=== PATIENT | male | born 1980 | race Caucasian/White ===

== ENCOUNTER 2016-06-09 10:39 | Emergency (ER) | payer SELFPAY ==
[~2016-06-09] VITALS: Ht 182.9 cm; Wt 90.0 kg
[~2016-06-09 10:39] MED LIST: CIPR500T4 PO; OXYC-360 PO; PROM25SU8 PO; Z.0.NO CURRENT MEDS
[2016-06-09 10:41] VITALS: BP 121/77; PULSE 117; RESP 17; TEMP 97.6; O2SAT 98
--- NOTE | 2016-06-10 22:19 | EKG ---
Date Performed: 06/09/2016 Time Performed: 10:49:18 PTAGE: 36 years EKG: SINUS TACHYCARDIA POSSIBLE ANTERIOR MYOCARDIAL INFARCTION INFERIOR MYOCARDIAL INFARCTION Si nce previous tracing, no significant change noted ABNORMAL ECG PREVIOUS TRACING : 04/05/2010 22.33 DOCTOR: Leslie Tillman Interpretating Date/Time 06/10/2016 22:17:08
[2016-06-12] MEDS ORDERED: ALLO100T PO (10:49)
[2016-06-26] MEDS ORDERED: HYDR50CA PO (09:33)
[2016-06-26] MEDS ORDERED: METR500T10 PO (09:33)
== END 2016-06-09 11:21 | disposition left against medical advice (07) ==
LOC: NETRI 10:39
DX: R94.31 Abnormal electrocardiogram [ECG] [EKG] (principal)
CPT/HCPCS: 93005; 99281

== ENCOUNTER 2016-06-12 10:09 | Inpatient (IN) | payer SELFPAY ==
[2016-06-12] VITALS (8 sets, daily range): BP systolic 103–136; BP diastolic 66–82; PULSE 92–126; RESP 18–20; TEMP 99.2–101.5; O2SAT 94–96
[~2016-06-12] VITALS: Ht 172.7 cm; Wt 91.1 kg
[2016-06-12] MEDS ORDERED: ALLO100T PO ×2 (10:49)
[2016-06-12] MEDS ORDERED: OXYC-395 PO (10:49)
[2016-06-12] MEDS ORDERED: LIDOCAINE 1%/EPINEPHrine 1:100,000 SOLN 20 ML VIAL INFIL ONE (11:00)
[2016-06-12] MEDS ORDERED: SODIUM CHLOR 0.9% 1000 ML INJ 700 ML IV ONE (11:39)
[2016-06-12] MEDS ORDERED: SODIUM CHLOR 0.9% 1000 ML INJ 1,000 ML IV ONE ×2 (11:39)
[2016-06-12] MEDS ORDERED: ONDANSETRON HCL 4 MG/2 ML VIAL IV ONE (11:45)
[2016-06-12 11:50] LABS: AUTOMATED NEUTROPHIL # 24.1 TH/MM3 (1.8-7.7); BASOPHIL % 0.1 % (0.0-2.0); EOSINOPHIL # 0.1 TH/MM3 (0-0.4); EOSINOPHIL % 0.2 % (0.0-4.0); HEMATOCRIT 35.3 % (39.0-51.0); LYMPH % 5.5 % (9.0-44.0); LYMPHOCYTE # 1.6 TH/MM3 (1.0-4.8); MEAN CELL VOLUME 82.1 FL (80.0-100.0); MEAN CORPUSCULAR HEMOGLOBIN 28.8 PG (27.0-34.0); MEAN CORPUSCULAR HGB CONC 35.1 % (32.0-36.0); MONO % 9.3 % (0.0-8.0); NEUT % 84.9 % (16.0-70.0); PLATELET COUNT 208 TH/MM3 (150-450); RED CELL DISTRIBUTION WIDTH 12.4 % (11.6-17.2); WHITE BLOOD COUNT 28.5 TH/MM3 (4.0-11.0)
[2016-06-12 11:57] LABS: CHLORIDE 97 MEQ/L (98-107); POTASSIUM 3.5 MEQ/L (3.5-5.1); SODIUM (NA) 134 MEQ/L (136-145)
[2016-06-12 12:00] LABS: ANION GAP 11 MEQ/L (5-15); BICARBONATE 26.3 MEQ/L (21.0-32.0); BLOOD UREA NITROGEN 16 MG/DL (7-18)
--- NOTE | 2016-06-12 12:01 | PD ---
HPI . Dizziness Chief Complaint: Dizziness Time Seen by Provider: 10:54 Travel History International Travel<30 days: No Contact w/Intl Traveler<30days: No Traveled to known affect area: No History of Present Illness HPI Patient presents complaining with dizziness, sweatiness, somnolence him a thirst , nausea, fever and blood in his urine. This is been ongoing for a couple days. It has been getting progressively worse. Pertinent history is that he has a ureteral stent in the left ureter and a Van catheter also in the left ureter. He states that this was placed in 2007 because of stones. Patient states that he is currently seeing a urologist. PFSH Past Medical History Arthritis: No Asthma: No Autoimmune Disease: No Blood Disorders: No Anxiety: Yes Depression: Yes Heart Rhythm Problems: No Cancer: No Cardiovascular Problems: No High Cholesterol: No Chest Pain: No Congestive Heart Failure: No COPD: No Cerebrovascular Accident: No Diabetes: No Diminished Hearing: No Endocrine: No GERD: No Glaucoma: No Gout: Yes Genitourinary: Yes Headaches: No Hepatitis: No Hiatal Hernia: No Hypertension: No Immune Disorder: No Kidney Stones: Yes Musculoskeletal: No Neurologic: No Psychiatric: No Reproductive: No Respiratory: No Immunizations Current: No Myocardial Infarction: No Renal Failure: No Seizures: No Sleep Apnea: No Thyroid Disease: No Ulcer: No Past Surgical History Abdominal Surgery: No AICD: No Arteriovenous Shunt: No Cardiac Surgery: No Ear Surgery: No Endocrine Surgery: No Eye Surgery: No Genitourinary Surgery: Yes (STENT FOR KIDNEY STONES) Gynecologic Surgery: No Insulin Pump: No Joint Replacement: No Oral Surgery: No Pacemaker: No Thoracic Surgery: No Tonsillectomy: Yes (AND ADENOIDECTOMY) Other Surgery: Yes Social History Alcohol Use: Yes (TWICE WEEKLY, 1-2 BEERS) Tobacco Use: Yes (ORAL TOBACCO, 2 CANS PER WEEK) Substance Use: No Allergies-Medications (Allergen,Severity, Reaction): Coded Allergies: Toradol (Verified Allergy, Severe, SWELLING OF THROAT, 06/12/16) Reported Meds & Prescriptions Reported Meds & Active Scripts Active Reported Oxycodone (Oxycodone HCl) 10 Mg Tab 10 Mg PO Q6H PRN Allopurinol 100 Mg Tab 100 Mg PO DAILY Review of Systems Except as stated in HPI: all other systems reviewed are Neg General / Constitutional: Positive: Fever, Chills HENT: No: Sore Throat, Rhinorrhea, Congestion Cardiovascular: No: Chest Pain or Discomfort Respiratory: No: Cough, Shortness of Breath Gastrointestinal: Positive: Nausea, No: Vomiting, Diarrhea Genitourinary: Positive: Hematuria Musculoskeletal: Positive: Weakness Neurologic: Positive: Weakness, Dizziness, No: Syncope, Focal Abnormalities Physical Exam Narrative GENERAL: Patient is diaphoretic. SKIN: He is pale. HEAD: Atraumatic. Normocephalic. EYES: Pupils equal and round. Extraocular movements are intact. ENT: No nasal bleeding or discharge. Mucous membranes pink and moist. NECK: Trachea midline. Neck is supple. CARDIOVASCULAR: Regular rate and rhythm. Heart sounds are normal. RESPIRATORY: No accessory muscle use. Lungs are clear with full air movement throughout. GASTROINTESTINAL: Abdomen soft, non-tender, nondistended. He does have left CVA tenderness. He has a Van catheter in from the left flank. The urine is clear. MUSCULOSKELETAL: No obvious deformities. No edema. NEUROLOGICAL: Awake and alert. No obvious cranial nerve deficits. Motor grossly within normal limits. Normal speech. PSYCHIATRIC: Appropriate mood and affect; insight and judgment normal. Data Data Last Documented VS Vital Signs Date Time Temp Pulse Resp B/P Pulse Ox O2 Delivery O2 Flow Rate FiO2 06/12/16 13:57 102 20 103/66 94 06/12/16 12:52 99.2 Orders Complete Blood Count With Diff (06/12/16 11:39) Comprehensive Metabolic Panel (06/12/16 11:39) Lactic Acid Sepsis Protocol (06/12/16 11:39) Urinalysis - C+S If Indicated (06/12/16 11:39) Blood Culture (06/12/16 11:39) Iv Access Insert/Monitor (06/12/16 11:39) Ondansetron Inj (Zofran Inj) (06/12/16 11:45) Sodium Chlor 0.9% 1000 Ml Inj (Ns 1000 M (06/12/16 11:39) Sodium Chlor 0.9% 1000 Ml Inj (Ns 1000 M (06/12/16 11:39) Sodium Chlor 0.9% 1000 Ml Inj (Ns 1000 M (06/12/16 11:39) Ct Abd/Pel W Iv Contrast(Rout) (06/12/16 12:01) Iohexol 350 Inj (Omnipaque 350 Inj) (06/12/16 12:20) Urine Culture (06/12/16 11:45) Ceftriaxone Inj (Rocephin Inj) (06/12/16 12:45) Labs Laboratory Tests Test 06/12/16 06/12/16 11:35 11:45 White Blood Count 28.5 TH/MM3 Red Blood Count 4.30 MIL/MM3 Hemoglobin 12.4 GM/DL Hematocrit 35.3 % Mean Corpuscular Volume 82.1 FL Mean Corpuscular Hemoglobin 28.8 PG Mean Corpuscular Hemoglobin 35.1 % Concent Red Cell Distribution Width 12.4 % Platelet Count 208 TH/MM3 Mean Platelet Volume 7.8 FL Neutrophils (%) (Auto) 84.9 % Lymphocytes (%) (Auto) 5.5 % Monocytes (%) (Auto) 9.3 % Eosinophils (%) (Auto) 0.2 % Basophils (%) (Auto) 0.1 % Neutrophils # (Auto) 24.1 TH/MM3 Lymphocytes # (Auto) 1.6 TH/MM3 Monocytes # (Auto) 2.7 TH/MM3 Eosinophils # (Auto) 0.1 TH/MM3 Basophils # (Auto) 0.0 TH/MM3 CBC Comment DIFF FINAL Differential Comment Sodium Level 134 MEQ/L Potassium Level 3.5 MEQ/L Chloride Level 97 MEQ/L Carbon Dioxide Level 26.3 MEQ/L Anion Gap 11 MEQ/L Blood Urea Nitrogen 16 MG/DL Creatinine 1.40 MG/DL Estimat Glomerular Filtration 57 ML/MIN Rate Random Glucose 177 MG/DL Calcium Level 9.2 MG/DL Total Bilirubin 0.9 MG/DL Aspartate Amino Transf 12 U/L (AST/SGOT) Alanine Aminotransferase 24 U/L (ALT/SGPT) Alkaline Phosphatase 83 U/L Total Protein 8.2 GM/DL Albumin 3.7 GM/DL Urine Collection Type CATH Urine Color YELLOW Urine Turbidity SLIGHTY CLOUDY Urine pH 6.0 Urine Specific [place] 1.014 Urine Protein 100 mg/dL Urine Glucose (UA) NEG mg/dL Urine Ketones NEG mg/dL Urine Occult Blood LARGE Urine Nitrite NEG Urine Bilirubin NEG Urine Leukocyte Esterase MOD Urine RBC 10-14 /hpf Urine WBC 20-24 /hpf Urine WBC Clumps FEW Urine Squamous Epithelial 0-5 /hpf Cells Urine Amorphous Sediment SMALL Urine Bacteria MOD /hpf Microscopic Urinalysis Comment CULTURE INDICATED Lactic Acid Level 0.9 mmol/L [facility] Medical Decision Making Medical Screen Exam Complete: Yes Emergency Medical Condition: Yes Differential Diagnosis Differential diagnosis of fever includes but is not limited to viral illness, strep throat, otitis media, pneumonia, sepsis, UTI Narrative Course Patient presents with multiple complaints. He has been febrile with diaphoresis , dizziness, somnolence, increased thirst and nausea. He has a stent in the left ureter along with a Van catheter in the left ureter. He has left CVA tenderness on exam. He will be evaluated for possible sepsis, specifically urosepsis. CBC & BMP Diagram 06/12/16 11:35 Lactic acid is 0.9. UA shows large blood, moderate leukocyte esterase, 10-14 RBCs, 20-24 WBCs, WBC clumps and moderate bacteria Sepsis Criteria SIRS Criteria (2 or more): Temp > 100.9 or < 96.8, Heart rate over 90, WBC > 65528, < 4000 or > 10% bands Sepsis Criteria (SIRS+source): Infect source susp/known Physician Communication Physician Communication Case discussed with Dr. Del Rio who recommends outpatient oral antibiotics and close urological follow-up Diagnosis Primary Impression: UTI (urinary tract infection) Qualified Code: N10 - Acute pyelonephritis Additional Impressions: Leukocytosis Qualified Code: D72.829 - Leukocytosis, unspecified type Renal calculi Referrals: Cristian Del Rio MD Patient Instructions: General Instructions, Kidney Stones (DC), Urinary Tract Infection in Men (DC) Additional Instructions: Drink lots of fluids. Ibuprofen as needed for fever. Cipro for infection. Follow-up with either Dr. Del Rio or with your urologist in 1 week or less. Med/Other Pt SpecificInfo: Prescription(s) given Scripts Ibuprofen 800 Mg Peh763 Mg PO Q8H PRN (FEVER) #30 TAB Ref 0 Prov:Marium Alvarado MD 06/12/16 Ciprofloxacin (Cipro)500 Mg Thl696 Mg PO BID #20 TAB Ref 0 Prov:Marium Alvarado MD 06/12/16 Disposition: 01 DISCHARGE HOME Condition: Stable Marium Alvarado MD Jun 12, 2016 12:01
[2016-06-12 12:02] LABS: HEMO FLAGS DIFF FINAL
[2016-06-12 12:03] LABS: ALT (GPT) 24 U/L (12-78)
[2016-06-12 12:04] LABS: AST (GOT) 12 U/L (15-37); GLOMERULAR FILTRATION RATE 57 ML/MIN (>89)
[2016-06-12 12:05] LABS: TOTAL BILIRUBIN ADULT 0.9 MG/DL (0.2-1.0)
[2016-06-12 12:06] LABS: ALKALINE PHOSPHATASE 83 U/L (45-117)
[2016-06-12 12:14] LABS: BLOOD, URINE LARGE (NEG); GLUCOSE,URINE NEG (NEG); KETONE, URINE NEG (NEG); NITRITE,URINE NEG (NEG)
[2016-06-12] MEDS ORDERED: IOHEXOL 350 MG/ML 10 ML VIAL (for RAD DIAG) IV ONE (12:20)
[2016-06-12 12:27] LABS: METHOD OF COLLECTION CATH; URINE COLOR YELLOW (YELLW/STRAW)
[2016-06-12 12:31] LABS: BACTERIA, URINE MOD /hpf; COMMENT (UR) CULTURE INDICATED; CULTURE IF INDICATED CULTURE INDICATED; SQUAMOUS EPITHELIAL CELL URINE 0-5 /hpf (0-5)
[2016-06-12] MEDS ORDERED: cefTRIAXone INJ 1,000 MG in SODIUM CHLORIDE 0.9% INJ 100 ML IV ONE (12:45)
--- NOTE | 2016-06-12 13:46 | RADHPO ---
EXAM DATE/TIME: 06/12/2016 12:09 [place] COMPARISON: CT ABDOMEN & PELVIS W/O CONTRAST, September 27, 2011, 23:48. INDICATIONS : Fever. Nausea. Blood in urine x 2 days. Left lower quadrant pain. IV CONTRAST: 85 cc Omnipaque 350 (iohexol) IV ORAL CONTRAST: No oral contrast ingested. RADIATION DOSE: 14.67 CTDIvol (mGy) MEDICAL HISTORY : Renal calculi. SURGICAL HISTORY : Van catheter. Ureteral stent. ENCOUNTER: Initial ACUITY: 2 days PAIN SCALE: 2/10 LOCATION: Left lower quadrant TECHNIQUE: Volumetric scanning of the abdomen and pelvis was performed. Using automated exposure control and ad justment of the mA and/or kV according to patient size, radiation dose was kept as low as reasonably achievable to obtain optimal diagnostic quality images. FINDINGS: LOWER LUNGS: Mild atelectasis at the left lung base. LIVER: Mild intrahepatic biliary ductal prominence diffusely. Mildly diffusely nodular contour of the liver capsule. No focal masses identified. SPLEEN: Enlarged measuring 14 cm in craniocaudal dimension. No focal masses. PANCREAS: Within normal limits. KIDNEYS: Large bilateral renal calculi again seen with staghorn calculus in the upper left kidney. Double-J ur eteral stent in place on the left. Track of left-sided percutaneous nephrostomy tube is seen on the l eft posteriorly. 1.2 cm calculus is seen posteriorly in the paranephric fat adjacent to the nephrosto my tube tract. No evidence of hydronephrosis or hydroureter. Several cysts are seen bilaterally. Mult iple calculi are seen within the left ureter including 1 cm calculus proximally and multiple subcenti meter calculi distally. ADRENAL GLANDS: Within normal limits. VASCULAR: There is no aortic aneurysm. BOWEL/MESENTERY: The stomach, small bowel, and colon demonstrate no acute abnormality. There is no free intraperitone al air or fluid. ABDOMINAL WALL: Within normal limits. RETROPERITONEUM: There is no lymphadenopathy. BLADDER: No wall thickening or mass. REPRODUCTIVE: Within normal limits. INGUINAL: There is no lymphadenopathy or hernia. MUSCULOSKELETAL: Within normal limits for patient age. CONCLUSION: 1. Large bilateral renal calculi again seen. Staghorn calculus again seen in the upper pole on the le ft. 2. Left-sided double-J ureteral stent in place. Multiple left sided ureteral calculi. No evidence of hydronephrosis. 3. Track from prior left-sided nephrostomy tube with calculus seen posterior to left kidney in the pa ranephric fat adjacent to the track. 4. Diffusely mildly nodular liver capsule contour suggesting possible cirrhosis. 5. Mild splenomegaly. Reji Lyman MD on June 12, 2016 at 13:36 Board Certified Radiologist. This report was verified electronically.
[2016-06-12] MEDS ORDERED: CIPR-9 PO (14:14)
[2016-06-12] MEDS ORDERED: IBUP800T23 PO (14:14)
[2016-06-12] MEDS ORDERED: ACETAMINOPHEN 325 MG TAB PO ONE (15:45)
[2016-06-12] MEDS: SODIUM CHLOR 0.9% 1000 ML INJ 1,000 ML IV SCH (15:53)
[2016-06-12] MEDS: PIPERACIL-TAZO 3.375 GM PREMIX 50 ML IV SCH ×2 (15:54→21:38)
[2016-06-12] MEDS: ONDANSETRON HCL 4 MG/2 ML VIAL IVP PRN ×2 (15:59→20:43)
[2016-06-12] MEDS ORDERED: SODIUM CHLORIDE 0.9% FLUSH 10 ML FLUSH IV FLUSH PRN (16:00)
[2016-06-12] MEDS ORDERED: NALOXONE HCL 0.4 MG/ML AMP IV PRN (16:00)
[2016-06-12] MEDS ORDERED: TEMAZEPAM 15 MG CAP PO PRN (16:00)
[2016-06-12] MEDS: SODIUM CHLORIDE 0.9% FLUSH 10 ML FLUSH IV FLUSH SCH (20:42)
[2016-06-12] MEDS: ACETAMINOPHEN/HYDROcodone 325 MG/5 MG TAB PO PRN (20:43)
[2016-06-13] MEDS: SODIUM CHLOR 0.9% 1000 ML INJ 1,000 ML IV SCH ×2 (01:12→11:47)
[2016-06-13] MEDS: ONDANSETRON HCL 4 MG/2 ML VIAL IVP PRN (03:31)
[2016-06-13] MEDS: PIPERACIL-TAZO 3.375 GM PREMIX 50 ML IV SCH ×4 (03:31→16:52)
[2016-06-13] MEDS: ACETAMINOPHEN/HYDROcodone 325 MG/5 MG TAB PO PRN ×4 (03:31→19:25)
[2016-06-13 04:00] VITALS: BP 110/62; PULSE 122; RESP 18; TEMP 98.9; O2SAT 93
[2016-06-13 05:56] LABS: BASOPHIL % 0.2 % (0.0-2.0); EOSINOPHIL # 0.4 TH/MM3 (0-0.4); EOSINOPHIL % 2.2 % (0.0-4.0); HEMATOCRIT 28.6 % (39.0-51.0); LYMPH % 7.5 % (9.0-44.0); LYMPHOCYTE # 1.4 TH/MM3 (1.0-4.8); MEAN CELL VOLUME 82.9 FL (80.0-100.0); MEAN CORPUSCULAR HEMOGLOBIN 27.7 PG (27.0-34.0); MEAN CORPUSCULAR HGB CONC 33.4 % (32.0-36.0); NEUT % 81.1 % (16.0-70.0); PLATELET COUNT 166 TH/MM3 (150-450); RED BLOOD COUNT 3.45 MIL/MM3 (4.50-5.90); RED CELL DISTRIBUTION WIDTH 12.6 % (11.6-17.2); WHITE BLOOD COUNT 18.5 TH/MM3 (4.0-11.0)
[2016-06-13 06:00] LABS: HEMO FLAGS AUTO DIFF
[2016-06-13 06:02] LABS: POTASSIUM 3.5 MEQ/L (3.5-5.1)
[2016-06-13 06:08] LABS: BICARBONATE 25.6 MEQ/L (21.0-32.0)
[2016-06-13 06:13] LABS: BANDS 7 % (0-6); EOSINOPHILS 2 % (0-4); PLATELET ESTIMATE SMEAR NORMAL (NORMAL); PLATELET MORPHOLOGY NORMAL (NORMAL); POLYS (SEG NEUTROPHILS) 74 % (16-70); WBC DIFF SAMPLE 100
[2016-06-13 06:14] LABS: SCAN/DIFF FINAL DIFF MANUAL
[2016-06-13 08:00] VITALS: BP 146/94; PULSE 59; RESP 16; TEMP 98; O2SAT 98
[2016-06-13] MEDS: SODIUM CHLORIDE 0.9% FLUSH 10 ML FLUSH IV FLUSH SCH ×2 (09:00→21:00)
[2016-06-13 12:00] VITALS: BP 134/76; PULSE 80; RESP 18; TEMP 98.3; O2SAT 97
[2016-06-13 16:00] VITALS: BP 147/94; PULSE 73; RESP 16; TEMP 97.8; O2SAT 96
--- NOTE | 2016-06-13 17:19 | HHI.HP ---
HPI Service [facility] Hospitalists Primary Care Physician No Primary Care Physician Admission Diagnosis Sepsis due to UTI Complicated UTI Diagnoses: Travel History International Travel<30 Days: No Contact w/Intl Traveler <30 Da: No Traveled to Known Affected Are: No History of Present Illness This is a very pleasant 36 year-old male with past medical history of kidney stones, recovering alcoholic who presents to the ER yesterday complaining of a 2 to three-day history of hot and cold sweats, and jitteriness/ anxiety, dizziness and feeling very weak. The patient has a history of left ureteral stent placed in 2007 at [place], for which he never followed up. He had been being treated in outpatient alcohol addiction program "sober house" [facility] recently. While there apparently he had a near syncopal event and was admitted to [facility] in [place] and hospitalized for about 16 days. At that time it was discovered that he had a large calculus which was apparently obstructive despite the ureteral stent, he underwent left nephrostomy tube and several lithotripsies. He was told that the stent was too calcified to come out during the hospitalization. His hospital course was complicated by UTI infection as well as C. difficile. He also had resection of the right elbow tophi. The patient states that he was discharged from the hospital about a month ago and has a follow-up appointment with the urologist who treated him there Dr. Jerry Easton. In our emergency department last night the patient was found to be febrile, tachycardic, with leukocytosis of 28,000 with left shift, initial lactic acid was 0.9, he was normotensive. The patient was treated with IV fluids and Zosyn. Abdominal CT scan revealed large bilateral renal calculi with a staghorn calculus in the left upper pole, a left-sided ureteral double-J stent with multiple left-sided ureteral calculi and no evidence of hydronephrosis. Left-sided nephrostomy tube was also present with a calculus being seen in the perinephric fat posterior to the left kidney. Incidental finding of cirrhosis which the patient was unaware of, mild splenomegaly. Today the patient is still complaining of dizziness all this is improved. He continues to have hot and cold flashes although it is subsiding. Blood pressure has been stable and pulse has come down with no further fevers today. The patient also complains of some left lower quadrant abdominal pain which is chronic from the stent. No nausea or vomiting. Stools have been formed without diarrhea. The patient states he has not had any alcohol since February 2016. He denies any dysuria or urgency. The ED physician did speak with the urologist on-call who recommended the patient needed to have outpatient urology follow-up. Review of Systems Except as stated in HPI: all other systems reviewed are Neg Past Family Social History Past Medical History History of alcoholism in remission since February 2016 Past Surgical History GENERAL: Well-nourished, well-developed very pleasant male patient in no apparent distress. SKIN: Warm and dry. Face is somewhat flushed. HEAD: Normocephalic. EYES: No scleral icterus. No injection or drainage. NECK: Supple, trachea midline. No JVD or lymphadenopathy. CARDIOVASCULAR: Regular rate and rhythm without murmurs, gallops, or rubs. RESPIRATORY: Breath sounds equal bilaterally. No accessory muscle use. GASTROINTESTINAL: Bowel sounds present. Abdomen soft, non-tender, nondistended. Left nephrostomy tube noted. EXTREMITIES: No cyanosis, or edema. Has a healing incision/scar right elbow. NEUROLOGICAL: Awake, alert, and oriented x 3. Non-focal. Reported Medications Allergies Coded Allergies Type Severity Reaction Last Updated Verified Toradol Allergy Severe SWELLING OF THROAT 06/12/16 Yes Active Scripts Medications Dose Route/Sig Days Date Category Ibuprofen 800 Mg Tab 800 Mg PO Q8H PRN 06/12/16 Rx Cipro (Ciprofloxacin HCl) 500 Mg Tab 500 Mg PO BID 06/12/16 Rx Oxycodone (Oxycodone HCl) 10 Mg Tab 10 Mg PO Q6H PRN 06/12/16 Reported Allopurinol 100 Mg Tab 100 Mg PO DAILY 06/12/16 Reported Allergies: Coded Allergies: Toradol (Verified Allergy, Severe, SWELLING OF THROAT, 06/12/16) Family History Father does have kidney stones. Social History He has 2 children under age 6. No history of recreational drug use or IV drug use. Quit drinking in February 2016. He currently is living with his father in the [facility]. Physical Exam Vital Signs Vital Signs Date Time Temp Pulse Resp B/P Pulse Ox O2 Delivery O2 Flow Rate FiO2 06/13/16 16:48 18 06/13/16 13:03 Room Air 06/13/16 12:00 98.3 80 18 134/76 97 06/13/16 08:00 98.0 59 16 146/94 98 06/13/16 04:00 98.9 122 18 110/62 93 06/13/16 04:00 Room Air 06/13/16 00:00 Room Air 06/12/16 23:48 99.3 92 18 106/67 95 06/12/16 20:00 100.2 105 18 119/74 94 06/12/16 20:00 Room Air 06/12/16 17:40 18 Physical Exam GENERAL: This is a well-nourished, well-developed patient, in no apparent distress. SKIN: No rashes, ecchymoses or lesions. Cool and dry. HEAD: Atraumatic. Normocephalic. No temporal or scalp tenderness. EYES: Pupils equal round and reactive. Extraocular motions intact. No scleral icterus. No injection or drainage. ENT: Nose without bleeding, purulent drainage or septal hematoma. Throat without erythema, tonsillar hypertrophy or exudate. Uvula midline. Airway patent. NECK: Trachea midline. No JVD or lymphadenopathy. Supple, nontender, no meningeal signs. CARDIOVASCULAR: Regular rate and rhythm without murmurs, gallops, or rubs. RESPIRATORY: Clear to auscultation. Breath sounds equal bilaterally. No wheezes , rales, or rhonchi. GASTROINTESTINAL: Abdomen soft, non-tender, nondistended. No hepato-splenomegaly , or palpable masses. No guarding. MUSCULOSKELETAL: Extremities without clubbing, cyanosis, or edema. No joint tenderness, effusion, or edema noted. No calf tenderness. Negative Homans sign bilaterally. NEUROLOGICAL: Awake and alert. Cranial nerves II through XII intact. Motor and sensory grossly within normal limits. Five out of 5 muscle strength in all muscle groups. Normal speech. Laboratory Laboratory Tests Test 06/13/16 04:50 White Blood Count 18.5 Red Blood Count 3.45 Hemoglobin 9.6 Hematocrit 28.6 Mean Corpuscular Volume 82.9 Mean Corpuscular Hemoglobin 27.7 Mean Corpuscular Hemoglobin 33.4 Concent Red Cell Distribution Width 12.6 Platelet Count 166 Mean Platelet Volume 7.9 Neutrophils (%) (Auto) 81.1 Lymphocytes (%) (Auto) 7.5 Monocytes (%) (Auto) 9.0 Eosinophils (%) (Auto) 2.2 Basophils (%) (Auto) 0.2 Neutrophils # (Auto) 15.0 Lymphocytes # (Auto) 1.4 Monocytes # (Auto) 1.7 Eosinophils # (Auto) 0.4 Basophils # (Auto) 0.0 CBC Comment AUTO DIFF Differential Total Cells 100 Counted Neutrophils % (Manual) 74 Band Neutrophils % 7 Lymphocytes % 9 Monocytes % 8 Eosinophils % 2 Neutrophils # (Manual) 15.0 Differential Comment FINAL DIFF MANUAL Platelet Estimate NORMAL Platelet Morphology Comment NORMAL Red Cell Morphology Comment NORMAL Sodium Level 139 Potassium Level 3.5 Chloride Level 103 Carbon Dioxide Level 25.6 Anion Gap 10 Blood Urea Nitrogen 14 Creatinine 1.30 Estimat Glomerular Filtration 62 Rate Random Glucose 107 Calcium Level 8.1 Date/Time Procedure Status Source Growth 06/12/16 11:45 Urine Culture - Preliminary Resulted Urine Catheterized Urine Gram Negative Ced 06/12/16 11:45 Aerobic Blood Culture - Preliminary Resulted Blood Peripheral NO GROWTH IN 1 DAY 06/12/16 11:45 Anaerobic Blood Culture - Preliminary Resulted Blood Peripheral NO GROWTH IN 1 DAY Result Diagram: 06/13/16 0450 06/13/16 0450 Imaging Last Impressions Abdomen/Pelvis CT 06/12/16 1201 Signed Impressions: Service Date/Time: May 12:09 - CONCLUSION: 1. Large bilateral renal calculi again seen. Staghorn calculus again seen in the upper pole on the left. 2. Left-sided double-J ureteral stent in place. Multiple left sided ureteral calculi. No evidence of hydronephrosis. 3. Track from prior left-sided nephrostomy tube with calculus seen posterior to left kidney in the paranephric fat adjacent to the track. 4. Diffusely mildly nodular liver capsule contour suggesting possible cirrhosis. 5. Mild splenomegaly. Reji Lyman MD Septic Shock Reassessment Heart: Regular rate and rhythm Lungs: Clear Peripheral Pulses: Bounding Right Radial Bounding Left Radial Bounding Right Popliteal Bounding Left Popliteal Bounding Right Dorsalis Pedis Bounding Left Dorsalis Pedis Bounding Right Posterior Tibial Bounding Left Posterior Tibial Capillary Refill: Brisk Assessment and Plan Problem List: (1) Renal calculi ICD Code: N20.0 Status: Acute (2) Leukocytosis ICD Code: D72.829 Status: Acute (3) Generalized anxiety disorder ICD Code: F41.1 Status: Chronic (4) Gout ICD Code: M10.9 Status: Chronic (5) Anemia ICD Code: D64.9 Status: Acute (6) Cirrhosis of liver ICD Code: K74.60 Status: Acute (7) Complicated UTI (urinary tract infection) ICD Code: N39.0 Status: Acute (8) Recovering alcoholic in remission ICD Code: F10.21 Status: Acute (9) Sepsis due to urinary tract infection ICD Code: A41.9 Status: Acute (10) Staghorn calculus ICD Code: N20.0 Status: Acute Assessment and Plan -Severe Sepsis due to UTI. Clinically improving. Continue Zosyn IV. Blood cultures negative at 24 hours, urine culture preliminary with gram-negative ced. Renal function good. Blood pressure stable. -Complicated UTI with left nephrostomy tube and left ureteral stent - as above. Continue Zosyn IV. -Acute kidney injury due to sepsis, resolved. Follow BMP and urine output. -Staghorn calculus, multiple left ureteral stones with left double-J stent indwelling since 2007, left nephrostomy tube placed approximately 6 weeks ago at outside hospital as well as multiple lithotripsies -he was told that the stent placed in 2007 was too calcified. Patient has follow-up appointment with a urologist Dr. Easton in [place], [place] on July 03. A urologist quality control systems manager did speak with the ER physician and recommended the patient follow-up with urology as outpatient. Patient is planning on keeping this appointment. I will request the hospital records from [place]. We'll continue Percocet as needed for the stent pain. -Anemia, probably dilutional. Will check iron profile. Repeat CBC in the morning. -Possible cirrhosis with nodular liver capsule seen on abdominal CT scan. Compensated. Likely due to history of alcoholism. Patient was previously unaware. Will need GI follow-up outpatient. 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 Liver enzymes support this. Monitor for any withdrawals. -Anxiety disorder. Continue Zoloft and Vistaril. He is followed at [facility]. -Currently without insurance. We'll try to get him set up with patient assistance so that he can be seen in the community clinic at [place]. -Mild hyponatremia. Resolved with IV fluids. -Gout, status post right elbow resection of tophi about 6 weeks ago. Continue allopurinol. -Status post treatment for C. difficile at outside hospital 6 weeks ago and has had formed stool since. Monitor for any diarrhea. -DVT prophylaxis with SCDs. Problem Qualifiers (1) Leukocytosis: Qualified Code: D72.829 - Leukocytosis, unspecified type (2) Gout: Flor Eldridge MD Jun 13, 2016 17:19
[2016-06-13] MEDS: ACETAMINOPHEN 325 MG TAB PO PRN (19:52)
[2016-06-13 20:45] VITALS: BP 118/81; PULSE 105; RESP 18; TEMP 100.9; O2SAT 100
[2016-06-14] VITALS: BP 130/87; PULSE 102; RESP 18; TEMP 100.2; O2SAT 100
[2016-06-14] MEDS: ACETAMINOPHEN 325 MG TAB PO PRN ×2 (00:11→03:56)
[2016-06-14] MEDS: SODIUM CHLOR 0.9% 1000 ML INJ 1,000 ML IV SCH ×3 (00:13→17:26)
[2016-06-14 04:00] VITALS: BP 138/89; PULSE 108; RESP 20; TEMP 98.7; O2SAT 100
[2016-06-14] MEDS: PIPERACIL-TAZO 3.375 GM PREMIX 50 ML IV SCH ×4 (04:35→21:50)
[2016-06-14 06:56] LABS: AUTOMATED NEUTROPHIL # 8.8 TH/MM3 (1.8-7.7); BASOPHIL % 0.3 % (0.0-2.0); EOSINOPHIL # 0.7 TH/MM3 (0-0.4); EOSINOPHIL % 5.5 % (0.0-4.0); HEMATOCRIT 27.6 % (39.0-51.0); HEMO FLAGS DIFF FINAL; LYMPH % 10.9 % (9.0-44.0); LYMPHOCYTE # 1.3 TH/MM3 (1.0-4.8); MEAN CELL VOLUME 83.2 FL (80.0-100.0); MEAN CORPUSCULAR HEMOGLOBIN 27.5 PG (27.0-34.0); MONO % 8.9 % (0.0-8.0); NEUT % 74.4 % (16.0-70.0); PLATELET COUNT 162 TH/MM3 (150-450); RED BLOOD COUNT 3.31 MIL/MM3 (4.50-5.90); RED CELL DISTRIBUTION WIDTH 12.3 % (11.6-17.2); WHITE BLOOD COUNT 11.9 TH/MM3 (4.0-11.0)
[2016-06-14 07:00] LABS: POTASSIUM 3.1 MEQ/L (3.5-5.1)
[2016-06-14 08:00] VITALS: BP 119/73; PULSE 89; RESP 17; TEMP 97.6; O2SAT 99
[2016-06-14] MEDS: SODIUM CHLORIDE 0.9% FLUSH 10 ML FLUSH IV FLUSH SCH ×2 (09:00→21:00)
[2016-06-14 12:00] VITALS: BP 121/80; PULSE 88; RESP 18; TEMP 97.7; O2SAT 97
[2016-06-14] MEDS: DOCUSATE SODIUM 100 MG CAP PO SCH ×2 (13:59→17:21)
[2016-06-14] MEDS ORDERED: predniSONE 20 MG TAB PO ONE (15:00)
[2016-06-14] MEDS ORDERED: COLCHICINE 0.6 MG TAB PO ONE (15:00)
--- NOTE | 2016-06-14 15:17 | HHI.PR ---
Subjective Remarks Patient seen and examined today with Dr. Eldridge. Patient states that is doing well until last night when he started noticing his gout acting up. He was out walking and had sudden onset of bilateral knee pain he is having significant amount of pain with ambulation. Is unable to ambulate at this time due to the pain. He states he also having left hand fourth digit swelling and pain where he can't bend it. The patient states that he typically gets flareups in his knees and fourth digit and occasionally in his feet. He states usually this responds very well to steroids. He is not sure if he's ever taking colchicine. Objective Vitals Vital Signs Date Time Temp Pulse Resp B/P Pulse Ox O2 Delivery O2 Flow Rate FiO2 06/14/16 12:00 97.7 88 18 121/80 97 06/14/16 08:00 97.6 89 17 119/73 99 06/14/16 04:00 98.7 108 20 138/89 100 06/14/16 00:00 100.2 102 18 130/87 100 06/13/16 20:45 100.9 105 18 118/81 100 06/13/16 20:00 Room Air 06/13/16 16:48 18 06/13/16 16:00 97.8 73 16 147/94 96 I/O 06/13/16 06/13/16 06/13/16 06/14/16 06/14/16 06/14/16 07:00 15:00 23:00 07:00 15:00 23:00 Intake Total 750 ml Output Total 1389 ml 200 ml Balance -1389 ml 750 ml -200 ml Intake Oral 650 ml IV Total 100 ml Output Urine Total 1389 ml 200 ml # Voids 2 Result Diagram: 06/14/16 0615 06/14/16 0615 Objective Remarks GENERAL: Well-developed, well-nourished, in no acute distress. alert and orientated HEENT: Head is normocephalic without any lesions or masses noted. Facial features are symmetric. Eyes: Extraocular muscles are intact. Conjunctivae were clear. NECK: Supple without any masses. Trachea midline no deviation. No JVD, CARDIAC: Regular rhythm, regular rate. S1/S2 are heard. No murmurs gallops or rubs. LUNGS: Clear to auscultation bilaterally. No wheeze, rhonchi or rales. No use of accessory muscles on inspiration or expiration. ABDOMEN: Soft, nontender. Nondistended. Bowel sounds heard in all 4 quadrants. No organomegaly or masses. Negative rebound, negative guarding EXTREMITIES: No edema, pulses are equal bilaterally. No cyanosis or clubbing. Bilateral knees appear to have some mild swelling, no erythema. Pain on range of motion NEUROLOGY: Mood and affect appear appropriate. Cranial nerves II through XII grossly intact. Moving all extremities, speech is clear Urinary Catheter: No Vascular Central Line Catheter: No A/P Assessment and Plan -Severe Sepsis due to UTI. Clinically improving, defervescing with downtrending white blood cell count Continue Zosyn IV. Blood cultures negative at 24 hours, urine culture preliminary with gram-negative jacky and group D enterococcus.. Renal function good. Blood pressure stable. -Complicated UTI with left nephrostomy tube and left ureteral stent - as above. Continue Zosyn IV. -Acute kidney injury due to sepsis, resolved. Follow BMP and urine output. -Staghorn calculus, multiple left ureteral stones with left double-J stent indwelling since 2007, left nephrostomy tube placed approximately 6 weeks ago at outside hospital as well as multiple lithotripsies -he was told that the stent placed in 2007 was too calcified. Patient has follow-up appointment with a urologist Dr. Easton in [place], [place] on July 03. A urologist diamond die polisher did speak with the ER physician and recommended the patient follow-up with urology as outpatient. Patient is planning on keeping this appointment. Requested the hospital records from [place]. We'll continue Percocet as needed for the stent pain. -Anemia, probably dilutional. Awaiting iron profile. Repeat CBC in the morning. -Possible cirrhosis with nodular liver capsule seen on abdominal CT scan. Compensated. Likely due to history of alcoholism. Patient was previously unaware. Will need GI follow-up outpatient. 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 Liver enzymes support this. Monitor for any withdrawals. -Anxiety disorder. Continue Zoloft and Vistaril. He is followed at [facility]. -Currently without insurance. Case management consulted to get him set up with patient assistance so that he can be seen in the community clinic at [place]. -Mild hyponatremia. Resolved with IV fluids. -Gout, status post right elbow resection of tophi about 6 weeks ago. Now with acute flareup in the knees. Continue allopurinol. Given dose of prednisone and Colchicine. -Status post treatment for C. difficile at outside hospital 6 weeks ago and has had formed stool since. Monitor for any diarrhea. -DVT prophylaxis with SCDs. Written by Tawanda Roque PA-C, acting as scribe for Dr. Eldridge on 06/14/16 at 1530. The documentation accurately reflects the work and decisions performed face-to- face by Dr. Eldridge on 06/14/16 at 1530. All or portions of this note were transcribed by scribe Tawanda Roque. I, Dr. Flor Eldridge personally performed the history, physical exam, and medical decision making; and confirmed the accuracy of the information in the transcribed note. Authenticated by Dr. Flor Eldridge on 06/14/16 at 18:19. Tawanda Roque Jun 14, 2016 15:17 Flor Eldridge MD Jun 14, 2016 18:19
[2016-06-14 16:00] VITALS: BP 127/77; PULSE 110; RESP 17; TEMP 101.3; O2SAT 98
[2016-06-14 16:32] LABS: FERRITIN 549 NG/ML (26-388); TRANSFERRIN IRON PROFILE 121 MG/DL (200-360); URIC ACID 3.5 MG/DL (2.6-7.2)
[2016-06-14] MEDS: MAGNESIUM HYDROXIDE SUSP 30 ML CUP PO PRN ×2 (17:54→17:59)
[2016-06-14 20:00] VITALS: BP 120/80; PULSE 101; RESP 20; TEMP 97.8; O2SAT 96
[2016-06-15] VITALS: BP 121/87; PULSE 76; RESP 18; TEMP 96.4; O2SAT 99
[2016-06-15 04:00] VITALS: BP 121/87; PULSE 76; RESP 18; TEMP 96.4; O2SAT 99
[2016-06-15] MEDS: SODIUM CHLOR 0.9% 1000 ML INJ 1,000 ML IV SCH ×2 (04:42→13:47)
[2016-06-15] MEDS: PIPERACIL-TAZO 3.375 GM PREMIX 50 ML IV SCH ×4 (04:42→22:31)
[2016-06-15 07:39] LABS: AUTOMATED NEUTROPHIL # 6.5 TH/MM3 (1.8-7.7); BASOPHIL % 0.1 % (0.0-2.0); EOSINOPHIL # 0.1 TH/MM3 (0-0.4); EOSINOPHIL % 0.8 % (0.0-4.0); HEMATOCRIT 28.5 % (39.0-51.0); HEMO FLAGS DIFF FINAL; LYMPH % 8.9 % (9.0-44.0); LYMPHOCYTE # 0.7 TH/MM3 (1.0-4.8); MEAN CELL VOLUME 83.3 FL (80.0-100.0); MEAN CORPUSCULAR HEMOGLOBIN 27.4 PG (27.0-34.0); MEAN CORPUSCULAR HGB CONC 32.8 % (32.0-36.0); MONO % 7.9 % (0.0-8.0); NEUT % 82.3 % (16.0-70.0); PLATELET COUNT 224 TH/MM3 (150-450); POTASSIUM 3.6 MEQ/L (3.5-5.1); RED BLOOD COUNT 3.42 MIL/MM3 (4.50-5.90); RED CELL DISTRIBUTION WIDTH 12.1 % (11.6-17.2); WHITE BLOOD COUNT 7.9 TH/MM3 (4.0-11.0)
[2016-06-15 07:44] LABS: BICARBONATE 26.8 MEQ/L (21.0-32.0); MAGNESIUM 1.6 MG/DL (1.5-2.5)
[2016-06-15 08:00] VITALS: BP 111/79; PULSE 69; RESP 19; TEMP 97.6; O2SAT 100
[2016-06-15] MEDS: SODIUM CHLORIDE 0.9% FLUSH 10 ML FLUSH IV FLUSH SCH ×2 (09:00→22:32)
[2016-06-15] MEDS: DOCUSATE SODIUM 100 MG CAP PO SCH ×3 (09:46→17:45)
[2016-06-15 12:00] VITALS: BP 117/83; PULSE 99; RESP 18; TEMP 97.7; O2SAT 98
--- NOTE | 2016-06-15 12:44 | HHI.PR ---
Subjective Remarks Patient states knee pain is much improved as well as swelling has diminished. Knees are still sore. He is still having hot and cold spells but no documented fever. Objective Vitals Vital Signs Date Time Temp Pulse Resp B/P Pulse Ox O2 Delivery O2 Flow Rate FiO2 06/15/16 12:00 97.7 99 18 117/83 98 06/15/16 12:00 97.7 99 18 117/83 98 06/15/16 08:00 97.6 69 19 111/79 100 06/15/16 04:00 96.4 76 18 121/87 99 06/15/16 00:00 96.4 76 18 121/87 99 06/15/16 00:00 96.4 76 18 121/87 99 06/14/16 20:00 97.8 101 20 120/80 96 06/14/16 19:00 96 Room Air 06/14/16 16:00 101.3 110 17 127/77 98 I/O 06/14/16 06/14/16 06/14/16 06/15/16 06/15/16 06/15/16 07:00 15:00 23:00 07:00 15:00 23:00 Intake Total 1983 ml Output Total 200 ml Balance -200 ml 1983 ml Intake Oral 620 ml IV Total 1363 ml Output Urine Total 200 ml # Voids 2 # Bowel Movements 0 Result Diagram: 06/15/16 0615 06/15/16 0615 Objective Remarks GENERAL: Well-nourished, well-developed very pleasant male patient in no apparent distress. SKIN: Warm and dry. He is somewhat pale. Face is somewhat flushed. HEAD: Normocephalic. EYES: No scleral icterus. No injection or drainage. NECK: Supple, trachea midline. No JVD or lymphadenopathy. CARDIOVASCULAR: Regular rate and rhythm without murmurs, gallops, or rubs. RESPIRATORY: Breath sounds equal bilaterally. No accessory muscle use. GASTROINTESTINAL: Bowel sounds present. Abdomen soft, non-tender, nondistended. Left nephrostomy tube noted. EXTREMITIES: Swelling of bilateral knees, improved. No erythema. Has a healing incision/scar right elbow. Left third digit is swollen. NEUROLOGICAL: Awake, alert, and oriented x 3. Non-focal. A/P Problem List: (1) Renal calculi ICD Code: N20.0 Status: Acute (2) Leukocytosis ICD Code: D72.829 Status: Acute (3) Generalized anxiety disorder ICD Code: F41.1 Status: Chronic (4) Gout ICD Code: M10.9 Status: Acute (5) Anemia ICD Code: D64.9 Status: Chronic (6) Cirrhosis of liver ICD Code: K74.60 Status: Chronic (7) Complicated UTI (urinary tract infection) ICD Code: N39.0 Status: Acute (8) Recovering alcoholic in remission ICD Code: F10.21 Status: Chronic (9) Sepsis due to urinary tract infection ICD Code: A41.9 Status: Acute (10) Staghorn calculus ICD Code: N20.0 Status: Chronic Assessment and Plan -Severe Sepsis due to UTI. Clinically improving, defervescing with resolved leukocytosis. Continue Zosyn IV. Blood cultures negative at 72 hours hours, urine culture preliminary with gram-negative jacky and group D enterococcus; final identification pending.. Renal function good. Blood pressure stable. -Complicated UTI with left nephrostomy tube and left ureteral stent - as above. Continue Zosyn IV. -Acute kidney injury due to sepsis, resolved. Follow BMP and urine output. -Staghorn calculus, multiple left ureteral stones with left double-J stent indwelling since 2007, left nephrostomy tube placed approximately 6 weeks ago at outside hospital as well as multiple lithotripsies -he was told that the stent placed in 2007 was too calcified. Patient has follow-up appointment with a urologist Dr. Easton in [place], [place] on July 03. A urologist talent solutions manager did speak with the ER physician and recommended the patient follow-up with urology as outpatient. Patient is planning on keeping this appointment. Requested the hospital records from [place], pending. We'll continue Percocet as needed for the stent pain. -Anemia, the drop in hemoglobin was probably dilutional. Iron is low and ferritin is elevated indicative of iron deficiency possibly chronic disease. We 'll start iron supplementation. Hemoccult was negative. Repeat CBC in the morning. -Possible cirrhosis with nodular liver capsule seen on abdominal CT scan. Compensated. Likely due to history of alcoholism. Patient was previously unaware. Will need GI follow-up outpatient. 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 Liver enzymes support this. Monitor for any withdrawals. -Anxiety disorder. Continue Zoloft and Vistaril. He is followed at [facility]. -Currently without insurance. Case management consulted to get him set up with patient assistance so that he can be seen in the community clinic at [place]. -Mild hyponatremia. Resolved with IV fluids. -Gout, status post right elbow resection of tophi about 6 weeks ago. Now with acute flareup in the knees. Improved status post prednisone 20 mg by mouth 1 yesterday. Continue colchicine. Continue allopurinol. -Status post treatment for C. difficile at outside hospital 6 weeks ago and has had formed stool since. Monitor for any diarrhea. -DVT prophylaxis with SCDs. Problem Qualifiers (1) Leukocytosis: Qualified Code: D72.829 - Leukocytosis, unspecified type (2) Gout: (3) Anemia: (4) Cirrhosis of liver: Qualified Code: K70.30 - Alcoholic cirrhosis of liver without ascites Flor Eldridge MD Jun 15, 2016 12:43
[2016-06-15] MEDS: COLCHICINE 0.6 MG TAB PO SCH ×2 (15:12→22:31)
[2016-06-15 20:00] VITALS: BP 131/83; PULSE 79; RESP 20; TEMP 97.8; O2SAT 100
[2016-06-16] VITALS: BP 131/89; PULSE 94; RESP 20; TEMP 97.8; O2SAT 99
[2016-06-16] MEDS: SODIUM CHLOR 0.9% 1000 ML INJ 1,000 ML IV SCH ×2 (00:38→08:59)
[2016-06-16] MEDS: PIPERACIL-TAZO 3.375 GM PREMIX 50 ML IV SCH ×2 (05:41→09:36)
[2016-06-16 07:18] LABS: AUTOMATED NEUTROPHIL # 5.8 TH/MM3 (1.8-7.7); BASOPHIL % 0.3 % (0.0-2.0); EOSINOPHIL # 0.5 TH/MM3 (0-0.4); EOSINOPHIL % 5.7 % (0.0-4.0); HEMATOCRIT 28.2 % (39.0-51.0); HEMO FLAGS DIFF FINAL; LYMPH % 21.7 % (9.0-44.0); LYMPHOCYTE # 1.9 TH/MM3 (1.0-4.8); MEAN CELL VOLUME 84.9 FL (80.0-100.0); MEAN CORPUSCULAR HEMOGLOBIN 28.5 PG (27.0-34.0); MEAN CORPUSCULAR HGB CONC 33.6 % (32.0-36.0); MONO % 7.3 % (0.0-8.0); PLATELET COUNT 232 TH/MM3 (150-450); RED BLOOD COUNT 3.32 MIL/MM3 (4.50-5.90); RED CELL DISTRIBUTION WIDTH 12.7 % (11.6-17.2); WHITE BLOOD COUNT 8.9 TH/MM3 (4.0-11.0)
[2016-06-16 07:27] LABS: POTASSIUM 3.6 MEQ/L (3.5-5.1)
[2016-06-16 07:34] LABS: BICARBONATE 28.6 MEQ/L (21.0-32.0)
[2016-06-16 08:00] VITALS: BP 124/84; PULSE 81; RESP 18; TEMP 96.3; O2SAT 100
[2016-06-16] MEDS: SODIUM CHLORIDE 0.9% FLUSH 10 ML FLUSH IV FLUSH SCH ×2 (08:59→21:11)
[2016-06-16] MEDS: DOCUSATE SODIUM 100 MG CAP PO SCH ×3 (08:59→18:53)
[2016-06-16] MEDS: COLCHICINE 0.6 MG TAB PO SCH ×2 (11:15→21:09)
[2016-06-16 12:00] VITALS: BP 137/93; PULSE 97; RESP 20; TEMP 97.6; O2SAT 96
--- NOTE | 2016-06-16 12:10 | HHI.PR ---
Subjective Remarks Knee pain has worsened today after improvement yesterday. No fevers. Patient takes Zoloft 100 mg daily and Vistaril as needed for anxiety. Objective Vitals Vital Signs Date Time Temp Pulse Resp B/P Pulse Ox O2 Delivery O2 Flow Rate FiO2 06/16/16 08:00 96.3 81 18 124/84 100 06/16/16 00:00 97.8 94 20 131/89 99 06/15/16 20:00 97.8 79 20 131/83 100 I/O 06/15/16 06/15/16 06/15/16 06/16/16 06/16/16 06/16/16 07:00 15:00 23:00 07:00 15:00 23:00 Intake Total 600 ml 1210 ml Output Total 600 ml 525 ml 200 ml Balance -600 ml 75 ml 1010 ml Intake Oral 600 ml 110 ml IV Total 1100 ml Output Urine Total 600 ml 525 ml Drainage Total 200 ml # Voids 1 1 # Bowel Movements 1 0 0 Result Diagram: 06/16/16 0518 06/16/16 0518 Objective Remarks GENERAL: Well-nourished, well-developed very pleasant male patient in no apparent distress. SKIN: Warm and dry. He is somewhat pale. HEAD: Normocephalic. EYES: No scleral icterus. No injection or drainage. NECK: Supple, trachea midline. No JVD or lymphadenopathy. CARDIOVASCULAR: Regular rate and rhythm without murmurs, gallops, or rubs. RESPIRATORY: Breath sounds equal bilaterally. No accessory muscle use. GASTROINTESTINAL: Bowel sounds present. Abdomen soft, non-tender, nondistended. Left nephrostomy tube noted. EXTREMITIES: Swelling of bilateral knees, right more than left, no warmth or erythema. Has a healing incision/scar right elbow. Left third digit is swollen. NEUROLOGICAL: Awake, alert, and oriented x 3. Non-focal. A/P Problem List: (1) Renal calculi ICD Code: N20.0 Status: Acute (2) Leukocytosis ICD Code: D72.829 Status: Acute (3) Generalized anxiety disorder ICD Code: F41.1 Status: Chronic (4) Gout ICD Code: M10.9 Status: Acute (5) Anemia ICD Code: D64.9 Status: Chronic (6) Cirrhosis of liver ICD Code: K74.60 Status: Chronic (7) Complicated UTI (urinary tract infection) ICD Code: N39.0 Status: Acute (8) Recovering alcoholic in remission ICD Code: F10.21 Status: Chronic (9) Sepsis due to urinary tract infection ICD Code: A41.9 Status: Acute (10) Staghorn calculus ICD Code: N20.0 Status: Chronic Assessment and Plan -Severe Sepsis due to UTI. clinically resolved, defervesced with resolved leukocytosis. On Zosyn IV day 5. Blood cultures negative at 72 hours hours, urine culture with acinetobacter lofli and group D enterococcus, both sensitive to cipro, will change to cipro PO. total 14 days therapy. -Complicated UTI with left nephrostomy tube and left ureteral stent - as above. -Acute kidney injury due to sepsis, resolved. -Staghorn calculus, multiple left ureteral stones with left double-J stent indwelling since 2007, left nephrostomy tube placed approximately 6 weeks ago at outside hospital as well as multiple lithotripsies -he was told that the stent placed in 2007 was too calcified. Patient has follow-up appointment with a urologist Dr. Easton in [place], [place] on July 03. A urologist convertible power shovel operator did speak with the ER physician and recommended the patient follow-up with urology as outpatient. Patient is planning on keeping this appointment. Requested the hospital records from [facility], however they have not arrived. We'll continue Percocet as needed for the stent pain. -Anemia, the drop in hemoglobin was probably dilutional. Iron is low and ferritin is elevated indicative of iron deficiency possibly chronic disease. We 'll start iron supplementation. Hemoccult was negative. Hb has been stable around 9. -Possible cirrhosis with nodular liver capsule seen on abdominal CT scan. Compensated. Likely due to history of alcoholism. Patient was previously unaware. Will need GI follow-up outpatient. 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 Liver enzymes support this. no evidence of withdrawals. -Anxiety disorder. Continue Zoloft and Vistaril. He is followed at [facility]. -Currently without insurance. Case management consulted to get him set up with patient assistance so that he can be seen in the community clinic at [place]. -Mild hyponatremia. Resolved with IV fluids. -Gout, status post right elbow resection of tophi about 6 weeks ago. Now with acute flareup in the knees. Improved status post prednisone 20 mg by mouth on , however now worsened today, will start prednisone 20 mg PO BID. Continue colchicine. Continue allopurinol. -Status post treatment for C. difficile at outside hospital 6 weeks ago and has had formed stool since. Monitor for any diarrhea. -DVT prophylaxis with SCDs. Discharge Planning Discharge home tomorrow if gout attack improved. Problem Qualifiers (1) Leukocytosis: Qualified Code: D72.829 - Leukocytosis, unspecified type (2) Gout: (3) Anemia: (4) Cirrhosis of liver: Qualified Code: K70.30 - Alcoholic cirrhosis of liver without ascites Flor Eldridge MD Jun 16, 2016 12:10
[2016-06-16] MEDS ORDERED: hydrOXYzine PAMOATE 25 MG CAP PO PRN (13:45)
[2016-06-16] MEDS: predniSONE 20 MG TAB PO SCH ×2 (14:45→21:09)
[2016-06-16] MEDS: SERTRALINE HCL 100 MG TAB PO SCH (14:48)
[2016-06-16 16:00] VITALS: BP 140/89; PULSE 94; RESP 19; TEMP 97.9; O2SAT 97
[2016-06-16 20:00] VITALS: BP 121/90; PULSE 82; RESP 18; TEMP 97.4; O2SAT 98
[2016-06-16] MEDS: CIPROFLOXACIN 500 MG TAB PO SCH (21:09)
[2016-06-16 23:00] VITALS: BP 138/92; PULSE 79; RESP 16; TEMP 98.2; O2SAT 91
[2016-06-17 05:29] VITALS: BP 116/81; PULSE 76; RESP 14; TEMP 96; O2SAT 97
[2016-06-17 08:00] VITALS: BP 115/77; PULSE 72; RESP 19; TEMP 98.2; O2SAT 96
[2016-06-17] MEDS: DOCUSATE SODIUM 100 MG CAP PO SCH ×2 (09:00→11:56)
[2016-06-17] MEDS: SODIUM CHLORIDE 0.9% FLUSH 10 ML FLUSH IV FLUSH SCH (09:00)
[2016-06-17] MEDS: COLCHICINE 0.6 MG TAB PO SCH (09:37)
[2016-06-17] MEDS: predniSONE 20 MG TAB PO SCH (09:38)
[2016-06-17] MEDS: CIPROFLOXACIN 500 MG TAB PO SCH (09:38)
[2016-06-17] MEDS: SERTRALINE HCL 100 MG TAB PO SCH (09:38)
[2016-06-17 10:43] VITALS: RESP 18
[2016-06-17] MEDS ORDERED: OXYC-395 PO (11:58)
[2016-06-17] MEDS ORDERED: IBUP800T23 PO (11:58)
[2016-06-17] MEDS ORDERED: CIPR-9 PO (11:58)
--- NOTE | 2016-06-17 11:59 | HHI.DS ---
Discharge Summary Admission Date Jun 14, 2016 at 10:21 Discharge Date: Jun 17, 2016 Admitting Diagnosis Sepsis due to UTI Complicated UTI (1) Renal calculi ICD Code: N20.0 (2) Leukocytosis ICD Code: D72.829 (3) Generalized anxiety disorder ICD Code: F41.1 (4) Gout ICD Code: M10.9 (5) Anemia ICD Code: D64.9 (6) Cirrhosis of liver ICD Code: K74.60 (7) Complicated UTI (urinary tract infection) ICD Code: N39.0 (8) Recovering alcoholic in remission ICD Code: F10.21 (9) Sepsis due to urinary tract infection ICD Code: A41.9 (10) Staghorn calculus ICD Code: N20.0 Procedures None Brief History - From Admission This is a very pleasant 36 year-old male with past medical history of kidney stones, recovering alcoholic who presents to the ER yesterday complaining of a 2 to three-day history of hot and cold sweats, and jitteriness/ anxiety, dizziness and feeling very weak. The patient has a history of left ureteral stent placed in 2007 at [place], for which he never followed up. He had been being treated in outpatient alcohol addiction program "sober house" in [facility] recently. While there apparently he had a near syncopal event and was admitted to [facility] in [place] and hospitalized for about 16 days. At that time it was discovered that he had a large calculus which was apparently obstructive despite the ureteral stent, he underwent left nephrostomy tube and several lithotripsies. He was told that the stent was too calcified to come out during the hospitalization. His hospital course was complicated by UTI infection as well as C. difficile. He also had resection of the right elbow tophi. The patient states that he was discharged from the hospital about a month ago and has a follow-up appointment with the urologist who treated him there Dr. Jerry Easton. In our emergency department last night the patient was found to be febrile, tachycardic, with leukocytosis of 28,000 with left shift, initial lactic acid was 0.9, he was normotensive. The patient was treated with IV fluids and Zosyn. Abdominal CT scan revealed large bilateral renal calculi with a staghorn calculus in the left upper pole, a left-sided ureteral double-J stent with multiple left-sided ureteral calculi and no evidence of hydronephrosis. Left-sided nephrostomy tube was also present with a calculus being seen in the perinephric fat posterior to the left kidney. Incidental finding of possible cirrhosis which the patient was unaware of, mild splenomegaly. The patient also complained of some left lower quadrant abdominal pain which is chronic from the stent. No nausea or vomiting. Stools have been formed without diarrhea. The patient states he has not had any alcohol since February 2016. He denies any dysuria or urgency. The ED physician did speak with the urologist on-call who recommended the patient needed to have outpatient urology follow-up. CBC/BMP: 06/16/16 0518 06/16/16 0518 Significant Findings Laboratory Tests Test 06/15/16 06/16/16 06:15 05:18 Red Blood Count 3.42 MIL/MM3 3.32 MIL/MM3 (4.50-5.90) (4.50-5.90) Hemoglobin 9.4 GM/DL 9.5 GM/DL (13.0-17.0) (13.0-17.0) Hematocrit 28.5 % 28.2 % (39.0-51.0) (39.0-51.0) Neutrophils (%) (Auto) 82.3 % (16.0-70.0) Lymphocytes (%) (Auto) 8.9 % (9.0-44.0) Lymphocytes # (Auto) 0.7 TH/MM3 (1.0-4.8) Random Glucose 166 MG/DL (74-106) Calcium Level 8.4 MG/DL (8.5-10.1) Eosinophils (%) (Auto) 5.7 % (0.0-4.0) Eosinophils # (Auto) 0.5 TH/MM3 (0-0.4) Imaging Last Impressions Abdomen/Pelvis CT 06/12/16 1201 Signed Impressions: Service Date/Time: May 12:09 - CONCLUSION: 1. Large bilateral renal calculi again seen. Staghorn calculus again seen in the upper pole on the left. 2. Left-sided double-J ureteral stent in place. Multiple left sided ureteral calculi. No evidence of hydronephrosis. 3. Track from prior left-sided nephrostomy tube with calculus seen posterior to left kidney in the paranephric fat adjacent to the track. 4. Diffusely mildly nodular liver capsule contour suggesting possible cirrhosis. 5. Mild splenomegaly. Reji Lyman MD PE at Discharge GENERAL: Well-nourished, well-developed very pleasant male patient in no apparent distress. SKIN: Warm and dry. He is somewhat pale. HEAD: Normocephalic. EYES: No scleral icterus. No injection or drainage. NECK: Supple, trachea midline. No JVD or lymphadenopathy. CARDIOVASCULAR: Regular rate and rhythm without murmurs, gallops, or rubs. RESPIRATORY: Breath sounds equal bilaterally. No accessory muscle use. GASTROINTESTINAL: Bowel sounds present. Abdomen soft, non-tender, nondistended. Left nephrostomy tube noted. EXTREMITIES: Swelling of bilateral knees, right more than left, no warmth or erythema. Has a healing incision/scar right elbow. Left third digit is swollen. NEUROLOGICAL: Awake, alert, and oriented x 3. Non-focal. Hospital Course The patient was admitted to the hospital and treated with Zosyn IV. Blood cultures remain negative. Urine cultures grew Enterobacter faecalis and Acinetobacter lwoffi group both sensitive to Cipro. While hospitalized the patient was noted to have anemia which appeared to be chronic. Hemoccult was negative. Iron profile was consistent of anemia of chronic disease. The patient also developed an acute gout attack of his knees and was treated with colchicine and prednisone. He has improved. The patient has a follow-up appointment with his urologist in [place] Dr. Easton on July 03. He will be discharged home today to complete total 14 days therapy for the complicated UTI. He is to return to the ER for any recurrent fevers or chills. Pt Condition on Discharge: Stable Discharge Disposition: Discharge Home Discharge Time: > 30 minutes Discharge Instructions DIET: Follow Instructions for: As Tolerated, No Restrictions Activities you can perform: Regular-No Restrictions Follow up Referrals: Urology - 2 Weeks New Medications: Prednisone (Prednisone) 20 Mg Tab 20 MG PO BID gout #10 TAB Continued Medications: Allopurinol (Allopurinol) 100 Mg Tab 100 MG PO DAILY Gout #30 Ref 0 TAB Ciprofloxacin (Cipro) 500 Mg Tab 500 MG PO BID Infection #20 Ref 0 TAB (This prescription has been renewed) Ibuprofen (Ibuprofen) 800 Mg Tab 800 MG PO Q8H PRN FEVER #30 Ref 0 TAB (This prescription has been renewed) Oxycodone (Oxycodone) 10 Mg Tab 10 MG PO Q6H PRN PAIN #20 Ref 0 TAB (This prescription has been renewed) Flor Eldridge MD Jun 17, 2016 11:59
[2016-06-17] MEDS ORDERED: PRED20 PO (12:37)
[2016-06-18] MEDS ORDERED: ZOLO100T PO (01:56)
[2016-06-26] MEDS ORDERED: METR500T10 PO (09:33)
[2016-06-26] MEDS ORDERED: HYDR50CA PO (09:33)
== END 2016-06-17 12:41 | disposition home or self-care (01) | DRG 872 ==
LOC: PHED 10:09 → PHEDA 15:51 → PH3A 17:39 → PHICU 18:48 → PH3A 06-13 08:35 → OBSVTOIN 06-14 10:21
PROVIDERS: ADMIT Family Medicine; ATTEND Family Medicine
DX: A41.9 Sepsis, unspecified organism (principal); N17.9 Acute kidney failure, unspecified; K74.60 Unspecified cirrhosis of liver; E87.1 Hypo-osmolality and hyponatremia; N39.0 Urinary tract infection, site not specified; B95.2 Enterococcus as the cause of diseases classified elsewhere; B96.89 Other specified bacterial agents as the cause of diseases classified elsewhere; Z93.6 Other artificial openings of urinary tract status; N20.0 Calculus of kidney; F10.21 Alcohol dependence, in remission; M10.9 Gout, unspecified; F41.1 Generalized anxiety disorder; D63.8 Anemia in other chronic diseases classified elsewhere; F17.220 Nicotine dependence, chewing tobacco, uncomplicated
CPT/HCPCS: 74177; 80048; 80053; 81001; 82272; 82607; 82728; 82746; 83540; 83550; 83605; 83735; 84550; 85007; 85025; 85027; 87040; 87077; 87086; 87186; 96361; 96365; 96375; G0378; J0696; J2405; J2543; J7030; J7512; Q9967

== ENCOUNTER 2016-06-18 01:13 | Emergency (ER) | payer SELFPAY ==
[~2016-06-18] VITALS: Ht 182.9 cm; Wt 90.1 kg
[~2016-06-18 01:13] MED LIST changes: +ALLO100T PO; +CIPR-9 PO; +IBUP800T23 PO; +OXYC-395 PO; +PRED20 PO
[2016-06-18 01:20] VITALS: BP 140/93; PULSE 93; RESP 16; TEMP 97.7; O2SAT 98
[2016-06-18] MEDS ORDERED: ZOLO100T PO (01:56)
[2016-06-18] MEDS ORDERED: SODIUM CHLORIDE 0.9% FLUSH 10 ML FLUSH IV FLUSH PRN (02:00)
[2016-06-18 02:09] LABS: AUTOMATED NEUTROPHIL # 9.8 TH/MM3 (1.8-7.7); BASOPHIL % 0.3 % (0.0-2.0); EOSINOPHIL # 0.2 TH/MM3 (0-0.4); EOSINOPHIL % 1.4 % (0.0-4.0); HEMATOCRIT 32.9 % (39.0-51.0); LYMPH % 15.4 % (9.0-44.0); LYMPHOCYTE # 1.9 TH/MM3 (1.0-4.8); MEAN CELL VOLUME 83.3 FL (80.0-100.0); MEAN CORPUSCULAR HEMOGLOBIN 28.1 PG (27.0-34.0); MEAN CORPUSCULAR HGB CONC 33.7 % (32.0-36.0); MONO % 4.4 % (0.0-8.0); NEUT % 78.5 % (16.0-70.0); PLATELET COUNT 418 TH/MM3 (150-450); RED BLOOD COUNT 3.95 MIL/MM3 (4.50-5.90); RED CELL DISTRIBUTION WIDTH 12.4 % (11.6-17.2); WHITE BLOOD COUNT 12.4 TH/MM3 (4.0-11.0)
[2016-06-18 02:14] VITALS: O2SAT 100
[2016-06-18 02:14] LABS: HEMO FLAGS DIFF FINAL
[2016-06-18 02:16] LABS: POTASSIUM 3.2 MEQ/L (3.5-5.1)
[2016-06-18 02:19] LABS: BICARBONATE 26.5 MEQ/L (21.0-32.0)
--- NOTE | 2016-06-18 02:52 | RADHPO ---
EXAM DATE/TIME: 06/18/2016 02:22 [facility] COMPARISON: CT ABDOMEN & PELVIS W/O CONTRAST, September 27, 2011, 23:48. INDICATIONS : Renal obstruction. Van accidentally came out. ORAL CONTRAST: No oral contrast ingested. RADIATION DOSE: 16.68 CTDIvol (mGy) MEDICAL HISTORY : Renal calculi. SURGICAL HISTORY : Renal stent. ENCOUNTER: Initial ACUITY: 1 day PAIN SCALE: 4/10 LOCATION: Left Back. TECHNIQUE: Volumetric scanning of the abdomen and pelvis was performed. Using automated exposure control and ad justment of the mA and/or kV according to patient size, radiation dose was kept as low as reasonably achievable to obtain optimal diagnostic quality images. FINDINGS: LOWER LUNGS: The visualized lower lungs are clear. LIVER: Homogeneous density without lesion. A nodular contour. There is no dilation of the biliary tree. No calcified gallstones. SPLEEN: Normal size without lesion. PANCREAS: Within normal limits. KIDNEYS: Normal in size and shape. Multiple large bilateral renal calculi. A cyst staghorn in nature on the le ft. There is a nephroureteral catheter on the left. An 8 mm stone fragment is seen adjacent to the ur eteral component within the midsection of the ureter. Within the distal section of ureter multiple sm all stone fragments are seen adjacent to the catheter. There is no mass or hydronephrosis. ADRENAL GLANDS: Within normal limits. VASCULAR: There is no aortic aneurysm. BOWEL/MESENTERY: The stomach, small bowel, and colon demonstrate no acute abnormality. There is no free intraperitone al air. A trace amount of free fluid in the pelvis. ABDOMINAL WALL: Within normal limits. RETROPERITONEUM: There is no lymphadenopathy. BLADDER: No wall thickening or mass. REPRODUCTIVE: Within normal limits. INGUINAL: There is no lymphadenopathy or hernia. MUSCULOSKELETAL: Within normal limits for patient age. CONCLUSION: 1. Nephroureteral catheter on the left. Multiple stones are seen along the course of the left ureter. 2. Multiple large bilateral renal calculi. No appreciable hydronephrosis. 3. Trace amount of free fluid within the pelvis. 4. Nodular contour to the liver suggesting underlying cirrhosis. Irving Mahmood Jr., MD on June 18, 2016 at 2:46 Board Certified Radiologist. This report was verified electronically.
[2016-06-18 03:06] VITALS: BP 132/84; PULSE 73; O2SAT 99
--- NOTE | 2016-06-18 03:18 | PD ---
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 Patient apparently has had kidney stones in the past and has had a ureteral stent placed in 2007 which is been in place ever since. Patient approximate 30 days ago also had a nephrostomy tube placed as a Van catheter. His urologist is [facility] and he does have an appointment on July 03. Patient has another significant history of released from the hospital yesterday after being in the hospital for 4-5 days for complicated urinary tract infection and sepsis. He was discharged on Cipro and he states she's been taking this. Denies any abdominal pain fever or dysuria. Patient is just concerned because he is leaking urine from the site. PFSH Past Medical History Arthritis: Yes Asthma: No Autoimmune Disease: No Blood Disorders: No Anxiety: Yes Depression: Yes Heart Rhythm Problems: No Cancer: No Cardiovascular Problems: No High Cholesterol: No Chest Pain: No Congestive Heart Failure: No COPD: No Cerebrovascular Accident: No Diabetes: No Diminished Hearing: No Endocrine: No GERD: No Glaucoma: No Gout: Yes Genitourinary: Yes Headaches: No Hepatitis: No Hiatal Hernia: No Hypertension: No Immune Disorder: No Implanted Vascular Access Dvce: Yes Kidney Stones: Yes Musculoskeletal: Yes Neurologic: Yes Psychiatric: Yes Reproductive: No Respiratory: No Immunizations Current: No Myocardial Infarction: No Renal Failure: No Seizures: No Sleep Apnea: No Thyroid Disease: No Ulcer: No Tetanus Vaccination: < 5 Years Past Surgical History Abdominal Surgery: No AICD: No Arteriovenous Shunt: No Body Medical Devices: NEPHROSTOMY LEFT Cardiac Surgery: No Ear Surgery: Yes Endocrine Surgery: No Eye Surgery: No Genitourinary Surgery: Yes (STENT FOR KIDNEY STONES; NEPHROSTOMY 04/2016) Gynecologic Surgery: No Insulin Pump: No Joint Replacement: No Oral Surgery: Yes (TONSILLECTOMY) Pacemaker: No Thoracic Surgery: No Tonsillectomy: Yes (AND ADENOIDECTOMY) Other Surgery: Yes Social History Alcohol Use: Yes (TWICE WEEKLY, 1-2 BEERS) Tobacco Use: Yes (ORAL TOBACCO, 2 CANS PER WEEK) Substance Use: No Allergies-Medications (Allergen,Severity, Reaction): Coded Allergies: Toradol (Verified Allergy, Severe, SWELLING OF THROAT, 06/12/16) Reported Meds & Prescriptions Reported Meds & Active Scripts Active Prednisone 20 Mg Tab 20 Mg PO BID Ibuprofen 800 Mg Tab 800 Mg PO Q8H PRN Cipro (Ciprofloxacin HCl) 500 Mg Tab 500 Mg PO BID Oxycodone (Oxycodone HCl) 10 Mg Tab 10 Mg PO Q6H PRN Reported Zoloft (Sertraline HCl) 100 Mg Tab 100 Mg PO DAILY Allopurinol 100 Mg Tab 100 Mg PO DAILY Review of Systems Except as stated in HPI: all other systems reviewed are Neg Physical Exam Narrative GENERAL: Well-developed well-nourished no apparent distress. SKIN: Focused skin assessment warm/dry. HEAD: Atraumatic. Normocephalic. EYES: Pupils equal and round. No scleral icterus. No injection or drainage. ENT: No nasal bleeding or discharge. Mucous membranes pink and moist. NECK: Trachea midline. No JVD. CARDIOVASCULAR: Regular rate and rhythm. No murmur appreciated. RESPIRATORY: No accessory muscle use. Clear to auscultation. Breath sounds equal bilaterally. GASTROINTESTINAL: Abdomen soft, non-tender, nondistended. Hepatic and splenic margins not palpable. There is a tract in the left flank which nurse's covered with a Tegaderm which apparently is a site of the previous Van catheter. The Van catheter was inspected and appears to have been completely removed from the tract. No surrounding cellulitis. There is clear urine emanating from this surgical wound. MUSCULOSKELETAL: No obvious deformities. No clubbing. No cyanosis. No edema. NEUROLOGICAL: Awake and alert. No obvious cranial nerve deficits. Motor grossly within normal limits. Normal speech. PSYCHIATRIC: Appropriate mood and affect; insight and judgment normal. Data Data Last Documented VS Vital Signs Date Time Temp Pulse Resp B/P Pulse Ox O2 Delivery O2 Flow Rate FiO2 06/18/16 03:06 73 132/84 99 Room Air 06/18/16 01:20 97.7 16 Orders Basic Metabolic Panel (Bmp) (06/18/16 01:53) Complete Blood Count With Diff (06/18/16 01:53) Ct Abd/Pel W/O Iv Contrast (06/18/16 01:53) Iv Access Insert/Monitor (06/18/16 01:53) Ecg Monitoring (06/18/16 01:53) Oximetry (06/18/16 01:53) Sodium Chloride 0.9% Flush (Ns Flush) (06/18/16 02:00) Labs Laboratory Tests Test 06/18/16 02:02 White Blood Count 12.4 TH/MM3 Red Blood Count 3.95 MIL/MM3 Hemoglobin 11.1 GM/DL Hematocrit 32.9 % Mean Corpuscular Volume 83.3 FL Mean Corpuscular Hemoglobin 28.1 PG Mean Corpuscular Hemoglobin 33.7 % Concent Red Cell Distribution Width 12.4 % Platelet Count 418 TH/MM3 Mean Platelet Volume 6.8 FL Neutrophils (%) (Auto) 78.5 % Lymphocytes (%) (Auto) 15.4 % Monocytes (%) (Auto) 4.4 % Eosinophils (%) (Auto) 1.4 % Basophils (%) (Auto) 0.3 % Neutrophils # (Auto) 9.8 TH/MM3 Lymphocytes # (Auto) 1.9 TH/MM3 Monocytes # (Auto) 0.5 TH/MM3 Eosinophils # (Auto) 0.2 TH/MM3 Basophils # (Auto) 0.0 TH/MM3 CBC Comment DIFF FINAL Differential Comment Sodium Level 140 MEQ/L Potassium Level 3.2 MEQ/L Chloride Level 104 MEQ/L Carbon Dioxide Level 26.5 MEQ/L Anion Gap 10 MEQ/L Blood Urea Nitrogen 15 MG/DL Creatinine 0.98 MG/DL Estimat Glomerular Filtration 86 ML/MIN Rate Random Glucose 134 MG/DL Calcium Level 8.9 MG/DL MDM Medical Decision Making Medical Screen Exam Complete: Yes Emergency Medical Condition: Yes Differential Diagnosis Nephrostomy tube dislodging, hydronephrosis, pyelonephritis, Narrative Course Patient was roomed in the emergency department, he appears well and in absolutely no distress. He is nontoxic appearing. Basic labs as well as CAT scan are ordered to determine if this is leading to significant obstruction Last 24 hours Impressions Abdomen/Pelvis CT 06/18/16 0153 Signed Impressions: Service Date/Time: Saturday, June 18, 2016 02:22 - CONCLUSION: 1. Nephroureteral catheter on the left. Multiple stones are seen along the course of the left ureter. 2. Multiple large bilateral renal calculi. No appreciable hydronephrosis. 3. Trace amount of free fluid within the pelvis. 4. Nodular contour to the liver suggesting underlying cirrhosis. Irving Mahmood Jr., MD Patient does have an elevated white blood cell count 212. Initial heart rate was 93 on the waiting room but after the patient was roomed and his heart rate is in the 70s. He therefore has no Sirs criteria. Patient was discussed with Dr. Del Rio who is familiar with the patient. He states that as long as the site is draining and there is no evidence for hydronephrosis patient is stable for discharge and recommend continue his antibiotics. He recommends that the patient call his urologist to follow up as soon as possible. I think the patient is stable from an infectious standpoint I do not feel qualified to reinsert a nephrostomy tube and Dr. Del Rio is reassured this does not need to be done at this time. He is therefore stable for discharge and I have instructed and follow-up with his urologist by phone in the morning for earlier appointment and he is agreeable. An adhesive ostomy collecting bag was placed over the surgical wound and discussed symptomatically management with the patient. Diagnosis Primary Impression: Nephrostomy tube displaced Additional Instructions: Take antibiotics until gone, if you have fevers or not feeling well return to the emergency department. Recommend following up with your urologist by phone as soon as possible recommend early tomorrow morning. Disposition: 01 DISCHARGE HOME Condition: Stable Eugene Currie MD Jun 18, 2016 03:18
[2016-06-26] MEDS ORDERED: HYDR50CA PO (09:33)
[2016-06-26] MEDS ORDERED: METR500T10 PO (09:33)
== END 2016-06-18 03:54 | disposition home or self-care (01) ==
LOC: PHED 01:13
DX: T83.022A Displacement of nephrostomy catheter, initial encounter (principal); N20.0 Calculus of kidney; Z72.0 Tobacco use; X58.XXXA Exposure to other specified factors, initial encounter
CPT/HCPCS: 74176; 80048; 85025

== ENCOUNTER 2016-07-04 14:44 | Inpatient (IN) | payer SELFPAY ==
[2016-07-04] VITALS (8 sets, daily range): BP systolic 134–156; BP diastolic 74–111; PULSE 84–109; RESP 16–20; TEMP 97.7–98.3; O2SAT 96–99
[~2016-07-04] VITALS: Ht 182.9 cm; Wt 87.3 kg
[~2016-07-04 14:44] MED LIST changes: -CIPR500T4 PO; +HYDR50CA PO; +METR500T10 PO; -OXYC-360 PO; -PROM25SU8 PO; -Z.0.NO CURRENT MEDS; +ZOLO100T PO
[2016-07-04] MEDS ORDERED: ZOLO50TA PO (15:20)
[2016-07-04] MEDS ORDERED: VIST50CA PO (15:21)
[2016-07-04] MEDS ORDERED: SODIUM CHLOR 0.9% 1000 ML INJ 1,000 ML IV SCH ×2 (15:24→17:48)
[2016-07-04] MEDS ORDERED: ONDANSETRON HCL 4 MG/2 ML VIAL IVP ONE (15:30)
[2016-07-04] MEDS ORDERED: HYDROmorphone HCL PF 1 MG/ML VIAL IVS ONE (15:30)
--- NOTE | 2016-07-04 15:34 | PD ---
HPI Chief Complaint: Abdominal Pain Time Seen by Provider: 15:14 Travel History International Travel<30 days: No Contact w/Intl Traveler<30days: No Traveled to known affect area: No History of Present Illness HPI So 36 year-old man who presents to the emergency department complaining of left side pain. Patient is a history of prior alcoholism, and kidney stones. He had a left ureteral stent placed in [place] in 2007, but was lost to follow-up. He was seen at a hospital in [facility] where he had an obstructive ureteral calculi despite ureteral stranding had a nephrostomy tube placed. He also had several lithotripsies. He was admitted for urosepsis on June 14. His nephrostomy tube became dislodged and he was seen in the emergency department on June 18. He was leaking urine from the site at that point. This is healed up. He was doing well since then until last night when he began to develop left side pain. He states he is dizzy, pulse pain when he stands nearly passing out, and lightheaded. He's had nausea. He had night sweats throughout the night last night. His urine was darker this morning. He otherwise had been feeling generally well. No other complaints. History Past Medical History Narrative Medical History of alcoholism, in recovery Kidney stones Anxiety Gout Cirrhosis Tetanus Vaccination: < 5 Years Influenza Vaccination: Yes Social History Alcohol Use: Yes (denies at present) Tobacco Use: Yes (ORAL TOBACCO, 2 CANS PER WEEK) Allergies-Medications (Allergen,Severity, Reaction): Coded Allergies: Toradol (Verified Allergy, Severe, SWELLING OF THROAT, 07/04/16) Reported Meds & Prescriptions Reported Meds & Active Scripts Active Reported Vistaril (Hydroxyzine Pamoate) 50 Mg Cap 50 Mg PO TID PRN Zoloft (Sertraline HCl) 50 Mg Tab 50 Mg PO DAILY Allopurinol 100 Mg Tab 100 Mg PO DAILY Review of Systems Except as stated in HPI: all other systems reviewed are Neg Physical Exam Narrative GENERAL: 36 year-old man, appears a little bit unwell but nontoxic. He saw diaphoretic at times. SKIN: Skin feels hot and flushed, sweaty. HEAD: Atraumatic. Normocephalic. EYES: Pupils equal and round. No scleral icterus. No injection or drainage. ENT: No nasal bleeding or discharge. Mucous membranes pink and moist. NECK: Trachea midline. No JVD. CARDIOVASCULAR: Regular rate and rhythm. No murmur appreciated. RESPIRATORY: No accessory muscle use. Clear to auscultation. Breath sounds equal bilaterally. GASTROINTESTINAL: Abdomen soft, non-tender, nondistended. Hepatic and splenic margins not palpable. MUSCULOSKELETAL: No obvious deformities. No edema. NEUROLOGICAL: Awake and alert. No obvious cranial nerve deficits. Motor grossly within normal limits. Normal speech. PSYCHIATRIC: Appropriate mood and affect; insight and judgment normal. Data Data Last Documented VS Vital Signs Date Time Temp Pulse Resp B/P Pulse Ox O2 Delivery O2 Flow Rate FiO2 07/04/16 15:11 16 07/04/16 14:49 98.3 109 156/111 99 Orders Complete Blood Count With Diff (07/04/16 15:24) Comprehensive Metabolic Panel (07/04/16 15:24) Lipase (07/04/16 15:24) Lactic Acid (07/04/16 15:24) Ct Abd/Pel W/O Iv Contrast (07/04/16 15:24) Iv Access Insert/Monitor (07/04/16 15:24) Ecg Monitoring (07/04/16 15:24) Oximetry (07/04/16 15:24) Ondansetron Inj (Zofran Inj) (07/04/16 15:30) Sodium Chlor 0.9% 1000 Ml Inj (Ns 1000 M (07/04/16 15:24) Sodium Chloride 0.9% Flush (Ns Flush) (07/04/16 15:30) Hydromorphone Pf Inj (Dilaudid Pf Inj) (07/04/16 15:30) Blood Culture (07/04/16 15:24) MDM Medical Decision Making Medical Screen Exam Complete: Yes Emergency Medical Condition: Yes Differential Diagnosis Ureteral obstruction, urosepsis, UTI, renal failure, other Narrative Course Medical decision making INITIAL: 36-year-old male presents emergency department with left flank pain chills fever or sweats suggestive of ureteral obstruction or pyelonephritis. He 's had recent admissions for urosepsis. His ureteral stent does not appear to work appropriately as he had a nephrostomy tube placed and [facility] when this happened previously. Suspect ureteral obstruction and possible sepsis. We 'll check labs, CT, fluids, meds, reassess. Will likely need admission. Julio Beatty MD Jul 04, 2016 15:34
[2016-07-04 15:46] LABS: BASOPHIL # 0.1 TH/MM3 (0-0.2); BASOPHIL % 0.6 % (0.0-2.0); EOSINOPHIL # 0.8 TH/MM3 (0-0.4); EOSINOPHIL % 6.3 % (0.0-4.0); HEMATOCRIT 34.5 % (39.0-51.0); HEMO FLAGS DIFF FINAL; LYMPH % 19.4 % (9.0-44.0); LYMPHOCYTE # 2.4 TH/MM3 (1.0-4.8); MEAN CORPUSCULAR HEMOGLOBIN 27.7 PG (27.0-34.0); MEAN CORPUSCULAR HGB CONC 34.2 % (32.0-36.0); MONO % 7.3 % (0.0-8.0); NEUT % 66.4 % (16.0-70.0); PLATELET COUNT 322 TH/MM3 (150-450); RED BLOOD COUNT 4.26 MIL/MM3 (4.50-5.90); RED CELL DISTRIBUTION WIDTH 13.1 % (11.6-17.2); WHITE BLOOD COUNT 12.2 TH/MM3 (4.0-11.0)
[2016-07-04 16:01] LABS: CHLORIDE 107 MEQ/L (98-107); POTASSIUM 3.2 MEQ/L (3.5-5.1); SODIUM (NA) 144 MEQ/L (136-145)
[2016-07-04 16:05] LABS: ANION GAP 10 MEQ/L (5-15); BICARBONATE 26.6 MEQ/L (21.0-32.0); BLOOD UREA NITROGEN 15 MG/DL (7-18)
[2016-07-04] MEDS: SODIUM CHLORIDE 0.9% FLUSH 10 ML FLUSH IV FLUSH PRN ×2 (16:06→17:21)
[2016-07-04 16:08] LABS: ALT (GPT) 33 U/L (12-78); AST (GOT) 22 U/L (15-37); GLOMERULAR FILTRATION RATE 84 ML/MIN (>89)
[2016-07-04 16:09] LABS: TOTAL BILIRUBIN ADULT 0.2 MG/DL (0.2-1.0)
[2016-07-04 16:11] LABS: ALKALINE PHOSPHATASE 88 U/L (45-117)
--- NOTE | 2016-07-04 16:29 | RADHPO ---
EXAM DATE/TIME: 07/04/2016 16:05 [facility] COMPARISON: CT ABDOMEN & PELVIS W/O CONTRAST, November 07, 2010, 12:17. CT ABDOMEN & PELVIS W/O CONTRAST, June, 2:22. INDICATIONS : Left flank pain. ORAL CONTRAST: No oral contrast ingested. RADIATION DOSE: 18.96 CTDIvol (mGy) MEDICAL HISTORY : Renal calculi. SURGICAL HISTORY : Left renal stent. ENCOUNTER: Initial ACUITY: 1 day PAIN SCALE: 8/10 LOCATION: Left flank TECHNIQUE: Volumetric scanning of the abdomen and pelvis was performed. Using automated exposure control and ad justment of the mA and/or kV according to patient size, radiation dose was kept as low as reasonably achievable to obtain optimal diagnostic quality images. FINDINGS: CT Abdomen: Multiple stones are again present in both kidneys the largest one on the right is in the right renal pelvis measures 2 cm in size and the largest one on the left is staghorn calculus which m easures 2.7 cm in size. The double-J stent is present on the left side there is an approximate 9 mm s tone adjacent to the proximal stent in the renal pelvis with a smaller stone adjacent to it. Separate from this there is a separate stone in the left proximal ureter adjacent to the stent and there are multiple stones distally surrounding the stent in the distal ureter. There is moderate hydronephrosis in the left kidney and to a slight degree on the right. The liver, spleen, pancreas, adrenals are un remarkable. There is no evidence for any appreciable pathological adenopathy, free fluid, or bowel ob struction. CT pelvis: There is no evidence for mass, abscess formation, or any significant adenopathy within the pelvis. 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 CONCLUSION: Multiple stones are present in the left ureter adjacent to the stent in addition to m ultiple stones in both kidneys bilaterally. Santhosh Penn MD on July 04, 2016 at 16:19 Board Certified Radiologist. This report was verified electronically.
--- NOTE | 2016-07-04 16:43 | PD ---
Physical Exam Date Seen by Provider: Jul 04, 2016 Time Seen by Provider: 16:41 Narrative This 36-year-old male presents with complaint of left lower quadrant pain. He has had a indwelling ureteral stents 2007. He has had frequent stones since then. He says he was admitted to [facility] and a half ago he had lithotripsy and a nephrostomy tube put in. The nephrostomy tube fell out. He was admitted here June 14 with urosepsis. Urine culture at that time grew Acinetobacter and enterococcus At that time he had some urine draining from the nephrostomy site but that drainage has stopped. He says his pain started last night. He was seen initially by . he'll a CT scan has been obtained which shows multiple stones in the left ureter adjacent to the stent in addition to multiple stones in both kidneys bilaterally. His white count is elevated at 12,000. His lactate is 2.2 Data Data Last Documented VS Vital Signs Date Time Temp Pulse Resp B/P Pulse Ox O2 Delivery O2 Flow Rate FiO2 07/04/16 16:30 16 07/04/16 15:20 99 Room Air 07/04/16 15:00 98.3 91 134/92 Orders Complete Blood Count With Diff (07/04/16 15:24) Comprehensive Metabolic Panel (07/04/16 15:24) Lipase (07/04/16 15:24) Lactic Acid (07/04/16 15:24) Ct Abd/Pel W/O Iv Contrast (07/04/16 15:24) Iv Access Insert/Monitor (07/04/16 15:24) Ecg Monitoring (07/04/16 15:24) Oximetry (07/04/16 15:24) Ondansetron Inj (Zofran Inj) (07/04/16 15:30) Sodium Chlor 0.9% 1000 Ml Inj (Ns 1000 M (07/04/16 15:24) Sodium Chloride 0.9% Flush (Ns Flush) (07/04/16 15:30) Hydromorphone Pf Inj (Dilaudid Pf Inj) (07/04/16 15:30) Blood Culture (07/04/16 15:24) Urinalysis - C+S If Indicated (07/04/16 16:21) Ns + Kcl 40 Meq Inj (Ns + Kcl 40 Meq Inj (07/04/16 16:45) Urine Culture (07/04/16 16:35) Labs Laboratory Tests Test 07/04/16 07/04/16 15:38 16:35 White Blood Count 12.2 TH/MM3 Red Blood Count 4.26 MIL/MM3 Hemoglobin 11.8 GM/DL Hematocrit 34.5 % Mean Corpuscular Volume 81.0 FL Mean Corpuscular Hemoglobin 27.7 PG Mean Corpuscular Hemoglobin 34.2 % Concent Red Cell Distribution Width 13.1 % Platelet Count 322 TH/MM3 Mean Platelet Volume 6.9 FL Neutrophils (%) (Auto) 66.4 % Lymphocytes (%) (Auto) 19.4 % Monocytes (%) (Auto) 7.3 % Eosinophils (%) (Auto) 6.3 % Basophils (%) (Auto) 0.6 % Neutrophils # (Auto) 8.0 TH/MM3 Lymphocytes # (Auto) 2.4 TH/MM3 Monocytes # (Auto) 0.9 TH/MM3 Eosinophils # (Auto) 0.8 TH/MM3 Basophils # (Auto) 0.1 TH/MM3 CBC Comment DIFF FINAL Differential Comment Sodium Level 144 MEQ/L Potassium Level 3.2 MEQ/L Chloride Level 107 MEQ/L Carbon Dioxide Level 26.6 MEQ/L Anion Gap 10 MEQ/L Blood Urea Nitrogen 15 MG/DL Creatinine 1.00 MG/DL Estimat Glomerular Filtration 84 ML/MIN Rate Random Glucose 108 MG/DL Lactic Acid Level 2.2 mmol/L Calcium Level 8.9 MG/DL Total Bilirubin 0.2 MG/DL Aspartate Amino Transf 22 U/L (AST/SGOT) Alanine Aminotransferase 33 U/L (ALT/SGPT) Alkaline Phosphatase 88 U/L Total Protein 7.4 GM/DL Albumin 3.4 GM/DL Lipase 218 U/L Urine Collection Type CLEAN CATCH Urine Color YELLOW Urine Turbidity MOD Urine pH 6.0 Urine Specific Vance 1.015 Urine Protein 30 mg/dL Urine Glucose (UA) NEG mg/dL Urine Ketones NEG mg/dL Urine Occult Blood LARGE Urine Nitrite NEG Urine Bilirubin NEG Urine Leukocyte Esterase LARGE Urine RBC 20-24 /hpf Urine WBC INNUM /hpf Urine WBC Clumps MOD Urine Squamous Epithelial 6-8 /hpf Cells Urine Bacteria FEW /hpf Microscopic Urinalysis Comment CULTURE INDICATED Urine Collection Time 16:35 MDM Medical Record Reviewed: Yes Supervised Visit with FERNY: Yes Differential Diagnosis Differential includes hydronephrosis, UTI, pyelonephritis Narrative Course White count is elevated at 12,000. Urine shows innumerable white cells. CT scan shows bilateral renal stones or stones adjacent to the chest and some the left ureter. There is hydronephrosis of the left kidney. His lactate is 2.2. Case discussed with Dr. Villatoro who recommends admission to the main hospital Sepsis Criteria SIRS Criteria (2 or more): Heart rate over 90, WBC > 03391, < 4000 or > 10% bands Sepsis Criteria (SIRS+source): Infect source susp/known Severe Sepsis (+one): Lactate >2 Criteria Outcome: Meets severe sepsis criteria Diagnosis Primary Impression: Sepsis due to urinary tract infection Additional Impression: Hydronephrosis of left kidney Louis Figueroa MD Jul 04, 2016 16:43
[2016-07-04 16:45] LABS: BLOOD, URINE LARGE (NEG); GLUCOSE,URINE NEG (NEG); KETONE, URINE NEG (NEG); NITRITE,URINE NEG (NEG)
[2016-07-04 16:58] LABS: METHOD OF COLLECTION CLEAN CATCH; URINE COLOR YELLOW (YELLW/STRAW); WBC, URINE INNUM /hpf (0-5)
[2016-07-04 16:59] LABS: BACTERIA, URINE FEW /hpf; COMMENT (UR) CULTURE INDICATED; CULTURE IF INDICATED CULTURE INDICATED
[2016-07-04] MEDS: NS + KCL 40 MEQ INJ 1,000 ML IV SCH (17:20)
[2016-07-04] MEDS ORDERED: SODIUM CHLORIDE 0.9% FLUSH 10 ML FLUSH IV FLUSH PRN (18:00)
[2016-07-04] MEDS ORDERED: ONDANSETRON HCL 4 MG/2 ML VIAL IVP PRN (18:00)
[2016-07-04] MEDS ORDERED: NALOXONE HCL 0.4 MG/ML AMP IV PRN (18:00)
[2016-07-04] MEDS ORDERED: MAGNESIUM HYDROXIDE SUSP 30 ML CUP PO PRN (18:00)
[2016-07-04] MEDS ORDERED: ACETAMINOPHEN 325 MG TAB PO PRN (18:00)
[2016-07-04] MEDS: HYDROmorphone HCL PF 1 MG/ML VIAL IV PUSH PRN (19:22)
[2016-07-04] MEDS: SODIUM CHLORIDE 0.9% FLUSH 10 ML FLUSH IV FLUSH SCH (21:00)
[2016-07-04] MEDS: oxyCODONE/ACETAMINOPHEN 5 MG/325 MG TAB PO PRN (22:18)
--- NOTE | 2016-07-04 23:35 | HHI.HP ---
[facility] Service [facility] Primary Care Physician No Primary Care Physician Admission Diagnosis UTI, HYDRONEPHROSIS Diagnoses: (1) UTI (urinary tract infection) (2) Hydronephrosis of left kidney Chief Complaint: Left flank pain Travel History International Travel<30 Days: No Contact w/Intl Traveler <30 Da: No Traveled to Known Affected Are: No History of Present Illness Mr. Paez is a 36 year-old male with a lengthy history of nephrolithiasis requiring ureteral stents and nephrostomy tubes as well as lithotripsy who presented to the emergency room on 07/04/2016 complaining of severe left flank pain. Abdomen/pelvis CT in the ER showed multiple stones present in the left ureter adjacent to the stent in addition to multiple stones in both kidneys bilaterally; moderate hydronephrosis in the left kidney and to a slight degree on the right. The patient is seen in his hospital room. He states that his pain began at night and was severe, sharp and achy. Nothing seemed to make it worse - it was constant. He attempted to take ibuprofen with no relief. He became concerned because overnight he was diaphoretic while sleeping and then during the day was dizzy, lightheaded, and felt imbalance like he might fall down. He states this is how he felt at the beginning of June when he was hospitalized for sepsis. His concern given the similarity of his current symptoms to his symptoms when he had sepsis brought him to the hospital. He noted some dark urine the morning of 07/04/2016 but states this can happen intermittently to him. He also reports chronic hematuria. The patient denies fever or chills, vertigo, syncope or near syncope, cough or shortness of breath, dysuria, diarrhea, nausea or vomiting, or paresthesias. He reports being in relatively good health other than what is stated above - he is a recovering alcoholic. He denies diabetes mellitus, hypertension, cardiac disorders, cardiac arrhythmias, respiratory problems such as erythema or asthma , gastrointestinal problems, thyroid dysfunction, cancer, seizures, problems with blood clots such as DVT, PE, or CVA. . Review of Systems Except as stated in HPI: all other systems reviewed are Neg Past Family Social History Past Medical History Recovering alcoholic Nephrolithiasis Anxiety Gout Cirrhosis UTI with Acinetobacter and enterococcus 06/12/2016 Sepsis 06/12/2016 . Past Surgical History Tonsillectomy and adenoidectomy age 4 or 5 Ureteral stents 2008 Nephrostomy 04/2016 Left ureteral stent 04/2016 Right elbow drained 04/2016 . Reported Medications Reported Meds & Active Scripts Active Reported Vistaril (Hydroxyzine Pamoate) 50 Mg Cap 50 Mg PO TID PRN Zoloft (Sertraline HCl) 50 Mg Tab 50 Mg PO DAILY Allopurinol 100 Mg Tab 100 Mg PO DAILY . Allergies: Coded Allergies: Toradol (Verified Allergy, Severe, SWELLING OF THROAT, 07/04/16) Active Ordered Medications Current Medications Ondansetron HCl 4 mg 4 mg ONCE ONCE IVP Last administered on 07/04/16 16:05; Start 07/04/16 at 15:30; Stop 07/04/16 at 15:31; Status DC Sodium Chloride (NS 1000 ml Inj) 1,000 ml @ 1,000 mls/hr Q1H IV Last administered on 07/04/16 16:06; Start 07/04/16 at 15:24; Stop 07/04/16 at 16:23 ; Status DC Sodium Chloride (NS Flush) 2 ml UNSCH PRN IV FLUSH FLUSH AFTER USING IV ACCESS Last administered on 07/04/16 17:21; Start 07/04/16 at 15:30; Stop 07/04/16 at 23:17; Status DC Hydromorphone HCl 1 mg 1 mg ONCE ONCE IVS Last administered on 07/04/16 16:06 ; Start 07/04/16 at 15:30; Stop 07/04/16 at 15:31; Status DC Potassium Chloride/Sodium Chloride 1,000 ml @ 125 mls/hr Q8H IV Last administered on 07/04/16 17:20; Start 07/04/16 at 16:45 Sodium Chloride (NS 1000 ml Inj) 1,000 ml @ 100 mls/hr Q10H IV ; Start at 17:48; Stop 07/04/16 at 18:25; Status DC Sodium Chloride (NS Flush) 2 ml UNSCH PRN IV FLUSH FLUSH AFTER USING IV ACCESS ; Start 07/04/16 at 18:00 Sodium Chloride (NS Flush) 2 ml BID IV FLUSH ; Start 07/04/16 at 21:00 Acetaminophen (Tylenol) 650 mg Q4H PRN PO Fever, headache, Pain 1-4; Start at 18:00 Ondansetron HCl (Zofran Inj) 4 mg Q6H PRN IVP NAUSEA OR VOMITING; Start at 18:00 Magnesium Hydroxide (Milk Of Magncatina Liq) 30 ml Q12H PRN PO CONSTIPATION; Start 07/04/16 at 18:00 Naloxone HCl (Narcan Inj) 0.4 mg UNSCH PRN IV SEE LABEL COMMENTS; Start at 18:00 Oxycodone/ Acetaminophen (Percocet 5-325 Mg) 1 tab Q6H PRN PO PAIN SCALE 5 TO 10 Last administered on 07/04/16 22:18; Start 07/04/16 at 18:00 Hydromorphone HCl (Dilaudid Pf Inj) 0.5 mg Q4H PRN IV PUSH BREAKTHROUGH PAIN Last administered on 07/04/16 19:22; Start 07/04/16 at 18:00 Allopurinol (Zyloprim) 100 mg DAILY PO ; Start 07/05/16 at 09:00 Hydroxyzine Pamoate (Vistaril) 50 mg TID PRN PO ANXIETY Last administered on 23:46; Start 07/04/16 at 23:15 Sertraline HCl (Zoloft) 50 mg DAILY PO ; Start 07/05/16 at 09:00 Diphenhydramine HCl 50 mg 50 mg ONCE ONCE PO ; Start 07/04/16 at 23:45; Stop at 23:46; Status DC Ciprofloxacin/ Dextrose (Cipro 400 Mg Premix) 200 ml @ 200 mls/hr Q12H IV ; Start 07/05/16 at 01:00 . Family History Father had a kidney stone one time . Social History Tobacco: chews about 1 can/week Alcohol: recovering alcoholic- denies current alcohol use Illicit Drugs: denies . Physical Exam Vital Signs Vital Signs Date Time Temp Pulse Resp B/P Pulse Ox O2 Delivery O2 Flow Rate FiO2 07/04/16 21:16 97.7 85 20 141/90 97 07/04/16 20:38 86 18 98 4/21/17 20:37 86 18 144/78 98 Room Air 07/04/16 19:24 84 18 140/76 98 Room Air 07/04/16 17:15 16 07/04/16 17:00 86 16 148/79 98 07/04/16 16:30 16 07/04/16 16:00 89 16 142/74 07/04/16 15:20 16 99 Room Air 07/04/16 15:11 16 07/04/16 15:00 98.3 91 16 134/92 99 Room Air 07/04/16 14:49 98.3 109 16 156/111 99 Physical Exam GENERAL: This is a well-nourished, well-developed patient, in no apparent distress. SKIN: No rashes, ecchymoses or lesions. Cool and dry. HEAD: Atraumatic. Normocephalic. EYES: No scleral icterus. No injection or drainage. ENT: Nose without bleeding, purulent drainage. NECK: Trachea midline. No JVD or lymphadenopathy. CARDIOVASCULAR: Regular rate and rhythm without murmurs, gallops, or rubs. RESPIRATORY: Clear to auscultation. Breath sounds equal bilaterally. No wheezes , rales, or rhonchi. GASTROINTESTINAL: Abdomen soft, tender along the left flank, nondistended. No guarding. MUSCULOSKELETAL: Extremities without clubbing, cyanosis, or edema. No calf tenderness. NEUROLOGICAL: Awake and alert. Motor and sensory grossly within normal limits. Normal speech. . Laboratory Laboratory Tests Test 07/04/16 07/04/16 07/04/16 15:38 16:35 22:45 White Blood Count 12.2 Red Blood Count 4.26 Hemoglobin 11.8 Hematocrit 34.5 Mean Corpuscular Volume 81.0 Mean Corpuscular Hemoglobin 27.7 Mean Corpuscular Hemoglobin 34.2 Concent Red Cell Distribution Width 13.1 Platelet Count 322 Mean Platelet Volume 6.9 Neutrophils (%) (Auto) 66.4 Lymphocytes (%) (Auto) 19.4 Monocytes (%) (Auto) 7.3 Eosinophils (%) (Auto) 6.3 Basophils (%) (Auto) 0.6 Neutrophils # (Auto) 8.0 Lymphocytes # (Auto) 2.4 Monocytes # (Auto) 0.9 Eosinophils # (Auto) 0.8 Basophils # (Auto) 0.1 CBC Comment DIFF FINAL Differential Comment Sodium Level 144 Potassium Level 3.2 Chloride Level 107 Carbon Dioxide Level 26.6 Anion Gap 10 Blood Urea Nitrogen 15 Creatinine 1.00 Estimat Glomerular Filtration 84 Rate Random Glucose 108 Lactic Acid Level 2.2 1.1 Calcium Level 8.9 Total Bilirubin 0.2 Aspartate Amino Transf 22 (AST/SGOT) Alanine Aminotransferase 33 (ALT/SGPT) Alkaline Phosphatase 88 Total Protein 7.4 Albumin 3.4 Lipase 218 Urine Collection Type CLEAN CATCH Urine Color YELLOW Urine Turbidity MOD Urine pH 6.[address] 1.015 Urine Protein 30 Urine Glucose (UA) NEG Urine Ketones NEG Urine Occult Blood LARGE Urine Nitrite NEG Urine Bilirubin NEG Urine Leukocyte Esterase LARGE Urine RBC 20-24 Urine WBC INNUM Urine WBC Clumps MOD Urine Squamous Epithelial 6-8 Cells Urine Bacteria FEW Microscopic Urinalysis Comment CULTURE INDICATED Urine Collection Time 16:35 Date/Time Procedure Status Source Growth 07/04/16 16:35 Urine Culture Received Urine Clean Catch Pending 07/04/16 16:08 Aerobic Blood Culture Received Blood Peripheral Pending 07/04/16 16:08 Anaerobic Blood Culture Received Blood Peripheral Pending Result Diagram: 07/04/16 1538 07/04/16 1538 Imaging Last Impressions Abdomen/Pelvis CT 07/04/16 1524 Signed Impressions: Service Date/Time: Monday, July 04, 2016 16:05 - CONCLUSION: Multiple stones are present in the left ureter adjacent to the stent in addition to multiple stones in both kidneys bilaterally. Santhosh Penn MD . Assessment and Plan Problem List: (1) UTI (urinary tract infection) ICD Code: N39.0 Status: Acute (2) Hydronephrosis of left kidney ICD Code: N13.30 Status: Acute Assessment and Plan Mr. Paez is a 36 year-old male with a lengthy history of nephrolithiasis requiring ureteral stents and nephrostomy tubes as well as lithotripsy who presented to the emergency room on 07/04/2016 complaining of severe left flank pain. Abdomen/pelvis CT in the ER showed multiple stones present in the left ureter adjacent to the stent in addition to multiple stones in both kidneys bilaterally; moderate hydronephrosis in the left kidney and to a slight degree on the right. UTI - Ciprofloxacin 400 mg IV every 12 hours - IV fluid hydration with normal saline with 40 mEq of potassium at 125 cc per hour Hydronephrosis of left kidney - Oxycodone 5/325 every 6 hours by mouth as needed for pain 5-10; Dilaudid 0.5 mg IV every 4 hours as needed for breakthrough pain - Consult urology - Dr. Villatoro - appreciate his assistance Lactic acidosis - Resolved with IV fluid hydration - went from 2.2-1.1 DVT prophylaxis - SCDs . Discussed Condition With Patient, RN, and Dr. Rodríguez . Physician Certification 2 Midnight Certification Type: Admission for Inpatient Services Order for Inpatient Services The services are ordered in accordance with Medicare regulations or non- Medicare payer requirements, as applicable. In the case of services not specified as inpatient-only, they are appropriately provided as inpatient services in accordance with the 2-midnight benchmark. Estimated LOS (days): 3 days is the estimated time the patient will need to remain in the hospital, assuming treatment plan goals are met and no additional complications. Post-Hospital Plan: Home Amy Raphael Jul 04, 2016 23:35
[2016-07-04] MEDS ORDERED: diphenhydrAMINE HCL 50 MG CAP PO ONE (23:45)
[2016-07-05] VITALS: BP 138/96; PULSE 69; RESP 20; TEMP 97.7; O2SAT 97
[2016-07-05] MEDS: NS + KCL 40 MEQ INJ 1,000 ML IV SCH ×3 (00:45→16:36)
[2016-07-05] MEDS ORDERED: CIPROFLOXACIN 400 MG PREMIX 200 ML IV SCH (01:00)
[2016-07-05] MEDS: HYDROmorphone HCL PF 1 MG/ML VIAL IV PUSH PRN ×4 (03:53→22:15)
[2016-07-05 04:00] VITALS: PULSE 82; RESP 20; TEMP 97.6; O2SAT 98
[2016-07-05] MEDS: CIPROFLOXACIN 400 MG PREMIX 200 ML IV SCH ×2 (05:00→16:35)
[2016-07-05] MEDS: oxyCODONE/ACETAMINOPHEN 5 MG/325 MG TAB PO PRN ×3 (07:50→21:18)
[2016-07-05] MEDS: SERTRALINE HCL 50 MG TAB PO SCH (07:51)
[2016-07-05] MEDS: ALLOPURINOL 100 MG TAB PO SCH (07:51)
[2016-07-05] MEDS: SODIUM CHLORIDE 0.9% FLUSH 10 ML FLUSH IV FLUSH SCH ×2 (07:52→21:18)
[2016-07-05 08:00] VITALS: BP 139/96; PULSE 77; RESP 16; TEMP 97.9; O2SAT 99
--- NOTE | 2016-07-05 08:52 | HHI.PR ---
Subjective Remarks This is a pleasant 36 y/o Male with Nephrolithiasis, requiring ureteral Stents, and Nephrostomy tubes As well as lithotripsy who presented to the emergency room on 07/04/2016 complaining of severe left flank pain. Abdomen/pelvis CT in the ER showed multiple stones present in the left ureter adjacent to the stent in addition to multiple stones in both kidneys bilaterally; moderate hydronephrosis in the left kidney and to a slight degree on the right. reports Chronic Hematuria, he is a recovering alcoholic, has Anxiety, Gout, Cirrhosis, stable in his bedroom and discussed with nurse no new issues. Objective Vital Signs Date Time Temp Pulse Resp B/P Pulse Ox O2 Delivery O2 Flow Rate FiO2 07/05/16 04:00 97.6 82 20 98 07/05/16 00:00 97.7 69 20 138/96 97 07/04/16 21:16 97.7 85 20 141/90 97 07/04/16 20:38 86 18 98 07/04/16 20:37 86 18 144/78 98 Room Air 07/04/16 19:24 84 18 140/76 98 Room Air 07/04/16 17:15 16 07/04/16 17:00 86 16 148/79 98 07/04/16 16:30 16 07/04/16 16:00 89 16 142/74 07/04/16 15:20 16 99 Room Air 07/04/16 15:11 16 07/04/16 15:00 98.3 91 16 134/92 99 Room Air 07/04/16 14:49 98.3 109 16 156/111 99 I/O 07/04/16 07/04/16 07/04/16 07/05/16 07/05/16 07/05/16 07:00 15:00 23:00 07:00 15:00 23:00 Intake Total 1240 ml 1785 ml Output Total 850 ml Balance 1240 ml 935 ml Intake Oral 240 ml 240 ml IV Total 1000 ml 1545 ml Output Urine Total 850 ml # Voids 1 Result Diagram: 07/04/16 1538 07/04/16 1538 Imaging Last Impressions Abdomen/Pelvis CT 07/04/16 1524 Signed Impressions: Service Date/Time: Monday, July 04, 2016 16:05 - CONCLUSION: Multiple stones are present in the left ureter adjacent to the stent in addition to multiple stones in both kidneys bilaterally. Santhosh Penn MD Procedures No procedures performed. Other Results Laboratory Tests Test 07/04/16 07/04/16 07/04/16 15:38 16:35 22:45 White Blood Count 12.2 TH/MM3 Red Blood Count 4.26 MIL/MM3 Hemoglobin 11.8 GM/DL Hematocrit 34.5 % Mean Corpuscular Volume 81.0 FL Mean Corpuscular Hemoglobin 27.7 PG Mean Corpuscular Hemoglobin 34.2 % Concent Red Cell Distribution Width 13.1 % Platelet Count 322 TH/MM3 Mean Platelet Volume 6.9 FL Neutrophils (%) (Auto) 66.4 % Lymphocytes (%) (Auto) 19.4 % Monocytes (%) (Auto) 7.3 % Eosinophils (%) (Auto) 6.3 % Basophils (%) (Auto) 0.6 % Neutrophils # (Auto) 8.0 TH/MM3 Lymphocytes # (Auto) 2.4 TH/MM3 Monocytes # (Auto) 0.9 TH/MM3 Eosinophils # (Auto) 0.8 TH/MM3 Basophils # (Auto) 0.1 TH/MM3 CBC Comment DIFF FINAL Differential Comment Sodium Level 144 MEQ/L Potassium Level 3.2 MEQ/L Chloride Level 107 MEQ/L Carbon Dioxide Level 26.6 MEQ/L Anion Gap 10 MEQ/L Blood Urea Nitrogen 15 MG/DL Creatinine 1.00 MG/DL Estimat Glomerular Filtration 84 ML/MIN Rate Random Glucose 108 MG/DL Calcium Level 8.9 MG/DL Total Bilirubin 0.2 MG/DL Aspartate Amino Transf 22 U/L (AST/SGOT) Alanine Aminotransferase 33 U/L (ALT/SGPT) Alkaline Phosphatase 88 U/L Total Protein 7.4 GM/DL Albumin 3.4 GM/DL Lipase 218 U/L Urine Collection Type CLEAN CATCH Urine Color YELLOW Urine Turbidity MOD Urine pH 6.0 Urine Specific [place] 1.015 Urine Protein 30 mg/dL Urine Glucose (UA) NEG mg/dL Urine Ketones NEG mg/dL Urine Occult Blood LARGE Urine Nitrite NEG Urine Bilirubin NEG Urine Leukocyte Esterase LARGE Urine RBC 20-24 /hpf Urine WBC INNUM /hpf Urine WBC Clumps MOD Urine Squamous Epithelial 6-8 /hpf Cells Urine Bacteria FEW /hpf Microscopic Urinalysis Comment CULTURE INDICATED Urine Collection Time 16:35 Lactic Acid Level 1.1 mmol/L Objective Remarks GENERAL: This is a well-nourished, well-developed patient, in no apparent distress. SKIN: No rashes, ecchymoses or lesions. Cool and dry. HEAD: Atraumatic. Normocephalic. EYES: No scleral icterus. No injection or drainage. ENT: Nose without bleeding, purulent drainage. NECK: Trachea midline. No JVD or lymphadenopathy. CARDIOVASCULAR: Regular rate and rhythm without murmurs, gallops, or rubs. RESPIRATORY: Clear to auscultation. Breath sounds equal bilaterally. No wheezes , rales, or rhonchi. GASTROINTESTINAL: Abdomen soft, tender along the left flank, nondistended. No guarding. MUSCULOSKELETAL: Extremities without clubbing, cyanosis, or edema. No calf tenderness. NEUROLOGICAL: Awake and alert. Motor and sensory grossly within normal limits. Normal speech. Medications and IVs Current Medications Medications (Trade) Dose Ordered Sig/Cecelia Route Start Time Stop Time Status Last Admin (NS + KCl 40 Meq Inj) 1,000 ml @ 125 mls/hr Q8H IV 07/04/16 16:45 07/05/16 07:52 (NS Flush) 2 ml UNSCH PRN IV FLUSH 07/04/16 18:00 (NS Flush) 2 ml BID IV FLUSH 07/04/16 21:00 (Tylenol) 650 mg Q4H PRN PO 07/04/16 18:00 (Zofran Inj) 4 mg Q6H PRN IVP 07/04/16 18:00 (Milk Of Magnesia Liq) 30 ml Q12H PRN PO 07/04/16 18:00 (Narcan Inj) 0.4 mg UNSCH PRN IV 07/04/16 18:00 (Percocet 5-325 Mg) 1 tab Q6H PRN PO 07/04/16 18:00 07/05/16 07:50 (Dilaudid Pf Inj) 0.5 mg Q4H PRN IV PUSH 07/04/16 18:00 07/05/16 03:53 (Zyloprim) 100 mg DAILY PO 07/05/16 09:00 07/05/16 07:51 (Vistaril) 50 mg TID PRN PO 07/04/16 23:15 07/04/16 23:46 Sertraline HCl 50 mg 50 mg DAILY PO 07/05/16 09:00 07/05/16 07:51 (Cipro 400 Mg Premix) 200 ml @ 200 mls/hr Q12H IV 07/05/16 05:00 A/P Assessment and Plan (1) UTI (urinary tract infection) ICD Code: N39.0 Status: Acute (2) Hydronephrosis of left kidney ICD Code: N13.30 Status: Acute UTI - Ciprofloxacin 400 mg IV every 12 hours - IV fluid hydration with normal saline with 40 mEq of potassium at 125 cc per hour Hydronephrosis of left kidney -Continue Pain management, status post Urology specialist consult awaiting for Cystoscopy and laser lithotripsy early this week. Lactic acidosis - Resolved with IV fluid hydration - went from 2.2-1.1 DVT prophylaxis - SCDs Discharge Planning awaiting final by Urology specialist for discharge Farrukh Jeffers MD Jul 05, 2016 08:52 DVT prophylaxis - SCDs Farrukh Jeffers MD Jul 05, 2016 08:52
[2016-07-05 10:53] LABS: BASOPHIL % 0.3 % (0.0-2.0); EOSINOPHIL # 0.9 TH/MM3 (0-0.4); EOSINOPHIL % 8.1 % (0.0-4.0); HEMATOCRIT 32.1 % (39.0-51.0); HEMO FLAGS DIFF FINAL; LYMPH % 14.9 % (9.0-44.0); LYMPHOCYTE # 1.7 TH/MM3 (1.0-4.8); MEAN CELL VOLUME 80.7 FL (80.0-100.0); MEAN CORPUSCULAR HEMOGLOBIN 27.4 PG (27.0-34.0); MEAN CORPUSCULAR HGB CONC 33.9 % (32.0-36.0); NEUT % 69.7 % (16.0-70.0); PLATELET COUNT 216 TH/MM3 (150-450); RED BLOOD COUNT 3.98 MIL/MM3 (4.50-5.90); RED CELL DISTRIBUTION WIDTH 13.8 % (11.6-17.2); WHITE BLOOD COUNT 11.4 TH/MM3 (4.0-11.0)
[2016-07-05 11:06] LABS: POTASSIUM 4.3 MEQ/L (3.5-5.1)
[2016-07-05 12:00] VITALS: BP 126/78; PULSE 76; RESP 16; TEMP 98.1; O2SAT 98
--- NOTE | 2016-07-05 12:12 | PD.CONS ---
HPI Service Urology Consult Requested By Primary Care Physician No Primary Care Physician Diagnosis: (1) UTI (urinary tract infection) ICD Code: N39.0 (2) Hydronephrosis of left kidney ICD Code: N13.30 History of Present Illness 36-year-old male presents with findings of bilateral nephrolithiasis and retained stent on the left side which has been in since 2007. Patient presented at [facility] back in 2007 and underwent cystoscopy and left double J stent placement by Dr. Roberts. He was lost to follow-up. He was seen down [facility] recently by urologist and had a left nephrostomy tube placed at that time. The tube was then dislodged and fell out. He presented to [facility] at the beginning of this month with her urinary tract infection. He was scheduled to follow up with his urologist in [facility] on the but was unable to make that appointment and instead presented to [facility] yesterday. CT scan findings yesterday demonstrate bilateral staghorn calculi and an encrusted left ureteral stent. Encrustation is noted in the distal ureter. He also has bilateral mild hydronephrosis. His creatinine is within normal limits at present time. Review of Systems Constitutional: DENIES: Diaphoretic episodes Endocrine: DENIES: Heat/cold intolerance Eyes: DENIES: Blurred vision Ears, nose, mouth, throat: DENIES: Tinnitus Respiratory: DENIES: Apneas Cardiovascular: DENIES: Chest pain Gastrointestinal: COMPLAINS OF: Abdominal pain Genitourinary: DENIES: Sexual dysfunction Musculoskeletal: DENIES: Joint pain Integumentary: DENIES: Abnormal pigmentation Hematologic/lymphatic: DENIES: Bruising Immunologic/allergic: DENIES: Eczema Neurologic: DENIES: Abnormal gait Psychiatric: DENIES: Anxiety Past Family Social History Past Medical History Gout Nephrolithiasis Past Surgical History Right elbow surgery for bursitis Cystoscopy left double-J stent insertion Left nephrostomy tube placement Allergies: Coded Allergies: Toradol (Verified Allergy, Severe, SWELLING OF THROAT, 07/04/16) Family History Denies prostate cancer Social History Recovering alcoholic; currently not drinking Denies smoking Physical Exam Vital Signs Date Time Temp Pulse Resp B/P Pulse Ox O2 Delivery O2 Flow Rate FiO2 07/05/16 08:00 97.9 77 16 139/96 99 07/05/16 04:00 97.6 82 20 98 07/05/16 00:00 97.7 69 20 138/96 97 07/04/16 21:16 97.7 85 20 141/90 97 07/04/16 20:38 86 18 98 07/04/16 20:37 86 18 144/78 98 Room Air 07/04/16 19:24 84 18 140/76 98 Room Air 07/04/16 17:15 16 07/04/16 17:00 86 16 148/79 98 07/04/16 16:30 16 07/04/16 16:00 89 16 142/74 07/04/16 15:20 16 99 Room Air 07/04/16 15:11 16 07/04/16 15:00 98.3 91 16 134/92 99 Room Air 07/04/16 14:49 98.3 109 16 156/111 99 Physical Exam GENERAL: This is a well-nourished, well-developed patient, in no apparent distress. SKIN: No rashes, ecchymoses or lesions. Cool and dry. HEAD: Atraumatic. Normocephalic. No temporal or scalp tenderness. EYES: Pupils equal round and reactive. Extraocular motions intact. No scleral icterus. No injection or drainage. ENT: Nose without bleeding, purulent drainage or septal hematoma. Throat without erythema, tonsillar hypertrophy or exudate. Uvula midline. Airway patent. NECK: Trachea midline. No JVD or lymphadenopathy. Supple, nontender, no meningeal signs. CARDIOVASCULAR: Regular rate and rhythm without murmurs, gallops, or rubs. RESPIRATORY: Clear to auscultation. Breath sounds equal bilaterally. No wheezes , rales, or rhonchi. GASTROINTESTINAL: Abdomen soft, some tenderness, nondistended. No hepato- splenomegaly, or palpable masses. No guarding. Left CVA tenderness is noted GENITOURINARY: Normal phallus with testes descended. MUSCULOSKELETAL: Extremities without clubbing, cyanosis, or edema. No joint tenderness, effusion, or edema noted. No calf tenderness. Negative Homans sign bilaterally. NEUROLOGICAL: Awake and alert. Cranial nerves II through XII intact. Motor and sensory grossly within normal limits. Five out of 5 muscle strength in all muscle groups. Normal speech. Laboratory Tests Test 07/04/16 07/04/16 07/04/16 07/05/16 15:38 16:35 22:45 10:06 White Blood Count 12.2 11.4 Red Blood Count 4.26 3.98 Hemoglobin 11.8 10.9 Hematocrit 34.5 32.1 Mean Corpuscular Volume 81.0 80.7 Mean Corpuscular Hemoglobin 27.7 27.4 Mean Corpuscular Hemoglobin 34.2 33.9 Concent Red Cell Distribution Width 13.1 13.8 Platelet Count 322 216 Mean Platelet Volume 6.9 7.3 Neutrophils (%) (Auto) 66.4 69.7 Lymphocytes (%) (Auto) 19.4 14.9 Monocytes (%) (Auto) 7.3 7.0 Eosinophils (%) (Auto) 6.3 8.1 Basophils (%) (Auto) 0.6 0.3 Neutrophils # (Auto) 8.0 8.0 Lymphocytes # (Auto) 2.4 1.7 Monocytes # (Auto) 0.9 0.8 Eosinophils # (Auto) 0.8 0.9 Basophils # (Auto) 0.1 0.0 CBC Comment DIFF FINAL DIFF FINAL Differential Comment Sodium Level 144 142 Potassium Level 3.2 4.3 Chloride Level 107 109 Carbon Dioxide Level 26.6 28.0 Anion Gap 10 5 Blood Urea Nitrogen 15 11 Creatinine 1.00 0.87 Estimat Glomerular Filtration 84 99 Rate Random Glucose 108 115 Lactic Acid Level 2.2 1.1 Calcium Level 8.9 8.4 Total Bilirubin 0.2 Aspartate Amino Transf 22 (AST/SGOT) Alanine Aminotransferase 33 (ALT/SGPT) Alkaline Phosphatase 88 Total Protein 7.4 Albumin 3.4 Lipase 218 Urine Collection Type CLEAN CATCH Urine Color YELLOW Urine Turbidity MOD Urine pH 6.0 Urine Specific [place] 1.015 Urine Protein 30 Urine Glucose (UA) NEG Urine Ketones NEG Urine Occult Blood LARGE Urine Nitrite NEG Urine Bilirubin NEG Urine Leukocyte Esterase LARGE Urine RBC 20-24 Urine WBC INNUM Urine WBC Clumps MOD Urine Squamous Epithelial 6-8 Cells Urine Bacteria FEW Microscopic Urinalysis Comment CULTURE INDICATED Urine Collection Time 16:35 Date/Time Procedure Status Source Growth 07/04/16 16:35 Urine Culture - Preliminary Resulted Urine Clean Catch Group D Enterococcus 07/04/16 16:08 Aerobic Blood Culture - Preliminary Resulted Blood Peripheral NO GROWTH IN 1 DAY 07/04/16 16:08 Anaerobic Blood Culture - Preliminary Resulted Blood Peripheral NO GROWTH IN 1 DAY Result Diagram: 07/05/16 1006 07/05/16 1006 Imaging Last Impressions Abdomen/Pelvis CT 07/04/16 1524 Signed Impressions: Service Date/Time: Monday, July 04, 2016 16:05 - CONCLUSION: Multiple stones are present in the left ureter adjacent to the stent in addition to multiple stones in both kidneys bilaterally. Santhosh Penn MD Assessment and Plan Assessment and Plan 36-year-old male with bilateral staghorn calculus and encrusted left ureteral stent with enterococcus UTI Continue with IV antibiotics for now Patient will need left ureteroscopy with laser lithotripsy after his infection clears. If time permits may proceed with ureteroscopy later in the week, if not this will be done outpatient basis. Patient needs to get patient assistance arranged as he will need multiple surgeries in the future to remove his large stone burden. Damian Villatoro DO Jul 05, 2016 12:12
[2016-07-05 16:00] VITALS: BP 141/81; PULSE 83; RESP 17; TEMP 98.8; O2SAT 97
[2016-07-05] MEDS: SODIUM CHLOR 0.9% 1000 ML INJ 1,000 ML IV SCH (18:16)
[2016-07-06] MEDS: HYDROmorphone HCL PF 1 MG/ML VIAL IV PUSH PRN ×4 (01:34→21:07)
[2016-07-06] MEDS: SODIUM CHLOR 0.9% 1000 ML INJ 1,000 ML IV SCH ×3 (01:38→18:27)
[2016-07-06] MEDS: oxyCODONE/ACETAMINOPHEN 5 MG/325 MG TAB PO PRN ×3 (04:40→18:27)
[2016-07-06] MEDS: CIPROFLOXACIN 400 MG PREMIX 200 ML IV SCH ×2 (04:41→15:42)
[2016-07-06 08:00] VITALS: BP 132/96; PULSE 84; RESP 16; TEMP 98.7; O2SAT 96
[2016-07-06] MEDS: SERTRALINE HCL 50 MG TAB PO SCH (08:47)
[2016-07-06] MEDS: ALLOPURINOL 100 MG TAB PO SCH (08:47)
[2016-07-06] MEDS: SODIUM CHLORIDE 0.9% FLUSH 10 ML FLUSH IV FLUSH SCH ×2 (08:48→21:00)
--- NOTE | 2016-07-06 09:48 | HHI.PR ---
Subjective Patient symptoms today Pt seen and examined. Feels better. Group D enterococcus UTI. Objective Vital Signs Vital Signs Date Time Temp Pulse Resp B/P Pulse Ox O2 Delivery O2 Flow Rate FiO2 07/06/16 08:00 98.7 84 16 132/96 96 07/05/16 16:00 98.8 83 17 141/81 97 07/05/16 12:00 98.1 76 16 126/78 98 Result Diagram: 07/05/16 1006 07/05/16 1006 Objective Remarks Abd:soft,nt,nd Left CVAT tenderness present-mild Medications and IVs Current Medications Medications (Trade) Dose Ordered Sig/Cecelia Route Start Time Stop Time Status Last Admin (NS Flush) 2 ml UNSCH PRN IV FLUSH 07/04/16 18:00 (NS Flush) 2 ml BID IV FLUSH 07/04/16 21:00 07/06/16 08:48 (Tylenol) 650 mg Q4H PRN PO 07/04/16 18:00 (Zofran Inj) 4 mg Q6H PRN IVP 07/04/16 18:00 (Milk Of Magnesia Liq) 30 ml Q12H PRN PO 07/04/16 18:00 (Narcan Inj) 0.4 mg UNSCH PRN IV 07/04/16 18:00 (Percocet 5-325 Mg) 1 tab Q6H PRN PO 07/04/16 18:00 07/06/16 04:40 (Dilaudid Pf Inj) 0.5 mg Q4H PRN IV PUSH 07/04/16 18:00 07/06/16 08:47 (Zyloprim) 100 mg DAILY PO 07/05/16 09:00 07/06/16 08:47 (Vistaril) 50 mg TID PRN PO 07/04/16 23:15 07/05/16 22:12 Sertraline HCl 50 mg 50 mg DAILY PO 07/05/16 09:00 07/06/16 08:47 Ciprofloxacin/ Dextrose 200 ml @ 200 mls/hr Q12H IV 07/05/16 05:00 07/06/16 04:41 (NS 1000 ml Inj) 1,000 ml @ 125 mls/hr Q8H IV 07/05/16 18:15 07/06/16 08:48 Assessment and Plan Assessment and Plan 36-year-old male with bilateral staghorn calculus and encrusted left ureteral stent with enterococcus UTI Continue with IV antibiotics for now Patient will need left ureteroscopy with laser lithotripsy after his infection clears. If time permits may proceed with ureteroscopy later in the week, if not this will be done outpatient basis. Patient needs to get patient assistance arranged as he will need multiple surgeries in the future to remove his large stone burden. 07/06 36-year-old male with bilateral staghorn calculus and encrusted left ureteral stent with enterococcus UTI Continue with IV antibiotics Patient will need left ureteroscopy with laser lithotripsy after his infection clears. Damian Villatoro DO Jul 06, 2016 09:48
[2016-07-06 12:00] VITALS: BP 139/82; PULSE 79; RESP 16; TEMP 98.8; O2SAT 97
--- NOTE | 2016-07-06 14:45 | HHI.PR ---
Subjective Remarks This is a pleasant 36 y/o Male with Nephrolithiasis, requiring ureteral Stents, and Nephrostomy tubes As well as lithotripsy who presented to the emergency room on 07/04/2016 complaining of severe left flank pain. Abdomen/pelvis CT in the ER showed multiple stones present in the left ureter adjacent to the stent in addition to multiple stones in both kidneys bilaterally; moderate hydronephrosis in the left kidney and to a slight degree on the right. reports Chronic Hematuria, he is a recovering alcoholic, has Anxiety, Gout, Cirrhosis, stable in his bedroom and discussed with nurse no new issues. 07/06: Seen in his bedroom, discussed with nurse Miss Kasper, no nausea, vomit or diarrhea, he has history of left ureteral stent with enterococcus UTI on IV antibiotics, following Urine culture and sensitivity, awaiting for the infection to clear to perform Cystoscopy and Laser Lithotripsy. Objective Vital Signs Date Time Temp Pulse Resp B/P Pulse Ox O2 Delivery O2 Flow Rate FiO2 07/06/16 12:00 98.8 79 16 139/82 97 07/06/16 08:00 98.7 84 16 132/96 96 07/05/16 16:00 98.8 83 17 141/81 97 I/O 07/05/16 07/05/16 07/05/16 07/06/16 07/06/16 07/06/16 07:00 15:00 23:00 07:00 15:00 23:00 Intake Total 1785 ml 1628 ml 1000 ml 884 ml Output Total 850 ml 1150 ml 900 ml Balance 935 ml 478 ml 1000 ml -900 ml 884 ml Intake Oral 240 ml 720 ml IV Total 1545 ml 908 ml 1000 ml 884 ml Output Urine Total 850 ml 1150 ml 900 ml # Voids 5 # Bowel Movements 1 Result Diagram: 07/05/16 1006 07/05/16 1006 Imaging Last Impressions Abdomen/Pelvis CT 07/04/16 1524 Signed Impressions: Service Date/Time: Monday, July 04, 2016 16:05 - CONCLUSION: Multiple stones are present in the left ureter adjacent to the stent in addition to multiple stones in both kidneys bilaterally. Santhosh Penn MD Procedures No procedures performed. Other Results Laboratory Tests Test 4/21/17 4/21/17 4/21/17 4/22/17 15:38 16:35 22:45 10:06 Total Bilirubin 0.2 MG/DL Aspartate Amino Transf 22 U/L (AST/SGOT) Alanine Aminotransferase 33 U/L (ALT/SGPT) Alkaline Phosphatase 88 U/L Total Protein 7.4 GM/DL Albumin 3.4 GM/DL Lipase 218 U/L Urine Collection Type CLEAN CATCH Urine Color YELLOW Urine Turbidity MOD Urine pH 6.0 Urine Specific [place]stock 1.015 Urine Protein 30 mg/dL Urine Glucose (UA) NEG mg/dL Urine Ketones NEG mg/dL Urine Occult Blood LARGE Urine Nitrite NEG Urine Bilirubin NEG Urine Leukocyte Esterase LARGE Urine RBC 20-24 /hpf Urine WBC INNUM /hpf Urine WBC Clumps MOD Urine Squamous Epithelial 6-8 /hpf Cells Urine Bacteria FEW /hpf Microscopic Urinalysis Comment CULTURE INDICATED Urine Collection Time 16:35 Lactic Acid Level 1.1 mmol/L White Blood Count 11.4 TH/MM3 Red Blood Count 3.98 MIL/MM3 Hemoglobin 10.9 GM/DL Hematocrit 32.1 % Mean Corpuscular Volume 80.7 FL Mean Corpuscular Hemoglobin 27.4 PG Mean Corpuscular Hemoglobin 33.9 % Concent Red Cell Distribution Width 13.8 % Platelet Count 216 TH/MM3 Mean Platelet Volume 7.3 FL Neutrophils (%) (Auto) 69.7 % Lymphocytes (%) (Auto) 14.9 % Monocytes (%) (Auto) 7.0 % Eosinophils (%) (Auto) 8.1 % Basophils (%) (Auto) 0.3 % Neutrophils # (Auto) 8.0 TH/MM3 Lymphocytes # (Auto) 1.7 TH/MM3 Monocytes # (Auto) 0.8 TH/MM3 Eosinophils # (Auto) 0.9 TH/MM3 Basophils # (Auto) 0.0 TH/MM3 CBC Comment DIFF FINAL Differential Comment Sodium Level 142 MEQ/L Potassium Level 4.3 MEQ/L Chloride Level 109 MEQ/L Carbon Dioxide Level 28.0 MEQ/L Anion Gap 5 MEQ/L Blood Urea Nitrogen 11 MG/DL Creatinine 0.87 MG/DL Estimat Glomerular Filtration 99 ML/MIN Rate Random Glucose 115 MG/DL Calcium Level 8.4 MG/DL Objective Remarks GENERAL: This is a well-nourished, well-developed patient, in no apparent distress. SKIN: No rashes, ecchymoses or lesions. Cool and dry. HEAD: Atraumatic. Normocephalic. EYES: No scleral icterus. No injection or drainage. ENT: Nose without bleeding, purulent drainage. NECK: Trachea midline. No JVD or lymphadenopathy. CARDIOVASCULAR: Regular rate and rhythm without murmurs, gallops, or rubs. RESPIRATORY: Clear to auscultation. Breath sounds equal bilaterally. No wheezes , rales, or rhonchi. GASTROINTESTINAL: Abdomen soft, not tender. MUSCULOSKELETAL: Extremities without clubbing, cyanosis, or edema. No calf tenderness. NEUROLOGICAL: Awake and alert. Motor and sensory grossly within normal limits. Normal speech. Medications and IVs Current Medications Medications (Trade) Dose Ordered Sig/Cecelia Route Start Time Stop Time Status Last Admin (NS Flush) 2 ml UNSCH PRN IV FLUSH 07/04/16 18:00 (NS Flush) 2 ml BID IV FLUSH 07/04/16 21:00 07/06/16 08:48 (Tylenol) 650 mg Q4H PRN PO 07/04/16 18:00 (Zofran Inj) 4 mg Q6H PRN IVP 07/04/16 18:00 (Milk Of Magnesia Liq) 30 ml Q12H PRN PO 07/04/16 18:00 (Narcan Inj) 0.4 mg UNSCH PRN IV 07/04/16 18:00 (Percocet 5-325 Mg) 1 tab Q6H PRN PO 07/04/16 18:00 07/06/16 11:48 (Dilaudid Pf Inj) 0.5 mg Q4H PRN IV PUSH 07/04/16 18:00 07/06/16 08:47 (Zyloprim) 100 mg DAILY PO 07/05/16 09:00 07/06/16 08:47 (Vistaril) 50 mg TID PRN PO 07/04/16 23:15 07/05/16 22:12 Sertraline HCl 50 mg 50 mg DAILY PO 07/05/16 09:00 07/06/16 08:47 Ciprofloxacin/ Dextrose 200 ml @ 200 mls/hr Q12H IV 07/05/16 05:00 07/06/16 04:41 (NS 1000 ml Inj) 1,000 ml @ 125 mls/hr Q8H IV 07/05/16 18:15 07/06/16 08:48 A/P Assessment and Plan (1) UTI (urinary tract infection) ICD Code: N39.0 Status: Acute (2) Hydronephrosis of left kidney ICD Code: N13.30 Status: Acute UTI - Ciprofloxacin 400 mg IV every 12 hours - IV fluid hydration with Normal saline 125 ml per Hour. Hydronephrosis of left kidney -Continue Pain management, status post Urology specialist consult awaiting for Cystoscopy and laser lithotripsy early this week. Lactic acidosis - Resolved with IV fluid hydration - went from 2.2-1.1 DVT prophylaxis - SCDs Discharge Planning awaiting final by Urology specialist for discharge Farrukh Jeffers MD Jul 06, 2016 14:45
[2016-07-06 16:00] VITALS: BP 162/83; PULSE 97; RESP 16; TEMP 98.5; O2SAT 98
[2016-07-06 20:00] VITALS: BP 136/99; PULSE 99; RESP 20; TEMP 99.2; O2SAT 95
[2016-07-07] VITALS (7 sets, daily range): BP systolic 123–164; BP diastolic 78–103; PULSE 88–126; RESP 16–20; TEMP 97.3–99.8; O2SAT 96–98
[2016-07-07] MEDS: oxyCODONE/ACETAMINOPHEN 5 MG/325 MG TAB PO PRN ×3 (00:14→12:37)
[2016-07-07] MEDS: HYDROmorphone HCL PF 1 MG/ML VIAL IV PUSH PRN ×6 (01:12→19:45)
[2016-07-07] MEDS: CIPROFLOXACIN 400 MG PREMIX 200 ML IV SCH ×2 (05:14→17:17)
[2016-07-07] MEDS: SODIUM CHLOR 0.9% 1000 ML INJ 1,000 ML IV SCH ×3 (05:14→18:15)
--- NOTE | 2016-07-07 08:15 | HHI.PR ---
Subjective Patient symptoms today Pt seen and examined. Feels well. UTI noted. Objective Vital Signs Vital Signs Date Time Temp Pulse Resp B/P Pulse Ox O2 Delivery O2 Flow Rate FiO2 07/07/16 04:00 98.1 90 20 135/80 98 07/07/16 00:00 99.8 98 20 143/82 96 07/06/16 20:00 99.2 99 20 136/99 95 07/06/16 16:00 98.5 97 16 162/83 98 07/06/16 12:00 98.8 79 16 139/82 97 Intake & Output 07/07/16 07/07/16 07:00 19:00 Intake Total 2985 ml Output Total 3275 ml Balance -290 ml Intake Oral 860 ml IV Total 2125 ml Output Urine Total 3275 ml Stool Total 0 ml # Bowel Movements 0 Result Diagram: 07/05/16 1006 07/05/16 1006 Objective Remarks Abd:soft,nt,nd Left CVAT tenderness present-mild 07/07 Abd:soft,nt,nd Left CVAT tenderness noted Medications and IVs Current Medications Medications (Trade) Dose Ordered Sig/Cecelia Route Start Time Stop Time Status Last Admin (NS Flush) 2 ml UNSCH PRN IV FLUSH 07/04/16 18:00 (NS Flush) 2 ml BID IV FLUSH 07/04/16 21:00 07/06/16 08:48 (Tylenol) 650 mg Q4H PRN PO 07/04/16 18:00 (Zofran Inj) 4 mg Q6H PRN IVP 07/04/16 18:00 (Milk Of Magnesia Liq) 30 ml Q12H PRN PO 07/04/16 18:00 (Narcan Inj) 0.4 mg UNSCH PRN IV 07/04/16 18:00 (Percocet 5-325 Mg) 1 tab Q6H PRN PO 07/04/16 18:00 07/07/16 06:37 (Dilaudid Pf Inj) 0.5 mg Q4H PRN IV PUSH 07/04/16 18:00 07/07/16 05:14 (Zyloprim) 100 mg DAILY PO 07/05/16 09:00 07/06/16 08:47 (Vistaril) 50 mg TID PRN PO 07/04/16 23:15 07/07/16 00:14 Sertraline HCl 50 mg 50 mg DAILY PO 07/05/16 09:00 07/06/16 08:47 Ciprofloxacin/ Dextrose 200 ml @ 200 mls/hr Q12H IV 07/05/16 05:00 07/07/16 05:14 (NS 1000 ml Inj) 1,000 ml @ 125 mls/hr Q8H IV 07/05/16 18:15 07/07/16 05:14 Assessment and Plan Assessment and Plan 36-year-old male with bilateral staghorn calculus and encrusted left ureteral stent with enterococcus UTI Continue with IV antibiotics for now Patient will need left ureteroscopy with laser lithotripsy after his infection clears. If time permits may proceed with ureteroscopy later in the week, if not this will be done outpatient basis. Patient needs to get patient assistance arranged as he will need multiple surgeries in the future to remove his large stone burden. 07/06 36-year-old male with bilateral staghorn calculus and encrusted left ureteral stent with enterococcus UTI Continue with IV antibiotics Patient will need left ureteroscopy with laser lithotripsy after his infection clears. 07/07 36-year-old male with bilateral staghorn calculus and encrusted left ureteral stent with enterococcus UTI Continue with IV antibiotics Patient will need outpatient left ureteroscopy with laser lithotripsy after his infection clears. Do not want to operate now with UTI present. F/U as outpt for scheduling. Damian Villatoro DO Jul 07, 2016 08:15
[2016-07-07] MEDS: SODIUM CHLORIDE 0.9% FLUSH 10 ML FLUSH IV FLUSH SCH ×2 (09:00→19:46)
[2016-07-07] MEDS: SERTRALINE HCL 50 MG TAB PO SCH (09:23)
[2016-07-07] MEDS: ALLOPURINOL 100 MG TAB PO SCH (09:23)
--- NOTE | 2016-07-07 10:52 | HHI.PR ---
Subjective Remarks f/u for staghorn calculus and UTI patient stated his gout flared up and asking for prednisone. He stated that he cannot move because of this. swelling in left wrist, B/L knees, B/L feet. Otherwise no other complaints. Objective Vitals Vital Signs Date Time Temp Pulse Resp B/P Pulse Ox O2 Delivery O2 Flow Rate FiO2 07/07/16 08:22 98.2 92 17 132/79 96 07/07/16 04:00 98.1 90 20 135/80 98 07/07/16 00:00 99.8 98 20 143/82 96 07/06/16 20:00 99.2 99 20 136/99 95 07/06/16 16:00 98.5 97 16 162/83 98 07/06/16 12:00 98.8 79 16 139/82 97 I/O 07/06/16 07/06/16 07/06/16 07/07/16 07/07/16 07/07/16 07:00 15:00 23:00 07:00 15:00 23:00 Intake Total 3044 ml 1380 ml 1605 ml Output Total 900 ml 1325 ml 1675 ml 1600 ml Balance -900 ml 1719 ml -295 ml 5 ml Intake Oral 2160 ml 380 ml 480 ml IV Total 884 ml 1000 ml 1125 ml Output Urine Total 900 ml 1325 ml 1675 ml 1600 ml Stool Total 0 ml # Voids 5 # Bowel Movements 1 0 Result Diagram: 07/05/16 1006 07/05/16 1006 Objective Remarks GENERAL: in NAD CARDIOVASCULAR: Regular rate and rhythm without murmurs, gallops, or rubs. RESPIRATORY: Breath sounds equal bilaterally. No accessory muscle use. GASTROINTESTINAL: Abdomen soft, non-tender, nondistended. MUSCULOSKELETAL: left wrist, B/L knee, B/L ankles and toes with swelling. no erythema or warmth noted. BACK: Nontender without obvious deformity. No CVA tenderness. Medications and IVs Current Medications Ondansetron HCl 4 mg 4 mg ONCE ONCE IVP Last administered on 07/04/16 16:05; Start 07/04/16 at 15:30; Stop 07/04/16 at 15:31; Status DC Sodium Chloride (NS 1000 ml Inj) 1,000 ml @ 1,000 mls/hr Q1H IV Last administered on 07/04/16 16:06; Start 07/04/16 at 15:24; Stop 07/04/16 at 16:23 ; Status DC Sodium Chloride (NS Flush) 2 ml UNSCH PRN IV FLUSH FLUSH AFTER USING IV ACCESS Last administered on 07/04/16 17:21; Start 07/04/16 at 15:30; Stop 07/04/16 at 23:17; Status DC Hydromorphone HCl 1 mg 1 mg ONCE ONCE IVS Last administered on 07/04/16 16:06 ; Start 07/04/16 at 15:30; Stop 07/04/16 at 15:31; Status DC Potassium Chloride/Sodium Chloride 1,000 ml @ 125 mls/hr Q8H IV Last administered on 07/05/16 16:36; Start 07/04/16 at 16:45; Stop 07/05/16 at 18:09 ; Status DC Sodium Chloride (NS 1000 ml Inj) 1,000 ml @ 100 mls/hr Q10H IV ; Start at 17:48; Stop 07/04/16 at 18:25; Status DC Sodium Chloride (NS Flush) 2 ml UNSCH PRN IV FLUSH FLUSH AFTER USING IV ACCESS ; Start 07/04/16 at 18:00 Sodium Chloride (NS Flush) 2 ml BID IV FLUSH Last administered on 07/06/16 08: 48; Start 07/04/16 at 21:00 Acetaminophen (Tylenol) 650 mg Q4H PRN PO Fever, headache, Pain 1-4; Start at 18:00 Ondansetron HCl (Zofran Inj) 4 mg Q6H PRN IVP NAUSEA OR VOMITING; Start at 18:00 Magnesium Hydroxide (Milk Of Magnesia Liq) 30 ml Q12H PRN PO CONSTIPATION; Start 07/04/16 at 18:00 Naloxone HCl (Narcan Inj) 0.4 mg UNSCH PRN IV SEE LABEL COMMENTS; Start at 18:00 Oxycodone/ Acetaminophen (Percocet 5-325 Mg) 1 tab Q6H PRN PO PAIN SCALE 5 TO 10 Last administered on 07/07/16 06:37; Start 07/04/16 at 18:00 Hydromorphone HCl (Dilaudid Pf Inj) 0.5 mg Q4H PRN IV PUSH BREAKTHROUGH PAIN Last administered on 07/07/16 09:24; Start 07/04/16 at 18:00 Allopurinol (Zyloprim) 100 mg DAILY PO Last administered on 07/07/16 09:23; Start 07/05/16 at 09:00 Hydroxyzine Pamoate (Vistaril) 50 mg TID PRN PO ANXIETY Last administered on 00:14; Start 07/04/16 at 23:15 Sertraline HCl (Zoloft) 50 mg DAILY PO Last administered on 07/07/16 09:23; Start 07/05/16 at 09:00 Diphenhydramine HCl 50 mg 50 mg ONCE ONCE PO ; Start 07/04/16 at 23:45; Stop at 23:46; Status DC Ciprofloxacin/ Dextrose 200 ml @ 200 mls/hr Q12H IV Last administered on 04:56; Start 07/05/16 at 01:00; Stop 07/05/16 at 05:16; Status DC Ciprofloxacin/ Dextrose 200 ml @ 200 mls/hr Q12H IV Last administered on 05:14; Start 07/05/16 at 05:00 Sodium Chloride (NS 1000 ml Inj) 1,000 ml @ 125 mls/hr Q8H IV Last administered on 07/07/16 09:23; Start 07/05/16 at 18:15 A/P Problem List: (1) UTI (urinary tract infection) ICD Code: N39.0 Status: Acute (2) Hydronephrosis of left kidney ICD Code: N13.30 Status: Acute Assessment and Plan Bilateral staghorn calculus and encrusted left ureteral stent with enterococcus UTI -per Urologist continue with IV cipro -continue with IVFs. Hydronephrosis of left kidney - Urology ff and will have Cystoscopy and laser lithotripsy early this week. Gout flare up -start solumedrol. DVT prophylaxis - SCDs Discharge Planning patient continues to require IV antibiotics and now has severe gout flare up where he cannot ambulate. He will continue to require hospitalization. Elena Bergeron MD Jul 07, 2016 10:52
[2016-07-07] MEDS ORDERED: AMOXICILLIN/CLAVULANATE K 875 MG TAB PO SCH (11:00)
[2016-07-07] MEDS: methylPREDNISolone SOD SUCC 40 MG/1 ML VIAL IV PUSH SCH ×2 (12:37→19:45)
[2016-07-07] MEDS ORDERED: oxyCODONE/ACETAMINOPHEN 5 MG/325 MG TAB PO PRN (16:00)
[2016-07-07 16:23] LABS: BICARBONATE 21.9 MEQ/L (21.0-32.0)
[2016-07-07] MEDS: oxyCODONE/ACETAMINOPHEN 10 MG/325 MG TAB PO PRN ×2 (17:30→21:18)
[2016-07-07] MEDS: HYDROmorphone HCL PF 2 MG/ML VIAL IV PUSH PRN (23:18)
[2016-07-08] MEDS: oxyCODONE/ACETAMINOPHEN 10 MG/325 MG TAB PO PRN ×6 (01:28→23:27)
[2016-07-08] MEDS: SODIUM CHLOR 0.9% 1000 ML INJ 1,000 ML IV SCH ×3 (03:23→18:51)
[2016-07-08] MEDS: methylPREDNISolone SOD SUCC 40 MG/1 ML VIAL IV PUSH SCH ×2 (03:23→11:47)
[2016-07-08] MEDS: HYDROmorphone HCL PF 2 MG/ML VIAL IV PUSH PRN ×4 (03:24→20:24)
[2016-07-08 04:38] VITALS: BP 125/84; PULSE 91; RESP 16; TEMP 97.3; O2SAT 95
[2016-07-08] MEDS: CIPROFLOXACIN 400 MG PREMIX 200 ML IV SCH ×2 (05:22→16:07)
[2016-07-08] MEDS: SERTRALINE HCL 50 MG TAB PO SCH (07:28)
[2016-07-08] MEDS: ALLOPURINOL 100 MG TAB PO SCH (07:28)
[2016-07-08 07:50] LABS: BICARBONATE 24.5 MEQ/L (21.0-32.0); POTASSIUM 4.3 MEQ/L (3.5-5.1)
[2016-07-08 08:00] VITALS: BP 126/78; PULSE 80; RESP 16; TEMP 97.4; O2SAT 96
[2016-07-08] MEDS: SODIUM CHLORIDE 0.9% FLUSH 10 ML FLUSH IV FLUSH SCH ×2 (09:00→20:24)
[2016-07-08 12:00] VITALS: BP 137/77; PULSE 98; RESP 16; TEMP 97.4; O2SAT 97
--- NOTE | 2016-07-08 13:01 | HHI.PR ---
Subjective Remarks Follow-up for UTI, gout, kidney stone Patient continues to have pain in regards to his kidney stone. He is on IV Dilaudid and Percocet. Otherwise he stated that his gout pain has resolved. He remains afebrile. Patient's nurse at the bedside. Objective Vitals Vital Signs Date Time Temp Pulse Resp B/P Pulse Ox O2 Delivery O2 Flow Rate FiO2 07/08/16 12:00 97.4 98 16 137/77 97 07/08/16 10:54 18 07/08/16 09:40 20 07/08/16 08:00 97.4 80 16 126/78 96 07/08/16 04:38 97.3 91 16 125/84 95 07/07/16 23:08 97.5 126 16 164/103 98 07/07/16 21:00 98.2 89 16 138/85 96 07/07/16 16:21 20 07/07/16 16:19 97.9 93 18 138/84 97 I/O 07/07/16 07/07/16 07/07/16 07/08/16 07/08/16 07/08/16 07:00 15:00 23:00 07:00 15:00 23:00 Intake Total 1605 ml 720 ml 3681 ml 1650 ml Output Total 1600 ml 1600 ml 1225 ml 700 ml Balance 5 ml -880 ml 2456 ml 950 ml Intake Oral 480 ml 720 ml 960 ml 720 ml IV Total 1125 ml 2721 ml 930 ml Output Urine Total 1600 ml 1600 ml 1225 ml 700 ml Stool Total 0 ml # Bowel Movements 0 1 0 Result Diagram: 07/05/16 1006 07/08/16 0555 Objective Remarks GENERAL: in NAD CARDIOVASCULAR: Regular rate and rhythm without murmurs, gallops, or rubs. RESPIRATORY: Breath sounds equal bilaterally. No accessory muscle use. GASTROINTESTINAL: Abdomen soft, non-tender, nondistended. MUSCULOSKELETAL: No more swelling noted in all joints. BACK: Nontender without obvious deformity. No CVA tenderness. Medications and IVs Current Medications Ondansetron HCl 4 mg 4 mg ONCE ONCE IVP Last administered on 07/04/16t 16:05; Start 07/04/16 at 15:30; Stop 07/04/16 at 15:31; Status DC Sodium Chloride (NS 1000 ml Inj) 1,000 ml @ 1,000 mls/hr Q1H IV Last administered on 07/04/16 16:06; Start 07/04/16 at 15:24; Stop 07/04/16 at 16:23 ; Status DC Sodium Chloride (NS Flush) 2 ml UNSCH PRN IV FLUSH FLUSH AFTER USING IV ACCESS Last administered on 07/04/16 17:21; Start 07/04/16 at 15:30; Stop 07/04/16 at 23:17; Status DC Hydromorphone HCl 1 mg 1 mg ONCE ONCE IVS Last administered on 07/04/16 16:06 ; Start 07/04/16 at 15:30; Stop 07/04/16 at 15:31; Status DC Potassium Chloride/Sodium Chloride 1,000 ml @ 125 mls/hr Q8H IV Last administered on 07/05/16 16:36; Start 07/04/16 at 16:45; Stop 07/05/16 at 18:09 ; Status DC Sodium Chloride (NS 1000 ml Inj) 1,000 ml @ 100 mls/hr Q10H IV ; Start at 17:48; Stop 07/04/16 at 18:25; Status DC Sodium Chloride (NS Flush) 2 ml UNSCH PRN IV FLUSH FLUSH AFTER USING IV ACCESS ; Start 07/04/16 at 18:00 Sodium Chloride (NS Flush) 2 ml BID IV FLUSH Last administered on 07/07/16 19: 46; Start 07/04/16 at 21:00 Acetaminophen (Tylenol) 650 mg Q4H PRN PO Fever, headache; Start 07/04/16 at 18 :00 Ondansetron HCl (Zofran Inj) 4 mg Q6H PRN IVP NAUSEA OR VOMITING; Start at 18:00 Magnesium Hydroxide (Milk Of Magnesia Liq) 30 ml Q12H PRN PO CONSTIPATION; Start 07/04/16 at 18:00 Naloxone HCl (Narcan Inj) 0.4 mg UNSCH PRN IV SEE LABEL COMMENTS; Start at 18:00 Oxycodone/ Acetaminophen (Percocet 5-325 Mg) 1 tab Q6H PRN PO PAIN SCALE 5 TO 10 Last administered on 07/07/16 12:37; Start 07/04/16 at 18:00; Stop 07/07/16 at 15:05; Status DC Hydromorphone HCl (Dilaudid Pf Inj) 0.5 mg Q4H PRN IV PUSH BREAKTHROUGH PAIN Last administered on 07/07/16 19:45; Start 07/04/16 at 18:00; Stop 07/07/16 at 20:49; Status DC Allopurinol (Zyloprim) 100 mg DAILY PO Last administered on 07/08/16 07:28; Start 07/05/16 at 09:00 Hydroxyzine Pamoate (Vistaril) 50 mg TID PRN PO ANXIETY Last administered on 01:28; Start 07/04/16 at 23:15 Sertraline HCl (Zoloft) 50 mg DAILY PO Last administered on 07/08/16 07:28; Start 07/05/16 at 09:00 Diphenhydramine HCl 50 mg 50 mg ONCE ONCE PO ; Start 07/04/16 at 23:45; Stop at 23:46; Status DC Ciprofloxacin/ Dextrose 200 ml @ 200 mls/hr Q12H IV Last administered on 04:56; Start 07/05/16 at 01:00; Stop 07/05/16 at 05:16; Status DC Ciprofloxacin/ Dextrose 200 ml @ 200 mls/hr Q12H IV Last administered on 05:14; Start 07/05/16 at 05:00; Stop 07/07/16 at 10:52; Status DC Sodium Chloride (NS 1000 ml Inj) 1,000 ml @ 125 mls/hr Q8H IV Last administered on 07/08/16 10:54; Start 07/05/16 at 18:15 Methylprednisolone Sodium Succinate (SoluMEDROL INJ) 40 mg Q8H IV PUSH Last administered on 07/08/16 11:47; Start 07/07/16 at 12:00 Amoxicillin/ Clavulanate Potassium 875 mg 875 mg Q12HR PO ; Start 07/07/16 at 11 :00; Stop 07/07/16 at 11:00; Status DC Ciprofloxacin/ Dextrose (Cipro 400 Mg Premix) 200 ml @ 200 mls/hr Q12H IV Last administered on 07/08/16 05:22; Start 07/07/16 at 17:00 Oxycodone/ Acetaminophen (Percocet 5-325 Mg) 1 tab Q4H PRN PO SEE LABEL COMMENTS; Start 07/07/16 at 16:00 Oxycodone/ Acetaminophen (Percocet 10-325 Mg) 1 tab Q4H PRN PO PAIN 6-10 Last administered on 07/08/16 09:42; Start 07/07/16 at 16:00 Hydromorphone HCl (Dilaudid Pf Inj) 0.5 mg Q4H PRN IV PUSH BREAKTHROUGH PAIN Last administered on 07/08/16 11:47; Start 07/07/16 at 21:00 A/P Problem List: (1) UTI (urinary tract infection) ICD Code: N39.0 Status: Acute (2) Hydronephrosis of left kidney ICD Code: N13.30 Status: Acute Assessment and Plan Bilateral staghorn calculus and encrusted left ureteral stent with enterococcus UTI -per Urologist continue with IV cipro -continue with IVFs. -continues to require IV pain medication. on Dilaudid and Percocet scheduled. will prescribed Oramorph to wean off Dilaudid. Hydronephrosis of left kidney - Urology ff stated patient will need outpatient left ureteroscopy with laser lithotripsy after his infection clears. Gout flare up -practically cleared up with solumedrol for 1 days so will switch to prednisone PO. DVT prophylaxis - SCDs Discharge Planning patient continues to require IV antibiotics and still requiring IV pain medication. Once off of IV medication and cleared by urologist patient can be discharged home. Elena Bergeron MD Jul 08, 2016 13:01
[2016-07-08] MEDS: MORPHINE SULFATE 15 MG CONTROLLED RELEASE TAB PO SCH ×2 (14:38→21:57)
[2016-07-08 16:00] VITALS: BP 134/79; PULSE 91; RESP 16; TEMP 97.6; O2SAT 97
[2016-07-08 20:00] VITALS: BP 119/78; PULSE 88; RESP 18; TEMP 98.2; O2SAT 97
[2016-07-09] VITALS: BP 126/78; PULSE 16; RESP 16; TEMP 97.8; O2SAT 97
[2016-07-09] MEDS: SODIUM CHLOR 0.9% 1000 ML INJ 1,000 ML IV SCH ×2 (02:15→08:17)
[2016-07-09] MEDS: HYDROmorphone HCL PF 2 MG/ML VIAL IV PUSH PRN ×3 (02:29→13:34)
[2016-07-09 04:00] VITALS: BP 116/69; PULSE 63; RESP 16; TEMP 97.4; O2SAT 96
[2016-07-09] MEDS: oxyCODONE/ACETAMINOPHEN 10 MG/325 MG TAB PO PRN ×3 (04:58→16:54)
[2016-07-09] MEDS: CIPROFLOXACIN 400 MG PREMIX 200 ML IV SCH (05:02)
[2016-07-09 08:00] VITALS: BP 131/69; PULSE 85; RESP 17; TEMP 97.4; O2SAT 97
[2016-07-09] MEDS: MORPHINE SULFATE 15 MG CONTROLLED RELEASE TAB PO SCH (08:14)
[2016-07-09] MEDS: ALLOPURINOL 100 MG TAB PO SCH (08:14)
[2016-07-09] MEDS: SERTRALINE HCL 50 MG TAB PO SCH (08:14)
[2016-07-09] MEDS: SODIUM CHLORIDE 0.9% FLUSH 10 ML FLUSH IV FLUSH SCH (08:15)
[2016-07-09] MEDS ORDERED: predniSONE 50 MG TAB PO SCH (09:00)
[2016-07-09 12:00] VITALS: BP 130/68; PULSE 84; RESP 16; TEMP 97.6; O2SAT 97
[2016-07-09] MEDS ORDERED: OXYC1TAB63 PO (12:49)
[2016-07-09] MEDS ORDERED: MORP1TAB24 PO (12:49)
[2016-07-09] MEDS ORDERED: CIPR-9 PO (12:49)
--- NOTE | 2016-07-09 13:56 | HHI.PR ---
Subjective Remarks Follow-up for staghorn calculi and UTI Patient stated that pain is better controlled. He stated he last used IV Dilaudid last night. And he has not had any IV pain medication since then. Otherwise he has no other complaints. He stated that he is ambulating. Objective Vitals Vital Signs Date Time Temp Pulse Resp B/P Pulse Ox O2 Delivery O2 Flow Rate FiO2 07/09/16 08:00 97.4 85 17 131/69 97 07/09/16 05:58 16 07/09/16 04:00 97.4 63 16 116/69 96 07/09/16 02:59 18 07/09/16 00:00 97.8 16 16 126/78 97 07/08/16 20:00 98.2 88 18 119/78 97 07/08/16 16:00 97.6 91 16 134/79 97 07/08/16 15:40 18 I/O 07/08/16 07/08/16 07/08/16 07/09/16 07/09/16 07/09/16 07:00 15:00 23:00 07:00 15:00 23:00 Intake Total 1650 ml 1080 ml 720 ml 2032 ml Output Total 700 ml 1000 ml 1900 ml 600 ml Balance 950 ml 80 ml -1180 ml 1432 ml Intake Oral 720 ml 1080 ml 720 ml 480 ml IV Total 930 ml 1552 ml Output Urine Total 700 ml 1000 ml 1900 ml 600 ml # Voids 3 # Bowel Movements 0 2 0 0 Result Diagram: 07/05/16 1006 07/08/16 0555 Objective Remarks GENERAL: in NAD CARDIOVASCULAR: Regular rate and rhythm without murmurs, gallops, or rubs. RESPIRATORY: Breath sounds equal bilaterally. No accessory muscle use. GASTROINTESTINAL: Abdomen soft, non-tender, nondistended. MUSCULOSKELETAL: No more swelling noted in all joints. BACK: Nontender without obvious deformity. No CVA tenderness. Medications and IVs Current Medications Ondansetron HCl 4 mg 4 mg ONCE ONCE IVP Last administered on 07/04/16 16:05; Start 07/04/16 at 15:30; Stop 07/04/16 at 15:31; Status DC Sodium Chloride (NS 1000 ml Inj) 1,000 ml @ 1,000 mls/hr Q1H IV Last administered on 07/04/16 16:06; Start 07/04/16 at 15:24; Stop 07/04/16 at 16:23 ; Status DC Sodium Chloride (NS Flush) 2 ml UNSCH PRN IV FLUSH FLUSH AFTER USING IV ACCESS Last administered on 07/04/16 17:21; Start 07/04/16 at 15:30; Stop 07/04/16 at 23:17; Status DC Hydromorphone HCl 1 mg 1 mg ONCE ONCE IVS Last administered on 07/04/16 16:06 ; Start 07/04/16 at 15:30; Stop 07/04/16 at 15:31; Status DC Potassium Chloride/Sodium Chloride 1,000 ml @ 125 mls/hr Q8H IV Last administered on 07/05/16 16:36; Start 07/04/16 at 16:45; Stop 07/05/16 at 18:09 ; Status DC Sodium Chloride (NS 1000 ml Inj) 1,000 ml @ 100 mls/hr Q10H IV ; Start at 17:48; Stop 07/04/16 at 18:25; Status DC Sodium Chloride (NS Flush) 2 ml UNSCH PRN IV FLUSH FLUSH AFTER USING IV ACCESS ; Start 07/04/16 at 18:00 Sodium Chloride (NS Flush) 2 ml BID IV FLUSH Last administered on 07/09/16 08: 15; Start 07/04/16 at 21:00 Acetaminophen (Tylenol) 650 mg Q4H PRN PO Fever, headache; Start 07/04/16 at 18 :00 Ondansetron HCl (Zofran Inj) 4 mg Q6H PRN IVP NAUSEA OR VOMITING; Start at 18:00 Magnesium Hydroxide (Milk Of Magnesia Liq) 30 ml Q12H PRN PO CONSTIPATION; Start 07/04/16 at 18:00 Naloxone HCl (Narcan Inj) 0.4 mg UNSCH PRN IV SEE LABEL COMMENTS; Start at 18:00 Oxycodone/ Acetaminophen (Percocet 5-325 Mg) 1 tab Q6H PRN PO PAIN SCALE 5 TO 10 Last administered on 07/07/16 12:37; Start 07/04/16 at 18:00; Stop 07/07/16 at 15:05; Status DC Hydromorphone HCl (Dilaudid Pf Inj) 0.5 mg Q4H PRN IV PUSH BREAKTHROUGH PAIN Last administered on 07/07/16 19:45; Start 07/04/16 at 18:00; Stop 07/07/16 at 20:49; Status DC Allopurinol (Zyloprim) 100 mg DAILY PO Last administered on 07/09/16 08:14; Start 07/05/16 at 09:00 Hydroxyzine Pamoate (Vistaril) 50 mg TID PRN PO ANXIETY Last administered on 01:28; Start 07/04/16 at 23:15 Sertraline HCl (Zoloft) 50 mg DAILY PO Last administered on 07/09/16 08:14; Start 07/05/16 at 09:00 Diphenhydramine HCl 50 mg 50 mg ONCE ONCE PO ; Start 07/04/16 at 23:45; Stop at 23:46; Status DC Ciprofloxacin/ Dextrose 200 ml @ 200 mls/hr Q12H IV Last administered on 04:56; Start 07/05/16 at 01:00; Stop 07/05/16 at 05:16; Status DC Ciprofloxacin/ Dextrose 200 ml @ 200 mls/hr Q12H IV Last administered on 05:14; Start 07/05/16 at 05:00; Stop 07/07/16 at 10:52; Status DC Sodium Chloride (NS 1000 ml Inj) 1,000 ml @ 125 mls/hr Q8H IV Last administered on 07/09/16 08:17; Start 07/05/16 at 18:15 Methylprednisolone Sodium Succinate (SoluMEDROL INJ) 40 mg Q8H IV PUSH Last administered on 07/08/16 11:47; Start 07/07/16 at 12:00; Stop 07/08/16 at 12:58 ; Status DC Amoxicillin/ Clavulanate Potassium 875 mg 875 mg Q12HR PO ; Start 07/07/16 at 11 :00; Stop 07/07/16 at 11:00; Status DC Ciprofloxacin/ Dextrose (Cipro 400 Mg Premix) 200 ml @ 200 mls/hr Q12H IV Last administered on 07/09/16 05:02; Start 07/07/16 at 17:00 Oxycodone/ Acetaminophen (Percocet 5-325 Mg) 1 tab Q4H PRN PO SEE LABEL COMMENTS; Start 07/07/16 at 16:00 Oxycodone/ Acetaminophen (Percocet 10-325 Mg) 1 tab Q4H PRN PO PAIN 6-10 Last administered on 07/09/16 11:04; Start 07/07/16 at 16:00 Hydromorphone HCl (Dilaudid Pf Inj) 0.5 mg Q4H PRN IV PUSH BREAKTHROUGH PAIN Last administered on 07/09/16 13:34; Start 07/07/16 at 21:00 Morphine Sulfate (Oramorph Sr) 15 mg Q12HR PO Last administered on 07/09/16 08 :14; Start 07/08/16 at 13:00 Prednisone (Deltasone) 50 mg DAILY PO Last administered on 07/09/16 08:14; Start 07/09/16 at 09:00 A/P Problem List: (1) UTI (urinary tract infection) ICD Code: N39.0 Status: Acute (2) Hydronephrosis of left kidney ICD Code: N13.30 Status: Acute Assessment and Plan Bilateral staghorn calculus and encrusted left ureteral stent with enterococcus UTI -Patient currently on Cipro IV. -Dealt with Dr. Villatoro who stated he can discharge patient home on oral Cipro for 30 days but that patient also needs to have input from patient assistance and a follow-up to schedule surgery. Hydronephrosis of left kidney - Urology ff stated patient will need outpatient left ureteroscopy with laser lithotripsy after his infection clears. Gout flare up -practically cleared up with solumedrol for 1 days so patient was switched to Solu-Medrol. DVT prophylaxis - SCDs Discharge Planning Pain is better controlled on oral medication. Dealt with Dr. Villatoro in progress discharge and he said okay to discharge only if patient has input from patient assistance and follow-up to schedule surgery. [facility] nurse Graham dealt with case management in regards to this and once this is set up patient will be discharge. Elena Bergeron MD Jul 09, 2016 13:55
[2016-07-09 14:00] VITALS: BP 132/68; PULSE 85; RESP 16; TEMP 97.8; O2SAT 97
[2016-07-09 16:00] VITALS: BP 132/68; PULSE 85; RESP 16; TEMP 97.8; O2SAT 97
[2016-07-09] MEDS ORDERED: PRED50 PO (16:01)
--- NOTE | 2016-07-09 16:03 | HHI.DCPOC ---
Discharge Care Plan Diagnosis: (1) Hydronephrosis of left kidney (2) Staghorn calculus (3) Complicated UTI (urinary tract infection) Goals to Promote Your Health * To prevent worsening of your condition and complications * To maintain your health at the optimal level Directions to Meet Your Goals Take your medications as prescribed Follow your dietary instruction Follow activity as directed Keep your appointments as scheduled Take your immunizations and boosters as scheduled If your symptoms worsen call your PCP, if no PCP go to Urgent Care Center or Emergency Room Smoking is Dangerous to Your Health. Avoid second hand smoke Call the 24-hour hour crisis hotline for domestic abuse at Elena Bergeron MD Jul 09, 2016 16:03
--- NOTE | 2016-07-09 16:04 | HHI.DS ---
Discharge Summary Admission Date Jul 04, 2016 at 17:42 Discharge Date: Jul 09, 2016 Admitting Diagnosis UTI, HYDRONEPHROSIS (1) Staghorn calculus ICD Code: N20.0 Diagnosis: Principal (2) Hydronephrosis of left kidney ICD Code: N13.30 Diagnosis: Principal (3) UTI (urinary tract infection) ICD Code: N39.0 Diagnosis: Principal Procedures see hospital course. Brief History - From Admission Mr. Paez is a 36 year-old male with a lengthy history of nephrolithiasis requiring ureteral stents and nephrostomy tubes as well as lithotripsy who presented to the emergency room on 07/04/2016 complaining of severe left flank pain. Abdomen/pelvis CT in the ER showed multiple stones present in the left ureter adjacent to the stent in addition to multiple stones in both kidneys bilaterally; moderate hydronephrosis in the left kidney and to a slight degree on the right. The patient is seen in his hospital room. He states that his pain began at night and was severe, sharp and achy. Nothing seemed to make it worse - it was constant. He attempted to take ibuprofen with no relief. He became concerned because overnight he was diaphoretic while sleeping and then during the day was dizzy, lightheaded, and felt imbalance like he might fall down. He states this is how he felt at the beginning of June when he was hospitalized for sepsis. His concern given the similarity of his current symptoms to his symptoms when he had sepsis brought him to the hospital. He noted some dark urine the morning of 07/04/2016 but states this can happen intermittently to him. He also reports chronic hematuria. The patient denies fever or chills, vertigo, syncope or near syncope, cough or shortness of breath, dysuria, diarrhea, nausea or vomiting, or paresthesias. He reports being in relatively good health other than what is stated above - he is a recovering alcoholic. He denies diabetes mellitus, hypertension, cardiac disorders, cardiac arrhythmias, respiratory problems such as erythema or asthma , gastrointestinal problems, thyroid dysfunction, cancer, seizures, problems with blood clots such as DVT, PE, or CVA. . CBC/BMP: 07/05/16 1006 07/08/16 0555 Significant Findings Laboratory Tests Test 07/07/16 07/08/16 15:00 05:55 Sodium Level 133 MEQ/L 135 MEQ/L (136-145) (136-145) Estimat Glomerular Filtration 79 ML/MIN (>89) Rate Random Glucose 153 MG/DL 199 MG/DL (74-106) (74-106) Imaging Last Impressions Abdomen/Pelvis CT 07/04/16 1524 Signed Impressions: Service Date/Time: Monday, July 04, 2016 16:05 - CONCLUSION: Multiple stones are present in the left ureter adjacent to the stent in addition to multiple stones in both kidneys bilaterally. Santhosh Penn MD PE at Discharge GENERAL: in NAD CARDIOVASCULAR: Regular rate and rhythm without murmurs, gallops, or rubs. RESPIRATORY: Breath sounds equal bilaterally. No accessory muscle use. GASTROINTESTINAL: Abdomen soft, non-tender, nondistended. MUSCULOSKELETAL: No more swelling noted in all joints. BACK: Nontender without obvious deformity. No CVA tenderness. Hospital Course Bilateral staghorn calculus and encrusted left ureteral stent with enterococcus UTI -found on CT scan. -Urologist consulted and stated patient will need outpatient left ureteroscopy with laser lithotripsy after his infection clears. -for pain he was on IV Dilaudid and Percocet. since he was using a lot of IV Dilaudid he was put on Oramorph and did well. Enterococcus UTI -patient put on IV CIPRO which was sensitive to. -per Dr Villatoro on the day of discharge he stated okay with d./c home on 30 days worth of antibiotics. Hydronephrosis of left kidney - Urology ff stated patient will need outpatient left ureteroscopy with laser lithotripsy after his infection clears. Gout flare up -practically cleared up with solumedrol for 1 days so patient was switched to Solu-Medrol. Pt Condition on Discharge: Good Discharge Disposition: Discharge Home Discharge Time: <= 30 minutes Discharge Instructions DIET: Follow Instructions for: As Tolerated, No Restrictions Activities you can perform: Regular-No Restrictions Follow up Referrals: PCP Follow-up - 1 Week Urology - 1 Week with Damian Villatoro DO Someone will call you tomorrow in regards to appointment date and time. If you do not hear from anyone please call us. New Medications: Ciprofloxacin (Cipro) 500 Mg Tab 500 MG PO BID Infection #60 Ref 0 TAB Morphine ER (Morphine ER) 15 Mg Tab 15 MG PO Q12HR acute pain #28 Ref 0 TAB Oxycodone-Acetaminophen (Oxycodone-Acetaminophen) 5-325 mg Tab 1 TAB PO Q4H PRN SEE LABEL COMMENTS #40 Ref 0 TAB Prednisone (Prednisone) 50 Mg Tab 50 MG PO DAILY gout #5 Ref 0 TAB Continued Medications: Allopurinol (Allopurinol) 100 Mg Tab 100 MG PO DAILY Gout #30 Ref 0 TAB Hydroxyzine Pamoate (Vistaril) 50 Mg Cap 50 MG PO TID PRN ANXIETY Ref 0 CAP Sertraline (Zoloft) 50 Mg Tab 50 MG PO DAILY #30 Ref 0 TAB Elena Bergeron MD Jul 09, 2016 16:03
== END 2016-07-09 17:48 | disposition home or self-care (01) | DRG 699 ==
LOC: PHED 14:44 → PHEDA 17:42 → N04A 21:08
PROVIDERS: ADMIT Family Medicine; ATTEND Family Medicine
DX: T83.89XA Other specified complication of genitourinary prosthetic devices, implants and grafts, initial encounter (principal); N39.0 Urinary tract infection, site not specified; E87.2 Acidosis; N13.2 Hydronephrosis with renal and ureteral calculous obstruction; Y83.1 Surgical operation with implant of artificial internal device as the cause of abnormal reaction of the patient, or of later complication, without mention of misadventure at the time of the procedure; B95.2 Enterococcus as the cause of diseases classified elsewhere; M10.9 Gout, unspecified; F17.220 Nicotine dependence, chewing tobacco, uncomplicated; F41.9 Anxiety disorder, unspecified
CPT/HCPCS: 74176; 76937; 80048; 80053; 81001; 83605; 83690; 85025; 87040; 87077; 87086; 87186; 96361; 96365; 96375; J0744; J1170; J2405; J2920; J3480; J7030; J7512

== ENCOUNTER 2016-07-14 15:27 | Emergency (ER) | payer SELFPAY ==
[~2016-07-14] VITALS: Ht 182.9 cm; Wt 90.9 kg
[~2016-07-14 15:27] MED LIST changes: -HYDR50CA PO; -IBUP800T23 PO; -METR500T10 PO; +MORP1TAB24 PO; -OXYC-395 PO; +OXYC1TAB63 PO; -PRED20 PO; +PRED50 PO; +VIST50CA PO; -ZOLO100T PO; +ZOLO50TA PO
[2016-07-14 15:29] VITALS: BP 150/107; PULSE 128; RESP 24; TEMP 98.6; O2SAT 100
--- NOTE | 2016-07-14 15:40 | PD ---
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 He has had subjective fevers. Endorses nausea. Currently On cipro for recent uti, hydronephrosis, admitted july 04. vital sign reviewed. Seen at triage desk. Awaiting bed placement. Data Data Last Documented VS Vital Signs Date Time Temp Pulse Resp B/P Pulse Ox O2 Delivery O2 Flow Rate FiO2 07/14/16 15:29 98.6 128 24 150/107 100 Room Air [facility] Medical Record Reviewed: Yes Supervised Visit with FERNY: Parth Joseph July 14, 2016 15:40
[2016-07-14] MEDS ORDERED: SODIUM CHLOR 0.9% 1000 ML INJ 1,000 ML IV SCH (16:28)
--- NOTE | 2016-07-14 16:29 | PD ---
HPI Chief Complaint: Abdominal Pain Time Seen by Provider: 16:29 Travel History International Travel<30 days: No Contact w/Intl Traveler<30days: No Traveled to known affect area: No History of Present Illness HPI 36 year old male presents to the emergency department for evaluation of abdominal pain that started while sitting on the couch approximately 45 minutes prior to arrival. He reports sharp pain in his left side/left abdomen. States that he is unsure of his fever, and had intermittent diaphoresis over the last 2 days. He states he also has a weird feeling in his left chest that goes the left arm. He states it is not pain, but a weird feeling. He denies any cardiac history. Patient does have a long history of nephrolithiasis and ureterolithiasis. He had a ureteral stent that he had for 8 years on the left side. He was recently admitted for urosepsis. He states he did have a nephrostomy tube earlier in June which came out on its own healed. He states he previously saw Dr. Villatoro. He was trying to go back and see Dr. Villatoro, but due to a history of alcohol abuse and a missed appointment, he is unsure if he go back and see Dr. Villatoro. He has not yet seen him since discharge. He has taken a ciprofloxacin as directed. Last CT scan in the emergency Department showed multiple stones present in the left ureter adjacent to the stent addition to multiple stones in both kidneys bilaterally, moderate hydronephrosis of the left kidney and to a slight degree on the right. The patient reports feeling dizzy and lightheaded. He denies any syncope. No vomiting, but does report nausea. He states he may have had constipation for the past 2 days, but is unsure. No diarrhea. Patient states he has been a recovering alcoholic since November 2015. He is not currently a drinker. PFSH Past Medical History Arthritis: Yes (gout) Asthma: No Autoimmune Disease: No Blood Disorders: No Anxiety: Yes Depression: Yes Heart Rhythm Problems: No Cancer: No Cardiovascular Problems: No High Cholesterol: No Chest Pain: No Congestive Heart Failure: No COPD: No Cerebrovascular Accident: No Diabetes: No Diminished Hearing: No Endocrine: No GERD: No Glaucoma: No Gout: Yes Genitourinary: Yes (stones/stent/nephroscopy 04/2016) Headaches: No Hepatitis: No Hiatal Hernia: No Hypertension: No Immune Disorder: No Implanted Vascular Access Dvce: Yes Kidney Stones: Yes Musculoskeletal: Yes Neurologic: Yes Psychiatric: Yes Reproductive: No Respiratory: No Immunizations Current: No Myocardial Infarction: No Renal Failure: No Seizures: No Sleep Apnea: No Thyroid Disease: No Ulcer: No Past Surgical History Abdominal Surgery: No AICD: No Arteriovenous Shunt: No Body Medical Devices: NEPHROSTOMY LEFT Cardiac Surgery: No Ear Surgery: Yes Endocrine Surgery: No Eye Surgery: No Genitourinary Surgery: Yes (LEFT STENT IN URETER FOR KIDNEY STONES; NEPHROSTOMY 04/2016) Gynecologic Surgery: No Insulin Pump: No Joint Replacement: No Neurologic Surgery: No Oral Surgery: Yes (TONSILLECTOMY) Pacemaker: No Thoracic Surgery: No Tonsillectomy: Yes (AND ADENOIDECTOMY) Other Surgery: Yes (lithotripsy) Social History Alcohol Use: Yes (denies at present) Tobacco Use: Yes (ORAL TOBACCO, 2 CANS PER WEEK) Substance Use: No Allergies-Medications (Allergen,Severity, Reaction): Coded Allergies: Toradol (Verified Allergy, Severe, SWELLING OF THROAT, 07/14/16) Reported Meds & Prescriptions Reported Meds & Active Scripts Active Cipro (Ciprofloxacin HCl) 500 Mg Tab 500 Mg PO BID Oxycodone-Acetaminophen 5-325 mg Tab 1 Tab PO Q4H PRN Morphine ER (Morphine Sulfate) 15 Mg Tab 15 Mg PO Q12HR Reported Vistaril (Hydroxyzine Pamoate) 50 Mg Cap 50 Mg PO TID PRN Zoloft (Sertraline HCl) 50 Mg Tab 50 Mg PO DAILY Allopurinol 100 Mg Tab 100 Mg PO DAILY Review of Systems Except as stated in HPI: all other systems reviewed are Neg Physical Exam Narrative GENERAL: Well-nourished, well-developed male patient, ambulatory. Afebrile. SKIN: Focused skin assessment warm/dry. HEAD: Normocephalic. Atraumatic. EYES: No scleral icterus. No injection or drainage. NECK: Supple, trachea midline. No JVD or lymphadenopathy. CARDIOVASCULAR: Regular rate and rhythm without murmurs, gallops, or rubs. RESPIRATORY: Breath sounds equal bilaterally. No accessory muscle use. Lungs sounds are clear to auscultation. GASTROINTESTINAL: Abdomen soft and nondistended. Patient has tenderness over left lower abdomen. MUSCULOSKELETAL: No cyanosis, or edema. BACK: Nontender without obvious deformity. Left CVA tenderness. Data Data Last Documented VS Vital Signs Date Time Temp Pulse Resp B/P Pulse Ox O2 Delivery O2 Flow Rate FiO2 07/14/16 17:56 100 07/14/16 15:29 98.6 128 24 150/107 Room Air Orders Electrocardiogram (07/14/16 ) Complete Blood Count With Diff (07/14/16 16:28) Comprehensive Metabolic Panel (07/14/16 16:28) Lipase (07/14/16 16:28) Urinalysis - C+S If Indicated (07/14/16 16:28) Iv Access Insert/Monitor (07/14/16 16:28) Ecg Monitoring (07/14/16 16:28) Oximetry (07/14/16 16:28) Sodium Chlor 0.9% 1000 Ml Inj (Ns 1000 M (07/14/16 16:28) Sodium Chloride 0.9% Flush (Ns Flush) (07/14/16 16:30) Creatine Kinase (Cpk) (07/14/16 16:28) Troponin I (07/14/16 16:28) Blood Culture (07/14/16 16:28) Lactic Acid Sepsis Protocol (07/14/16 16:28) Morphine Inj (Morphine Inj) (07/14/16 16:45) Abdomen, Kub Only (07/14/16 ) Ondansetron Inj (Zofran Inj) (07/14/16 16:45) Urine Culture (07/14/16 17:45) Levofloxacin 750 Mg Premix Inj (Levaquin (07/14/16 18:30) Potassium Chlor 10 Meq Premix (Kcl 10 Me (07/14/16 19:00) Potassium Chloride (Kcl) (07/14/16 19:00) Labs Laboratory Tests Test 07/14/16 17:45 White Blood Count 12.8 TH/MM3 Red Blood Count 4.53 MIL/MM3 Hemoglobin 12.1 GM/DL Hematocrit 35.9 % Mean Corpuscular Volume 79.2 FL Mean Corpuscular Hemoglobin 26.7 PG Mean Corpuscular Hemoglobin 33.7 % Concent Red Cell Distribution Width 13.7 % Platelet Count 241 TH/MM3 Mean Platelet Volume 6.9 FL Neutrophils (%) (Auto) 64.2 % Lymphocytes (%) (Auto) 22.5 % Monocytes (%) (Auto) 7.8 % Eosinophils (%) (Auto) 5.1 % Basophils (%) (Auto) 0.4 % Neutrophils # (Auto) 8.2 TH/MM3 Lymphocytes # (Auto) 2.9 TH/MM3 Monocytes # (Auto) 1.0 TH/MM3 Eosinophils # (Auto) 0.7 TH/MM3 Basophils # (Auto) 0.1 TH/MM3 CBC Comment DIFF FINAL Differential Comment Urine Color LIGHT-YELLOW Urine Turbidity CLEAR Urine pH 5.5 Urine Specific [place] 1.008 Urine Protein TRACE mg/dL Urine Glucose (UA) NEG mg/dL Urine Ketones NEG mg/dL Urine Occult Blood SMALL Urine Nitrite NEG Urine Bilirubin NEG Urine Urobilinogen LESS THAN 2.0 MG/DL Urine Leukocyte Esterase MOD Urine RBC 16 /hpf Urine WBC 16 /hpf Urine Squamous Epithelial <1 /hpf Cells Urine Bacteria RARE /hpf Urine Mucus FEW /lpf Microscopic Urinalysis Comment CULTURE INDICATED Sodium Level 142 MEQ/L Potassium Level 2.9 MEQ/L Chloride Level 104 MEQ/L Carbon Dioxide Level 29.4 MEQ/L Anion Gap 9 MEQ/L Blood Urea Nitrogen 9 MG/DL Creatinine 0.94 MG/DL Estimat Glomerular Filtration 90 ML/MIN Rate Random Glucose 91 MG/DL Lactic Acid Level 0.9 mmol/L Calcium Level 9.1 MG/DL Total Bilirubin 0.3 MG/DL Aspartate Amino Transf 14 U/L (AST/SGOT) Alanine Aminotransferase 24 U/L (ALT/SGPT) Alkaline Phosphatase 97 U/L Total Creatine Kinase 24 U/L Troponin I LESS THAN 0.02 NG/ML Total Protein 7.8 GM/DL Albumin 3.8 GM/DL Lipase 86 U/L [facility] Medical Decision Making Medical Screen Exam Complete: Yes Emergency Medical Condition: Yes Medical Record Reviewed: Yes Interpretation(s) Last Impressions Abdomen X-Ray 07/14/16 0000 Signed Impressions: Service Date/Time: Thursday, July 14, 2016 16:46 - CONCLUSION: No significant change. Franco Carlos MD Differential Diagnosis Nephrolithiasis versus ureterolithiasis versus UTI versus urosepsis Narrative Course 36-year-old male presents to the emergency department for left flank/left lower abdominal pain that started 45 minutes prior to arrival. He also reports " weird feeling" in his chest that is resolving. Patient has a lengthy history of nephrolithiasis, urolithiasis, hydronephrosis, stent placement, urosepsis. Currently on ciprofloxacin. EKG, CBC, CMP, lipase, CK, troponin, lactic acid, blood cultures 2, UA are ordered and pending. Patient is given normal saline 1 L IV bolus, morphine 4 mg IV, Zofran 4 mg IV. KUB of the abdomen is ordered and pending. EKG shows sinus tachycardia, heart rate 112. CBC shows leukocytosis 12.8. CMP shows hypokalemia at 2.9. CK is 24. Troponin is less than 0.02. Lactic acid is 0.9. UA shows moderate occult blood, moderate leukocyte esterase, 16 RBC, 16 WBC, culture indicated shows no significant change. Patient is given Levaquin 750 mg IV for persistent wbc in urine. I spoke to Demi KAPADIA, prescription clerk lenses for urology. I explained case to him. He states the patient should continue Cipro and follow up with Dr. Villatoro. Patient is given 10 meq of potassium IV and 40 meq of potassium by mouth. Patient is asking for Dilaudid. I discussed this with my attending physician, Dr. Fleming, who would rather the patient have morphine. Patient is instructed on need to follow with Dr. Villatoro. He verbalizes agreement and understanding. Diagnosis Primary Impression: UTI (urinary tract infection) Qualified Code: N30.01 - Acute cystitis with hematuria Referrals: Damian Villatoro DO 2 days Patient Instructions: General Instructions, Urinary Tract Infection in Men (ED) Additional Instructions: Continue Cipro as directed. Follow-up with urologist, Dr. Villatoro. Return to the emergency department for any acute worsening of symptoms. Med/Other Pt SpecificInfo: No Change to Meds Disposition: 01 DISCHARGE HOME Condition: Stable Bridget Paez CIRA July 14, 2016 16:29
[2016-07-14] MEDS ORDERED: SODIUM CHLORIDE 0.9% FLUSH 10 ML FLUSH IV FLUSH PRN (16:30)
[2016-07-14] MEDS ORDERED: MORPHINE SULFATE 4 MG/ML INJ IV PUSH ONE ×2 (16:45→19:30)
[2016-07-14] MEDS ORDERED: ONDANSETRON HCL 4 MG/2 ML VIAL IV PUSH ONE (16:45)
--- NOTE | 2016-07-14 17:05 | RADRPT ---
EXAM DATE/TIME: 07/14/2016 16:46 [facility] COMPARISON: CT ABDOMEN & PELVIS W/O CONTRAST, July 04, 2016, 16:05. INDICATIONS : Abdominal pain. MEDICAL HISTORY : Renal calculi. SURGICAL HISTORY : Left ureter stent. ENCOUNTER: Initial ACUITY: 1 day PAIN SCORE: 8/10 LOCATION: Left abdomen. FINDINGS: A left ureteral stent is present with a stent fragment overlying the upper pole the left kidney. Ther e are staghorn calculi present bilaterally which appear stable. Intestinal gas pattern is nonspecific and benign. Regional skeleton is intact. CONCLUSION: No significant change. Franco Carlos MD on July 14, 2016 at 17:00 Board Certified Radiologist. This report was verified electronically.
[2016-07-14 17:56] VITALS: O2SAT 100
[2016-07-14 18:11] LABS: AUTOMATED NEUTROPHIL # 8.2 TH/MM3 (1.8-7.7); BASOPHIL # 0.1 TH/MM3 (0-0.2); BASOPHIL % 0.4 % (0.0-2.0); EOSINOPHIL # 0.7 TH/MM3 (0-0.4); EOSINOPHIL % 5.1 % (0.0-4.0); HEMATOCRIT 35.9 % (39.0-51.0); HEMO FLAGS DIFF FINAL; LYMPH % 22.5 % (9.0-44.0); LYMPHOCYTE # 2.9 TH/MM3 (1.0-4.8); MEAN CELL VOLUME 79.2 FL (80.0-100.0); MEAN CORPUSCULAR HEMOGLOBIN 26.7 PG (27.0-34.0); MEAN CORPUSCULAR HGB CONC 33.7 % (32.0-36.0); MONO % 7.8 % (0.0-8.0); NEUT % 64.2 % (16.0-70.0); PLATELET COUNT 241 TH/MM3 (150-450); RED BLOOD COUNT 4.53 MIL/MM3 (4.50-5.90); RED CELL DISTRIBUTION WIDTH 13.7 % (11.6-17.2); WHITE BLOOD COUNT 12.8 TH/MM3 (4.0-11.0)
[2016-07-14 18:17] LABS: BLOOD, URINE SMALL (NEG); GLUCOSE,URINE NEG (NEG); KETONE, URINE NEG (NEG); MUCUS URINE FEW /lpf (OCC); NITRITE,URINE NEG (NEG); PH, URINE 5.5 (5.0-8.5); SQUAMOUS EPITHELIAL CELL URINE <1 /hpf (0-5); URINE COLOR LIGHT-YELLOW (YELLW/STRAW)
[2016-07-14 18:19] LABS: BACTERIA, URINE RARE /hpf; COMMENT (UR) CULTURE INDICATED; CULTURE IF INDICATED CULTURE INDICATED
--- NOTE | 2016-07-14 18:20 | EKG ---
Date Performed: 07/14/2016 Time Performed: 15:49:08 PTAGE: 36 years EKG: SINUS TACHYCARDIA LEFT AXIS DEVIATION POOR R WAVE PROGRESSION NONSPECIFIC ST & T-WAVE ABNOR MALITY ABNORMAL ECG PREVIOUS TRACING : 06/09/2016 10.49 No significant change from previous tracing noted. DOCTOR: Gilberto Garrett Interpretating Date/Time 07/14/2016 18:19:40
[2016-07-14] MEDS ORDERED: LEVOFLOXACIN 750 MG PREMIX INJ 150 ML IV ONE (18:30)
[2016-07-14 18:48] LABS: ALKALINE PHOSPHATASE 97 U/L (45-117); ALT (GPT) 24 U/L (12-78); ANION GAP 9 MEQ/L (5-15); AST (GOT) 14 U/L (15-37); BICARBONATE 29.4 MEQ/L (21.0-32.0); BLOOD UREA NITROGEN 9 MG/DL (7-18); CHLORIDE 104 MEQ/L (98-107); GLOMERULAR FILTRATION RATE 90 ML/MIN (>89); SODIUM (NA) 142 MEQ/L (136-145); TOTAL BILIRUBIN ADULT 0.3 MG/DL (0.2-1.0)
[2016-07-14 18:51] LABS: CREATINE KINASE 24 U/L (39-308)
[2016-07-14 18:53] LABS: POTASSIUM 2.9 MEQ/L (3.5-5.1)
[2016-07-14 19:00] VITALS: BP 154/87; PULSE 98; RESP 17; O2SAT 100
[2016-07-14] MEDS ORDERED: POTASSIUM CHLOR 10 MEQ PREMIX 100 ML IV ONE (19:00)
[2016-07-14] MEDS ORDERED: POTASSIUM CHLORIDE 20 MEQ CONTROLLED RELEASE TAB PO ONE (19:00)
[2016-07-14 21:00] VITALS: BP 138/82; PULSE 92; RESP 18; O2SAT 100
== END 2016-07-14 21:30 | disposition home or self-care (01) ==
LOC: NEPC 15:27
DX: N30.01 Acute cystitis with hematuria (principal); R42 Dizziness and giddiness; R11.0 Nausea; R07.89 Other chest pain; R94.31 Abnormal electrocardiogram [ECG] [EKG]; Z72.0 Tobacco use; Z87.442 Personal history of urinary calculi; Z87.39 Personal history of other diseases of the musculoskeletal system and connective tissue; Z86.59 Personal history of other mental and behavioral disorders; Z86.69 Personal history of other diseases of the nervous system and sense organs
CPT/HCPCS: 74000; 80053; 81001; 82550; 83605; 83690; 84484; 85025; 87040; 87086; 93005; 96361; 96365; 96368; 96375; 96376; 99284; J1956; J2270; J2405; J3480; J7030

== ENCOUNTER 2016-07-24 12:52 | Inpatient (IN) | payer SELFPAY ==
[~2016-07-24] VITALS: Ht 182.9 cm; Wt 89.2 kg
[~2016-07-24 12:52] MED LIST changes: -PRED50 PO
[2016-07-24 12:57] VITALS: BP 135/101; PULSE 117; RESP 16; TEMP 98.2; O2SAT 100
[2016-07-24] MEDS ORDERED: MOTR200T4 PO (13:15)
[2016-07-24 13:29] LABS: BLOOD, URINE LARGE (NEG); GLUCOSE,URINE NEG (NEG); KETONE, URINE NEG (NEG); NITRITE,URINE NEG (NEG); PH, URINE 5.5 (5.0-8.5)
[2016-07-24 13:30] LABS: METHOD OF COLLECTION CLEAN CATCH; RBC, URINE INNUM /hpf (0-3); URINE COLOR YELLOW (YELLW/STRAW)
[2016-07-24 13:31] LABS: SQUAMOUS EPITHELIAL CELL URINE > 8 /hpf (0-5); WBC, URINE 100-200 /hpf (0-5)
[2016-07-24 13:32] LABS: BACTERIA, URINE OCC /hpf
[2016-07-24 13:34] LABS: COMMENT (UR) CULTURE INDICATED; CULTURE IF INDICATED CULTURE INDICATED
[2016-07-24] MEDS ORDERED: SODIUM CHLOR 0.9% 1000 ML INJ 1,000 ML IV SCH (13:46)
--- NOTE | 2016-07-24 13:50 | PD ---
HPI Chief Complaint: Abdominal Pain Time Seen by Provider: 13:46 Travel History International Travel<30 days: No Contact w/Intl Traveler<30days: No Traveled to known affect area: No History of Present Illness HPI 36-year-old male with history of kidney stones, left renal stent, recent UTIs, presents to the ER today because of 2 days history of worsening left flank pains and left lower quadrant abdominal pains which she states is currently a 7 out of 10. He has been nauseous but denies any vomiting, fevers, or other symptoms. He states that is similar to his previous stent pains. He has tried to follow-up with Dr. Villatoro who had seen him in the past but they are office states that they will not follow up with him because he is lost to follow-up previously. Modifying Factors: None Associated Signs & Symptoms: Left flank pains and left lower quadrant abdominal pains Risk Factors: Renal stents, UTIs, renal colic PFSH Past Medical History Hx Anticoagulant Therapy: No Arthritis: Yes (gout) Asthma: No Autoimmune Disease: No Blood Disorders: No Anxiety: Yes Depression: Yes Heart Rhythm Problems: No Cancer: No Cardiovascular Problems: No High Cholesterol: No Chest Pain: No Congestive Heart Failure: No COPD: No Cerebrovascular Accident: No Diabetes: No Diminished Hearing: No Endocrine: No GERD: No Glaucoma: No Gout: Yes Genitourinary: Yes (stones/stent/nephroscopy 04/2016) Headaches: No Hepatitis: No Hiatal Hernia: No Hypertension: No Immune Disorder: No Implanted Vascular Access Dvce: Yes Kidney Stones: Yes Musculoskeletal: Yes Neurologic: Yes Psychiatric: Yes Reproductive: No Respiratory: No Immunizations Current: No Myocardial Infarction: No Renal Failure: No Seizures: No Sleep Apnea: No Thyroid Disease: No Ulcer: No Tetanus Vaccination: < 5 Years Influenza Vaccination: Yes ?: Not Past Surgical History Surgical History: No Previous Surgery Abdominal Surgery: No AICD: No Arteriovenous Shunt: No Body Medical Devices: NEPHROSTOMY LEFT Cardiac Surgery: No Ear Surgery: Yes Endocrine Surgery: No Eye Surgery: No Genitourinary Surgery: Yes (LEFT STENT IN URETER FOR KIDNEY STONES; NEPHROSTOMY 04/2016) Gynecologic Surgery: No Insulin Pump: No Joint Replacement: No Neurologic Surgery: No Oral Surgery: Yes (TONSILLECTOMY) Pacemaker: No Thoracic Surgery: No Tonsillectomy: Yes (AND ADENOIDECTOMY) Other Surgery: Yes (lithotripsy) Social History Alcohol Use: No (denies at present) Tobacco Use: Yes (ORAL TOBACCO, 2 CANS PER WEEK) Substance Use: No Allergies-Medications (Allergen,Severity, Reaction): Coded Allergies: Toradol (Verified Allergy, Severe, SWELLING OF THROAT, 07/24/16) Reported Meds & Prescriptions Reported Meds & Active Scripts Active Cipro (Ciprofloxacin HCl) 500 Mg Tab 500 Mg PO BID Reported Motrin Ib (Ibuprofen) 200 Mg Tab 400 Mg PO Q4H PRN Vistaril (Hydroxyzine Pamoate) 50 Mg Cap 50 Mg PO TID PRN Zoloft (Sertraline HCl) 50 Mg Tab 50 Mg PO DAILY Allopurinol 100 Mg Tab 100 Mg PO DAILY Review of Systems Except as stated in HPI: all other systems reviewed are Neg Physical Exam Narrative GENERAL: Well-developed young white male patient in mild distress. Awake and oriented 3. SKIN: Focused skin assessment warm/dry. HEAD: Atraumatic. Normocephalic. EYES: Pupils equal and round. No scleral icterus. No injection or drainage. ENT: No nasal bleeding or discharge. Mucous membranes pink and moist. NECK: Trachea midline. No JVD. CARDIOVASCULAR: Regular rate and rhythm. No murmur appreciated. RESPIRATORY: No accessory muscle use. Clear to auscultation. Breath sounds equal bilaterally. GASTROINTESTINAL: Abdomen soft, non-tender, nondistended. Hepatic and splenic margins not palpable. MUSCULOSKELETAL: No obvious deformities. No clubbing. No cyanosis. No edema. BACK: Mild left CVA tenderness. No rash. No point tenderness on palpation of the spine. NEUROLOGICAL: Awake and alert. No obvious cranial nerve deficits. Motor grossly within normal limits. Normal speech. PSYCHIATRIC: Appropriate mood and affect; insight and judgment normal. Data Data Last Documented VS Vital Signs Date Time Temp Pulse Resp B/P Pulse Ox O2 Delivery O2 Flow Rate FiO2 07/24/16 15:04 111 20 163/99 98 Room Air 07/24/16 12:57 98.2 Orders Urinalysis - C+S If Indicated (07/24/16 13:16) Urine Culture (07/24/16 13:15) Complete Blood Count With Diff (07/24/16 13:46) Comprehensive Metabolic Panel (07/24/16 13:46) Lipase (07/24/16 13:46) Ct Abd/Pel W/O Iv Contrast (07/24/16 13:46) Iv Access Insert/Monitor (07/24/16 13:46) Ecg Monitoring (07/24/16 13:46) Oximetry (07/24/16 13:46) Sodium Chlor 0.9% 1000 Ml Inj (Ns 1000 M (07/24/16 13:46) Sodium Chloride 0.9% Flush (Ns Flush) (07/24/16 14:00) Morphine Inj (Morphine Inj) (07/24/16 14:00) Ondansetron Inj (Zofran Inj) (07/24/16 14:00) Blood Culture (07/24/16 14:01) Lactic Acid Sepsis Protocol (07/24/16 14:01) Ceftriaxone Inj (Rocephin Inj) (07/24/16 14:15) Labs Laboratory Tests Test 07/24/16 07/24/16 13:15 14:15 Urine Collection Type CLEAN CATCH Urine Color YELLOW Urine Turbidity MOD Urine pH 5.5 Urine Specific [place] 1.015 Urine Protein 100 mg/dL Urine Glucose (UA) NEG mg/dL Urine Ketones NEG mg/dL Urine Occult Blood LARGE Urine Nitrite NEG Urine Bilirubin NEG Urine Leukocyte Esterase MOD Urine RBC INNUM /hpf Urine WBC 100-200 /hpf Urine WBC Clumps MANY Urine Squamous Epithelial > 8 /hpf Cells Urine Renal Epithelial Cells 6-8 /hpf Urine Bacteria OCC /hpf Microscopic Urinalysis Comment CULTURE INDICATED Urine Collection Time 13:15 White Blood Count 18.4 TH/MM3 Red Blood Count 4.79 MIL/MM3 Hemoglobin 12.9 GM/DL Hematocrit 38.5 % Mean Corpuscular Volume 80.4 FL Mean Corpuscular Hemoglobin 26.8 PG Mean Corpuscular Hemoglobin 33.3 % Concent Red Cell Distribution Width 13.7 % Platelet Count 299 TH/MM3 Mean Platelet Volume 7.2 FL Neutrophils (%) (Auto) 81.5 % Lymphocytes (%) (Auto) 11.2 % Monocytes (%) (Auto) 3.9 % Eosinophils (%) (Auto) 3.1 % Basophils (%) (Auto) 0.3 % Neutrophils # (Auto) 14.9 TH/MM3 Lymphocytes # (Auto) 2.1 TH/MM3 Monocytes # (Auto) 0.7 TH/MM3 Eosinophils # (Auto) 0.6 TH/MM3 Basophils # (Auto) 0.1 TH/MM3 CBC Comment DIFF FINAL Differential Comment Sodium Level 141 MEQ/L Potassium Level 4.1 MEQ/L Chloride Level 104 MEQ/L Carbon Dioxide Level 29.5 MEQ/L Anion Gap 8 MEQ/L Blood Urea Nitrogen 17 MG/DL Creatinine 1.10 MG/DL Estimat Glomerular Filtration 75 ML/MIN Rate Random Glucose 98 MG/DL Lactic Acid Level 2.0 mmol/L Calcium Level 9.7 MG/DL Total Bilirubin 0.5 MG/DL Aspartate Amino Transf 15 U/L (AST/SGOT) Alanine Aminotransferase 25 U/L (ALT/SGPT) Alkaline Phosphatase 87 U/L Total Protein 7.6 GM/DL Albumin 4.0 GM/DL Lipase 139 U/L [facility] Medical Decision Making Medical Screen Exam Complete: Yes Emergency Medical Condition: Yes Medical Record Reviewed: Yes Interpretation(s) Laboratory Tests Test 07/24/16 07/24/16 13:15 14:15 Urine Turbidity MOD (CLEAR) Urine Protein 100 mg/dL (NEG-TRACE) Urine Occult Blood LARGE (NEG) Urine Leukocyte Esterase MOD (NEG) Urine RBC INNUM /hpf (0-3) Urine WBC 100-200 /hpf (0-5) Urine WBC Clumps MANY (NONE) Urine Squamous Epithelial > 8 /hpf (0-5) Cells Urine Bacteria OCC /hpf (NONE) White Blood Count 18.4 TH/MM3 (4.0-11.0) Hemoglobin 12.9 GM/DL (13.0-17.0) Hematocrit 38.5 % (39.0-51.0) Mean Corpuscular Hemoglobin 26.8 PG (27.0-34.0) Neutrophils (%) (Auto) 81.5 % (16.0-70.0) Neutrophils # (Auto) 14.9 TH/MM3 (1.8-7.7) Eosinophils # (Auto) 0.6 TH/MM3 (0-0.4) Estimat Glomerular Filtration 75 ML/MIN (>89) Rate Last 24 hours Impressions Abdomen/Pelvis CT 07/24/16 1346 Signed Impressions: Service Date/Time: July 13:52 - CONCLUSION: Decreasing hydronephrosis left kidney. Change in position of left renal pelvic calculi as described. Passage of several small fragments in the distal right ureter. Left ureteral stent remains in place. Stable appearance of the right kidney containing multiple large calculi but no significant hydronephrosis. Vikram Guevara MD Differential Diagnosis Left flank and abdominal painsrenal colic versus stent pain versus pyelonephritis versus muscular versus pancreatitis Narrative Course Lab work shows signs of significant UTI with leukocytosis and lactate elevation indicative of underlying sepsis. He was given IV antibiotics after cultures were drawn. CAT scan returns showing subtle left-sided stent is still in place. He does not have hydronephrosis and that region. However, considering the patient's urinary tract infection and sepsis, I am concerned about stent infection or infected stone. At this point, my plan would be to admit the patient for further evaluation and treatment. Case was discussed with Dr. Mccracken for admission. Case was discussed with Dr. Covarrubias of urology and he states that he would not do anything additional, would treat the patient for UTI and have him follow-up with Dr. Villatoro. Diagnosis Primary Impression: Complicated UTI (urinary tract infection) Additional Impressions: Renal calculi Sepsis due to urinary tract infection Admitting Information Admitting Physician Requests: Admit Roosevelt Maier MD July 24, 2016 13:50
[2016-07-24] MEDS ORDERED: ONDANSETRON HCL 4 MG/2 ML VIAL IV PUSH ONE (14:00)
[2016-07-24] MEDS ORDERED: MORPHINE SULFATE 4 MG/ML INJ IV PUSH ONE (14:00)
[2016-07-24] MEDS: SODIUM CHLORIDE 0.9% FLUSH 10 ML FLUSH IV FLUSH PRN (14:09)
[2016-07-24] MEDS ORDERED: cefTRIAXone INJ 2,000 MG in SODIUM CHLORIDE 0.9% INJ 100 ML IV ONE (14:15)
[2016-07-24 14:26] VITALS: BP 159/63; PULSE 101; RESP 18; O2SAT 97
[2016-07-24 14:34] LABS: AUTOMATED NEUTROPHIL # 14.9 TH/MM3 (1.8-7.7); BASOPHIL # 0.1 TH/MM3 (0-0.2); BASOPHIL % 0.3 % (0.0-2.0); CHLORIDE 104 MEQ/L (98-107); EOSINOPHIL # 0.6 TH/MM3 (0-0.4); EOSINOPHIL % 3.1 % (0.0-4.0); HEMATOCRIT 38.5 % (39.0-51.0); LYMPH % 11.2 % (9.0-44.0); LYMPHOCYTE # 2.1 TH/MM3 (1.0-4.8); MEAN CELL VOLUME 80.4 FL (80.0-100.0); MEAN CORPUSCULAR HEMOGLOBIN 26.8 PG (27.0-34.0); MEAN CORPUSCULAR HGB CONC 33.3 % (32.0-36.0); MONO % 3.9 % (0.0-8.0); NEUT % 81.5 % (16.0-70.0); PLATELET COUNT 299 TH/MM3 (150-450); POTASSIUM 4.1 MEQ/L (3.5-5.1); RED BLOOD COUNT 4.79 MIL/MM3 (4.50-5.90); RED CELL DISTRIBUTION WIDTH 13.7 % (11.6-17.2); SODIUM (NA) 141 MEQ/L (136-145); WHITE BLOOD COUNT 18.4 TH/MM3 (4.0-11.0)
[2016-07-24 14:38] LABS: ANION GAP 8 MEQ/L (5-15); BICARBONATE 29.5 MEQ/L (21.0-32.0); BLOOD UREA NITROGEN 17 MG/DL (7-18)
[2016-07-24 14:39] LABS: HEMO FLAGS DIFF FINAL
[2016-07-24 14:41] LABS: ALT (GPT) 25 U/L (12-78); AST (GOT) 15 U/L (15-37); GLOMERULAR FILTRATION RATE 75 ML/MIN (>89)
[2016-07-24 14:43] LABS: TOTAL BILIRUBIN ADULT 0.5 MG/DL (0.2-1.0)
[2016-07-24 14:44] LABS: ALKALINE PHOSPHATASE 87 U/L (45-117)
--- NOTE | 2016-07-24 14:52 | RADHPO ---
EXAM DATE/TIME: 07/24/2016 13:52 [facility] COMPARISON: CT ABDOMEN & PELVIS W/O CONTRAST, July 04, 2016, 16:05. INDICATIONS : Left flank pain x 2 days. ORAL CONTRAST: No oral contrast ingested. RADIATION DOSE: 19.22 CTDIvol (mGy) MEDICAL HISTORY : Renal calculi. SURGICAL HISTORY : Renal stent. ENCOUNTER: Initial ACUITY: 2 days PAIN SCALE: 9/10 LOCATION: Left flank TECHNIQUE: Volumetric scanning of the abdomen and pelvis was performed. Using automated exposure control and ad justment of the mA and/or kV according to patient size, radiation dose was kept as low as reasonably achievable to obtain optimal diagnostic quality images. FINDINGS: Multiple calcified stones are again identified in both kidneys. The right renal calculi which range in size up to 2 cm are stable. There is no evidence of hydronephr osis. The left renal collecting system is less distended than on the previous study. A left internal ureter al stent with a proximal fracture is again identified. 2 subcentimeter calculi in the left renal pelv is are normal longer present. One of the calculi has refluxed into the calyceal system. Ureteral calc marcus seen along the course of the stent remain present. A few small fragments in the distal ureter hav e passed. No other interval changes noted. The liver, spleen, adrenal glands and pancreas are stable. CONCLUSION: Decreasing hydronephrosis left kidney. Change in position of left renal pelvic calculi as described. Passage of several small fragments in the distal right ureter. Left ureteral stent remains in place. Stable appearance of the right kidney containing multiple large calculi but no significant hydronephr osis. Vikram Guevara MD on July 24, 2016 at 14:15 Board Certified Radiologist. This report was verified electronically.
[2016-07-24 15:04] VITALS: BP_SYST 163; BP_SYST 99; BP_DIAS 99; PULSE 111; RESP 20; O2SAT 98
[2016-07-24 15:50] VITALS: BP 153/104; PULSE 96; RESP 20; TEMP 98.4; O2SAT 99
[2016-07-24 16:25] VITALS: BP 150/90; PULSE 102; RESP 18; O2SAT 99
[2016-07-24] MEDS ORDERED: SODIUM CHLORIDE 0.9% FLUSH 10 ML FLUSH IV FLUSH PRN (17:30)
[2016-07-24] MEDS: SODIUM CHLOR 0.9% 1000 ML INJ 1,000 ML IV SCH (17:44)
[2016-07-24] MEDS: PIPERACIL-TAZO 4.5 GM PREMIX 100 ML IV SCH (18:11)
--- NOTE | 2016-07-24 18:11 | HHI.HP ---
[facility] Service [place] [facility] Primary Care Physician No Primary Care Physician Admission Diagnosis UTI/sepsis Diagnoses: Chief Complaint: Left flank pain Travel History International Travel<30 Days: No Contact w/Intl Traveler <30 Da: No Traveled to Known Affected Are: No Sepsis Criteria SIRS Criteria (2 or more): Heart rate over 90, WBC > 73683, < 4000 or > 10% bands Sepsis Criteria (SIRS+source): Infect source susp/known History of Present Illness 36-year-old male with a medical history significant for nephrolithiasis status post stent placement in 2007, recurrent UTI and kidney stones, gout presents to the hospital with complaint of left flank pain. The patient reports he has been having severe, persistent and worsening pain for the past 2 days. He endorsed intermittent hematuria. No dysuria. He was seen by Dr. Villatoro in the hospital back in June for similar symptoms, at which point it was recommended that he clears the infection and concluded he will need multiple surgeries outpatient. Patient reports that he tried to call the office but was not allowed to make the appointment because he was previously discharged from the practice years ago for missing appointments. On presentation today, workup in the emergency room revealed the patient meets sepsis criteria with evidence of another urinary tract infection. Review of Systems Constitutional: COMPLAINS OF: Chills, DENIES: Fever Endocrine: COMPLAINS OF: Polyuria Cardiovascular: DENIES: Chest pain, Palpitations Gastrointestinal: COMPLAINS OF: Abdominal pain Genitourinary: COMPLAINS OF: Hematuria, Dysuria Except as stated in HPI: all other systems reviewed are Neg Past Family Social History Past Medical History H/O alcohol dependence Nephrolithiasis Anxiety Gout Cirrhosis Recurrent UTI and hydronephrosis secondary to stones. Sepsis 06/12/2016 Past Surgical History Ureteral stents 2008 Nephrostomy 04/2016, have since fall out. Left ureteral stent 04/2016 Right elbow drained 04/2016 Reported Medications Reported Meds & Active Scripts Active Cipro (Ciprofloxacin HCl) 500 Mg Tab 500 Mg PO BID Reported Motrin Ib (Ibuprofen) 200 Mg Tab 400 Mg PO Q4H PRN Vistaril (Hydroxyzine Pamoate) 50 Mg Cap 50 Mg PO TID PRN Zoloft (Sertraline HCl) 50 Mg Tab 50 Mg PO DAILY Allopurinol 100 Mg Tab 100 Mg PO DAILY Allergies: Coded Allergies: Toradol (Verified Allergy, Severe, SWELLING OF THROAT, 07/24/16) Family History Father with history of kidney stones Social History Patient chews tobacco. He is a recovering alcoholic He denies illicit drug use. Physical Exam Vital Signs Vital Signs Date Time Temp Pulse Resp B/P Pulse Ox O2 Delivery O2 Flow Rate FiO2 07/24/16 16:25 102 18 150/90 99 Room Air 07/24/16 15:50 98.4 96 20 153/104 99 07/24/16 15:04 111 20 163/99 98 Room Air 07/24/16 14:37 18 07/24/16 14:26 101 18 159/63 97 Room Air 07/24/16 12:57 98.2 117 16 135/101 100 Physical Exam GENERAL: Obese male in no acute distress SKIN: No rashes, ecchymoses or lesions. Cool and dry. HEAD: Atraumatic. Normocephalic. No temporal or scalp tenderness. EYES: Pupils equal round and reactive. Extraocular motions intact. No scleral icterus. No injection or drainage. ENT: Nose without bleeding, purulent drainage or septal hematoma. Throat without erythema, tonsillar hypertrophy or exudate. Uvula midline. Airway patent. NECK: Trachea midline. No JVD or lymphadenopathy. Supple, nontender, no meningeal signs. CARDIOVASCULAR: Regular rate and rhythm without murmurs, gallops, or rubs. RESPIRATORY: Clear to auscultation. Breath sounds equal bilaterally. No wheezes , rales, or rhonchi. GASTROINTESTINAL: Abdomen soft, nondistended. No palpable masses. In the last left flank pain with deep palpation. MUSCULOSKELETAL: Extremities without clubbing, cyanosis, or edema. No joint tenderness, effusion, or edema noted. No calf tenderness. Negative Homans sign bilaterally. : Positive for CVA tenderness on the left. NEUROLOGICAL: Awake and alert. Cranial nerves II through XII intact. Motor and sensory grossly within normal limits. Five out of 5 muscle strength in all muscle groups. Normal speech. Laboratory Laboratory Tests Test 07/24/16 07/24/16 13:15 14:15 Urine Collection Type CLEAN CATCH Urine Color YELLOW Urine Turbidity MOD Urine pH 5.5 Urine Specific [place] 1.015 Urine Protein 100 Urine Glucose (UA) NEG Urine Ketones NEG Urine Occult Blood LARGE Urine Nitrite NEG Urine Bilirubin NEG Urine Leukocyte Esterase MOD Urine RBC INNUM Urine WBC 100-200 Urine WBC Clumps MANY Urine Squamous Epithelial > 8 Cells Urine Renal Epithelial Cells 6-8 Urine Bacteria OCC Microscopic Urinalysis Comment CULTURE INDICATED Urine Collection Time 13:15 White Blood Count 18.4 Red Blood Count 4.79 Hemoglobin 12.9 Hematocrit 38.5 Mean Corpuscular Volume 80.4 Mean Corpuscular Hemoglobin 26.8 Mean Corpuscular Hemoglobin 33.3 Concent Red Cell Distribution Width 13.7 Platelet Count 299 Mean Platelet Volume 7.2 Neutrophils (%) (Auto) 81.5 Lymphocytes (%) (Auto) 11.2 Monocytes (%) (Auto) 3.9 Eosinophils (%) (Auto) 3.1 Basophils (%) (Auto) 0.3 Neutrophils # (Auto) 14.9 Lymphocytes # (Auto) 2.1 Monocytes # (Auto) 0.7 Eosinophils # (Auto) 0.6 Basophils # (Auto) 0.1 CBC Comment DIFF FINAL Differential Comment Sodium Level 141 Potassium Level 4.1 Chloride Level 104 Carbon Dioxide Level 29.5 Anion Gap 8 Blood Urea Nitrogen 17 Creatinine 1.10 Estimat Glomerular Filtration 75 Rate Random Glucose 98 Lactic Acid Level 2.0 Calcium Level 9.7 Total Bilirubin 0.5 Aspartate Amino Transf 15 (AST/SGOT) Alanine Aminotransferase 25 (ALT/SGPT) Alkaline Phosphatase 87 Total Protein 7.6 Albumin 4.0 Lipase 139 Date/Time Procedure Status Source Growth 07/24/16 14:15 Aerobic Blood Culture Received Blood Peripheral Pending 07/24/16 14:15 Anaerobic Blood Culture Received Blood Peripheral Pending 07/24/16 13:15 Urine Culture Received Urine Clean Catch Pending Result Diagram: 07/24/16 1415 07/24/16 1415 Imaging Last Impressions Abdomen/Pelvis CT 07/24/16 1346 Signed Impressions: Service Date/Time: July 13:52 - CONCLUSION: Decreasing hydronephrosis left kidney. Change in position of left renal pelvic calculi as described. Passage of several small fragments in the distal right ureter. Left ureteral stent remains in place. Stable appearance of the right kidney containing multiple large calculi but no significant hydronephrosis. Vikram Guevara MD Assessment and Plan Problem List: (1) Sepsis due to urinary tract infection ICD Code: A41.9 Status: Acute Plan: Complicated UTI. Patient has multiple kidney stones and a retained stent on the left. Broad-spectrum antibiotics with Zosyn - Follow urine culture and blood culture. - IV fluid (2) Renal calculi ICD Code: N20.0 Status: Acute Plan: ED physician discussed the case with the on-call urologist, Dr. cruz's who advised treatment with IV antibiotics and outpatient follow-up with Dr. Villatoro. Based on the last discharge note, the patient was supposed to follow up outpatient with Dr. Villatoro for outpatient lithotripsy. He reports that he was not allowed to make the follow-up appointment because he was previously discharged from the practice for no show. He needs to be set up with patient assistance. Will ask case management to follow-up on patient assistance and see if Dr. Villatoro will agree to take him back in the clinic. - If sepsis not improving, will need to consider an infected stent and inpatient urology consultation. - Continue IV fluid for hydration - Pain control with Percocet and morphine for breakthrough pain. (3) Complicated UTI (urinary tract infection) ICD Code: N39.0 Status: Acute Plan: Antibiotics as above. Follow urine cultures (4) Staghorn calculus ICD Code: N20.0 Status: Chronic Discussed Condition With Dr. Aguilera in the emergency room. Physician Certification 2 Midnight Certification Type: Admission for Inpatient Services Order for Inpatient Services The services are ordered in accordance with Medicare regulations or non- Medicare payer requirements, as applicable. In the case of services not specified as inpatient-only, they are appropriately provided as inpatient services in accordance with the 2-midnight benchmark. Estimated LOS (days): 3 days is the estimated time the patient will need to remain in the hospital, assuming treatment plan goals are met and no additional complications. Post-Hospital Plan: Home Carter Mccracken MD July 24, 2016 18:11
[2016-07-24] MEDS: oxyCODONE/ACETAMINOPHEN 7.5 MG/325 MG TAB PO PRN (18:54)
[2016-07-24 20:00] VITALS: BP 152/107; PULSE 97; RESP 18; TEMP 97.9; O2SAT 99
[2016-07-24] MEDS: HEPARIN SODIUM - SQ 10,000 UNITS/ML VIAL SQ SCH (21:27)
[2016-07-24] MEDS: MORPHINE SULFATE 8 MG/ML INJ IV PUSH PRN (21:28)
[2016-07-24] MEDS: SODIUM CHLORIDE 0.9% FLUSH 10 ML FLUSH IV FLUSH SCH (21:28)
[2016-07-25] VITALS: BP 142/104; PULSE 94; RESP 18; TEMP 96.6; O2SAT 98
[2016-07-25] MEDS: PIPERACIL-TAZO 4.5 GM PREMIX 100 ML IV SCH ×5 (00:12→23:04)
[2016-07-25] MEDS: oxyCODONE/ACETAMINOPHEN 7.5 MG/325 MG TAB PO PRN ×4 (01:52→20:49)
[2016-07-25] MEDS: SODIUM CHLOR 0.9% 1000 ML INJ 1,000 ML IV SCH (03:42)
[2016-07-25 04:00] VITALS: BP 148/98; PULSE 78; RESP 18; TEMP 96.6; O2SAT 98
[2016-07-25] MEDS: MORPHINE SULFATE 8 MG/ML INJ IV PUSH PRN ×5 (05:15→23:04)
[2016-07-25 06:44] LABS: AUTOMATED NEUTROPHIL # 6.1 TH/MM3 (1.8-7.7); BASOPHIL % 0.3 % (0.0-2.0); EOSINOPHIL # 0.7 TH/MM3 (0-0.4); EOSINOPHIL % 6.5 % (0.0-4.0); HEMATOCRIT 34.8 % (39.0-51.0); HEMO FLAGS DIFF FINAL; LYMPHOCYTE # 2.5 TH/MM3 (1.0-4.8); MEAN CELL VOLUME 80.1 FL (80.0-100.0); MEAN CORPUSCULAR HEMOGLOBIN 27.8 PG (27.0-34.0); MEAN CORPUSCULAR HGB CONC 34.7 % (32.0-36.0); MONO % 6.8 % (0.0-8.0); NEUT % 61.4 % (16.0-70.0); PLATELET COUNT 244 TH/MM3 (150-450); RED BLOOD COUNT 4.34 MIL/MM3 (4.50-5.90); RED CELL DISTRIBUTION WIDTH 13.4 % (11.6-17.2)
[2016-07-25 06:49] LABS: POTASSIUM 3.4 MEQ/L (3.5-5.1)
[2016-07-25 07:06] LABS: BICARBONATE 30.7 MEQ/L (21.0-32.0)
[2016-07-25 08:00] VITALS: BP 138/101; PULSE 93; RESP 20; TEMP 96.5; O2SAT 100
[2016-07-25] MEDS: HEPARIN SODIUM - SQ 10,000 UNITS/ML VIAL SQ SCH ×2 (08:52→20:48)
[2016-07-25] MEDS: SODIUM CHLORIDE 0.9% FLUSH 10 ML FLUSH IV FLUSH SCH ×2 (08:52→20:48)
--- NOTE | 2016-07-25 11:04 | HHI.PR ---
Subjective Remarks Patient seen in follow-up for sepsis secondary to complicated UTI, recurrent nephrolithiasis He reports is feeling better today. Urine is clear. Pain is controlled with the medications. No nausea or vomiting. Objective Vitals Vital Signs Date Time Temp Pulse Resp B/P Pulse Ox O2 Delivery O2 Flow Rate FiO2 07/25/16 09:52 1 07/25/16 08:00 96.5 93 20 138/101 100 07/25/16 04:00 96.6 78 18 148/98 98 07/25/16 00:00 96.6 94 18 142/104 98 07/24/16 20:00 97.9 97 18 152/107 99 07/24/16 16:25 102 18 150/90 99 Room Air 07/24/16 15:50 98.4 96 20 153/104 99 07/24/16 15:04 111 20 163/99 98 Room Air 07/24/16 14:37 18 07/24/16 14:26 101 18 159/63 97 Room Air 07/24/16 12:57 98.2 117 16 135/101 100 I/O 07/24/16 07/24/16 07/24/16 07/25/16 07/25/16 07/25/16 07:00 15:00 23:00 07:00 15:00 23:00 Intake Total 1000 ml 640 ml 2080 ml Output Total 250 ml 350 ml 1000 ml Balance 750 ml 290 ml 1080 ml Intake Oral 640 ml 1080 ml IV Total 1000 ml 1000 ml Output Urine Total 250 ml 350 ml 1000 ml # Voids 1 # Bowel Movements 0 0 Result Diagram: 07/25/16 0545 07/25/16 0545 Imaging Last Impressions Abdomen/Pelvis CT 07/24/16 1346 Signed Impressions: Service Date/Time: July 13:52 - CONCLUSION: Decreasing hydronephrosis left kidney. Change in position of left renal pelvic calculi as described. Passage of several small fragments in the distal right ureter. Left ureteral stent remains in place. Stable appearance of the right kidney containing multiple large calculi but no significant hydronephrosis. Vikram Geuvara MD Objective Remarks GENERAL: This is a well-nourished, well-developed patient, in no apparent distress. CARDIOVASCULAR: Normal rate and regular rhythm without murmurs, gallops, or rubs. RESPIRATORY: Good respiratory efforts. Breath sounds equal and clear to auscultation bilaterally. GASTROINTESTINAL: Abdomen soft, non-distended. Mild tenderness to deep palpation in the left lower quadrant. Normal active bowel sounds MUSCULOSKELETAL: Mild left CVA tenderness. Extremities without cyanosis, or edema. NEURO: Alert & Oriented x4 to person, place, time, situation. Moves all ext x4 PSYCH: Appropriate mood and affect. A/P Problem List: (1) Sepsis due to urinary tract infection ICD Code: A41.9 Status: Acute Plan: Complicated UTI. Patient has multiple kidney stones and a retained stent on the left. Continue with Broad-spectrum antibiotics with Zosyn - Follow urine culture and blood culture. - IV fluid (2) Renal calculi ICD Code: N20.0 Status: Acute Plan: ED physician discussed the case with the on-call urologist, Dr. cruz's who advised treatment with IV antibiotics and outpatient follow-up with Dr. Villatoro. Based on the last discharge note, the patient was supposed to follow up outpatient with Dr. Villatoro for outpatient lithotripsy. Discussed with case management will call Dr. Villatoro's office. The patient has been discharged from his practice and would not be seen there. - Sepsis improving. If he continues to improve, he will need a mandatory referral to Dr. Covarrubias on discharge. - Continue IV fluid for hydration - Pain control with Percocet and morphine for breakthrough pain. (3) Complicated UTI (urinary tract infection) ICD Code: N39.0 Status: Acute Plan: Antibiotics as above. Follow urine cultures (4) Staghorn calculus ICD Code: N20.0 Status: Chronic (5) Hypokalemia ICD Code: E87.6 Status: Acute Plan: Replace and monitor. Carter Mccracken MD July 25, 2016 11:04
[2016-07-25] MEDS ORDERED: POTASSIUM CHLORIDE 10 MEQ CONTROLLED RELEASE TAB PO ONE (11:30)
[2016-07-25] MEDS: NS + KCL 20 MEQ INJ 1,000 ML IV SCH ×2 (11:44→20:48)
[2016-07-25 12:00] VITALS: BP 140/94; PULSE 90; RESP 20; TEMP 97.1; O2SAT 97
[2016-07-25 16:00] VITALS: BP 135/85; PULSE 87; RESP 20; TEMP 96.9; O2SAT 99
[2016-07-25] MEDS: SODIUM CHLORIDE 0.9% FLUSH 10 ML FLUSH IV FLUSH PRN (17:46)
[2016-07-25 21:22] VITALS: BP 133/94; PULSE 92; RESP 16; TEMP 98; O2SAT 100
[2016-07-26 00:42] VITALS: BP 131/89; PULSE 89; RESP 18; TEMP 98.1; O2SAT 97
[2016-07-26] MEDS: oxyCODONE/ACETAMINOPHEN 7.5 MG/325 MG TAB PO PRN ×2 (04:42→14:55)
[2016-07-26] MEDS: PIPERACIL-TAZO 4.5 GM PREMIX 100 ML IV SCH ×2 (06:01→13:04)
[2016-07-26 07:15] LABS: HEMATOCRIT 32.8 % (39.0-51.0); MEAN CELL VOLUME 80.3 FL (80.0-100.0); MEAN CORPUSCULAR HEMOGLOBIN 27.6 PG (27.0-34.0); MEAN CORPUSCULAR HGB CONC 34.3 % (32.0-36.0); PLATELET COUNT 211 TH/MM3 (150-450); RED BLOOD COUNT 4.09 MIL/MM3 (4.50-5.90); RED CELL DISTRIBUTION WIDTH 13.5 % (11.6-17.2); REVIEW FLAG FINAL; WHITE BLOOD COUNT 10.3 TH/MM3 (4.0-11.0)
[2016-07-26 07:47] LABS: BICARBONATE 29.1 MEQ/L (21.0-32.0); POTASSIUM 4.3 MEQ/L (3.5-5.1)
[2016-07-26] MEDS: HEPARIN SODIUM - SQ 10,000 UNITS/ML VIAL SQ SCH (08:50)
[2016-07-26] MEDS: SODIUM CHLORIDE 0.9% FLUSH 10 ML FLUSH IV FLUSH SCH (08:51)
[2016-07-26] MEDS: NS + KCL 20 MEQ INJ 1,000 ML IV SCH (08:54)
[2016-07-26] MEDS: MORPHINE SULFATE 8 MG/ML INJ IV PUSH PRN (08:55)
[2016-07-26 09:32] VITALS: BP 115/74; PULSE 87; RESP 15; TEMP 96.8; O2SAT 97
[2016-07-26] MEDS ORDERED: OXYC1TAB35 PO (10:35)
--- NOTE | 2016-07-26 10:36 | HHI.DCPOC ---
Discharge Care Plan Diagnosis: (1) Renal calculi (2) Renal colic on left side Goals to Promote Your Health * To prevent worsening of your condition and complications * To maintain your health at the optimal level Directions to Meet Your Goals Take your medications as prescribed Follow your dietary instruction Follow activity as directed Keep your appointments as scheduled Take your immunizations and boosters as scheduled If your symptoms worsen call your PCP, if no PCP go to Urgent Care Center or Emergency Room Smoking is Dangerous to Your Health. Avoid second hand smoke Call the 24-hour hour crisis hotline for domestic abuse at Carter Mccracken MD July 26, 2016 10:36
--- NOTE | 2016-07-26 10:36 | HHI.DS ---
Discharge Summary Admission Date July 24, 2016 at 15:37 Discharge Date: July 26, 2016 Admitting Diagnosis UTI/sepsis (1) Sepsis due to urinary tract infection ICD Code: A41.9 (2) Renal calculi ICD Code: N20.0 (3) Complicated UTI (urinary tract infection) ICD Code: N39.0 (4) Staghorn calculus ICD Code: N20.0 (5) Hypokalemia ICD Code: E87.6 Procedures None Brief History - From Admission 36-year-old male with a medical history significant for nephrolithiasis status post stent placement in 2007, recurrent UTI and kidney stones, gout presents to the hospital with complaint of left flank pain. The patient reports he has been having severe, persistent and worsening pain for the past 2 days. He endorsed intermittent hematuria. No dysuria. He was seen by Dr. Villatoro in the hospital back in June for similar symptoms, at which point it was recommended that he clears the infection and concluded he will need multiple surgeries outpatient. Patient reports that he tried to call the office but was not allowed to make the appointment because he was previously discharged from the practice years ago for missing appointments. On presentation today, workup in the emergency room revealed the patient meets sepsis criteria with evidence of another urinary tract infection. CBC/BMP: 07/26/16 0640 07/26/16 0640 Significant Findings Laboratory Tests Test 07/24/16 07/24/16 07/25/16 07/26/16 13:15 14:15 05:45 06:40 Urine Turbidity MOD (CLEAR) Urine Protein 100 mg/dL (NEG-TRACE) Urine Occult Blood LARGE (NEG) Urine Leukocyte Esterase MOD (NEG) Urine RBC INNUM /hpf (0-3) Urine WBC 100-200 /hpf (0-5) Urine WBC Clumps MANY (NONE) Urine Squamous Epithelial > 8 /hpf (0-5) Cells Urine Bacteria OCC /hpf (NONE) White Blood Count 18.4 TH/MM3 (4.0-11.0) Hemoglobin 12.9 GM/DL 12.1 GM/DL 11.3 GM/DL (13.0-17.0) (13.0-17.0) (13.0-17.0) Hematocrit 38.5 % 34.8 % 32.8 % (39.0-51.0) (39.0-51.0) (39.0-51.0) Mean Corpuscular Hemoglobin 26.8 PG (27.0-34.0) Neutrophils (%) (Auto) 81.5 % (16.0-70.0) Neutrophils # (Auto) 14.9 TH/MM3 (1.8-7.7) Eosinophils # (Auto) 0.6 TH/MM3 0.7 TH/MM3 (0-0.4) (0-0.4) Estimat Glomerular Filtration 75 ML/MIN (>89) 75 ML/MIN (>89) 75 ML/MIN (>89) Rate Red Blood Count 4.34 MIL/MM3 4.09 MIL/MM3 (4.50-5.90) (4.50-5.90) Mean Platelet Volume 6.9 FL (7.0-11.0) Eosinophils (%) (Auto) 6.5 % (0.0-4.0) Potassium Level 3.4 MEQ/L (3.5-5.1) Random Glucose 116 MG/DL (74-106) Imaging Last Impressions Abdomen/Pelvis CT 07/24/16 1346 Signed Impressions: Service Date/Time: July 13:52 - CONCLUSION: Decreasing hydronephrosis left kidney. Change in position of left renal pelvic calculi as described. Passage of several small fragments in the distal right ureter. Left ureteral stent remains in place. Stable appearance of the right kidney containing multiple large calculi but no significant hydronephrosis. Vikram Guevara MD PE at Discharge GENERAL: This is a well-nourished, well-developed patient, in no apparent distress. CARDIOVASCULAR: Normal rate and regular rhythm without murmurs, gallops, or rubs. RESPIRATORY: Good respiratory efforts. Breath sounds equal and clear to auscultation bilaterally. GASTROINTESTINAL: Abdomen soft, non-distended. Mild tenderness to deep palpation in the left lower quadrant. Normal active bowel sounds MUSCULOSKELETAL: Mild left CVA tenderness. Extremities without cyanosis, or edema. NEURO: Alert & Oriented x4 to person, place, time, situation. Moves all ext x4 PSYCH: Appropriate mood and affect. Pt update on day of discharge Patient reports is feeling much better. Pain is controlled with the medication. No problems urinating. No hematuria. He understands the need to follow-up outpatient with urology. Hospital Course 36-year-old male admitting criteria on admission for sepsis thought to be due to complicated urinary tract infection. The patient has had recurrent issues with kidney stone and has a retained stent on the left. The patient was admitted and treated with broad-spectrum antibiotics, IV fluid and pain management. His symptoms quickly improved. Blood cultures were negative to date. His urine culture did not grow any bacteria. The patient is stable for discharge to follow-up outpatient with urology. A mandatory referral has been placed. He was previously discharged from Dr. Villatoro office. He was strongly counseled to follow recommendations and be compliant. Case management will assist with patient assistance on discharge. Pt Condition on Discharge: Good Discharge Disposition: Discharge Home Discharge Time: <= 30 minutes Discharge Instructions DIET: Follow Instructions for: As Tolerated, No Restrictions Activities you can perform: Regular-No Restrictions Follow up Referrals: Urology - 1 Week with Andrey Covarrubias MD New Medications: Oxycodone-Acetaminophen (Oxycodone-Acetaminophen) 7.5-325 mg Tab 1 TAB PO Q4H PRN PAIN GREATER THAN 5 #20 TAB Continued Medications: Allopurinol (Allopurinol) 100 Mg Tab 100 MG PO DAILY Gout #30 Ref 0 TAB Hydroxyzine Pamoate (Vistaril) 50 Mg Cap 50 MG PO TID PRN ANXIETY Ref 0 CAP Ibuprofen (Motrin Ib) 200 Mg Tab 400 MG PO Q4H PRN PAIN SCALE 1 TO 10 Ref 0 TAB Sertraline (Zoloft) 50 Mg Tab 50 MG PO DAILY #30 Ref 0 TAB Discontinued Medications: Ciprofloxacin (Cipro) 500 Mg Tab 500 MG PO BID Infection #60 Ref 0 TAB Carter Mccracken MD July 26, 2016 10:36
== END 2016-07-26 15:13 | disposition home or self-care (01) | DRG 872 ==
LOC: PHED 12:52 → PHEDA 15:37 → PH3A 16:32
PROVIDERS: ADMIT Family Medicine; ATTEND Family Medicine
DX: A41.9 Sepsis, unspecified organism (principal); K74.60 Unspecified cirrhosis of liver; N39.0 Urinary tract infection, site not specified; E87.6 Hypokalemia; M10.9 Gout, unspecified; F10.21 Alcohol dependence, in remission; Z72.0 Tobacco use; Z87.440 Personal history of urinary (tract) infections; Z87.442 Personal history of urinary calculi
CPT/HCPCS: 74176; 80048; 80053; 81001; 83605; 83690; 85025; 85027; 87040; 87086; 96365; 96375; J0696; J1644; J2270; J2405; J2543; J3480; J7030

== ENCOUNTER 2016-07-28 11:03 | Inpatient (IN) | payer MEDICAID ==
[2016-07-28] VITALS (8 sets, daily range): BP systolic 125–145; BP diastolic 84–102; PULSE 82–117; RESP 17–31; TEMP 97.1–97.9; O2SAT 19–100
[~2016-07-28] VITALS: Ht 182.9 cm; Wt 91.0 kg
[~2016-07-28 11:03] MED LIST changes: -CIPR-9 PO; -MORP1TAB24 PO; +MOTR200T4 PO; +OXYC1TAB35 PO; -OXYC1TAB63 PO
[2016-07-28] MEDS ORDERED: SODIUM CHLORIDE 0.9% FLUSH 10 ML FLUSH IVF PRN (11:15)
--- NOTE | 2016-07-28 11:22 | PD ---
HPI Chief Complaint: Dizziness Time Seen by Provider: 11:19 Travel History International Travel<30 days: No Contact w/Intl Traveler<30days: No Traveled to known affect area: No History of Present Illness HPI Patient is a 36-year-old male arriving to the emergency department via EMS for evaluation of vertigo, nausea, diaphoresis. Patient reports lower abdominal pain and low back pain that started this morning upon awakening, accompanied by mild shortness of breath. He reports night sweats but denies any fevers, dysuria, chest pain, vomiting him a headaches. Patient reports his pain as a 6 out of 10 and describes as aching and sore. Patient was on a bus going to work when the symptoms started abruptly the patient felt as if he was going to pass out. He states he was discharged from the hospital 2 days ago due to urinary tract infection. Patient ate breakfast, he states he took oxycodone at 8:00 this morning. He denies any illicit drug use but endorses chewing tobacco. PFSH Past Medical History Hx Anticoagulant Therapy: No Arthritis: Yes (gout) Asthma: No Autoimmune Disease: No Blood Disorders: No Anxiety: Yes Depression: Yes Heart Rhythm Problems: No Cancer: No Cardiovascular Problems: No High Cholesterol: No Chest Pain: No Congestive Heart Failure: No COPD: No Cerebrovascular Accident: No Diabetes: No Diminished Hearing: No Endocrine: No GERD: No Glaucoma: No Gout: Yes Genitourinary: Yes (stones/stent/nephroscopy 04/2016) Headaches: No Hepatitis: No Hiatal Hernia: No Hypertension: No Immune Disorder: No Implanted Vascular Access Dvce: Yes Kidney Stones: Yes Musculoskeletal: Yes Neurologic: Yes Psychiatric: Yes Reproductive: No Respiratory: No Immunizations Current: No Migraines: No Myocardial Infarction: No Renal Failure: No Seizures: No Sleep Apnea: No Thyroid Disease: No Ulcer: No Past Surgical History Abdominal Surgery: No AICD: No Arteriovenous Shunt: No Body Medical Devices: NEPHROSTOMY LEFT Cardiac Surgery: No Ear Surgery: Yes Endocrine Surgery: No Eye Surgery: No Genitourinary Surgery: Yes (LEFT STENT IN URETER FOR KIDNEY STONES; NEPHROSTOMY 04/2016) Gynecologic Surgery: No Insulin Pump: No Joint Replacement: No Neurologic Surgery: No Oral Surgery: Yes (TONSILLECTOMY) Pacemaker: No Thoracic Surgery: No Tonsillectomy: Yes (AND ADENOIDECTOMY) Other Surgery: Yes (lithotripsy) Social History Alcohol Use: No (denies at present) Tobacco Use: Yes (ORAL TOBACCO, 2 CANS PER WEEK) Substance Use: No Allergies-Medications (Allergen,Severity, Reaction): Coded Allergies: Toradol (Verified Allergy, Severe, SWELLING OF THROAT, 07/28/16) Reported Meds & Prescriptions Reported Meds & Active Scripts Active Oxycodone-Acetaminophen 7.5-325 mg Tab 1 Tab PO Q4H PRN Reported Motrin Ib (Ibuprofen) 200 Mg Tab 400 Mg PO Q4H PRN Vistaril (Hydroxyzine Pamoate) 50 Mg Cap 50 Mg PO TID PRN Zoloft (Sertraline HCl) 50 Mg Tab 50 Mg PO DAILY Allopurinol 100 Mg Tab 100 Mg PO DAILY Review of Systems Except as stated in HPI: all other systems reviewed are Neg General / Constitutional: Positive: Chills, Other (night sweats) HENT: No: Headaches Cardiovascular: Positive: Tachycardia, No: Chest Pain or Discomfort Respiratory: Positive: Shortness of Breath, No: Cough Gastrointestinal: Positive: Nausea, Abdominal Pain, No: Vomiting, Diarrhea Genitourinary: Positive: Pelvic Pain, No: Urgency, Frequency, Dysuria Neurologic: Positive: Dizziness, No: Focal Abnormalities, Change in Mentation Physical Exam Narrative GENERAL: Well-developed, well-nourished, alert male. Resting comfortably in no acute distress. SKIN: Focused skin assessment warm/dry. HEAD: Atraumatic. Normocephalic. EYES: Pupils equal and round. No scleral icterus. No injection or drainage. ENT: No nasal bleeding or discharge. Mucous membranes pink and moist. NECK: Trachea midline. No JVD. CARDIOVASCULAR: Tachycardic. No murmur appreciated. RESPIRATORY: No accessory muscle use. Clear to auscultation. Breath sounds equal bilaterally. GASTROINTESTINAL: Abdomen soft, mildly tender to palpation in suprapubic region , no rebound, no guarding, nondistended. Hepatic and splenic margins not palpable. Positive bowel sounds. MUSCULOSKELETAL: No obvious deformities. No clubbing. No cyanosis. No edema. NEUROLOGICAL: Awake and alert. No obvious cranial nerve deficits. Motor grossly within normal limits. Normal speech. PSYCHIATRIC: Appropriate mood and affect; insight and judgment normal. Data Data Last Documented VS Vital Signs Date Time Temp Pulse Resp B/P Pulse Ox O2 Delivery O2 Flow Rate FiO2 07/28/16 13:09 104 18 129/84 19 Room Air 07/28/16 11:10 97.9 Orders Electrocardiogram (07/28/16 11:15) Ckmb (Isoenzyme) Profile (07/28/16 11:15) Complete Blood Count With Diff (07/28/16 11:15) Comprehensive Metabolic Panel (07/28/16 11:15) D-Dimer (07/28/16 11:15) Magnesium (Mg) (07/28/16 11:15) Prothrombin Time / Inr (Pt) (07/28/16 11:15) Act Partial Throm Time (Ptt) (07/28/16 11:15) Troponin I (07/28/16 11:15) Chest, Single Ap (07/28/16 11:15) Ecg Monitoring (07/28/16 11:15) Bilateral Bp Monitoring (07/28/16 11:15) Iv Access Insert/Monitor (07/28/16 11:15) Oximetry (07/28/16 11:15) Oxygen Administration (07/28/16 11:15) Sodium Chloride 0.9% Flush (Ns Flush) (07/28/16 11:15) Urinalysis - C+S If Indicated (07/28/16 11:15) Us Kidney/Renal/Bladder (07/28/16 ) Ct Pulmonary Angiogram (07/28/16 ) Piperacil-Tazo 4.5 Gm Premix (Zosyn 4.5 (07/28/16 12:44) Vancomycin Inj (Vancomycin Inj) (07/28/16 12:44) Urine Culture (07/28/16 12:20) Iohexol 350 Inj (Omnipaque 350 Inj) (07/28/16 14:20) Lactic Acid (07/28/16 14:44) Sodium Chlor 0.9% 1000 Ml Inj (Ns 1000 M (07/28/16 15:00) Admit Order (Ed Use Only) (07/28/16 14:55) Labs Laboratory Tests Test 07/28/16 07/28/16 11:20 12:20 White Blood Count 14.9 TH/MM3 Red Blood Count 4.62 MIL/MM3 Hemoglobin 12.5 GM/DL Hematocrit 36.6 % Mean Corpuscular Volume 79.1 FL Mean Corpuscular Hemoglobin 27.1 PG Mean Corpuscular Hemoglobin 34.3 % Concent Red Cell Distribution Width 14.2 % Platelet Count 244 TH/MM3 Mean Platelet Volume 7.5 FL Neutrophils (%) (Auto) 76.7 % Lymphocytes (%) (Auto) 14.6 % Monocytes (%) (Auto) 4.8 % Eosinophils (%) (Auto) 3.7 % Basophils (%) (Auto) 0.2 % Neutrophils # (Auto) 11.4 TH/MM3 Lymphocytes # (Auto) 2.2 TH/MM3 Monocytes # (Auto) 0.7 TH/MM3 Eosinophils # (Auto) 0.6 TH/MM3 Basophils # (Auto) 0.0 TH/MM3 CBC Comment DIFF FINAL Differential Comment Prothrombin Time 10.2 SEC Prothromb Time International 0.9 RATIO Ratio Activated Partial 28.0 SEC Thromboplast Time D-Dimer Quantitative (PE/DVT) 1.92 MG/L FEU Sodium Level 138 MEQ/L Potassium Level 4.2 MEQ/L Chloride Level 101 MEQ/L Carbon Dioxide Level 26.6 MEQ/L Anion Gap 10 MEQ/L Blood Urea Nitrogen 13 MG/DL Creatinine 1.29 MG/DL Estimat Glomerular Filtration 63 ML/MIN Rate Random Glucose 126 MG/DL Calcium Level 10.1 MG/DL Magnesium Level 1.5 MG/DL Total Bilirubin 0.3 MG/DL Aspartate Amino Transf 24 U/L (AST/SGOT) Alanine Aminotransferase 28 U/L (ALT/SGPT) Alkaline Phosphatase 79 U/L Total Creatine Kinase 26 U/L Troponin I LESS THAN 0.02 NG/ML Total Protein 8.3 GM/DL Albumin 3.9 GM/DL Urine Color YELLOW Urine Turbidity HAZY Urine pH 5.5 Urine Specific Edgar 1.015 Urine Protein 100 mg/dL Urine Glucose (UA) NEG mg/dL Urine Ketones NEG mg/dL Urine Occult Blood MOD Urine Nitrite NEG Urine Bilirubin NEG Urine Urobilinogen LESS THAN 2.0 MG/DL Urine Leukocyte Esterase LARGE Urine RBC /hpf Urine WBC 132 /hpf Urine WBC Clumps RARE Urine Squamous Epithelial 3 /hpf Cells Urine Transitional Epithelial <1 /hpf Cells Urine Bacteria FEW /hpf Urine Mucus FEW /lpf Microscopic Urinalysis Comment CULTURE INDICATED MDM Medical Decision Making Medical Screen Exam Complete: Yes Emergency Medical Condition: Yes Medical Record Reviewed: Yes Interpretation(s) Last Impressions Chest X-Ray 07/28/16 1115 Signed Impressions: Service Date/Time: Thursday, July 28, 2016 11:19 - CONCLUSION: 1. No acute cardiopulmonary findings. Car Dozier MD Renal Ultrasound 07/28/16 0000 Signed Impressions: Service Date/Time: Thursday, July 28, 2016 12:29 - CONCLUSION: 1. There are multiple renal stones seen within the kidneys bilaterally. There is no hydronephrosis. 2. The exam demonstrates either a bladder stone or calcification within the bladder wall as above. Car Dozier MD Laboratory Tests Test 07/28/16 07/28/16 11:20 12:20 White Blood Count 14.9 TH/MM3 Red Blood Count 4.62 MIL/MM3 Hemoglobin 12.5 GM/DL Hematocrit 36.6 % Mean Corpuscular Volume 79.1 FL Mean Corpuscular Hemoglobin 27.1 PG Mean Corpuscular Hemoglobin 34.3 % Concent Red Cell Distribution Width 14.2 % Platelet Count 244 TH/MM3 Mean Platelet Volume 7.5 FL Neutrophils (%) (Auto) 76.7 % Lymphocytes (%) (Auto) 14.6 % Monocytes (%) (Auto) 4.8 % Eosinophils (%) (Auto) 3.7 % Basophils (%) (Auto) 0.2 % Neutrophils # (Auto) 11.4 TH/MM3 Lymphocytes # (Auto) 2.2 TH/MM3 Monocytes # (Auto) 0.7 TH/MM3 Eosinophils # (Auto) 0.6 TH/MM3 Basophils # (Auto) 0.0 TH/MM3 CBC Comment DIFF FINAL Differential Comment Prothrombin Time 10.2 SEC Prothromb Time International 0.9 RATIO Ratio Activated Partial 28.0 SEC Thromboplast Time D-Dimer Quantitative (PE/DVT) 1.92 MG/L FEU Sodium Level 138 MEQ/L Potassium Level 4.2 MEQ/L Chloride Level 101 MEQ/L Carbon Dioxide Level 26.6 MEQ/L Anion Gap 10 MEQ/L Blood Urea Nitrogen 13 MG/DL Creatinine 1.29 MG/DL Estimat Glomerular Filtration 63 ML/MIN Rate Random Glucose 126 MG/DL Calcium Level 10.1 MG/DL Magnesium Level 1.5 MG/DL Total Bilirubin 0.3 MG/DL Aspartate Amino Transf 24 U/L (AST/SGOT) Alanine Aminotransferase 28 U/L (ALT/SGPT) Alkaline Phosphatase 79 U/L Total Creatine Kinase 26 U/L Troponin I LESS THAN 0.02 NG/ML Total Protein 8.3 GM/DL Albumin 3.9 GM/DL Urine Color YELLOW Urine Turbidity HAZY Urine pH 5.5 Urine Specific Edgar 1.015 Urine Protein 100 mg/dL Urine Glucose (UA) NEG mg/dL Urine Ketones NEG mg/dL Urine Occult Blood MOD Urine Nitrite NEG Urine Bilirubin NEG Urine Urobilinogen LESS THAN 2.0 MG/DL Urine Leukocyte Esterase LARGE Urine RBC /hpf Urine WBC 132 /hpf Urine WBC Clumps RARE Urine Squamous Epithelial 3 /hpf Cells Urine Transitional Epithelial <1 /hpf Cells Urine Bacteria FEW /hpf Urine Mucus FEW /lpf Microscopic Urinalysis Comment CULTURE INDICATED Vital Signs Date Time Temp Pulse Resp B/P Pulse Ox O2 Delivery O2 Flow Rate FiO2 07/28/16 11:10 97.9 117 31 132/96 97 Differential Diagnosis Pulmonary embolism versus a [place] versus UTI versus sepsis versus other Narrative Course Patient is a 36-year-old male presenting be back for evaluation of near syncopal episode. IV access established by evac, patient was given Zofran en route. Patient placed on telemetry monitoring and continuous pulse oximetry. Labs and imaging ordered and pending. Initial EKG shows sinus tachycardia, no ST elevation, rate of 117. Chest x-ray shows no acute disease CBC with elevated white count of 14.9 with left shift. Zosyn and vancomycin ordered. Patient has received 1 L of IV fluids, second liter ordered. D-dimer is elevated at 1.92, CT pulmonary angiogram ordered and pending. Chemistry is unremarkable, first set of cardiac enzymes are negative. CT pulmonary angiogram is negative for pulmonary embolism Renal ultrasound shows multiple renal stones seen within the kidneys bilaterally. There is no hydronephrosis. The exam demonstrates either a bladder stone or calcification within the bladder wall as above. Per Dr. Dozier's report. Patient was tachycardic with a heart rate in the 117 range, after 1 L of IV fluids his heart rate is 104. Patient remains afebrile. Urinalysis is indicative of urinary tract infection once again. [facility] paged for admission. Dr. Keith accepted admission. Pt advised on finding and is agreeable to inpatient. Sepsis Criteria SIRS Criteria (2 or more): Heart rate over 90, WBC > 72262, < 4000 or > 10% bands Sepsis Criteria (SIRS+source): Infect source susp/known Diagnosis Primary Impression: Complicated UTI (urinary tract infection) Additional Impressions: Sepsis due to urinary tract infection Leukocytosis Qualified Code: D72.829 - Leukocytosis, unspecified type Admitting Information Admitting Physician Requests: Admit Condition: Stable Nivia Fernandes July 28, 2016 11:22
[2016-07-28 11:42] LABS: AUTOMATED NEUTROPHIL # 11.4 TH/MM3 (1.8-7.7); BASOPHIL % 0.2 % (0.0-2.0); EOSINOPHIL # 0.6 TH/MM3 (0-0.4); EOSINOPHIL % 3.7 % (0.0-4.0); HEMATOCRIT 36.6 % (39.0-51.0); HEMO FLAGS DIFF FINAL; LYMPH % 14.6 % (9.0-44.0); LYMPHOCYTE # 2.2 TH/MM3 (1.0-4.8); MEAN CELL VOLUME 79.1 FL (80.0-100.0); MEAN CORPUSCULAR HEMOGLOBIN 27.1 PG (27.0-34.0); MEAN CORPUSCULAR HGB CONC 34.3 % (32.0-36.0); MONO % 4.8 % (0.0-8.0); NEUT % 76.7 % (16.0-70.0); PLATELET COUNT 244 TH/MM3 (150-450); RED BLOOD COUNT 4.62 MIL/MM3 (4.50-5.90); RED CELL DISTRIBUTION WIDTH 14.2 % (11.6-17.2); WHITE BLOOD COUNT 14.9 TH/MM3 (4.0-11.0)
--- NOTE | 2016-07-28 11:53 | RADRPT ---
EXAM DATE/TIME: 07/28/2016 11:19 [facility] COMPARISON: ABDOMEN KUB ONLY, July 14, 2016, 16:46. INDICATIONS : Patient states syncopal episode today. MEDICAL HISTORY : Renal calculi. SURGICAL HISTORY : Renal stent. ENCOUNTER: Initial ACUITY: 1 day PAIN SCORE: 2/10 LOCATION: Bilateral chest FINDINGS: A single view of the chest demonstrates the lungs to be symmetrically aerated without evidence of mas s, infiltrate or effusion. The cardiomediastinal contours are unremarkable. Osseous structures are intact. CONCLUSION: 1. No acute cardiopulmonary findings. Car Dozier MD on July 28, 2016 at 11:50 Board Certified Radiologist. This report was verified electronically.
[2016-07-28 11:54] LABS: ANION GAP 10 MEQ/L (5-15); AST (GOT) 24 U/L (15-37); BICARBONATE 26.6 MEQ/L (21.0-32.0); BLOOD UREA NITROGEN 13 MG/DL (7-18); CHLORIDE 101 MEQ/L (98-107); GLOMERULAR FILTRATION RATE 63 ML/MIN (>89); MAGNESIUM 1.5 MG/DL (1.5-2.5); POTASSIUM 4.2 MEQ/L (3.5-5.1); SODIUM (NA) 138 MEQ/L (136-145)
[2016-07-28 11:59] LABS: ALKALINE PHOSPHATASE 79 U/L (45-117); ALT (GPT) 28 U/L (12-78); INTERNATIONAL NORMALIZED RATIO 0.9 RATIO; PROTHROMBIN TIME - PATIENT 10.2 SEC (9.8-11.6); TOTAL BILIRUBIN ADULT 0.3 MG/DL (0.2-1.0)
[2016-07-28 12:02] LABS: CREATINE KINASE 26 U/L (39-308)
[2016-07-28] MEDS ORDERED: VANCOMYCIN INJ 1,000 MG in SODIUM CHLOR 0.9% 250 ML INJ 250 ML IV STA (12:44)
[2016-07-28] MEDS ORDERED: PIPERACIL-TAZO 4.5 GM PREMIX 100 ML IV STA (12:44)
[2016-07-28 13:09] LABS: BACTERIA, URINE FEW /hpf; BLOOD, URINE MOD (NEG); GLUCOSE,URINE NEG (NEG); KETONE, URINE NEG (NEG); MUCUS URINE FEW /lpf (OCC); NITRITE,URINE NEG (NEG); PH, URINE 5.5 (5.0-8.5); SQUAMOUS EPITHELIAL CELL URINE 3 /hpf (0-5); TRANSITIONAL EPI CELLS, URINE <1 /hpf; URINE COLOR YELLOW (YELLW/STRAW)
[2016-07-28 13:16] LABS: COMMENT (UR) CULTURE INDICATED; CULTURE IF INDICATED CULTURE INDICATED
--- NOTE | 2016-07-28 13:58 | RADRPT ---
EXAM DATE/TIME: 07/28/2016 12:29 [facility] COMPARISON: CT ABDOMEN & PELVIS W/O CONTRAST, July 24, 2016, 13:52. INDICATIONS : Obstruction and bilateral flank pain. MEDICAL HISTORY : Arthritis. Gout. Nephrolithiasis. SURGICAL HISTORY : Tonsillectomy. Adenoidectomy. Left ureter stent placement. Gout elbow drain. Nephrostomy. Ear chey dennys. ENCOUNTER: Subsequent ACUITY: > 1 year PAIN SCORE: 9/10 LOCATION: Bilateral flank MEASUREMENTS: RIGHT KIDNEY: 12.7 x 7.4 x 6.4 cm LEFT KIDNEY: 11.6 x 4.7 x 5.8 cm FINDINGS: RIGHT KIDNEY: There is no hydronephrosis. There are at least 2 stones seen on the right. These measure 1.0 CM and 1 .2 CM respectively. There are several other punctate smaller stones seen within the collecting system as well. There are multiple simple cyst identified. The largest in the midpole measures 1.4 x 1.2 CM . LEFT KIDNEY: There is no hydronephrosis. There is a 1.1 x 1.3 cm stone seen in the midpole. There are several othe r smaller stones as well. No solid mass is seen. The cortex appears adequate. BLADDER: There is an echogenic foci in the bladder which measures 1.9 x 2 cm. On the previous CT scan the gianfranco ent had a ureteral stent and on the left. This may represent calcification along the distal stent. CONCLUSION: 1. There are multiple renal stones seen within the kidneys bilaterally. There is no hydronephrosis. 2. The exam demonstrates either a bladder stone or calcification within the bladder wall as above. Car Dozier MD on July 28, 2016 at 13:49 Board Certified Radiologist. This report was verified electronically.
[2016-07-28] MEDS ORDERED: IOHEXOL 350 MG/ML 10 ML VIAL (for RAD DIAG) IV ONE (14:20)
--- NOTE | 2016-07-28 14:37 | RADRPT ---
EXAM DATE/TIME: 07/28/2016 14:10 [facility] COMPARISON: CT ABDOMEN & PELVIS W/O CONTRAST, July 24, 2016, 13:52. INDICATIONS : Patient dizzy,diaphoretic.75 IV CONTRAST: 75 cc Omnipaque 350 (iohexol) IV RADIATION DOSE: 23.38 CTDIvol (mGy) MEDICAL HISTORY : Renal calculi. SURGICAL HISTORY : neph stent ENCOUNTER: Initial ACUITY: 1 day PAIN SCALE: 3/10 LOCATION: Bilateral upper quadrant TECHNIQUE: Volumetric scanning of the chest was performed using a pulmonary embolism protocol MIP images were re constructed. Using automated exposure control and adjustment of the mA and/or kV according to patien t size, radiation dose was kept as low as reasonably achievable to obtain optimal diagnostic quality images. FINDINGS: PULMONARY ARTERIES: No filling defects are seen in the pulmonary arteries through the segmental level. LUNGS: There is no consolidation or pneumothorax . No concerning pulmonary nodule is visualized. PLEURAE: There is no pleural thickening or pleural effusion. MEDIASTINUM: There is good visualization of the great vessels of the middle mediastinum. No evidence of mediastin al or hilar adenopathy/mass. MUSCULOSKELETAL: Within normal limits for patient age. MISCELLANEOUS: Multiple bilateral renal stones. Not significantly changed compared to the prior study. CONCLUSION: 1. No evidence of pulmonary embolism. 2. No acute pulmonary infiltrates. Kole Steiner MD on July 28, 2016 at 14:33 Board Certified Radiologist. This report was verified electronically.
[2016-07-28] MEDS ORDERED: MAGNESIUM HYDROXIDE SUSP 30 ML CUP PO PRN (15:00)
[2016-07-28] MEDS ORDERED: SODIUM CHLOR 0.9% 1000 ML INJ 1,000 ML IV ONE (15:00)
[2016-07-28] MEDS ORDERED: ONDANSETRON HCL 4 MG/2 ML VIAL IVP PRN (15:00)
[2016-07-28] MEDS ORDERED: NALOXONE HCL 0.4 MG/ML AMP IV PRN (15:00)
[2016-07-28] MEDS ORDERED: SODIUM CHLORIDE 0.9% FLUSH 10 ML FLUSH IV FLUSH PRN (15:00)
[2016-07-28] MEDS ORDERED: ACETAMINOPHEN 325 MG TAB PO PRN (15:00)
[2016-07-28] MEDS: SODIUM CHLOR 0.9% 1000 ML INJ 1,000 ML IV SCH (15:33)
[2016-07-28] MEDS: HEPARIN SODIUM - SQ 10,000 UNITS/ML VIAL SQ SCH (15:34)
--- NOTE | 2016-07-28 16:06 | HHI.HP ---
[facility] Primary Care Physician Admission Diagnosis urosepsis Diagnoses: Chief Complaint: Dizziness, nausea, diaphoresis Travel History International Travel<30 Days: No Contact w/Intl Traveler <30 Da: No Traveled to Known Affected Are: No Sepsis Criteria SIRS Criteria (2 or more): Heart rate over 90, WBC > 76240, < 4000 or > 10% bands Sepsis Criteria (SIRS+source): Infect source susp/known Criteria Outcome: Meets SIRS criteria, Meets sepsis criteria History of Present Illness Written by Jaime Jaime, acting as scribe for Dr. Keith on 07/28/16 at 16:38. Patient is a 36-year-old male with primary medical history of kidney stones, urethral stent placements, left nephrostomy who came in to the hospital for evaluation of vertigo, nausea, diaphoresis. Patient reports started this morning he woke up he had a feeling of "passing out." States he has been having "sweats," but no fevers. Reports that he came in primarily because of the feeling of passing out and increasing lower abdominal pain suprapubic area and low back pain, nonradiating, rated 5/10, aggravated by movement, but recently relief with pain medication from the ED. He was taking oxycodone at home which did not relieve him from his pain today. Also reports he's been having diarrhea for about 2 days now every time he goes to the bathroom. States he had 4-5 times of the diarrhea previous days but not today. Reports he was not giving any antibiotics to go home from the recent admission however he was treated with antibiotics during his hospitalization. Denies SOB/ dyspnea. Denies chest pain, palpitations, headaches. Denies fevers, vomiting. Denies hematuria, dysuria, abdominal cramping, urgency, frequency. Labs reviewed WBC 14.9, hemoglobin 12.5, hematocrit 36.6, MCV 79.1 CMP showed low GFR 63, random glucose 126. CK 26, negative troponin 1, total protein 8.3 Renal ultrasound showed 1. There are multiple renal stones seen within the kidneys bilaterally. There is no hydronephrosis. 2. Exam demonstrates either a bladder stone or calcification within the bladder wall as above. CT angiography showed 1. No evidence of pulmonary embolism. 2. No acute pulmonary infiltrates. Chest x-ray showed no acute cardiopulmonary findings. Review of Systems Except as stated in HPI: all other systems reviewed are Neg Past Family Social History Past Medical History Recurrent UTI H/O alcohol dependence Nephrolithiasis Anxiety Gout Cirrhosis Recurrent UTI and hydronephrosis secondary to stones. Sepsis 06/12/2016 Past Surgical History Ureteral stents 2008 Nephrostomy 04/2016, have since fall out. Left ureteral stent 04/2016 Right elbow drained 04/2016 Reported Medications Reported Meds & Active Scripts Active Oxycodone-Acetaminophen 7.5-325 mg Tab 1 Tab PO Q4H PRN Reported Motrin Ib (Ibuprofen) 200 Mg Tab 400 Mg PO Q4H PRN Vistaril (Hydroxyzine Pamoate) 50 Mg Cap 50 Mg PO TID PRN Zoloft (Sertraline HCl) 50 Mg Tab 50 Mg PO DAILY Allopurinol 100 Mg Tab 100 Mg PO DAILY Allergies: Coded Allergies: Toradol (Verified Allergy, Severe, SWELLING OF THROAT, 07/28/16) Active Ordered Medications Current Medications Medications (Trade) Dose Ordered Sig/Cecelia Route Start Time Stop Time Status Last Admin Sodium Chloride 1,000 ml @ 999 mls/hr BOLUS ONCE IV 07/28/16 15:00 07/28/16 16:00 07/28/16 15:32 (NS 1000 ml Inj) 1,000 ml @ 100 mls/hr Q10H IV 07/28/16 15:00 07/28/16 15:33 (NS Flush) 2 ml UNSCH PRN IV FLUSH 07/28/16 15:00 (NS Flush) 2 ml BID IV FLUSH 07/28/16 21:00 (Tylenol) 650 mg Q4H PRN PO 07/28/16 15:00 (Zofran Inj) 4 mg Q6H PRN IVP 07/28/16 15:00 (Milk Of Magnesia Liq) 30 ml Q12H PRN PO 07/28/16 15:00 (Heparin Inj) 5,000 units Q12H SQ 07/28/16 16:00 07/28/16 15:34 (Narcan Inj) 0.4 mg UNSCH PRN IV 07/28/16 15:00 Family History Father with history of kidney stones Social History Patient chews tobacco. He is a recovering alcoholic He denies illicit drug use. Physical Exam Vital Signs Vital Signs Date Time Temp Pulse Resp B/P Pulse Ox O2 Delivery O2 Flow Rate FiO2 07/28/16 15:20 97 21 07/28/16 13:09 104 18 129/84 19 Room Air 07/28/16 11:21 111 145/102 07/28/16 11:21 114 28 145/102 98 Room Air 07/28/16 11:11 117 132/96 07/28/16 11:10 97.9 117 31 132/96 97 07/28/16 11:10 Room Air 07/28/16 11:10 97.9 117 31 132/96 97 Room Air Physical Exam GENERAL: This is a well-nourished, well-developed patient, mildly ill appearing. SKIN: Cool and dry. Left lumbar area with scar from previous nephrostomy tube. HEAD:Normocephalic. No temporal or scalp tenderness. EYES: Pupils equal round and reactive. Extraocular motions intact. No scleral icterus. No injection or drainage. ENT: Nose without bleeding. Throat without erythema. Uvula midline. Airway patent. NECK: Trachea midline. No JVD or lymphadenopathy. CARDIOVASCULAR: Regular rate and rhythm without murmurs, gallops, or rubs. RESPIRATORY: Clear to auscultation. Breath sounds equal bilaterally. No wheezes , rales, or rhonchi. GASTROINTESTINAL: Abdomen soft, non-tender, nondistended. Bowel sounds active 4. Positive for CVA tenderness, predominantly left side. Suprapubic tenderness to palpation. MUSCULOSKELETAL: Extremities without clubbing, cyanosis, or edema. No joint tenderness, effusion, or edema noted. NEUROLOGICAL: Awake and alert. Oriented to person, place, time. Motor and sensory grossly within normal limits. Normal speech. Laboratory Laboratory Tests Test 07/28/16 07/28/16 11:20 12:20 White Blood Count 14.9 Red Blood Count 4.62 Hemoglobin 12.5 Hematocrit 36.6 Mean Corpuscular Volume 79.1 Mean Corpuscular Hemoglobin 27.1 Mean Corpuscular Hemoglobin 34.3 Concent Red Cell Distribution Width 14.2 Platelet Count 244 Mean Platelet Volume 7.5 Neutrophils (%) (Auto) 76.7 Lymphocytes (%) (Auto) 14.6 Monocytes (%) (Auto) 4.8 Eosinophils (%) (Auto) 3.7 Basophils (%) (Auto) 0.2 Neutrophils # (Auto) 11.4 Lymphocytes # (Auto) 2.2 Monocytes # (Auto) 0.7 Eosinophils # (Auto) 0.6 Basophils # (Auto) 0.0 CBC Comment DIFF FINAL Differential Comment Prothrombin Time 10.2 Prothromb Time International 0.9 Ratio Activated Partial 28.0 Thromboplast Time D-Dimer Quantitative (PE/DVT) 1.92 Sodium Level 138 Potassium Level 4.2 Chloride Level 101 Carbon Dioxide Level 26.6 Anion Gap 10 Blood Urea Nitrogen 13 Creatinine 1.29 Estimat Glomerular Filtration 63 Rate Random Glucose 126 Calcium Level 10.1 Magnesium Level 1.5 Total Bilirubin 0.3 Aspartate Amino Transf 24 (AST/SGOT) Alanine Aminotransferase 28 (ALT/SGPT) Alkaline Phosphatase 79 Total Creatine Kinase 26 Troponin I LESS THAN 0.02 Total Protein 8.3 Albumin 3.9 Urine Color YELLOW Urine Turbidity HAZY Urine pH 5.5 Urine Specific [place] 1.015 Urine Protein 100 Urine Glucose (UA) NEG Urine Ketones NEG Urine Occult Blood MOD Urine Nitrite NEG Urine Bilirubin NEG Urine Urobilinogen LESS THAN 2.0 Urine Leukocyte Esterase LARGE Urine RBC Urine WBC 132 Urine WBC Clumps RARE Urine Squamous Epithelial 3 Cells Urine Transitional Epithelial <1 Cells Urine Bacteria FEW Urine Mucus FEW Microscopic Urinalysis Comment CULTURE INDICATED Date/Time Procedure Status Source Growth 07/28/16 12:20 Urine Culture Received Urine Clean Catch Pending Result Diagram: 07/28/16 1120 07/28/16 1120 Imaging Last Impressions Chest X-Ray 07/28/16 1115 Signed Impressions: Service Date/Time: Thursday, July 28, 2016 11:19 - CONCLUSION: 1. No acute cardiopulmonary findings. Car Dozier MD Renal Ultrasound 07/28/16 0000 Signed Impressions: Service Date/Time: Thursday, July 28, 2016 12:29 - CONCLUSION: 1. There are multiple renal stones seen within the kidneys bilaterally. There is no hydronephrosis. 2. The exam demonstrates either a bladder stone or calcification within the bladder wall as above. Car Dozier MD CT Angiography 07/28/16 0000 Signed Impressions: Service Date/Time: Thursday, July 28, 2016 14:10 - CONCLUSION: 1. No evidence of pulmonary embolism. 2. No acute pulmonary infiltrates. Kole Steiner MD Assessment and Plan Problem List: (1) Sepsis due to urinary tract infection ICD Code: A41.9 Status: Acute (2) Complicated UTI (urinary tract infection) ICD Code: N39.0 Status: Acute (3) Nephrostomy tube displaced ICD Code: T83.022A Status: Acute (4) Renal calculi ICD Code: N20.0 Status: Acute Assessment and Plan Patient is a 36-year-old male with primary medical history of kidney stones, urethral stent placements, left nephrostomy who came in to the hospital for evaluation of vertigo, nausea, diaphoresis. Patient reports started this morning he woke up he had a feeling of "passing out." States he has been having "sweats," but no fevers. Reports that he came in primarily because of the feeling of passing out and increasing lower abdominal pain suprapubic area and low back pain, nonradiating, rated 5/10, aggravated by movement, but recently relief with pain medication from the ED. Sepsis - SIRS 114 heart rate, WBC14.9 Pyelonephritis, complicated - Patient has a history of recurrent kidney infection, urinary tract infection. Multiple readmissions in the past months with recent readmission 01/30 - Previous cultures Enterococcus faecalis - sensitive to vancomycin, Cipro, linezolid, penicillin - History of renal stones with stent placement, bladder stone versus calcification, left nephrostomy. Stent placement was done in [facility] but because patient has not been followed for 6 years. Able to take the stents out and patient was referred to Dr. Covarrubias. - Renal ultrasound showed 1. There are multiple renal stones seen within the kidneys bilaterally. There is no hydronephrosis. 2. Exam demonstrates either a bladder stone or calcification within the bladder wall as above. - CT angiography showed 1. No evidence of pulmonary embolism. 2. No acute pulmonary infiltrates. - Chest x-ray showed no acute cardiopulmonary findings. - UA with large leukoesterase, WBC 1/92, few urine bacteria, few mucus, negative nitrate. Follow up cultures. - Lactate 1.1, check pro-calcitonin - Urology consult input appreciated, will consult Dr. Covarrubias - Patient was given IV vancomycin, Zosyn. IV antibiotics Unasyn to start. Follow up cultures. - Follow-up labs in the morning CBC, CMP - Zofran for nausea, pain management oxycodone/acetaminophen 10/325 PRN Diarrhea - Patient has recurrent admissions to the hospital and was given multiple antibiotics. - Check stool for C. difficile - Electrolyte replacements, check BMP tomorrow Gout- continue allopurinol DVT prop heparin Written by Jaime Jaime, acting as scribe for Dr. Keith on 07/28/16 at 16:38. This note was transcribed by scribe Jaime Jaime. I, Dr. Fransisco Keith personally performed the history, physical exam, and medical decision making; and confirmed the accuracy of the information in the transcribed note. Authenticated by Dr. Fransisco Keith on 07/28/16 at 23:43. Code Status Full code Discussed Condition With Patient, nursing, ED attending Physician Certification 2 Midnight Certification Type: Admission for Inpatient Services Order for Inpatient Services The services are ordered in accordance with Medicare regulations or non- Medicare payer requirements, as applicable. In the case of services not specified as inpatient-only, they are appropriately provided as inpatient services in accordance with the 2-midnight benchmark. Estimated LOS (days): 2 days is the estimated time the patient will need to remain in the hospital, assuming treatment plan goals are met and no additional complications. Post-Hospital Plan: Home Tad-Jaime Jaime July 28, 2016 16:06 Linda Keith DO July 28, 2016 23:43
[2016-07-28] MEDS ORDERED: AMPICILLIN-SULBACTAM INJ 3 GM VIAL IM SCH (17:00)
[2016-07-28] MEDS: oxyCODONE/ACETAMINOPHEN 10 MG/325 MG TAB PO PRN ×2 (17:04→23:47)
[2016-07-28] MEDS: AMPICILLIN-SULBACTAM INJ 3 GM in SODIUM CHLORIDE 0.9% INJ 100 ML IV SCH ×2 (17:37→23:46)
[2016-07-28] MEDS: SODIUM CHLORIDE 0.9% FLUSH 10 ML FLUSH IV FLUSH SCH (21:17)
[2016-07-29] VITALS: BP 145/87; PULSE 82; RESP 20; TEMP 97.2; O2SAT 100
[2016-07-29 00:35] LABS: C. DIFF EPI 027 PRESUMPTIVE NEGATIVE (NEGATIVE); C. DIFF TOXIN PCR NEGATIVE (NEGATIVE)
[2016-07-29] MEDS: AMPICILLIN-SULBACTAM INJ 3 GM in SODIUM CHLORIDE 0.9% INJ 100 ML IV SCH ×4 (04:31→23:38)
[2016-07-29] MEDS: HEPARIN SODIUM - SQ 10,000 UNITS/ML VIAL SQ SCH ×2 (04:31→14:46)
[2016-07-29] MEDS: SODIUM CHLOR 0.9% 1000 ML INJ 1,000 ML IV SCH ×3 (04:31→23:39)
[2016-07-29 05:55] LABS: AUTOMATED NEUTROPHIL # 5.1 TH/MM3 (1.8-7.7); BASOPHIL % 0.5 % (0.0-2.0); EOSINOPHIL # 0.7 TH/MM3 (0-0.4); EOSINOPHIL % 7.7 % (0.0-4.0); HEMO FLAGS DIFF FINAL; LYMPH % 24.6 % (9.0-44.0); LYMPHOCYTE # 2.1 TH/MM3 (1.0-4.8); MEAN CELL VOLUME 78.7 FL (80.0-100.0); MEAN CORPUSCULAR HEMOGLOBIN 27.1 PG (27.0-34.0); MEAN CORPUSCULAR HGB CONC 34.4 % (32.0-36.0); MONO % 7.4 % (0.0-8.0); NEUT % 59.8 % (16.0-70.0); PLATELET COUNT 224 TH/MM3 (150-450); RED BLOOD COUNT 4.19 MIL/MM3 (4.50-5.90); RED CELL DISTRIBUTION WIDTH 14.2 % (11.6-17.2); WHITE BLOOD COUNT 8.5 TH/MM3 (4.0-11.0)
[2016-07-29 06:34] LABS: BICARBONATE 26.5 MEQ/L (21.0-32.0); POTASSIUM 4.1 MEQ/L (3.5-5.1)
[2016-07-29 08:00] VITALS: BP 115/61; PULSE 92; RESP 17; TEMP 97.9; O2SAT 98
[2016-07-29] MEDS: SODIUM CHLORIDE 0.9% FLUSH 10 ML FLUSH IV FLUSH SCH ×2 (08:39→21:00)
[2016-07-29] MEDS: oxyCODONE/ACETAMINOPHEN 10 MG/325 MG TAB PO PRN ×3 (09:21→20:42)
[2016-07-29 09:50] VITALS: O2SAT 97
--- NOTE | 2016-07-29 11:43 | RADRPT ---
EXAM DATE/TIME: 07/29/2016 10:49 [facility] COMPARISON: CT ABDOMEN & PELVIS W/O CONTRAST, July 24, 2016, 13:52. ABDOMEN KUB ONLY, July 14, 2016, 16:46. INDICATIONS : Renal calculi. MEDICAL HISTORY : Renal calculi. SURGICAL HISTORY : Renal stent. ENCOUNTER: Initial ACUITY: 2 days PAIN SCORE: 7/10 LOCATION: Left lower quadrant abodmen FINDINGS: The bowel gas pattern appears normal. No free air is identified. No organomegaly is evident. There ar e multiple bilateral renal stones with a staghorn calculus on the left and multiple renal stones on t he right the largest measuring 2 cm. A left-sided stent is in place with the distal extent in the karine dder and the proximal stomach extent at the ureteropelvic junction. There is a fractured portion of s tent in the renal pelvis measuring 2 cm in length. CONCLUSION: 1. Multiple bilateral renal calculi with a staghorn on the left. The findings are similar to the prio r exam. Bebo Asher MD on July 29, 2016 at 11:30 Board Certified Radiologist. This report was verified electronically.
[2016-07-29 12:00] VITALS: BP 119/68; PULSE 89; RESP 18; TEMP 97.4; O2SAT 99
--- NOTE | 2016-07-29 13:58 | HHI.PR ---
Subjective Remarks Follow-up for sepsis, possible pyelonephritis. Patient is currently doing well. Denies any chest pain, shortness of breath, fever or chills. Objective Vitals Vital Signs Date Time Temp Pulse Resp B/P Pulse Ox O2 Delivery O2 Flow Rate FiO2 07/29/16 12:00 97.4 89 18 119/68 99 07/29/16 09:50 97 21 07/29/16 08:00 97.9 92 17 115/61 98 07/29/16 00:00 97.2 82 20 145/87 100 07/28/16 20:00 97.2 82 20 145/87 100 07/28/16 17:41 18 07/28/16 16:25 98 18 125/87 98 07/28/16 16:00 97.1 90 17 134/98 99 07/28/16 15:20 97 21 I/O 07/28/16 07/28/16 07/28/16 07/29/16 07/29/16 07/29/16 07:00 15:00 23:00 07:00 15:00 23:00 Intake Total 1236 ml 1008 ml Output Total 600 ml 450 ml Balance 636 ml 558 ml Intake Oral 460 ml 240 ml IV Total 776 ml 768 ml Output Urine Total 600 ml 450 ml # Bowel Movements 1 0 Result Diagram: 07/29/16 0443 07/29/16 0443 Imaging Last Impressions Abdomen X-Ray 07/29/16 0000 Signed Impressions: Service Date/Time: Friday, July 29, 2016 10:49 - CONCLUSION: 1. Multiple bilateral renal calculi with a staghorn on the left. The findings are similar to the prior exam. Bebo Asher MD Chest X-Ray 07/28/16 1115 Signed Impressions: Service Date/Time: Thursday, July 28, 2016 11:19 - CONCLUSION: 1. No acute cardiopulmonary findings. Car Dozier MD Renal Ultrasound 07/28/16 0000 Signed Impressions: Service Date/Time: Thursday, July 28, 2016 12:29 - CONCLUSION: 1. There are multiple renal stones seen within the kidneys bilaterally. There is no hydronephrosis. 2. The exam demonstrates either a bladder stone or calcification within the bladder wall as above. Car Dozier MD CT Angiography 07/28/16 0000 Signed Impressions: Service Date/Time: Thursday, July 28, 2016 14:10 - CONCLUSION: 1. No evidence of pulmonary embolism. 2. No acute pulmonary infiltrates. Kole Steiner MD Objective Remarks GENERAL: Alert, oriented 3, NAD SKIN: Warm and dry. HEAD: Normocephalic. EYES: No scleral icterus. No injection or drainage. NECK: Supple, trachea midline. No JVD or lymphadenopathy. CARDIOVASCULAR: Regular rate and rhythm without murmurs, gallops, or rubs. RESPIRATORY: Breath sounds equal bilaterally. No accessory muscle use. GASTROINTESTINAL: Abdomen soft, non-tender, nondistended. MUSCULOSKELETAL: No cyanosis, or edema. BACK: Nontender without obvious deformity. No CVA tenderness. Procedures None A/P Problem List: (1) Sepsis due to urinary tract infection ICD Code: A41.9 Status: Acute (2) Complicated UTI (urinary tract infection) ICD Code: N39.0 Status: Acute (3) Nephrostomy tube displaced ICD Code: T83.022A Status: Acute (4) Renal calculi ICD Code: N20.0 Status: Acute Assessment and Plan Patient is a 36-year-old male with primary medical history of kidney stones, urethral stent placements, left nephrostomy who came in to the hospital for evaluation of vertigo, nausea, diaphoresis. Patient reports started this morning he woke up he had a feeling of "passing out." States he has been having "sweats," but no fevers. Reports that he came in primarily because of the feeling of passing out and increasing lower abdominal pain suprapubic area and low back pain, nonradiating, rated 5/10, aggravated by movement, but recently relief with pain medication from the ED. Sepsis - SIRS 114 heart rate, WBC14.9 Suspected Pyelonephritis - WBC improved from 14.9 --> 8.5. Patient is afebrile. - Patient has a history of recurrent kidney infection, urinary tract infection. Multiple readmissions in the past months with recent readmission 01/30 - Previous cultures Enterococcus faecalis - sensitive to vancomycin, Cipro, linezolid, penicillin - History of renal stones with stent placement, bladder stone versus calcification, left nephrostomy. - Stent placement was done in 2007 by [facility] but because patient has not been followed for 6 years. patient was referred to Dr. Covarrubias. - Renal ultrasound showed 1. There are multiple renal stones seen within the kidneys bilaterally. There is no hydronephrosis. 2. Exam demonstrates either a bladder stone or calcification within the bladder wall as above. - CT angiography showed 1. No evidence of pulmonary embolism. 2. No acute pulmonary infiltrates. - Chest x-ray showed no acute cardiopulmonary findings. - UA with large leukoesterase, WBC 132, few urine bacteria, few mucus, negative nitrate. Follow up cultures. - Lactate 1.1, check pro-calcitonin - Urology consult input appreciated, will consult Dr. Covarrubias - Patient was given IV vancomycin, Zosyn in the ED.. - Continue IV antibiotics Unasyn. Urine cx negative so far. - Zofran for nausea, pain management oxycodone/acetaminophen 10/325 PRN - Once Urology eval is completed, we will discharge patient home - hopefully tomorrow 07/30/2016. Diarrhea - Patient has recurrent admissions to the hospital and was given multiple antibiotics. - C. difficile negative. - Imodium PRN Acute kidney injury - Creatinine 1.29 --> 1.01. Gout- continue allopurinol Full code. Heparin SQ. Linda Keith DO July 29, 2016 1:58 pm
[2016-07-29] MEDS ORDERED: LOPERAMIDE HCL 2 MG CAP PO PRN (14:30)
--- NOTE | 2016-07-29 14:35 | PD.CONS ---
HPI Service Urology Consult Requested By Primary Care Physician No Primary Care Physician Diagnosis: (1) Sepsis due to urinary tract infection ICD Code: A41.9 (2) Complicated UTI (urinary tract infection) ICD Code: N39.0 (3) Nephrostomy tube displaced ICD Code: T83.022A (4) Renal calculi ICD Code: N20.0 History of Present Illness 36 year-old male with history of recurrent nephrolithiasis. Patient was a history of bilateral renal calculi and retained encrusted ureteral stent since 2007. He's had multiple admissions over the last few months for concerns of sepsis with UTI and fever. Presently he presented with weakness fatigue and left-sided abdominal pain and diaphoresis. CT scan from last month demonstrates bilateral renal calculi with an encrusted stent on the left side as well as multiple bilateral renal calculi with a portion of stent broken off in the left renal collecting system encrusted with stone. He does have a history of gout and on KUB x-ray it appears that the stones are radiolucent consistent with findings of probable uric acid stones. He's also been known to have a gouty bursae to us of his right elbow requiring surgery in the past. He denies any other medical problems. Review of Systems Constitutional: COMPLAINS OF: Diaphoretic episodes Endocrine: DENIES: Heat/cold intolerance Eyes: DENIES: Blurred vision Ears, nose, mouth, throat: DENIES: Tinnitus Respiratory: DENIES: Apneas Cardiovascular: DENIES: Chest pain Gastrointestinal: COMPLAINS OF: Abdominal pain Genitourinary: DENIES: Sexual dysfunction Musculoskeletal: COMPLAINS OF: Joint pain Integumentary: DENIES: Abnormal pigmentation Hematologic/lymphatic: DENIES: Bruising Immunologic/allergic: DENIES: Eczema Neurologic: DENIES: Abnormal gait Psychiatric: DENIES: Anxiety Past Family Social History Past Medical History Nephrolithiasis Gout Past Surgical History Cystoscopy with left ureteral stent insertion Ureteroscopy Placement of left nephrostomy tube Allergies: Coded Allergies: Toradol (Verified Allergy, Severe, SWELLING OF THROAT, 07/28/16) Family History Denies stones Social History Denies smoking drinking or using drugs Physical Exam Vital Signs Date Time Temp Pulse Resp B/P Pulse Ox O2 Delivery O2 Flow Rate FiO2 07/29/16 12:00 97.4 89 18 119/68 99 07/29/16 09:50 97 21 07/29/16 08:00 97.9 92 17 115/61 98 07/29/16 00:00 97.2 82 20 145/87 100 07/28/16 20:00 97.2 82 20 145/87 100 07/28/16 17:41 18 07/28/16 16:25 98 18 125/87 98 07/28/16 16:00 97.1 90 17 134/98 99 07/28/16 15:20 97 21 Physical Exam GENERAL: This is a well-nourished, well-developed patient, in no apparent distress. SKIN: No rashes, ecchymoses or lesions. Cool and dry. HEAD: Atraumatic. Normocephalic. No temporal or scalp tenderness. EYES: Pupils equal round and reactive. Extraocular motions intact. No scleral icterus. No injection or drainage. ENT: Nose without bleeding, purulent drainage or septal hematoma. Throat without erythema, tonsillar hypertrophy or exudate. Uvula midline. Airway patent. NECK: Trachea midline. No JVD or lymphadenopathy. Supple, nontender, no meningeal signs. CARDIOVASCULAR: Regular rate and rhythm without murmurs, gallops, or rubs. RESPIRATORY: Clear to auscultation. Breath sounds equal bilaterally. No wheezes , rales, or rhonchi. GASTROINTESTINAL: Abdomen soft, tender left lower quadrant, nondistended. No hepato-splenomegaly, or palpable masses. No guarding. GENITOURINARY: Normal phallus and testes are distended MUSCULOSKELETAL: Extremities without clubbing, cyanosis, or edema. No joint tenderness, effusion, or edema noted. No calf tenderness. Negative Homans sign bilaterally. NEUROLOGICAL: Awake and alert. Cranial nerves II through XII intact. Motor and sensory grossly within normal limits. Five out of 5 muscle strength in all muscle groups. Normal speech. Laboratory Tests Test 07/28/16 07/28/16 07/29/16 15:10 21:20 04:43 Lactic Acid Level 1.1 Procalcitonin LESS THAN 0.05 Stool C. difficile Toxin (PCR) NEGATIVE Stl C. difficile Toxin PRESUMPTIVE Epiderm 027 NEGATIVE White Blood Count 8.5 Red Blood Count 4.19 Hemoglobin 11.3 Hematocrit 33.0 Mean Corpuscular Volume 78.7 Mean Corpuscular Hemoglobin 27.1 Mean Corpuscular Hemoglobin 34.4 Concent Red Cell Distribution Width 14.2 Platelet Count 224 Mean Platelet Volume 7.2 Neutrophils (%) (Auto) 59.8 Lymphocytes (%) (Auto) 24.6 Monocytes (%) (Auto) 7.4 Eosinophils (%) (Auto) 7.7 Basophils (%) (Auto) 0.5 Neutrophils # (Auto) 5.1 Lymphocytes # (Auto) 2.1 Monocytes # (Auto) 0.6 Eosinophils # (Auto) 0.7 Basophils # (Auto) 0.0 CBC Comment DIFF FINAL Differential Comment Sodium Level 141 Potassium Level 4.1 Chloride Level 106 Carbon Dioxide Level 26.5 Anion Gap 9 Blood Urea Nitrogen 11 Creatinine 1.01 Estimat Glomerular Filtration 83 Rate Random Glucose 90 Calcium Level 9.1 Date/Time Procedure Status Source Growth 07/28/16 12:20 Urine Culture - Preliminary Resulted Urine Clean Catch NO GROWTH IN 24 HOURS. Result Diagram: 07/29/16 0443 07/29/16 0443 Imaging Last Impressions Abdomen X-Ray 07/29/16 0000 Signed Impressions: Service Date/Time: Friday, July 29, 2016 10:49 - CONCLUSION: 1. Multiple bilateral renal calculi with a staghorn on the left. The findings are similar to the prior exam. Bebo Asher MD Chest X-Ray 07/28/16 1115 Signed Impressions: Service Date/Time: Thursday, July 28, 2016 11:19 - CONCLUSION: 1. No acute cardiopulmonary findings. Car Dozier MD Renal Ultrasound 07/28/16 0000 Signed Impressions: Service Date/Time: Thursday, July 28, 2016 12:29 - CONCLUSION: 1. There are multiple renal stones seen within the kidneys bilaterally. There is no hydronephrosis. 2. The exam demonstrates either a bladder stone or calcification within the bladder wall as above. Car Dozier MD CT Angiography 07/28/16 0000 Signed Impressions: Service Date/Time: Thursday, July 28, 2016 14:10 - CONCLUSION: 1. No evidence of pulmonary embolism. 2. No acute pulmonary infiltrates. Kole Steiner MD Assessment and Plan Assessment and Plan 36 year-old male with history of bilateral nephrolithiasis and encrusted left ureteral stent admitted with pain, diaphoresis, and left lower quadrant pain. KUB suggest radiolucent stones consistent with uric acid. Start allopurinol 300 mg by mouth daily. Plan will for patient to undergo cystoscopy with left ureteroscopy and laser lithotripsy with possible removal versus exchange of left double-J stent on AM. Continue IV fluids and IV antibiotics for now. Urine cultures negative. Thank you for the consult allow me to participate in the care of this patient. Damian Villatoro DO July 29, 2016 14:35
--- NOTE | 2016-07-29 14:52 | EKG ---
Date Performed: 07/28/2016 Time Performed: 11:10:29 PTAGE: 36 years EKG: SINUS TACHYCARDIA INFERIOR MYOCARDIAL INFARCTION Compared to prior tracing no significant c hange ABNORMAL ECG PREVIOUS TRACING : 07/14/16 DOCTOR: Errol Cuenca Interpretating Date/Time 07/29/2016 14:51:04
[2016-07-29 16:00] VITALS: BP 118/70; PULSE 86; RESP 18; TEMP 96.5; O2SAT 100
[2016-07-29 20:00] VITALS: BP 129/78; PULSE 85; RESP 16; TEMP 97.7; O2SAT 92
[2016-07-30] VITALS: BP 148/89; PULSE 103; RESP 20; TEMP 97.4; O2SAT 100
[2016-07-30] MEDS: oxyCODONE/ACETAMINOPHEN 10 MG/325 MG TAB PO PRN ×4 (03:48→23:20)
[2016-07-30] MEDS: HEPARIN SODIUM - SQ 10,000 UNITS/ML VIAL SQ SCH ×2 (03:49→16:00)
[2016-07-30] MEDS: SODIUM CHLOR 0.9% 1000 ML INJ 1,000 ML IV SCH ×2 (05:24→17:16)
[2016-07-30] MEDS: AMPICILLIN-SULBACTAM INJ 3 GM in SODIUM CHLORIDE 0.9% INJ 100 ML IV SCH ×3 (05:24→17:15)
[2016-07-30] MEDS: ALLOPURINOL 300 MG TAB PO SCH (07:37)
[2016-07-30] MEDS: SODIUM CHLORIDE 0.9% FLUSH 10 ML FLUSH IV FLUSH SCH ×2 (07:38→21:00)
[2016-07-30 08:00] VITALS: BP 105/63; PULSE 85; RESP 17; TEMP 97.9; O2SAT 98
--- NOTE | 2016-07-30 08:50 | HHI.PR ---
Subjective Patient symptoms today Pt seen and examined. Some left flank pain. Objective Vital Signs Vital Signs Date Time Temp Pulse Resp B/P Pulse Ox O2 Delivery O2 Flow Rate FiO2 07/30/16 08:00 97.9 85 17 105/63 98 07/30/16 00:00 97.4 103 20 148/89 100 07/29/16 20:00 97.7 85 16 129/78 92 07/29/16 16:00 96.5 86 18 118/70 100 07/29/16 12:00 97.4 89 18 119/68 99 07/29/16 09:50 97 21 Result Diagram: 07/29/16 0443 07/29/16442 Objective Remarks Abd:soft,nt,nd Left CVAT Medications and IVs Current Medications Medications (Trade) Dose Ordered Sig/Cecelia Route Start Time Stop Time Status Last Admin (NS 1000 ml Inj) 1,000 ml @ 100 mls/hr Q10H IV 07/28/16 15:00 07/30/16 05:24 (NS Flush) 2 ml UNSCH PRN IV FLUSH 07/28/16 15:00 (NS Flush) 2 ml BID IV FLUSH 07/28/16 21:00 07/29/16 21:00 (Tylenol) 650 mg Q4H PRN PO 07/28/16 15:00 (Zofran Inj) 4 mg Q6H PRN IVP 07/28/16 15:00 (Milk Of Magnesia Liq) 30 ml Q12H PRN PO 07/28/16 15:00 (Heparin Inj) 5,000 units Q12H SQ 07/28/16 16:00 07/30/16 03:49 (Narcan Inj) 0.4 mg UNSCH PRN IV 07/28/16 15:00 Oxycodone/ Acetaminophen 1 tab 1 tab Q6H PRN PO 07/28/16 17:00 07/30/16 03:48 (Unasyn Inj/NS Inj) 100 ml @ 200 mls/hr Q6H IV 07/28/16 18:00 07/30/16 05:24 (Vistaril) 100 mg HS PO 07/28/16 21:00 07/29/16 23:38 (Zyloprim) 300 mg DAILY PO 07/30/16 09:00 07/30/16 07:37 (Imodium) 2 mg Q6H PRN PO 07/29/16 14:30 07/29/16 14:53 Assessment and Plan Assessment and Plan 36 year-old male with history of bilateral nephrolithiasis and encrusted left ureteral stent admitted with pain, diaphoresis, and left lower quadrant pain. KUB suggest radiolucent stones consistent with uric acid. Start allopurinol 300 mg by mouth daily. Plan will for patient to undergo cystoscopy with left ureteroscopy and laser lithotripsy with possible removal versus exchange of left double-J stent on AM. Continue IV fluids and IV antibiotics for now. Urine cultures negative. Thank you for the consult allow me to participate in the care of this patient. 07/30 36 y.o. male with encrusted left ureteral stent with left ureteral calculi and bilateral staghorn calculus For OR in AM for cysto; left urs with laser litho; stone extraction and stent removal/change. Damian Villatoro DO July 30, 2016 08:50
--- NOTE | 2016-07-30 11:08 | HHI.PR ---
Subjective Remarks Follow-up for suspected pyelonephritis, left ureteral stent with left ureteral calculi and bilateral staghorn calculus. Patient is currently doing well. Denies any chest pain, shortness of breath, fever or chills. He requests breakthrough pain medication. His is scheduled for cystoscopy in the morning. Objective Vitals Vital Signs Date Time Temp Pulse Resp B/P Pulse Ox O2 Delivery O2 Flow Rate FiO2 07/30/16 08:00 97.9 85 17 105/63 98 07/30/16 00:00 97.4 103 20 148/89 100 07/29/16 20:00 97.7 85 16 129/78 92 07/29/16 16:00 96.5 86 18 118/70 100 07/29/16 12:00 97.4 89 18 119/68 99 I/O 07/29/16 07/29/16 07/29/16 07/30/16 07/30/16 07/30/16 07:00 15:00 23:00 07:00 15:00 23:00 Intake Total 1008 ml 1520 ml 786 ml 1175 ml Output Total 450 ml 1500 ml 600 ml 900 ml Balance 558 ml 20 ml 186 ml 275 ml Intake Oral 240 ml 720 ml 480 ml 240 ml IV Total 768 ml 800 ml 306 ml 935 ml Output Urine Total 450 ml 1500 ml 600 ml 900 ml Stool Total 0 ml # Bowel Movements 0 1 0 Result Diagram: 07/29/16 0443 07/29/16 0443 Imaging Last Impressions Abdomen X-Ray 07/29/16 0000 Signed Impressions: Service Date/Time: Friday, July 29, 2016 10:49 - CONCLUSION: 1. Multiple bilateral renal calculi with a staghorn on the left. The findings are similar to the prior exam. Bebo Asher MD Chest X-Ray 07/28/16 1115 Signed Impressions: Service Date/Time: Thursday, July 28, 2016 11:19 - CONCLUSION: 1. No acute cardiopulmonary findings. Car Dozier MD Renal Ultrasound 07/28/16 0000 Signed Impressions: Service Date/Time: Thursday, July 28, 2016 12:29 - CONCLUSION: 1. There are multiple renal stones seen within the kidneys bilaterally. There is no hydronephrosis. 2. The exam demonstrates either a bladder stone or calcification within the bladder wall as above. Car Dozier MD CT Angiography 07/28/16 0000 Signed Impressions: Service Date/Time: Thursday, July 28, 2016 14:10 - CONCLUSION: 1. No evidence of pulmonary embolism. 2. No acute pulmonary infiltrates. Kole Steiner MD Objective Remarks GENERAL: Alert, oriented 3, NAD SKIN: Warm and dry. HEAD: Normocephalic. EYES: No scleral icterus. No injection or drainage. NECK: Supple, trachea midline. No JVD or lymphadenopathy. CARDIOVASCULAR: Regular rate and rhythm without murmurs, gallops, or rubs. RESPIRATORY: Breath sounds equal bilaterally. No accessory muscle use. GASTROINTESTINAL: Abdomen soft, non-tender, nondistended. MUSCULOSKELETAL: No cyanosis, or edema. BACK: Nontender without obvious deformity. No CVA tenderness. Procedures None A/P Problem List: (1) Sepsis due to urinary tract infection ICD Code: A41.9 Status: Acute (2) Complicated UTI (urinary tract infection) ICD Code: N39.0 Status: Acute (3) Nephrostomy tube displaced ICD Code: T83.022A Status: Acute (4) Renal calculi ICD Code: N20.0 Status: Acute Assessment and Plan Patient is a 36-year-old male with primary medical history of kidney stones, urethral stent placements, left nephrostomy who came in to the hospital for evaluation of vertigo, nausea, diaphoresis. Patient reports started this morning he woke up he had a feeling of "passing out." States he has been having "sweats," but no fevers. Reports that he came in primarily because of the feeling of passing out and increasing lower abdominal pain suprapubic area and low back pain, nonradiating, rated 5/10, aggravated by movement, but recently relief with pain medication from the ED. Sepsis - SIRS 114 heart rate, WBC14.9 Suspected Pyelonephritis - WBC improved from 14.9 --> 8.5. Patient is afebrile. - Patient has a history of recurrent kidney infection, urinary tract infection. Multiple readmissions in the past months with recent readmission 01/30 - Previous cultures Enterococcus faecalis - sensitive to vancomycin, Cipro, linezolid, penicillin - History of renal stones with stent placement, bladder stone versus calcification, left nephrostomy. - Stent placement was done in 2007 by [facility] but because patient has not been followed for 6 years. - Renal ultrasound showed 1. There are multiple renal stones seen within the kidneys bilaterally. There is no hydronephrosis. 2. Exam demonstrates either a bladder stone or calcification within the bladder wall as above. - CT angiography showed 1. No evidence of pulmonary embolism. 2. No acute pulmonary infiltrates. - Chest x-ray showed no acute cardiopulmonary findings. - UA with large leukoesterase, WBC 132, few urine bacteria, few mucus, negative nitrate. culture negative so far. - Continue IV antibiotics Unasyn. Urine cx negative so far. - Zofran for nausea, pain management oxycodone/acetaminophen 10/325 PRN - Dr. Villatoro (Urology) is following patient. Cysto in the AM. - Start breakthrough pain medication - Morphine 5mg Q4hrs PRN. Continue Percocet for pain. Diarrhea - Patient has recurrent admissions to the hospital and was given multiple antibiotics. - C. difficile negative. - Imodium PRN Acute kidney injury - Creatinine 1.29 --> 1.01. Gout- continue allopurinol Full code. Heparin SQ. Linda Keith DO July 30, 2016 11:08 am
[2016-07-30] MEDS: MORPHINE SULFATE 8 MG/ML INJ IV PUSH PRN ×3 (11:21→19:06)
[2016-07-30 12:00] VITALS: BP 108/69; PULSE 88; RESP 18; TEMP 97.4; O2SAT 99
[2016-07-30 16:00] VITALS: BP 133/84; PULSE 91; RESP 18; TEMP 97.6; O2SAT 100
[2016-07-30 20:00] VITALS: BP 129/80; PULSE 72; RESP 18; TEMP 97.4; O2SAT 96
[2016-07-30 23:55] VITALS: BP 147/80; PULSE 93; RESP 18; TEMP 98.1; O2SAT 98
[2016-07-31] MEDS: AMPICILLIN-SULBACTAM INJ 3 GM in SODIUM CHLORIDE 0.9% INJ 100 ML IV SCH ×5 (00:48→23:39)
[2016-07-31] MEDS: MORPHINE SULFATE 8 MG/ML INJ IV PUSH PRN ×3 (00:55→15:48)
[2016-07-31] MEDS: HEPARIN SODIUM - SQ 10,000 UNITS/ML VIAL SQ SCH ×2 (03:09→15:48)
[2016-07-31] MEDS: SODIUM CHLOR 0.9% 1000 ML INJ 1,000 ML IV SCH ×3 (03:09→20:53)
[2016-07-31 04:33] VITALS: BP 117/66; PULSE 78; RESP 18; TEMP 98.9; O2SAT 96
[2016-07-31] MEDS: oxyCODONE/ACETAMINOPHEN 10 MG/325 MG TAB PO PRN (06:20)
[2016-07-31] MEDS: SODIUM CHLORIDE 0.9% FLUSH 10 ML FLUSH IV FLUSH SCH ×2 (07:55→20:50)
[2016-07-31] MEDS: ALLOPURINOL 300 MG TAB PO SCH (07:55)
[2016-07-31 08:00] VITALS: BP 121/69; PULSE 85; RESP 17; TEMP 96.6; O2SAT 98
--- NOTE | 2016-07-31 10:24 | HHI.PR ---
Subjective Remarks Follow-up for suspected pyelonephritis, left ureteral stent with left ureteral calculi and bilateral staghorn calculus. Patient is doing well. No acute concerns. No fever, chills. Objective Vitals Vital Signs Date Time Temp Pulse Resp B/P Pulse Ox O2 Delivery O2 Flow Rate FiO2 07/31/16 08:00 96.6 85 17 121/69 98 07/31/16 04:33 98.9 78 18 117/66 96 07/31/16 01:16 18 07/31/16 00:48 18 07/30/16 23:55 98.1 93 18 147/80 98 07/30/16 20:00 97.4 72 18 129/80 96 07/30/16 16:00 97.6 91 18 133/84 100 07/30/16 12:00 97.4 88 18 108/69 99 I/O 07/30/16 07/30/16 07/30/16 07/31/16 07/31/16 07/31/16 07:00 15:00 23:00 07:00 15:00 23:00 Intake Total 1175 ml 1168 ml 1211 ml 831 ml Output Total 900 ml 1225 ml 1000 ml 1600 ml Balance 275 ml -57 ml 211 ml -1600 ml 831 ml Intake Oral 240 ml 240 ml 360 ml IV Total 935 ml 928 ml 851 ml 831 ml Output Urine Total 900 ml 1225 ml 1000 ml 1600 ml Stool Total 0 ml # Bowel Movements 0 Result Diagram: 07/29/16 0443 07/29/16 0443 Imaging Last Impressions Abdomen X-Ray 07/29/16 0000 Signed Impressions: Service Date/Time: Friday, July 29, 2016 10:49 - CONCLUSION: 1. Multiple bilateral renal calculi with a staghorn on the left. The findings are similar to the prior exam. Bebo Asher MD Chest X-Ray 07/28/16 1115 Signed Impressions: Service Date/Time: Thursday, July 28, 2016 11:19 - CONCLUSION: 1. No acute cardiopulmonary findings. Car Dozier MD Renal Ultrasound 07/28/16 0000 Signed Impressions: Service Date/Time: Thursday, July 28, 2016 12:29 - CONCLUSION: 1. There are multiple renal stones seen within the kidneys bilaterally. There is no hydronephrosis. 2. The exam demonstrates either a bladder stone or calcification within the bladder wall as above. Car Dozier MD CT Angiography 07/28/16 0000 Signed Impressions: Service Date/Time: Thursday, July 28, 2016 14:10 - CONCLUSION: 1. No evidence of pulmonary embolism. 2. No acute pulmonary infiltrates. Kole Steiner MD Objective Remarks GENERAL: Alert, oriented 3, NAD SKIN: Warm and dry. HEAD: Normocephalic. EYES: No scleral icterus. No injection or drainage. NECK: Supple, trachea midline. No JVD or lymphadenopathy. CARDIOVASCULAR: Regular rate and rhythm without murmurs, gallops, or rubs. RESPIRATORY: Breath sounds equal bilaterally. No accessory muscle use. GASTROINTESTINAL: Abdomen soft, non-tender, nondistended. MUSCULOSKELETAL: No cyanosis, or edema. BACK: Nontender without obvious deformity. No CVA tenderness. Procedures None A/P Problem List: (1) Sepsis due to urinary tract infection ICD Code: A41.9 Status: Acute (2) Complicated UTI (urinary tract infection) ICD Code: N39.0 Status: Acute (3) Nephrostomy tube displaced ICD Code: T83.022A Status: Acute (4) Renal calculi ICD Code: N20.0 Status: Acute Assessment and Plan Patient is a 36-year-old male with primary medical history of kidney stones, urethral stent placements, left nephrostomy who came in to the hospital for evaluation of vertigo, nausea, diaphoresis. Patient reports started this morning he woke up he had a feeling of "passing out." States he has been having "sweats," but no fevers. Reports that he came in primarily because of the feeling of passing out and increasing lower abdominal pain suprapubic area and low back pain, nonradiating, rated 5/10, aggravated by movement, but recently relief with pain medication from the ED. Sepsis - SIRS 114 heart rate, WBC14.9 Suspected Pyelonephritis - WBC improved from 14.9 --> 8.5. Patient is afebrile. - Patient has a history of recurrent kidney infection, urinary tract infection. Multiple readmissions in the past months with recent readmission 01/30 - Previous cultures Enterococcus faecalis - sensitive to vancomycin, Cipro, linezolid, penicillin - History of renal stones with stent placement, bladder stone versus calcification, left nephrostomy. - Stent placement was done in 2007 by [facility] but because patient has not been followed for 6 years. - Renal ultrasound showed 1. There are multiple renal stones seen within the kidneys bilaterally. There is no hydronephrosis. 2. Exam demonstrates either a bladder stone or calcification within the bladder wall as above. - CT angiography showed 1. No evidence of pulmonary embolism. 2. No acute pulmonary infiltrates. - Chest x-ray showed no acute cardiopulmonary findings. - UA with large leukoesterase, WBC 132, few urine bacteria, few mucus, negative nitrate. culture negative so far. - Continue IV antibiotics Unasyn. Urine cx negative so far. - Zofran for nausea, pain management oxycodone/acetaminophen 10/325 PRN - Dr. Villatoro (Urology) is following patient. Cysto today 07/31/2016. - breakthrough pain medication - Morphine 5mg Q4hrs PRN. Continue Percocet for pain. Diarrhea - Patient has recurrent admissions to the hospital and was given multiple antibiotics. - C. difficile negative. - Imodium PRN Acute kidney injury - Creatinine 1.29 --> 1.01. Gout- continue allopurinol Full code. Heparin SQ. Probable discharge on 08/01/2016. Linda Keith DO July 31, 2016 10:24
[2016-07-31] MEDS ORDERED: MIDAZOLAM HCL 2 MG/2 ML VIAL ONE ×2 (11:39→14:16)
[2016-07-31] MEDS ORDERED: fentaNYL CITRATE 250 MCG/5 ML AMP ONE ×2 (11:42→14:16)
[2016-07-31] MEDS ORDERED: ACETAMINOPHEN 1000 MG/100 ML VIAL IV ONE (11:43)
[2016-07-31] MEDS ORDERED: GENTAMICIN INJ 240 MG in SODIUM CHLORIDE 0.9% INJ 100 ML IV SCH (11:45)
[2016-07-31] MEDS ORDERED: ONDANSETRON HCL 4 MG/2 ML VIAL IV PUSH ONE (12:00)
[2016-07-31] MEDS ORDERED: LACTATED RINGER'S 1000 ML INJ 1,000 ML IV ONE (12:00)
[2016-07-31] MEDS ORDERED: PROPOFOL 200 MG/20 ML AMP IV ONE (12:00)
[2016-07-31] MEDS ORDERED: FUROSEMIDE 40 MG/4 ML VIAL IV PUSH ONE (12:53)
[2016-07-31] MEDS ORDERED: IOHEXOL 350 MG/ML 50 ML BTL (for RAD DIAG) ONE (12:54)
--- NOTE | 2016-07-31 13:55 | PD.OP ---
Operative Report Date of Surgery: July 31, 2016 Preoperative Diagnosis: Encrusted left ureteral stent with bilateral staghorn calculi and left ureteral calculus Postoperative Diagnosis: Same Procedure: Urethral dilation, cystoscopy, left ureteroscopy with laser lithotripsy, stone extraction with encrusted left stent extraction, left retrograde study, left double-J stent insertion Surgeon: Damian Villatoro Maintenance Service Dispatcher(s): None Resident Surgeon: None Operation and Findings: 36-year-old male with long history of bilateral renal calculi. He has had an encrusted left stent in for approximately 8-10 years. He also has bilateral staghorn calculi with left ureteral calculi. Decision made to bring the patient to the operating room to undergo cystoscopy with left ureteroscopy laser lithotripsy with stent removal, stone extraction and left double-J stent insertion. Patient has had multiple admissions for this problem any recurrent infections. Patient is brought to operating room and upon itself as Car Paez. He was placed in dorsal lithotomy position, prepped draped in usual sterile fashion, received preprocedure antibiotics, and general endotracheal tube anesthesia was administered. 22 Stateless cystoscopy was inserted in the bladder and the encrusted left stent was identified. Stone was noted to be throughout the length of the stent within the bladder as well within the ureter. Attempt was made to use the alligator grasper to remove the stent but this was unsuccessful. The the rigid ureteroscope was then passed up the left ureter and stone was identified along the course of the stent as well as within the ureter. Using 365 laser fiber, the stone fragments along the ureter were broken up as well as stone encrustation along the stent The nitinol basket was then used to retrieve multiple stone fragments. Once the stone burden was removed I was able to use the cystoscope with the alligator grasper and removed the stent. Stone was further identified within the left collecting system throughout but all the stone fragments or in the ureter were cleared. A retrograde study was performed confirming this finding. Decision this time was made to leave a left double-J stent. The cystoscope was backloaded over an 0 0.35 sensor wire and then a 6 Stateless 24 cm left double-J stent was placed with a good curl in the kidney and a good curl in the bladder. The patient will require a left percutaneous nephrolithotomy in the future to remove his stone burden from his left collecting system. The patient tolerated procedure well and was awoken and transferred curb stable condition. Damian Villatoro DO July 31, 2016 13:55
[2016-07-31] MEDS ORDERED: FUROSEMIDE 40 MG/4 ML VIAL ONE (14:17)
[2016-07-31] MEDS ORDERED: DO NOT ADM ANY ANTICOAGULANT DRUGS PRN (14:30)
[2016-07-31] MEDS ORDERED: *MEPERIDINE 25 MG INJ VIAL PERIprocedural Use ONLY ONE (14:30)
[2016-07-31 16:00] VITALS: BP 120/73; PULSE 99; RESP 18; TEMP 95.4; O2SAT 99
[2016-07-31] MEDS ORDERED: BELLADONNA ALKALOIDS/OPIUM 60 MG SUPP RECTAL PRN (17:15)
[2016-07-31] MEDS: HYDROmorphone HCL PF 2 MG/ML VIAL IV PRN ×2 (17:19→20:49)
[2016-07-31 20:00] VITALS: BP 100/60; PULSE 100; RESP 18; TEMP 97.6; O2SAT 96
[2016-07-31 23:53] VITALS: BP 115/66; PULSE 112; RESP 18; TEMP 97.5; O2SAT 98
[2016-08-01] MEDS: HYDROmorphone HCL PF 2 MG/ML VIAL IV PRN ×3 (00:06→11:08)
[2016-08-01] MEDS: oxyCODONE/ACETAMINOPHEN 10 MG/325 MG TAB PO PRN (02:35)
[2016-08-01] MEDS: MORPHINE SULFATE 8 MG/ML INJ IV PUSH PRN (03:39)
[2016-08-01] MEDS: HEPARIN SODIUM - SQ 10,000 UNITS/ML VIAL SQ SCH (03:39)
[2016-08-01 04:22] VITALS: BP 116/56; PULSE 112; RESP 18; TEMP 100.1; O2SAT 98
[2016-08-01] MEDS: AMPICILLIN-SULBACTAM INJ 3 GM in SODIUM CHLORIDE 0.9% INJ 100 ML IV SCH ×2 (05:57→11:07)
[2016-08-01 06:18] VITALS: TEMP 98.7
[2016-08-01 08:00] VITALS: BP 123/69; PULSE 112; RESP 18; TEMP 98.6; O2SAT 94
[2016-08-01] MEDS: ALLOPURINOL 300 MG TAB PO SCH (08:00)
[2016-08-01] MEDS: SODIUM CHLORIDE 0.9% FLUSH 10 ML FLUSH IV FLUSH SCH (08:02)
[2016-08-01] MEDS: SODIUM CHLOR 0.9% 1000 ML INJ 1,000 ML IV SCH (08:02)
--- NOTE | 2016-08-01 09:41 | HHI.PR ---
Subjective Patient symptoms today Pt seen and examined. Feeling better. Pain controlled. Van out and voiding. Objective Vital Signs Vital Signs Date Time Temp Pulse Resp B/P Pulse Ox O2 Delivery O2 Flow Rate FiO2 08/01/16 08:00 98.6 112 18 123/69 94 08/01/16 06:18 98.7 08/01/16 04:22 100.1 112 18 116/56 98 08/01/16 03:51 18 08/01/16 03:38 18 08/01/16 00:40 18 07/31/16 23:53 97.5 112 18 115/66 98 07/31/16 20:00 97.6 100 18 100/60 96 07/31/16 16:00 95.4 99 18 120/73 99 07/31/16 14:45 97.2 92 16 118/69 100 Nasal Cannula 2 07/31/16 14:30 101 16 144/83 100 Nasal Cannula 2 07/31/16 14:15 90 16 138/79 100 Nasal Cannula 2 07/31/16 14:10 97.2 84 16 140/75 100 Nasal Cannula 3 Intake & Output 08/01/16 08/01/16 07:00 19:00 Intake Total 2030 ml Output Total 2350 ml Balance -320 ml Intake Oral 740 ml IV Total 1290 ml Output Urine Total 2350 ml Result Diagram: 07/29/1644207/29/16442 Objective Remarks Abd:soft,nt,nd Left CVAT 08/01 Abd: soft,nt,nd Voiding Medications and IVs Current Medications Medications (Trade) Dose Ordered Sig/Cecelia Route Start Time Stop Time Status Last Admin (NS 1000 ml Inj) 1,000 ml @ 100 mls/hr Q10H IV 07/28/16 15:00 07/31/16 20:53 (NS Flush) 2 ml UNSCH PRN IV FLUSH 07/28/16 15:00 07/30/16 15:13 (NS Flush) 2 ml BID IV FLUSH 07/28/16 21:00 07/31/16 20:50 (Tylenol) 650 mg Q4H PRN PO 07/28/16 15:00 08/01/16 04:07 (Zofran Inj) 4 mg Q6H PRN IVP 07/28/16 15:00 (Milk Of Magnesia Liq) 30 ml Q12H PRN PO 07/28/16 15:00 (Heparin Inj) 5,000 units Q12H SQ 07/28/16 16:00 07/31/16 15:48 Naloxone HCl 0.4 mg 0.4 mg UNSCH PRN IV 07/28/16 15:00 (Unasyn Inj/NS Inj) 100 ml @ 200 mls/hr Q6H IV 07/28/16 18:00 08/01/16 05:57 (Vistaril) 100 mg HS PO 07/28/16 21:00 07/31/16 20:50 (Zyloprim) 300 mg DAILY PO 07/30/16 09:00 08/01/16 08:00 (Imodium) 2 mg Q6H PRN PO 07/29/16 14:30 07/29/16 14:53 Miscellaneous Information ALL NURSING DEPARTME... UNSCH PRN .XX 07/31/16 14:30 08/01/16 14:29 (B & O Supp) 60 mg Q6H PRN RECTAL 07/31/16 17:15 (Dilaudid Pf Inj) 2 mg Q3H PRN IV 07/31/16 17:15 08/01/16 07:59 Assessment and Plan Assessment and Plan 36 year-old male with history of bilateral nephrolithiasis and encrusted left ureteral stent admitted with pain, diaphoresis, and left lower quadrant pain. KUB suggest radiolucent stones consistent with uric acid. Start allopurinol 300 mg by mouth daily. Plan will for patient to undergo cystoscopy with left ureteroscopy and laser lithotripsy with possible removal versus exchange of left double-J stent on AM. Continue IV fluids and IV antibiotics for now. Urine cultures negative. Thank you for the consult allow me to participate in the care of this patient. 07/30 36 y.o. male with encrusted left ureteral stent with left ureteral calculi and bilateral staghorn calculus For OR in AM for cysto; left urs with laser litho; stone extraction and stent removal/change. 08/01 Stable s/p left URS with laser litho; stone extraction with encrusted stent removal and replacement with new left JJ stent Pt still with large staghorn calculi bilaterally Will need Left PCNL as outpatient with left PCNT placed prior PT will f/u in 2 weeks in office for scheduling Stable for d/c home Pscripts on chart Damian Villatoro DO August 01, 2016 09:41
[2016-08-01] MEDS ORDERED: ALLO300 PO (10:02)
[2016-08-01] MEDS ORDERED: HYDR-3535 PO (10:02)
[2016-08-01] MEDS ORDERED: CIPR-9 PO (10:02)
--- NOTE | 2016-08-01 10:05 | HHI.DS ---
Discharge Summary Admission Date July 28, 2016 at 2:57 pm Discharge Date: August 01, 2016 Admitting Diagnosis urosepsis (1) Sepsis due to urinary tract infection ICD Code: A41.9 Diagnosis: Principal (2) Complicated UTI (urinary tract infection) ICD Code: N39.0 (3) Nephrostomy tube displaced ICD Code: T83.022A Diagnosis: Principal (4) Renal calculi ICD Code: N20.0 Diagnosis: Principal Procedures 07/31/2016 Urethral dilation, cystoscopy, left ureteroscopy with laser lithotripsy, stone extraction with encrusted left stent extraction, left retrograde study, left double-J stent insertion Brief History - From Admission Written by Jaime Jaime, acting as scribe for Dr. Keith on 07/28/16 at 16:38. Patient is a 36-year-old male with primary medical history of kidney stones, urethral stent placements, left nephrostomy who came in to the hospital for evaluation of vertigo, nausea, diaphoresis. Patient reports started this morning he woke up he had a feeling of "passing out." States he has been having "sweats," but no fevers. Reports that he came in primarily because of the feeling of passing out and increasing lower abdominal pain suprapubic area and low back pain, nonradiating, rated 5/10, aggravated by movement, but recently relief with pain medication from the ED. He was taking oxycodone at home which did not relieve him from his pain today. Also reports he's been having diarrhea for about 2 days now every time he goes to the bathroom. States he had 4-5 times of the diarrhea previous days but not today. Reports he was not giving any antibiotics to go home from the recent admission however he was treated with antibiotics during his hospitalization. Denies SOB/ dyspnea. Denies chest pain, palpitations, headaches. Denies fevers, vomiting. Denies hematuria, dysuria, abdominal cramping, urgency, frequency. Labs reviewed WBC 14.9, hemoglobin 12.5, hematocrit 36.6, MCV 79.1 CMP showed low GFR 63, random glucose 126. CK 26, negative troponin 1, total protein 8.3 Renal ultrasound showed 1. There are multiple renal stones seen within the kidneys bilaterally. There is no hydronephrosis. 2. Exam demonstrates either a bladder stone or calcification within the bladder wall as above. CT angiography showed 1. No evidence of pulmonary embolism. 2. No acute pulmonary infiltrates. Chest x-ray showed no acute cardiopulmonary findings. CBC/BMP: 07/29/16 0443 07/29/16 0443 Imaging Last Impressions Abdomen X-Ray 07/29/16 0000 Signed Impressions: Service Date/Time: Friday, July 29, 2016 10:49 - CONCLUSION: 1. Multiple bilateral renal calculi with a staghorn on the left. The findings are similar to the prior exam. Bebo Asher MD Chest X-Ray 07/28/16 1115 Signed Impressions: Service Date/Time: Thursday, July 28, 2016 11:19 - CONCLUSION: 1. No acute cardiopulmonary findings. Car Dozier MD Renal Ultrasound 07/28/16 0000 Signed Impressions: Service Date/Time: Thursday, July 28, 2016 12:29 - CONCLUSION: 1. There are multiple renal stones seen within the kidneys bilaterally. There is no hydronephrosis. 2. The exam demonstrates either a bladder stone or calcification within the bladder wall as above. Car Dozier MD CT Angiography 07/28/16 0000 Signed Impressions: Service Date/Time: Thursday, July 28, 2016 14:10 - CONCLUSION: 1. No evidence of pulmonary embolism. 2. No acute pulmonary infiltrates. Kole Steiner MD PE at Discharge GENERAL: Alert, oriented 3, NAD SKIN: Warm and dry. HEAD: Normocephalic. EYES: No scleral icterus. No injection or drainage. NECK: Supple, trachea midline. No JVD or lymphadenopathy. CARDIOVASCULAR: Regular rate and rhythm without murmurs, gallops, or rubs. RESPIRATORY: Breath sounds equal bilaterally. No accessory muscle use. GASTROINTESTINAL: Abdomen soft, non-tender, nondistended. MUSCULOSKELETAL: No cyanosis, or edema. BACK: Nontender without obvious deformity. No CVA tenderness. Pt update on day of discharge Patient is doing well. No acute concerns. Urology evaluated patient and cleared for discharge. Hospital Course Patient is a 36-year-old male with primary medical history of kidney stones, urethral stent placements, left nephrostomy who came in to the hospital for evaluation of vertigo, nausea, diaphoresis. Patient reports started this morning he woke up he had a feeling of "passing out." States he has been having "sweats," but no fevers. Reports that he came in primarily because of the feeling of passing out and increasing lower abdominal pain suprapubic area and low back pain, nonradiating, rated 5/10, aggravated by movement, but recently relief with pain medication from the ED. Sepsis - SIRS 114 heart rate, WBC14.9 Suspected Pyelonephritis - WBC improved from 14.9 --> 8.5. Patient is afebrile. - Patient has a history of recurrent kidney infection, urinary tract infection. Multiple readmissions in the past months with recent readmission 01/30 - Previous cultures Enterococcus faecalis - sensitive to vancomycin, Cipro, linezolid, penicillin - History of renal stones with stent placement, bladder stone versus calcification, left nephrostomy. - Stent placement was done in 2007 by [facility] but because patient has not been followed for 6 years. - Renal ultrasound showed 1. There are multiple renal stones seen within the kidneys bilaterally. There is no hydronephrosis. 2. Exam demonstrates either a bladder stone or calcification within the bladder wall as above. - CT angiography showed 1. No evidence of pulmonary embolism. 2. No acute pulmonary infiltrates. - Chest x-ray showed no acute cardiopulmonary findings. - UA with large leukoesterase, WBC 132, few urine bacteria, few mucus, negative nitrate. culture negative so far. - Continue IV antibiotics Unasyn. Urine cx negative so far. - Zofran for nausea, pain management oxycodone/acetaminophen 10/325 PRN - Left ureteral stent with left ureteral calculi - Bilateral staghorn calculus - Dr. Villatoro (Urology) is following patient. Cysto 07/31/2016. - s/p left URS with laser litho; stone extraction with encrusted stent removal and replacement with new left JJ stent - breakthrough pain medication - Morphine 5mg Q4hrs PRN. Continue Percocet for pain. - Will need Left PCNL as outpatient with left PCNT placed prior - Outpatient follow up with Dr. Villatoro in two weeks. Diarrhea - Patient has recurrent admissions to the hospital and was given multiple antibiotics. - C. difficile negative. - Imodium PRN Acute kidney injury - Creatinine 1.29 --> 1.01. Gout- continue allopurinol In addition to discharge medications, patient was also given a prescription for Bictra. Pt Condition on Discharge: Good Discharge Disposition: Discharge Home Discharge Time: > 30 minutes Discharge Instructions DIET: Follow Instructions for: As Tolerated, No Restrictions Activities you can perform: Regular-No Restrictions Follow up Referrals: PCP Follow-up - 1 Week Urology - 2 Weeks with Damian Villatoro DO New Medications: Ciprofloxacin (Cipro) 500 Mg Tab 500 MG PO BID Infection #6 Ref 0 TAB Hydrocodone-Acetaminophen (Lortab) 10-325 Mg Tab 1 TAB PO Q6H PRN PAIN #30 Ref 0 TAB Allopurinol (Zyloprim) 300 Mg Tab 300 MG PO DAILY stone #90 TAB Continued Medications: Hydroxyzine Pamoate (Vistaril) 50 Mg Cap 50 MG PO TID PRN ANXIETY Ref 0 CAP Sertraline (Zoloft) 50 Mg Tab 50 MG PO DAILY #30 Ref 0 TAB Discontinued Medications: Ibuprofen (Motrin Ib) 200 Mg Tab 400 MG PO Q4H PRN PAIN SCALE 1 TO 10 Ref 0 TAB Oxycodone-Acetaminophen (Oxycodone-Acetaminophen) 7.5-325 mg Tab 1 TAB PO Q4H PRN PAIN GREATER THAN 5 #20 TAB Linda Keith DO August 01, 2016 10:05
[2016-08-01 12:00] VITALS: BP 111/63; PULSE 109; RESP 17; TEMP 98.7; O2SAT 93
== END 2016-08-01 15:55 | disposition home or self-care (01) | DRG 668 ==
LOC: NEPC 11:03 → NEDA 14:57 → N07A 16:29
PROVIDERS: ADMIT Hospitalist; ATTEND Hospitalist
PROC: 0T778DZ Dilation of Left Ureter with Intraluminal Device, Via Natural or Artificial Opening Endoscopic (ICD-10-PCS; 2016-07-31)
PROC: 0TC78ZZ Extirpation of Matter from Left Ureter, Via Natural or Artificial Opening Endoscopic (ICD-10-PCS; principal; 2016-07-31 11:48)
DX: T83.89XA Other specified complication of genitourinary prosthetic devices, implants and grafts, initial encounter (principal); A41.9 Sepsis, unspecified organism; N17.9 Acute kidney failure, unspecified; N20.2 Calculus of kidney with calculus of ureter; N39.0 Urinary tract infection, site not specified; K74.60 Unspecified cirrhosis of liver; Y83.1 Surgical operation with implant of artificial internal device as the cause of abnormal reaction of the patient, or of later complication, without mention of misadventure at the time of the procedure; M10.9 Gout, unspecified; T83.022A Displacement of nephrostomy catheter, initial encounter; F10.21 Alcohol dependence, in remission; F17.220 Nicotine dependence, chewing tobacco, uncomplicated
CPT/HCPCS: 71010; 71275; 74000; 74420; 76775; 80048; 80053; 81001; 82370; 82550; 83605; 83735; 84145; 84484; 85025; 85379; 85610; 85730; 87086; 87493; 88300; 93005; 96365; 96367; C1726; C1769; J0131; J0295; J1170; J1580; J1644; J1940; J2175; J2250; J2270; J2405; J2543; J3010; J3370; J7030; J7050; J7120; Q9967

== ENCOUNTER 2016-09-08 11:17 | Emergency (ER) | payer SELFPAY ==
[~2016-09-08] VITALS: Ht 182.9 cm; Wt 95.0 kg
[~2016-09-08 11:17] MED LIST changes: -ALLO100T PO; +ALLO300 PO; +CIPR-9 PO; +HYDR-3535 PO; -MOTR200T4 PO; -OXYC1TAB35 PO
[2016-09-08 11:19] VITALS: BP 129/85; PULSE 122; RESP 24; TEMP 98.6; O2SAT 96
--- NOTE | 2016-09-08 11:31 | PD ---
Physical Exam Time Seen by Provider: 11:29 Narrative 36yo M c/o R wrist and knee pain and "flareup" since last night. Hx of gout and arthritis. +shakiness for the last few days. Denies fever, vomiting. Patient seen in triage. Awaiting bed placement. VS reviewed. Data Data Last Documented VS Vital Signs Date Time Temp Pulse Resp B/P Pulse Ox O2 Delivery O2 Flow Rate FiO2 09/08/16 11:19 98.6 122 24 129/85 96 Room Air MDM Supervised Visit with FERNY: Mary Veras Sep 08, 2016 11:31
[2016-09-08] MEDS ORDERED: DEXAMETHASONE SOD PHOS 20 MG/5 ML VIAL IM ONE (12:00)
--- NOTE | 2016-09-08 12:05 | PD ---
HPI Chief Complaint: Pain: Acute or Chronic Time Seen by Provider: 11:58 Travel History International Travel<30 days: No Contact w/Intl Traveler<30days: No Traveled to known affect area: No History of Present Illness HPI 36-year-old male presents the emergency department with acute flare of his chronic gout. Patient has history of chronic gout requiring high-dose prednisone in the past. He states his been doing well until last evening he woke with pain in the right wrist and knee. He states the pain is 9 out of 10 at this time. He denies fever, chills, or other symptoms. Patient also states over the last couple of weeks she's had more anxiety symptoms and palpitations. He relates this to possibly his new medications for his anxiety and depression given from [facility]. He wonders if it could be due to the Wellbutrin and Celexa he recently started taking 3 weeks ago. Patient also takes Zestril for his anxiety. He denies any chest pain, shortness of breath, or other constitutional symptoms. 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 Patient is noted to be allergic to Toradol. PFSH Past Medical History Hx Anticoagulant Therapy: No Arthritis: Yes (gout) Asthma: No Autoimmune Disease: No Blood Disorders: No Anxiety: Yes Depression: Yes Heart Rhythm Problems: No Cancer: No Cardiovascular Problems: No High Cholesterol: No Chest Pain: No Congestive Heart Failure: No COPD: No Cerebrovascular Accident: No Diabetes: No Diminished Hearing: No Endocrine: No GERD: No Glaucoma: No Gout: Yes Genitourinary: Yes (stones/stent/nephroscopy 04/2016) Headaches: No Hepatitis: No Hiatal Hernia: No Hypertension: No Immune Disorder: No Implanted Vascular Access Dvce: Yes Kidney Stones: Yes Musculoskeletal: Yes Neurologic: Yes Psychiatric: Yes Reproductive: No Respiratory: No Immunizations Current: No Migraines: No Myocardial Infarction: No Renal Failure: No Seizures: No Sleep Apnea: No Thyroid Disease: No Ulcer: No Past Surgical History Abdominal Surgery: No AICD: No Arteriovenous Shunt: No Body Medical Devices: NEPHROSTOMY LEFT Cardiac Surgery: No Ear Surgery: Yes Endocrine Surgery: No Eye Surgery: No Genitourinary Surgery: Yes (LEFT STENT IN URETER FOR KIDNEY STONES; NEPHROSTOMY 04/2016) Gynecologic Surgery: No Insulin Pump: No Joint Replacement: No Neurologic Surgery: No Oral Surgery: Yes (TONSILLECTOMY) Pacemaker: No Thoracic Surgery: No Tonsillectomy: Yes (AND ADENOIDECTOMY) Other Surgery: Yes (lithotripsy) Social History Alcohol Use: No (denies at present) Tobacco Use: Yes (ORAL TOBACCO, 2 CANS PER WEEK) Substance Use: No Allergies-Medications (Allergen,Severity, Reaction): Coded Allergies: Toradol (Verified Allergy, Severe, SWELLING OF THROAT, 09/08/16) Reported Meds & Prescriptions Reported Meds & Active Scripts Active Zyloprim (Allopurinol) 300 Mg Tab 300 Mg PO DAILY Reported Trazodone (Trazodone HCl) 100 Mg Tablet 100 Mg PO HS Wellbutrin Xl 24 HR (Bupropion HCl) 150 Mg Tab 150 Mg PO DAILY Celexa (Citalopram Hydrobromide) 20 Mg Tab 20 Mg PO DAILY Vistaril (Hydroxyzine Pamoate) 50 Mg Cap 50 Mg PO TID PRN Review of Systems Except as stated in HPI: all other systems reviewed are Neg General / Constitutional: No: Fever Eyes: No: Visual changes HENT: No: Headaches Cardiovascular: Positive: Palpitations, No: Chest Pain or Discomfort Respiratory: No: Shortness of Breath Gastrointestinal: No: Abdominal Pain Genitourinary: No: Dysuria Musculoskeletal: Positive: Arthralgias, Limited ROM, Pain Skin: No Rash Neurologic: No: Weakness Psychiatric: Positive: Anxiety, No: Depression, Suicidal Ideations, Homicidal Ideation Endocrine: No: Polydipsia Hematologic/Lymphatic: No: Easy Bruising Physical Exam Narrative GENERAL: Patient appears anxious and in mild distress. SKIN: Warm and dry. Normal color. Normal turgor. No signs of infection. HEAD: Atraumatic. Normocephalic. EYES: Pupils equal and round. No scleral icterus. No injection or drainage. ENT: No nasal bleeding or discharge. Mucous membranes pink and moist. Pharynx is clear. NECK: Trachea midline. Supple nontender. CARDIOVASCULAR: Tachycardic rate and normal rhythm. RESPIRATORY: No accessory muscle use. Clear to auscultation. Breath sounds equal bilaterally. MUSCULOSKELETAL: Extremities without clubbing, cyanosis, or edema. No obvious deformities. Patient has pain with palpation of the right wrist and right knee , worse with range of motion. This is consistent with his history of gout. NEUROLOGICAL: Awake and alert. No obvious cranial nerve deficits. Motor grossly within normal limits. Five out of 5 muscle strength in the arms and legs. Normal speech. PSYCHIATRIC: Appropriate mood and affect; insight and judgment normal. Data Data Last Documented VS Vital Signs Date Time Temp Pulse Resp B/P Pulse Ox O2 Delivery O2 Flow Rate FiO2 09/08/16 12:31 100 15 98 09/08/16 12:28 Room Air 09/08/16 11:19 98.6 129/85 Orders Dexamethasone Inj (Decadron Inj) (09/08/16 12:00) [facility] Medical Decision Making Medical Screen Exam Complete: Yes Emergency Medical Condition: Yes Medical Record Reviewed: Yes Differential Diagnosis Right wrist pain. Right knee pain. Gouty arthritis. Anxiety. Narrative Course Patient is felt to have an acute flareup of his typical gout symptoms. I do not suspect acute illness, therefore I do not feel full medical workup is necessary at this time. Patient is given Decadron 10 mg IM. Patient will be treated on an outpatient basis with prednisone 80 mg x 3 days, 60 mg 3 days, 40 mg 3 days, 20 mg 3 days. I feel the patient's anxiety and palpitations are due to his psychiatric meds for which she should follow with the [facility]. Patient is not suicidal or homicidal at this time. Patient is also given Lortab 5/325 one tab every 6 hours when necessary pain # 12. Patient is to follow with his primary care physician and [facility] as discussed. Patient can return to emergency Department with worsening symptoms if necessary. Diagnosis Primary Impression: Gout Qualified Code: M10.9 - Acute gout of multiple sites, unspecified cause Additional Impression: Generalized anxiety disorder Referrals: Primary Care Physician [facility] Patient Instructions: General Instructions, Gout (ED) Additional Instructions: I do not suspect acute illness, therefore I do not feel full medical workup is necessary at this time. Patient is given Decadron 10 mg IM. Patient will be treated on an outpatient basis with prednisone 80 mg x 3 days, 60 mg 3 days, 40 mg 3 days, 20 mg 3 days. I feel the patient's anxiety and palpitations are due to his psychiatric meds for which she should follow with [facility]. Patient is not suicidal or homicidal at this time. Patient is also given Lortab 5/325 one tab every 6 hours when necessary pain # 12. Patient is to follow with his primary care physician and [facility] as discussed. Patient can return to emergency Department with worsening symptoms if necessary. Med/Other Pt SpecificInfo: Prescription(s) given Disposition: 01 DISCHARGE HOME Condition: Stable Joel Saavedra Sep 08, 2016 12:04
[2016-09-08] MEDS ORDERED: PRED20 PO (12:07)
[2016-09-08] MEDS ORDERED: HYDR-3533 PO (12:07)
[2016-09-08] MEDS ORDERED: CELE20TA PO (12:26)
[2016-09-08] MEDS ORDERED: TRAZ100T6 PO (12:27)
[2016-09-08] MEDS ORDERED: BUPR150XL PO (12:27)
[2016-09-08 12:28] VITALS: PULSE 100; RESP 15; O2SAT 97
== END 2016-09-08 12:46 | disposition home or self-care (01) ==
LOC: NEPA 11:17
DX: M10.9 Gout, unspecified (principal); F41.1 Generalized anxiety disorder; R00.2 Palpitations; R00.0 Tachycardia, unspecified; F41.9 Anxiety disorder, unspecified; F32.9 Major depressive disorder, single episode, unspecified; Z79.899 Other long term (current) drug therapy
CPT/HCPCS: 96372; 99284; J1100

== ENCOUNTER 2016-09-13 19:01 | Emergency (ER) | payer SELFPAY ==
[~2016-09-13] VITALS: Ht 182.9 cm; Wt 92.9 kg
[~2016-09-13 19:01] MED LIST changes: +BUPR150XL PO; +CELE20TA PO; -CIPR-9 PO; -HYDR-3535 PO; +TRAZ100T6 PO; -ZOLO50TA PO
[2016-09-13 19:17] VITALS: BP 149/103; PULSE 84; RESP 20; TEMP 98.8; O2SAT 99
[2016-09-13] MEDS ORDERED: SODIUM CHLOR 0.9% 1000 ML INJ 1,000 ML IV ONE (19:31)
--- NOTE | 2016-09-13 19:37 | PD ---
HPI Chief Complaint: Flank/Kidney Pain Time Seen by Provider: 19:24 Travel History International Travel<30 days: No Contact w/Intl Traveler<30days: No Traveled to known affect area: No History of Present Illness HPI The patient is a 36-year-old male with a long history of kidney stones who complains of sudden onset sharp right flank pain, 10 over 10 at 7 this morning. He took 50 mg of his oxycodone with no relief. He has been vomiting. He denies any dysuria, frequency or urgency. In the past, the patient has come in complaining of severe flank pain and yet no obstruction was seen on ultrasound or CT. He does have a history of gout. The patient is working with patient assistance through his urologist, Dr. Villatoro, to get lithotripsy. He does not want to be admitted if possible. PFSH Past Medical History Hx Anticoagulant Therapy: No Arthritis: Yes (gout) Asthma: No Autoimmune Disease: No Blood Disorders: No Anxiety: Yes Depression: Yes Heart Rhythm Problems: No Cancer: No Cardiovascular Problems: No High Cholesterol: No Chest Pain: No Congestive Heart Failure: No COPD: No Cerebrovascular Accident: No Diabetes: No Diminished Hearing: No Endocrine: No GERD: No Glaucoma: No Gout: Yes Genitourinary: Yes (stones/stent/nephroscopy 04/2016) Headaches: No Hepatitis: No Hiatal Hernia: No Hypertension: No Immune Disorder: No Implanted Vascular Access Dvce: Yes Kidney Stones: Yes Musculoskeletal: Yes Neurologic: Yes Psychiatric: Yes Reproductive: No Respiratory: No Immunizations Current: No Migraines: No Myocardial Infarction: No Renal Failure: No Seizures: No Sleep Apnea: No Thyroid Disease: No Ulcer: No Past Surgical History Abdominal Surgery: No AICD: No Arteriovenous Shunt: No Body Medical Devices: NEPHROSTOMY LEFT Cardiac Surgery: No Ear Surgery: Yes Endocrine Surgery: No Eye Surgery: No Genitourinary Surgery: Yes Gynecologic Surgery: No Insulin Pump: No Joint Replacement: No Neurologic Surgery: No Oral Surgery: Yes (TONSILLECTOMY) Pacemaker: No Thoracic Surgery: No Tonsillectomy: Yes Other Surgery: Yes (lithotripsy) Social History Alcohol Use: No Tobacco Use: No Substance Use: No Allergies-Medications (Allergen,Severity, Reaction): Coded Allergies: Toradol (Verified Allergy, Severe, SWELLING OF THROAT, 09/08/16) Reported Meds & Prescriptions Reported Meds & Active Scripts Active Zyloprim (Allopurinol) 300 Mg Tab 300 Mg PO DAILY Reported Trazodone (Trazodone HCl) 100 Mg Tablet 100 Mg PO HS Wellbutrin Xl 24 HR (Bupropion HCl) 150 Mg Tab 150 Mg PO DAILY Celexa (Citalopram Hydrobromide) 20 Mg Tab 20 Mg PO DAILY Vistaril (Hydroxyzine Pamoate) 50 Mg Cap 50 Mg PO TID PRN Review of Systems Except as stated in HPI: all other systems reviewed are Neg Physical Exam Narrative GENERAL: The patient is alert, oriented 3 in moderate to severe apparent distress with his right flank pain. His vital signs show blood pressure 149 over 3 but are otherwise normal. SKIN: Focused skin assessment warm/dry. HEAD: Atraumatic. Normocephalic. EYES: Pupils equal and round. No scleral icterus. No injection or drainage. ENT: No nasal bleeding or discharge. Mucous membranes pink and moist. NECK: Trachea midline. No JVD. CARDIOVASCULAR: Regular rate and rhythm. No murmur appreciated. RESPIRATORY: No accessory muscle use. Clear to auscultation. Breath sounds equal bilaterally. GASTROINTESTINAL: Abdomen soft with tenderness in the right flank and right UVJ area is to direct palpation, nondistended. Hepatic and splenic margins not palpable. No guarding or rebound is present. MUSCULOSKELETAL: No obvious deformities. No clubbing. No cyanosis. No edema. NEUROLOGICAL: Awake and alert. No obvious cranial nerve deficits. Motor grossly within normal limits. Normal speech. PSYCHIATRIC: Appropriate mood and affect; insight and judgment normal. Data Data Last Documented VS Vital Signs Date Time Temp Pulse Resp B/P Pulse Ox O2 Delivery O2 Flow Rate FiO2 09/13/16:17 98.8 84 20 149/103 99 Orders Complete Blood Count With Diff (09/13/16 19:31) Basic Metabolic Panel (Bmp) (09/13/16 19:31) Urinalysis - C+S If Indicated (09/13/16 19:31) Ct Abd/Pel W/O Iv Contrast (09/13/16 19:31) Ecg Monitoring (09/13/16 19:31) Iv Access Insert/Monitor (09/13/16 19:31) Ondansetron Inj (Zofran Inj) (09/13/16 19:45) Sodium Chloride 0.9% Flush (Ns Flush) (09/13/16 19:45) Sodium Chlor 0.9% 1000 Ml Inj (Ns 1000 M (09/13/16 19:31) Hydromorphone Pf Inj (Dilaudid Pf Inj) (09/13/16 19:45) Urine Culture (09/13/16 19:50) Ondansetron Inj (Zofran Inj) (09/13/16 21:45) Hydromorphone Pf Inj (Dilaudid Pf Inj) (09/13/16 21:45) Labs Laboratory Tests Test 09/13/16 19:50 White Blood Count 13.9 TH/MM3 Red Blood Count 4.45 MIL/MM3 Hemoglobin 12.4 GM/DL Hematocrit 36.0 % Mean Corpuscular Volume 80.8 FL Mean Corpuscular Hemoglobin 27.8 PG Mean Corpuscular Hemoglobin 34.5 % Concent Red Cell Distribution Width 16.0 % Platelet Count 310 TH/MM3 Mean Platelet Volume 7.2 FL Neutrophils (%) (Auto) 88.8 % Lymphocytes (%) (Auto) 8.3 % Monocytes (%) (Auto) 1.9 % Eosinophils (%) (Auto) 0.1 % Basophils (%) (Auto) 0.9 % Neutrophils # (Auto) 12.3 TH/MM3 Lymphocytes # (Auto) 1.2 TH/MM3 Monocytes # (Auto) 0.3 TH/MM3 Eosinophils # (Auto) 0.0 TH/MM3 Basophils # (Auto) 0.1 TH/MM3 CBC Comment DIFF FINAL Differential Comment Urine Color YELLOW Urine Turbidity CLOUDY Urine pH 6.0 Urine Specific [place] 1.015 Urine Protein NEG mg/dL Urine Glucose (UA) NEG mg/dL Urine Ketones NEG mg/dL Urine Occult Blood LARGE Urine Nitrite NEG Urine Bilirubin NEG Urine Leukocyte Esterase SMALL Urine RBC 25-49 /hpf Urine WBC 15-19 /hpf Urine WBC Clumps FEW Urine Squamous Epithelial 6-8 /hpf Cells Microscopic Urinalysis Comment CULTURE INDICATED Sodium Level 139 MEQ/L Potassium Level 3.9 MEQ/L Chloride Level 103 MEQ/L Carbon Dioxide Level 25.5 MEQ/L Anion Gap 11 MEQ/L Blood Urea Nitrogen 23 MG/DL Creatinine 2.10 MG/DL Estimat Glomerular Filtration 36 ML/MIN Rate Random Glucose 156 MG/DL Calcium Level 8.8 MG/DL [facility] Medical Decision Making Medical Screen Exam Complete: Yes Emergency Medical Condition: Yes Medical Record Reviewed: Yes Interpretation(s) The CT abdomen/pelvis without IV contrast shows a 1 cm stone at the right UPJ causing moderate dilatation of the right collecting system and right perinephric stranding. There are numerous large at least 1 cm nonobstructing stone seen in the collecting systems bilaterally. There is a left ureteral stent. There are nonspecific small subcentimeter hypodensities in the superior aspect of the liver likely related to cysts or hemangiomas. The CBC shows a white count of 13,900 with a hemoglobin of 12.4 and hematocrit of 36.0. There are 89% neutrophils present. The basic metabolic profile shows a BUN of 23, creatinine 2.1 with GFR 36 and glucose 136. The urine shows cloudy turbidity, large occult blood, small leukocyte esterase with 25-49 red cells in 15-19 white cells and few white cell clumps and culture is indicated. Differential Diagnosis Right ureteral stone, urinary tract infection, malingering to obtain narcotics, Narrative Course The patient has a large right ureteral stone, 1 cm in diameter, at the UPJ on the right. This is unlikely to move or pass. He will be given Flomax, Motrin 600 mg 3 times daily, and Phenergan 25 mg every 6 hours as needed for nausea. He will also get Percocet 7.5#30. Diagnosis Primary Impression: Right ureteral calculus Milton Roque MD Sep 13, 2016 19:37
[2016-09-13] MEDS ORDERED: ONDANSETRON HCL 4 MG/2 ML VIAL IVP ONE (19:45)
[2016-09-13] MEDS ORDERED: HYDROmorphone HCL PF 1 MG/ML VIAL IVS ONE (19:45)
[2016-09-13] MEDS ORDERED: SODIUM CHLORIDE 0.9% FLUSH 10 ML FLUSH IVF PRN (19:45)
[2016-09-13 20:05] LABS: AUTOMATED NEUTROPHIL # 12.3 TH/MM3 (1.8-7.7); BASOPHIL # 0.1 TH/MM3 (0-0.2); BASOPHIL % 0.9 % (0.0-2.0); EOSINOPHIL % 0.1 % (0.0-4.0); LYMPH % 8.3 % (9.0-44.0); LYMPHOCYTE # 1.2 TH/MM3 (1.0-4.8); MEAN CELL VOLUME 80.8 FL (80.0-100.0); MEAN CORPUSCULAR HEMOGLOBIN 27.8 PG (27.0-34.0); MEAN CORPUSCULAR HGB CONC 34.5 % (32.0-36.0); MONO % 1.9 % (0.0-8.0); NEUT % 88.8 % (16.0-70.0); PLATELET COUNT 310 TH/MM3 (150-450); RED BLOOD COUNT 4.45 MIL/MM3 (4.50-5.90); WHITE BLOOD COUNT 13.9 TH/MM3 (4.0-11.0)
[2016-09-13 20:13] LABS: HEMO FLAGS DIFF FINAL
[2016-09-13 20:16] LABS: POTASSIUM 3.9 MEQ/L (3.5-5.1)
[2016-09-13 20:17] LABS: BLOOD, URINE LARGE (NEG); GLUCOSE,URINE NEG (NEG); KETONE, URINE NEG (NEG); NITRITE,URINE NEG (NEG)
[2016-09-13 20:20] LABS: BICARBONATE 25.5 MEQ/L (21.0-32.0)
[2016-09-13 20:39] LABS: URINE COLOR YELLOW (YELLW/STRAW); WBC, URINE 15-19 /hpf (0-5)
[2016-09-13 20:40] LABS: COMMENT (UR) CULTURE INDICATED; CULTURE IF INDICATED CULTURE INDICATED
--- NOTE | 2016-09-13 21:22 | RADRPT ---
EXAM DATE/TIME: 09/13/2016 20:00 [place] COMPARISON: CT ABDOMEN & PELVIS W/O CONTRAST, July 04, 2016, 16:05. CT ABDOMEN & PELVIS W/O CONTRAST, July 24 017, 13:52. INDICATIONS : Right flank pain since this morning. ORAL CONTRAST: No oral contrast ingested. RADIATION DOSE: 23.73 CTDIvol (mGy) MEDICAL HISTORY : Renal calculi. SURGICAL HISTORY : Renal stent ENCOUNTER: Initial ACUITY: 1 day PAIN SCALE: 9/10 LOCATION: Right flank TECHNIQUE: Volumetric scanning of the abdomen and pelvis was performed. Using automated exposure control and ad justment of the mA and/or kV according to patient size, radiation dose was kept as low as reasonably achievable to obtain optimal diagnostic quality images. DICOM format image data is available electro nically for review and comparison. FINDINGS: LOWER LUNGS: The visualized lower lungs are clear. LIVER: There are small subcentimeter hypodensities seen in the posterior superior aspect of the right lobe o f the liver. There is no dilation of the biliary tree. No calcified gallstones. SPLEEN: Normal size without lesion. PANCREAS: Within normal limits. KIDNEYS: There are multiple large nonobstructing stones seen in the collecting systems bilaterally. There is a 1 cm stone at the right UPJ. There is moderate dilatation of the right collecting system. There is r ight perinephric stranding. There is a left ureteral stent in place. The left collecting system is not dilated. ADRENAL GLANDS: Within normal limits. VASCULAR: There is no aortic aneurysm. BOWEL/MESENTERY: The stomach, small bowel, and colon demonstrate no acute abnormality. There is no free intraperitone al air or fluid. ABDOMINAL WALL: Within normal limits. RETROPERITONEUM: There is no lymphadenopathy. There are mildly prominent nodes in the left periaortic region. These ar e unchanged. BLADDER: No wall thickening or mass. REPRODUCTIVE: Within normal limits. INGUINAL: There is no lymphadenopathy or hernia. MUSCULOSKELETAL: Within normal limits for patient age. CONCLUSION: 1. 1 cm stone at the right UPJ causing moderate dilatation of the right collecting system and right p erinephric stranding. 2. Numerous large at least 1 cm nonobstructing stones seen in the collecting systems bilaterally. 3. Left ureteral stent. 4. Nonspecific small subcentimeter hypodensities in the superior aspect of the liver likely related t o cysts or hemangiomas. Franco Gordon MD on September 13, 2016 at 20:41 Board Certified Radiologist. This report was verified electronically.
[2016-09-13] MEDS ORDERED: ONDANSETRON HCL 4 MG/2 ML VIAL IV ONE (21:45)
[2016-09-13] MEDS ORDERED: HYDROmorphone HCL PF 1 MG/ML VIAL IVP ONE (21:45)
[2016-09-13] MEDS ORDERED: IBUP-232 PO (21:57)
[2016-09-13] MEDS ORDERED: PROM25TA10 PO (21:57)
[2016-09-13] MEDS ORDERED: PERC7.5T13 PO (21:57)
[2016-09-13] MEDS ORDERED: TAMS5CAP PO (21:57)
[2016-09-13] MEDS ORDERED: BACT800T5 PO (21:59)
[2016-09-13] MEDS ORDERED: SULFAMETHOXAZOLE-TRIMETHOPRIM DS 800-160 MG TAB PO ONE (22:00)
[2016-09-13 22:26] VITALS: BP 157/88
== END 2016-09-13 22:30 | disposition home or self-care (01) ==
LOC: PHED 19:01
DX: N20.1 Calculus of ureter (principal)
CPT/HCPCS: 74176; 80048; 81001; 85025; 87086; 96361; 96374; 96375; 96376; 99285; J1170; J2405; J7030

== ENCOUNTER 2016-09-14 08:30 | Inpatient (IN) | payer SELFPAY ==
[2016-09-14] VITALS (8 sets, daily range): BP systolic 131–147; BP diastolic 85–98; PULSE 66–93; RESP 16–20; TEMP 97.2–98.4; O2SAT 97–100
[~2016-09-14] VITALS: Ht 182.9 cm; Wt 92.2 kg
[~2016-09-14 08:30] MED LIST changes: +BACT800T5 PO; +IBUP-232 PO; +PERC7.5T13 PO; +PROM25TA10 PO; +TAMS5CAP PO
--- NOTE | 2016-09-14 08:54 | PD ---
HPI Chief Complaint: Flank/Kidney Pain Time Seen by Provider: 08:44 Travel History International Travel<30 days: No Contact w/Intl Traveler<30days: No Traveled to known affect area: No History of Present Illness HPI 36-year-old male complains of severe pain right low back area. Patient was seen in emergency room last night with diagnosis of nephrolithiasis. Patient was advised to be admitted and patient refuses admission. Patient was discharged home with prescription for Flomax, Motrin, Phenergan and Percocet. Patient states that she has intractable pain despite medication. Patient denies any fever chills. Patient states that he has nausea vomiting with the pain. On a scale of 1-10 the pain is a 9. Patient has history of recurrent nephrolithiasis and has been seen by Dr. Villatoro, urologist. PFSH Past Medical History Hx Anticoagulant Therapy: No Arthritis: Yes (gout) Asthma: No Autoimmune Disease: No Blood Disorders: No Anxiety: Yes Depression: Yes Heart Rhythm Problems: No Cancer: No Cardiovascular Problems: No High Cholesterol: No Chest Pain: No Congestive Heart Failure: No COPD: No Cerebrovascular Accident: No Diabetes: No Diminished Hearing: No Endocrine: No Gastrointestinal Disorders: No GERD: No Glaucoma: No Gout: Yes Genitourinary: Yes (stones/stent/nephroscopy 04/2016) Headaches: No Hepatitis: No Hiatal Hernia: No Hypertension: No Immune Disorder: No Implanted Vascular Access Dvce: Yes Kidney Stones: Yes Musculoskeletal: Yes Neurologic: Yes Psychiatric: Yes Reproductive: No Respiratory: No Immunizations Current: No Migraines: No Myocardial Infarction: No Renal Failure: No Seizures: No Sleep Apnea: No Thyroid Disease: No Ulcer: No Influenza Vaccination: Yes Past Surgical History Abdominal Surgery: No AICD: No Arteriovenous Shunt: No Body Medical Devices: NEPHROSTOMY LEFT Cardiac Surgery: No Ear Surgery: Yes Endocrine Surgery: No Eye Surgery: No Genitourinary Surgery: Yes Gynecologic Surgery: No Insulin Pump: No Joint Replacement: No Neurologic Surgery: No Oral Surgery: Yes (TONSILLECTOMY) Pacemaker: No Thoracic Surgery: No Tonsillectomy: Yes Other Surgery: Yes (lithotripsy) Social History Alcohol Use: No Tobacco Use: No Substance Use: No Allergies-Medications (Allergen,Severity, Reaction): Coded Allergies: Toradol (Verified Allergy, Severe, SWELLING OF THROAT, 09/14/16) Reported Meds & Prescriptions Reported Meds & Active Scripts Active Bactrim DS (Sulfamethoxazole-Trimethoprim) 800-160 Mg Tab 1 Tab PO BID Percocet (Oxycodone-Acetaminophen) 7.5-325 mg Tab 1 Tab PO Q4H PRN Ibuprofen 600 Mg Tab 600 Mg PO TID Phenergan (Promethazine HCl) 25 Mg Tablet 25 Mg PO Q6H PRN Flomax (Tamsulosin HCl) 0.4 Mg Cap 0.4 Mg PO HS Zyloprim (Allopurinol) 300 Mg Tab 300 Mg PO DAILY Reported Trazodone (Trazodone HCl) 100 Mg Tablet 100 Mg PO HS Wellbutrin Xl 24 HR (Bupropion HCl) 150 Mg Tab 150 Mg PO DAILY Celexa (Citalopram Hydrobromide) 20 Mg Tab 20 Mg PO DAILY Vistaril (Hydroxyzine Pamoate) 50 Mg Cap 50 Mg PO TID PRN Review of Systems General / Constitutional: No: Fever Eyes: No: Visual changes HENT: No: Headaches Cardiovascular: No: Chest Pain or Discomfort Respiratory: No: Shortness of Breath Gastrointestinal: Positive: Nausea, Vomiting, Abdominal Pain Genitourinary: No: Dysuria Musculoskeletal: No: Pain Skin: No Rash Neurologic: No: Weakness Psychiatric: No: Depression Endocrine: No: Polydipsia Hematologic/Lymphatic: No: Easy Bruising Physical Exam Narrative GENERAL: Well-nourished, well-developed patient. SKIN: Focused skin assessment warm/dry. HEAD: Normocephalic. EYES: No scleral icterus. No injection or drainage. NECK: Supple, trachea midline. No JVD or lymphadenopathy. CARDIOVASCULAR: Regular rate and rhythm without murmurs, gallops, or rubs. RESPIRATORY: Breath sounds equal bilaterally. No accessory muscle use. GASTROINTESTINAL: Abdomen soft, non-tender, nondistended. MUSCULOSKELETAL: No cyanosis, or edema. BACK: Moderate tenderness on palpation right low lumbar area, without obvious deformity. No CVA tenderness. Neurologic exam normal. Data Data Last Documented VS Vital Signs Date Time Temp Pulse Resp B/P Pulse Ox O2 Delivery O2 Flow Rate FiO2 09/14/16 08:32 98.4 93 18 131/97 98 Orders Basic Metabolic Panel (Bmp) (09/14/16 08:47) Complete Blood Count With Diff (09/14/16 08:47) Prothrombin Time / Inr (Pt) (09/14/16 08:47) Act Partial Throm Time (Ptt) (09/14/16 08:47) Urinalysis - C+S If Indicated (09/14/16 08:47) Iv Access Insert/Monitor (09/14/16 08:47) Ecg Monitoring (09/14/16 08:47) Oximetry (09/14/16 08:47) Ondansetron Inj (Zofran Inj) (09/14/16 09:00) Sodium Chlor 0.9% 1000 Ml Inj (Ns 1000 M (09/14/16 08:47) Hydromorphone Pf Inj (Dilaudid Pf Inj) (09/14/16 09:00) Ceftriaxone Inj (Rocephin Inj) (09/14/16 09:00) MDM Medical Decision Making Medical Screen Exam Complete: Yes Emergency Medical Condition: Yes Interpretation(s) Lab work done last night shows WBC 13.9. 88 neutrophil. BUN 23. Creatinine 2.10. GFR 36. UA positive WBC RBC and bacteria. Differential Diagnosis Differential diagnosis including nephrolithiasis, pyelonephritis, UTI, failed outpatient treatment. Narrative Course 36-year-old male with intractable pain right lower back area. History of nephrolithiasis. UA was positive for UTI last night. Normal saline solution 1 25 cc an hour. Dilaudid 1 mg IV. Zofran 4 mg IV. Rocephin 1 g IV given. Diagnosis Primary Impression: Nephrolithiasis Additional Impressions: Complicated UTI (urinary tract infection) Renal insufficiency Admitting Information Admitting Physician Requests: Admit Damion Wesley MD Sep 14, 2016 08:54
[2016-09-14] MEDS ORDERED: HYDROmorphone HCL PF 1 MG/ML VIAL IVS ONE (09:00)
[2016-09-14] MEDS ORDERED: ONDANSETRON HCL 4 MG/2 ML VIAL IVP ONE (09:00)
[2016-09-14] MEDS ORDERED: cefTRIAXone INJ 1,000 MG in SODIUM CHLORIDE 0.9% INJ 100 ML IV ONE (09:00)
[2016-09-14] MEDS: SODIUM CHLOR 0.9% 1000 ML INJ 1,000 ML IV SCH ×4 (09:10→09:35)
[2016-09-14 09:15] LABS: BLOOD, URINE LARGE (NEG); GLUCOSE,URINE NEG (NEG); KETONE, URINE NEG (NEG); NITRITE,URINE NEG (NEG); PH, URINE 6.5 (5.0-8.5)
[2016-09-14] MEDS ORDERED: NALOXONE HCL 0.4 MG/ML AMP IV PRN (09:15)
[2016-09-14] MEDS ORDERED: BISACODYL 10 MG SUPP RECTAL PRN (09:15)
[2016-09-14] MEDS ORDERED: MAGNESIUM HYDROXIDE SUSP 30 ML CUP PO PRN (09:15)
[2016-09-14] MEDS ORDERED: ONDANSETRON HCL 4 MG/2 ML VIAL IV PRN (09:15)
[2016-09-14] MEDS ORDERED: ACETAMINOPHEN 325 MG TAB PO PRN ×2 (09:15)
[2016-09-14] MEDS ORDERED: LACTULOSE SYRUP 20 GM/30 ML CUP PO PRN (09:15)
[2016-09-14] MEDS ORDERED: SENNOSIDES 8.6 MG TAB PO PRN (09:15)
[2016-09-14] MEDS ORDERED: SODIUM CHLORIDE 0.9% FLUSH 10 ML FLUSH IV FLUSH PRN (09:15)
[2016-09-14] MEDS ORDERED: SODIUM CHLORIDE 0.9% FLUSH 10 ML FLUSH IVF PRN (09:15)
[2016-09-14 09:17] LABS: AUTOMATED NEUTROPHIL # 11.9 TH/MM3 (1.8-7.7); BASOPHIL % 0.1 % (0.0-2.0); EOSINOPHIL # 0.1 TH/MM3 (0-0.4); EOSINOPHIL % 0.9 % (0.0-4.0); HEMATOCRIT 35.6 % (39.0-51.0); HEMO FLAGS DIFF FINAL; LYMPH % 14.2 % (9.0-44.0); LYMPHOCYTE # 2.2 TH/MM3 (1.0-4.8); MEAN CELL VOLUME 80.6 FL (80.0-100.0); MEAN CORPUSCULAR HEMOGLOBIN 27.1 PG (27.0-34.0); MEAN CORPUSCULAR HGB CONC 33.6 % (32.0-36.0); METHOD OF COLLECTION CLEAN CATCH; MONO % 8.1 % (0.0-8.0); NEUT % 76.7 % (16.0-70.0); PLATELET COUNT 261 TH/MM3 (150-450); RED BLOOD COUNT 4.42 MIL/MM3 (4.50-5.90); RED CELL DISTRIBUTION WIDTH 15.3 % (11.6-17.2); URINE COLOR STRAW (YELLW/STRAW); WHITE BLOOD COUNT 15.4 TH/MM3 (4.0-11.0)
[2016-09-14 09:19] LABS: WBC, URINE 15-19 /hpf (0-5)
[2016-09-14 09:20] LABS: COMMENT (UR) CULTURE INDICATED; COMMENT2 (UR) MUCOUS PRESENT; CULTURE IF INDICATED CULTURE INDICATED; SQUAMOUS EPITHELIAL CELL URINE 0-5 /hpf (0-5)
[2016-09-14 09:26] LABS: APTT (PATIENT) 26.1 SEC (24.3-30.1); PROTHROMBIN TIME - PATIENT 10.7 SEC (9.8-11.6)
[2016-09-14 09:45] LABS: BICARBONATE 25.5 MEQ/L (21.0-32.0)
[2016-09-14 09:46] LABS: POTASSIUM 2.8 MEQ/L (3.5-5.1)
--- NOTE | 2016-09-14 10:38 | HHI.HP ---
[facility] No Primary Care Physician Admission Diagnosis nephrolithiasis. UTI. Renal insufficiency. Diagnoses: Chief Complaint: Right flank pain Travel History International Travel<30 Days: No Contact w/Intl Traveler <30 Da: No Traveled to Known Affected Are: No History of Present Illness Mr. Paez is a pleasant 36 year old male with a history of left sided kidney stone s/p lithotripsy, stent placement who presents to the ED today due to right flank pain. At around 7AM on 09/13/2016, patient started having right sided flank pain, nausea, vomiting. He did not have any fever, chills. He came to the ED and did not agree to be admitted. He was discharged on pain medications. However, due to persistent symptoms, he returned to the ED. Denies any chest pain, abdominal pain, cough. No changes in bowel or bladder habits. Review of Systems Except as stated in HPI: all other systems reviewed are Neg Past Family Social History Past Medical History Recurrent UTI Nephrolithiasis Gout Recurrent UTI and hydronephrosis secondary to stones. Past Surgical History Ureteral stents 2008 Nephrostomy 04/2016, have since fall out. Left ureteral stent 04/2016 Right elbow drained 04/2016 Reported Medications Bactrim DS (Sulfamethoxazole-Trimethoprim) 800-160 Mg Tab 1 Tab PO BID Percocet (Oxycodone-Acetaminophen) 7.5-325 mg Tab 1 Tab PO Q4H PRN Ibuprofen 600 Mg Tab 600 Mg PO TID Phenergan (Promethazine HCl) 25 Mg Tablet 25 Mg PO Q6H PRN Flomax (Tamsulosin HCl) 0.4 Mg Cap 0.4 Mg PO HS Zyloprim (Allopurinol) 300 Mg Tab 300 Mg PO DAILY Reported Trazodone (Trazodone HCl) 100 Mg Tablet 100 Mg PO HS Wellbutrin Xl 24 HR (Bupropion HCl) 150 Mg Tab 150 Mg PO DAILY Celexa (Citalopram Hydrobromide) 20 Mg Tab 20 Mg PO DAILY Vistaril (Hydroxyzine Pamoate) 50 Mg Cap 50 Mg PO TID PRN Allergies: Coded Allergies: Toradol (Verified Allergy, Severe, SWELLING OF THROAT, 09/14/16) Family History Father with history of kidney stones Social History Patient chews tobacco. He is a recovering alcoholic He denies illicit drug use. Physical Exam Vital Signs Vital Signs Date Time Temp Pulse Resp B/P Pulse Ox O2 Delivery O2 Flow Rate FiO2 09/14/16 10:20 97.3 69 20 147/98 97 09/14/16 09:54 72 16 144/85 97 Room Air 09/14/16 09:37 16 09/14/16 09:17 82 16 142/85 98 Room Air 09/14/16 09:11 98 09/14/16 09:00 16 98 Room Air 09/14/16 08:32 98.4 93 18 131/97 98 Physical Exam GENERAL: This is a well-nourished, well-developed patient, in mild distress due to pain. SKIN: No rashes, ecchymoses or lesions. Warm and dry. HEAD: Atraumatic. Normocephalic. No temporal or scalp tenderness. EYES: Pupils equal round and reactive. No injection or drainage. ENT: Nose without bleeding, purulent drainage or septal hematoma. Airway patent. NECK: Trachea midline. No lymphadenopathy. Supple, nontender, no meningeal signs. CARDIOVASCULAR: Regular rhythm, mildly tachycardic without murmurs, gallops, or rubs. No JVD. RESPIRATORY: Clear to auscultation. Breath sounds equal bilaterally. No wheezes , rales, or rhonchi. GASTROINTESTINAL: Abdomen soft, non-tender, nondistended. No guarding. Right sided severe CVA tenderness. MUSCULOSKELETAL: Extremities without clubbing, cyanosis, or edema. NEUROLOGICAL: Awake and alert. Cranial nerves II through XII intact. No focal neurological deficits. Normal speech. Laboratory Laboratory Tests Test 09/14/16 09:00 White Blood Count 15.4 Red Blood Count 4.42 Hemoglobin 12.0 Hematocrit 35.6 Mean Corpuscular Volume 80.6 Mean Corpuscular Hemoglobin 27.1 Mean Corpuscular Hemoglobin 33.6 Concent Red Cell Distribution Width 15.3 Platelet Count 261 Mean Platelet Volume 6.5 Neutrophils (%) (Auto) 76.7 Lymphocytes (%) (Auto) 14.2 Monocytes (%) (Auto) 8.1 Eosinophils (%) (Auto) 0.9 Basophils (%) (Auto) 0.1 Neutrophils # (Auto) 11.9 Lymphocytes # (Auto) 2.2 Monocytes # (Auto) 1.2 Eosinophils # (Auto) 0.1 Basophils # (Auto) 0.0 CBC Comment DIFF FINAL Differential Comment Prothrombin Time 10.7 Prothromb Time International 1.0 Ratio Activated Partial 26.1 Thromboplast Time Urine Collection Type CLEAN CATCH Urine Color STRAW Urine Turbidity SLIGHT Urine pH 6.5 Urine Specific [place] 1.009 Urine Protein NEG Urine Glucose (UA) NEG Urine Ketones NEG Urine Occult Blood LARGE Urine Nitrite NEG Urine Bilirubin NEG Urine Leukocyte Esterase SMALL Urine RBC 20-24 Urine WBC 15-19 Urine WBC Clumps FEW Urine Squamous Epithelial 0-5 Cells Urine Amorphous Sediment FEW Microscopic Urinalysis Comment CULTURE INDICATED Urine Collection Time 0900 Sodium Level 139 Potassium Level 2.8 Chloride Level 101 Carbon Dioxide Level 25.5 Anion Gap 12 Blood Urea Nitrogen 24 Creatinine 2.20 Estimat Glomerular Filtration 34 Rate Random Glucose 90 Calcium Level 8.5 Date/Time Procedure Status Source Growth 09/14/16 09:00 Urine Culture Received Urine Clean Catch Pending Result Diagram: 09/14/16 0900 09/14/16 09 Imaging 09/13/2016 CT Abd/Pelvis CONCLUSION: 1. 1 cm stone at the right UPJ causing moderate dilatation of the right collecting system and right perinephric stranding. 2. Numerous large at least 1 cm nonobstructing stones seen in the collecting systems bilaterally. 3. Left ureteral stent. 4. Nonspecific small subcentimeter hypodensities in the superior aspect of the liver likely related to cysts or hemangiomas. Assessment and Plan Problem List: (1) Obstruction of right ureteropelvic junction (UPJ) due to stone ICD Code: N20.1 Status: Acute (2) Gout ICD Code: M10.9 Status: Acute (3) Hypokalemia ICD Code: E87.6 Status: Acute Assessment and Plan Mr. Paez is a pleasant 36 year old male with a history of previous renal stone who presents to the ED due to right flank pain. CT abd/pelvis on 09/13/2016 showed 1 cm right UPJ stone causing moderate obstruction. - Right UPJ stone with moderate obstruction - Will consult Urology - 1 cm stone in right UPJ, may need surgical intervention. - Will continue fluid as well as IV pain medications with Dilaudid. - Continue Tamsulosin 0.4mg Qday. - Acute kidney injury - Baseline creatinine around 1.0. Creatinine elevated to 2.20 - Avoid nephrotoxins including NSAIDs. Will continue to monitor. - Hypokalemia - K+ 2.8. - Hypomagnesemia - Mg 1.7 - Replace with IV KCL 20meQ X 2 and Mag sulfate 1g IV. - CBC, BMP in the AM. - Anxiety/Depression - Continue Celexa and Wellbutrin - Gout - Hold Allopurinol for now due to AMAYA. Full code. SCDs. Physician Certification 2 Midnight Certification Type: Admission for Inpatient Services Order for Inpatient Services The services are ordered in accordance with Medicare regulations or non- Medicare payer requirements, as applicable. In the case of services not specified as inpatient-only, they are appropriately provided as inpatient services in accordance with the 2-midnight benchmark. Estimated LOS (days): 2 days is the estimated time the patient will need to remain in the hospital, assuming treatment plan goals are met and no additional complications. Post-Hospital Plan: Home Linda Keith DO Sep 14, 2016 10:38 am
[2016-09-14] MEDS ORDERED: HYDROmorphone HCL PF 1 MG/ML VIAL IV PUSH PRN (11:00)
[2016-09-14] MEDS ORDERED: MAGNESIUM SULFATE 1 GM PREMIX 100 ML IV ONE (14:00)
[2016-09-14] MEDS: POTASSIUM CHLOR 20 MEQ PREMIX 100 ML IV SCH ×2 (14:18→15:57)
[2016-09-14] MEDS: HYDROmorphone HCL PF 1 MG/ML VIAL IV PUSH PRN ×3 (15:03→21:10)
[2016-09-14] MEDS: oxyCODONE/ACETAMINOPHEN 10 MG/325 MG TAB PO PRN ×2 (15:57→22:38)
[2016-09-14] MEDS ORDERED: SODIUM CHLORIDE 0.9% FLUSH 10 ML FLUSH IV FLUSH SCH (21:00)
[2016-09-14] MEDS: SODIUM CHLORIDE 0.9% FLUSH 10 ML FLUSH IV FLUSH SCH (21:00)
[2016-09-14] MEDS: traZODone HCL 100 MG TAB PO SCH (21:00)
[2016-09-14] MEDS: TAMSULOSIN HCL 0.4 MG CAP PO SCH (22:38)
[2016-09-14] MEDS: DOCUSATE SODIUM 50 MG/SENNA 8.6 MG TAB PO SCH (22:38)
[2016-09-15] VITALS (8 sets, daily range): BP systolic 112–131; BP diastolic 71–89; PULSE 81–107; RESP 17–20; TEMP 96.7–97.6; O2SAT 94–97
[2016-09-15] MEDS: HYDROmorphone HCL PF 1 MG/ML VIAL IV PUSH PRN ×7 (00:28→22:20)
[2016-09-15] MEDS: SODIUM CHLOR 0.9% 1000 ML INJ 1,000 ML IV SCH ×3 (00:31→11:28)
[2016-09-15 06:50] LABS: POTASSIUM 3.4 MEQ/L (3.5-5.1)
[2016-09-15 06:55] LABS: BICARBONATE 25.8 MEQ/L (21.0-32.0)
[2016-09-15] MEDS: DOCUSATE SODIUM 50 MG/SENNA 8.6 MG TAB PO SCH ×2 (07:42→21:06)
[2016-09-15] MEDS: CITALOPRAM HYDROBROMIDE 20 MG TAB PO SCH (07:42)
[2016-09-15] MEDS: oxyCODONE/ACETAMINOPHEN 10 MG/325 MG TAB PO PRN (07:42)
[2016-09-15] MEDS: SODIUM CHLORIDE 0.9% FLUSH 10 ML FLUSH IV FLUSH SCH ×2 (07:42→21:10)
[2016-09-15] MEDS: buPROPion HCL 150 MG SUSTAINED RELEASE TAB PO SCH (07:43)
--- NOTE | 2016-09-15 07:56 | MB ---
cc: PHYLLIS NORWOOD MD DATE OF CONSULTATION: 09/14/2016 REASON FOR CONSULTATION 1. Right 1 cm UPJ stone with mild hydronephrosis. 2. Bilateral kidney stones. 3. Right flank pain. HISTORY OF PRESENT ILLNESS The patient is a pleasant 36-year-old male with a longstanding history of kidney stones who underwent cystoscopy and left ureteral stent placement by Dr. Villatoro approximately a month and a half ago for a left-sided obstructing stone. The patient was admitted earlier today with complaints of right flank pain after found to have a 1 cm right UPJ stone with mild hydronephrosis and his creatinine up to 2.2. He came to the ER yesterday on September 13 with similar complaints of right flank pain and nausea. He tried to manage this at home as an outpatient but overnight subsequently failed and his pain worsened to a 10/10. He describes it as sharp, stabbing and shooting pains to his right flank. He denies fevers, chills, dysuria, hematuria. He has had kidney stones since age 19-years-old and has never had a metabolic work-up. He denies history of urinary tract infections. He has had lithotripsies in the past to treat his stones. He does not take any blood thinners. REVIEW OF SYSTEMS See HPI. All systems reviewed are otherwise negative. PAST MEDICAL HISTORY 1. Nephrolithiasis. 2. Gout. PAST SURGICAL HISTORY 1. Multiple lithotripsies in the past. 2. Nephrostomy tube in April 2016. 3. Cystoscopy and left ureteral stent insertion. MEDICATIONS 1. Bactrim. 2. Phenergan. 3. Flomax. 4. Allopurinol 300 mg p.o. daily. 5. Trazodone 100 mg p.o. q.h.s. 6. Wellbutrin 150 mg p.o. daily. 7. Celexa 20 mg p.o. daily. ALLERGIES TORADOL. FAMILY HISTORY Positive for kidney stones. Negative for genitourinary malignancies. SOCIAL HISTORY He chews tobacco. Denies smoking tobacco. He has a history of alcohol abuse and is a recovering alcoholic. He denies illicit drugs. PHYSICAL EXAMINATION VITAL SIGNS: Temperature 97.5, pulse 60, respiratory rate 20, blood pressure 145/97. Saturation 97% on room air. GENERAL: He is alert and oriented x3 in no apparent distress, pleasant and cooperative, appears his stated age. HEAD: Normocephalic, atraumatic. EYES: No scleral icterus. Extraocular muscles intact. SKIN: No ulcers or rashes. Mucous membranes pink and moist. NECK: Supple. Trachea is midline. No JVD. LUNGS: Clear to auscultation bilaterally. No wheezes, rales or rhonchi. HEART: Regular rate and rhythm. No murmurs, gallops or rubs. ABDOMEN: Soft, nontender, nondistended. Positive bowel sounds. GENITOURINARY: tenderness bilaterally. His penis is circumcised. Testes are descended bilaterally, normal size and consistency, without mass. EXTREMITIES: Nontender. No clubbing, cyanosis, edema. PSYCH: Normal affect. NEUROLOGIC: Cranial nerves II through XII intact. Strength 5/5 in all four extremities. LABORATORY White count 15.4, hemoglobin 12.0, hematocrit 35.6, platelet count 261. Sodium 139, potassium 2.8, chloride 101, bicarb 25, BUN 24, creatinine 2.20. Urine showed large blood, small leukocyte esterase. Culture currently pending. IMAGING CT of the abdomen and pelvis without contrast images were reviewed. Agree with radiologist's report. The patient has a large stone burden in both kidneys as well as a 1 cm stone at his right UPJ causing mild hydronephrosis as well as a left indwelling ureteral stent in good position on the left side. ASSESSMENT The patient is a 36-year-old male with a history of kidney stones who presents with right-sided flank pain and found to have a 1 cm right UPJ stone with mild hydronephrosis as well as bilateral nonobstructing stones and an indwelling left ureteral stent as well as hypokalemia. PLAN Will make the patient n.p.o. after midnight. Will schedule him for cystoscopy, right retrograde pyelogram, right ureteral stent insertion and possible left ureteral stent exchange in the morning. I discussed the risks, benefits and alternatives with the patient including the risk of not being able to pass the stone, need for nephrostomy tube and additional procedures in the future to treat the stones. All questions were answered. He understood the risks. He elected to proceed. Will replace the potassium. Will check his parathyroid hormone, his uric acid and vitamin-D level while he is here. Thank you for this consult. MD RUMA Ruiz/CHELI /6:25 PM /7:36 AM
--- NOTE | 2016-09-15 09:28 | HHI.PR ---
Subjective Remarks Follow up for right UPJ stone with moderate obstruction. Patient is doing somewhat better. Ambulating well. Pain is well controlled. No fever, chills. Going for cystoscopy today. Objective Vitals Vital Signs Date Time Temp Pulse Resp B/P Pulse Ox O2 Delivery O2 Flow Rate FiO2 09/15/16 08:00 95 21 09/15/16 08:00 97.2 97 17 127/81 97 09/15/16 00:00 97.6 88 18 126/88 97 09/14/16 20:00 98 21 09/14/16 20:00 97.2 85 18 131/91 100 09/14/16 16:51 18 09/14/16 16:00 97.5 66 20 145/97 97 09/14/16 15:56 18 09/14/16 12:11 18 09/14/16 10:20 97.3 69 20 147/98 97 09/14/16 09:54 72 16 144/85 97 Room Air 09/14/16 09:37 16 I/O 09/14/16 09/14/16 09/14/16 09/15/16 09/15/16 09/15/16 07:00 15:00 23:00 07:00 15:00 23:00 Intake Total 760 ml 800 ml 1820 ml Output Total 350 ml Balance 760 ml 800 ml 1470 ml Intake Oral 660 ml 420 ml IV Total 100 ml 800 ml 1400 ml Output Urine Total 350 ml # Voids 3 # Bowel Movements 0 Result Diagram: 09/14/16 0900 09/15/16 0545 Imaging 09/13/2016 CT abdomen/plevis CONCLUSION: 1. 1 cm stone at the right UPJ causing moderate dilatation of the right collecting system and right perinephric stranding. 2. Numerous large at least 1 cm nonobstructing stones seen in the collecting systems bilaterally. 3. Left ureteral stent. 4. Nonspecific small subcentimeter hypodensities in the superior aspect of the liver likely related to cysts or hemangiomas. Objective Remarks GENERAL: AOX3, NAD. SKIN: Warm and dry. HEAD: Normocephalic. EYES: No scleral icterus. No injection or drainage. NECK: Supple, trachea midline. No JVD or lymphadenopathy. CARDIOVASCULAR: Regular rate and rhythm without murmurs, gallops, or rubs. RESPIRATORY: Breath sounds equal bilaterally. No accessory muscle use. GASTROINTESTINAL: Abdomen soft, non-tender, nondistended. Mild CVA tenderness on the right. MUSCULOSKELETAL: No cyanosis, or edema. BACK: Nontender without obvious deformity. No CVA tenderness. Procedures None A/P Problem List: (1) Obstruction of right ureteropelvic junction (UPJ) due to stone ICD Code: N20.1 Status: Acute (2) Gout ICD Code: M10.9 Status: Acute (3) Hypokalemia ICD Code: E87.6 Status: Acute Assessment and Plan Mr. Paez is a pleasant 36 year old male with a history of previous renal stone who presents to the ED due to right flank pain. CT abd/pelvis on 09/13/2016 showed 1 cm right UPJ stone causing moderate obstruction. - Right UPJ stone with moderate obstruction - consulted Urology - 1 cm stone in right UPJ. Cystoscopy scheduled for 2016. - Will continue fluid as well as IV pain medications with Dilaudid. - After procedure, we can switch to PO pain medications with Dilaudid for breakthrough. - Continue Tamsulosin 0.4mg Qday. - Patient's wbc count is elevated. Will follow urine cx. Continue Ceftriaxone 1g Qday. - Acute kidney injury - Baseline creatinine around 1.0. Creatinine elevated to 2.20 --> 2.40. Likely due to obstruction. - Avoid nephrotoxins including NSAIDs. Will continue to monitor. - Hypokalemia - K+ 2.8 --> 3.4. - Hypomagnesemia - Mg 1.7 - Replaced with IV KCL 20meQ X 2 and Mag sulfate 1g IV. - Will give PO KCL 10meQ Q12hrs X 2 days. - CBC, BMP in the AM. - Anxiety/Depression - Continue Celexa and Wellbutrin - Gout - Hold Allopurinol for now due to AMAYA. Full code. SCDs. Linda Keith DO Sep 15, 2016 9:28 am
[2016-09-15] MEDS: POTASSIUM CHLORIDE 10 MEQ CONTROLLED RELEASE TAB PO SCH ×2 (11:30→21:06)
[2016-09-15] MEDS: cefTRIAXone INJ 1,000 MG in SODIUM CHLORIDE 0.9% INJ 100 ML IV SCH (11:30)
[2016-09-15] MEDS ORDERED: MIDAZOLAM HCL 2 MG/2 ML VIAL ONE (12:05)
[2016-09-15] MEDS ORDERED: FAMOTIDINE 20 MG/2 ML VIAL ONE (12:05)
[2016-09-15] MEDS ORDERED: IOHEXOL 350 MG/ML 10 ML VIAL (for RAD DIAG) ONE (12:55)
--- NOTE | 2016-09-15 13:54 | RADRPT ---
EXAM DATE/TIME: 09/15/2016 13:12 [facility] COMPARISON: CT ABDOMEN & PELVIS W/O CONTRAST, September 13, 2016, 20:00. INDICATIONS : Right stent placement. 1.5 minutes 1 CONTRAST: Instilled by Ordering Physician MEDICAL HISTORY : Renal calculi. SURGICAL HISTORY : ureteral stents ENCOUNTER: Subsequent ACUITY: 2 days PAIN SCORE: 0/10 LOCATION: Right flank FINDINGS: A right ureteral stent is in place. Stent appears in good position. There is some contrast in the rig ht collecting system along with patient's known renal calculi. CONCLUSION: Right ureteral stent appears to be in good position on this single film.. Kole Steiner MD on September 15, 2016 at 13:50 Board Certified Radiologist. This report was verified electronically.
[2016-09-15] MEDS ORDERED: DO NOT ADM ANY ANTICOAGULANT DRUGS PRN (14:00)
[2016-09-15] MEDS ORDERED: PROPOFOL 200 MG/20 ML AMP IV ONE (14:33)
[2016-09-15] MEDS ORDERED: BELLADONNA ALKALOIDS/OPIUM 60 MG SUPP RECTAL PRN (16:45)
[2016-09-15] MEDS: ACETAMINOPHEN 1000 MG/100 ML VIAL IV SCH ×2 (16:56→22:02)
[2016-09-15] MEDS: traZODone HCL 100 MG TAB PO SCH (21:00)
[2016-09-15] MEDS: TAMSULOSIN HCL 0.4 MG CAP PO SCH (21:06)
[2016-09-16] VITALS: BP 146/89; PULSE 89; RESP 20; TEMP 96; O2SAT 100
[2016-09-16] MEDS: HYDROmorphone HCL PF 1 MG/ML VIAL IV PUSH PRN ×2 (02:34→05:59)
[2016-09-16] MEDS: ACETAMINOPHEN 1000 MG/100 ML VIAL IV SCH (05:59)
[2016-09-16 06:28] LABS: AUTOMATED NEUTROPHIL # 7.7 TH/MM3 (1.8-7.7); BASOPHIL % 0.2 % (0.0-2.0); EOSINOPHIL # 0.5 TH/MM3 (0-0.4); EOSINOPHIL % 4.3 % (0.0-4.0); HEMATOCRIT 32.2 % (39.0-51.0); HEMO FLAGS DIFF FINAL; LYMPH % 20.9 % (9.0-44.0); LYMPHOCYTE # 2.5 TH/MM3 (1.0-4.8); MEAN CELL VOLUME 81.4 FL (80.0-100.0); MEAN CORPUSCULAR HEMOGLOBIN 26.7 PG (27.0-34.0); MEAN CORPUSCULAR HGB CONC 32.9 % (32.0-36.0); NEUT % 65.6 % (16.0-70.0); PLATELET COUNT 236 TH/MM3 (150-450); RED BLOOD COUNT 3.95 MIL/MM3 (4.50-5.90); RED CELL DISTRIBUTION WIDTH 15.5 % (11.6-17.2); WHITE BLOOD COUNT 11.8 TH/MM3 (4.0-11.0)
[2016-09-16 06:49] LABS: POTASSIUM 3.5 MEQ/L (3.5-5.1)
[2016-09-16 06:54] LABS: BICARBONATE 25.5 MEQ/L (21.0-32.0)
[2016-09-16 07:45] VITALS: O2SAT 95
[2016-09-16 08:00] VITALS: BP 144/80; PULSE 79; RESP 18; TEMP 97.1; O2SAT 100
[2016-09-16] MEDS ORDERED: HYDROmorphone HCL PF 1 MG/ML VIAL IV PUSH PRN (08:45)
[2016-09-16] MEDS: DOCUSATE SODIUM 50 MG/SENNA 8.6 MG TAB PO SCH (08:47)
[2016-09-16] MEDS: CITALOPRAM HYDROBROMIDE 20 MG TAB PO SCH (08:47)
[2016-09-16] MEDS: SODIUM CHLORIDE 0.9% FLUSH 10 ML FLUSH IV FLUSH SCH (08:48)
[2016-09-16] MEDS: POTASSIUM CHLORIDE 10 MEQ CONTROLLED RELEASE TAB PO SCH (08:48)
[2016-09-16] MEDS: buPROPion HCL 150 MG SUSTAINED RELEASE TAB PO SCH (08:48)
--- NOTE | 2016-09-16 09:03 | HHI.DS ---
Discharge Summary Admission Date Sep 14, 2016 at 9:06 am Admitting Diagnosis nephrolithiasis. UTI. Renal insufficiency. (1) Obstruction of right ureteropelvic junction (UPJ) due to stone ICD Code: N20.1 (2) Gout ICD Code: M10.9 (3) Hypokalemia ICD Code: E87.6 Procedures None Brief History - From Admission Mr. Paez is a pleasant 36 year old male with a history of left sided kidney stone s/p lithotripsy, stent placement who presents to the ED today due to right flank pain. At around 7AM on 09/13/2016, patient started having right sided flank pain, nausea, vomiting. He did not have any fever, chills. He came to the ED and did not agree to be admitted. He was discharged on pain medications. However, due to persistent symptoms, he returned to the ED. Denies any chest pain, abdominal pain, cough. No changes in bowel or bladder habits. CBC/BMP: 09/16/16 0555 09/16/16 0555 Significant Findings Laboratory Tests Test 09/14/16 09/15/16 09/16/16 09:00 05:45 05:55 White Blood Count 15.4 TH/MM3 11.8 TH/MM3 (4.0-11.0) (4.0-11.0) Red Blood Count 4.42 MIL/MM3 3.95 MIL/MM3 (4.50-5.90) (4.50-5.90) Hemoglobin 12.0 GM/DL 10.6 GM/DL (13.0-17.0) (13.0-17.0) Hematocrit 35.6 % 32.2 % (39.0-51.0) (39.0-51.0) Mean Platelet Volume 6.5 FL (7.0-11.0) Neutrophils (%) (Auto) 76.7 % (16.0-70.0) Monocytes (%) (Auto) 8.1 % (0.0-8.0) 9.0 % (0.0-8.0) Neutrophils # (Auto) 11.9 TH/MM3 (1.8-7.7) Monocytes # (Auto) 1.2 TH/MM3 1.1 TH/MM3 (0-0.9) (0-0.9) Urine Occult Blood LARGE (NEG) Urine Leukocyte Esterase SMALL (NEG) Urine RBC 20-24 /hpf (0-3) Urine WBC 15-19 /hpf (0-5) Urine WBC Clumps FEW (NONE) Potassium Level 2.8 MEQ/L 3.4 MEQ/L (3.5-5.1) (3.5-5.1) Blood Urea Nitrogen 24 MG/DL (7-18) 20 MG/DL (7-18) Creatinine 2.20 MG/DL 2.40 MG/DL 1.80 MG/DL (0.60-1.30) (0.60-1.30) (0.60-1.30) Estimat Glomerular Filtration 34 ML/MIN (>89) 31 ML/MIN (>89) 43 ML/MIN (>89) Rate Calcium Level 8.3 MG/DL (8.5-10.1) Mean Corpuscular Hemoglobin 26.7 PG (27.0-34.0) Eosinophils (%) (Auto) 4.3 % (0.0-4.0) Eosinophils # (Auto) 0.5 TH/MM3 (0-0.4) PE at Discharge GENERAL: AOX3, NAD. SKIN: Warm and dry. HEAD: Normocephalic. EYES: No scleral icterus. No injection or drainage. NECK: Supple, trachea midline. No JVD or lymphadenopathy. CARDIOVASCULAR: Regular rate and rhythm without murmurs, gallops, or rubs. RESPIRATORY: Breath sounds equal bilaterally. No accessory muscle use. GASTROINTESTINAL: Abdomen soft, non-tender, nondistended. Mild CVA tenderness on the right. MUSCULOSKELETAL: No cyanosis, or edema. BACK: Nontender without obvious deformity. No CVA tenderness. Linda Keith DO Sep 16, 2016 9:03 am
[2016-09-16] MEDS: cefTRIAXone INJ 1,000 MG in SODIUM CHLORIDE 0.9% INJ 100 ML IV SCH (09:52)
[2016-09-16 12:00] VITALS: BP 117/75; PULSE 73; RESP 18; TEMP 97.8; O2SAT 98
[2016-09-16 15:32] LABS: POTASSIUM 4.1 MEQ/L (3.5-5.1)
[2016-09-16 15:35] LABS: BICARBONATE 23.6 MEQ/L (21.0-32.0)
[2016-09-16] MEDS ORDERED: NORC5TAB PO (15:53)
--- NOTE | 2016-09-16 19:43 | MP ---
cc: PHYLLIS NORWOOD MD DATE OF SURGERY: 09/15/2016 PREOPERATIVE DIAGNOSIS 1. Right 1 cm UPJ stone with moderate hydronephrosis. 2. Bilateral nonobstructing stones. 3. Status post left ureteral stent insertion. 4. Acute kidney injury. 5. History of ESWL. POSTOPERATIVE DIAGNOSIS: 1. Right 1 cm UPJ stone with moderate hydronephrosis. 2. Bilateral nonobstructing stones. 3. Status post left ureteral stent insertion. 4. Acute kidney injury. 5. History of ESWL. PROCEDURE PERFORMED: 1. Cystourethroscopy. 2. Right retrograde pyelogram 3. Insertion of right ureteral stent. SURGEON Criselda Norwood MD. ANESTHESIA: General. COMPLICATIONS: None. PREOPERATIVE ANTIBIOTICS: Rocephin 1 gram IV. DRAINS: None. 6 x 28 double-J right ureteral stent. SPECIMEN: None. BLOOD LOSS: Minimal DISPOSITION To recovery INDICATIONS The patient is a 36-year-old male with a significant past history of kidney stones, who was admitted to [facility] yesterday with complaints of right flank pain for the past 36 hours. The patient had a CT of the abdomen and pelvis without contrast which showed a 1 cm right UPJ stone with moderate hydronephrosis as well as bilateral nonobstructing stones and a left ureteral stent in proper position. He was also found to have an elevated creatinine up to 2.2. His baseline creatinine was less than 1. Due to these findings, he has been set up for cystoscopy and stent placement today. After the risks, benefits and alternatives were explained, the patient agreed to proceed. Informed consent was obtained. DETAILS OF PROCEDURE: The patient was properly identified, brought back to the operating room, laid supine on the operating room table. Proper time out was performed. Under anesthesiology the patient was induced under general anesthetic. Preop antibiotics in form of Rocephin 1 gram IV was given within 1 hour of the start of the procedure. The patient then placed in dorsolithotomy position, prepped and draped in normal sterile surgical fashion. Using the rigid cystoscope I then passed it gently into the patient's bladder per urethra without any difficulty. At that time the bladder was carefully examined. The indwelling stone on the left side was obviously seen. The distal portion was not seen to be calcified. There was no evidence of any stones within the bladder itself. The bladder mucosa appeared to be normal. There were no bladder tumors, diverticula or trabeculations. The right ureteral orifice was identified. A 6 Vietnamese opened ended ureteral catheter was inserted just inside the ureteral orifice. Right retrograde pyelogram was performed which showed the filling defect at the right UPJ consistent with the CT findings. He did have mild hydronephrosis. The remaining ureter would appear to be in normal caliber. A wire was then passed through the indwelling ureteral catheter up into the right kidney under fluoroscopic guidance, which could easily bypass the stone. The ureteral catheter was then removed. I then passed a 6 x 28 double-J stent over the wire up into the right kidney with the proximal curl in the stent in the upper pole, bypassing the stone and the obstruction. Upon placing the stent, a significant amount of what appeared to be purulent material effluxed from the ureteral orifice and around the stent. The bladder was then drained. This concluded the procedure. The patient was extubated and sent to recovery in stable condition. He will be transferred back to the floor. As long as he does well overnight, he will be discharged in the morning with the stone and follow up with his urologist, Dr. Villatoro, as an outpatient. Phyllis Norwood MD EMJackelyn/DONALD /4:47 PM /7:31 PM
== END 2016-09-16 16:40 | disposition home or self-care (01) | DRG 694 ==
LOC: PHED 08:30 → PHEDA 09:06 → PH3A 10:06
PROVIDERS: ADMIT Hospitalist; ATTEND Hospitalist
PROC: BT1D1ZZ Fluoroscopy of Right Kidney, Ureter and Bladder using Low Osmolar Contrast (ICD-10-PCS; 2016-09-15)
PROC: 0T768DZ Dilation of Right Ureter with Intraluminal Device, Via Natural or Artificial Opening Endoscopic (ICD-10-PCS; principal; 2016-09-15 12:17)
DX: N13.2 Hydronephrosis with renal and ureteral calculous obstruction (principal); N17.9 Acute kidney failure, unspecified; N39.0 Urinary tract infection, site not specified; F32.9 Major depressive disorder, single episode, unspecified; M10.9 Gout, unspecified; Z87.442 Personal history of urinary calculi; F41.9 Anxiety disorder, unspecified; Z87.440 Personal history of urinary (tract) infections; F17.220 Nicotine dependence, chewing tobacco, uncomplicated; F10.21 Alcohol dependence, in remission; D18.03 Hemangioma of intra-abdominal structures; E87.6 Hypokalemia
CPT/HCPCS: 74420; 80048; 81001; 83735; 83970; 84550; 85025; 85610; 85730; 87086; C2617; J0131; J0696; J1170; J2250; J2405; J3010; J3475; J3480; J7030; Q9967

== ENCOUNTER 2016-10-13 15:16 | Emergency (ER) | payer SELFPAY ==
[~2016-10-13] VITALS: Ht 182.9 cm; Wt 90.0 kg
[~2016-10-13 15:16] MED LIST changes: -BACT800T5 PO; -BUPR150XL PO; -IBUP-232 PO; +NORC5TAB PO; -PERC7.5T13 PO
[2016-10-13 15:18] VITALS: BP 154/84; PULSE 90; RESP 16; TEMP 98.3; O2SAT 98
--- NOTE | 2016-10-13 15:27 | PD ---
Physical Exam Time Seen by Provider: 15:26 Narrative 36 y/o male hx of nephrolithiasis here with pain in R groin region, urinary hesitancy. Stent placed 2 months ago. Vital signs reviewed. Seen at triage desk. Awaiting bed placement. Data Data Last Documented VS Vital Signs Date Time Temp Pulse Resp B/P Pulse Ox O2 Delivery O2 Flow Rate FiO2 10/13/16 15:18 98.3 90 16 154/84 98 MDM Medical Record Reviewed: Yes Supervised Visit with FERNY: Parth Joseph Oct 13, 2016 15:27
[2016-10-13] MEDS ORDERED: SODIUM CHLOR 0.9% 1000 ML INJ 1,000 ML IV ONE (17:43)
[2016-10-13] MEDS ORDERED: SODIUM CHLORIDE 0.9% FLUSH 10 ML FLUSH IVF PRN (17:45)
[2016-10-13] MEDS ORDERED: ONDANSETRON HCL 4 MG/2 ML VIAL IVP ONE (17:45)
[2016-10-13] MEDS ORDERED: MORPHINE SULFATE 4 MG/ML INJ IV PUSH ONE ×2 (17:45→19:30)
--- NOTE | 2016-10-13 17:47 | PD ---
HPI Chief Complaint: Complaint Time Seen by Provider: 17:46 Travel History International Travel<30 days: No Contact w/Intl Traveler<30days: No Traveled to known affect area: No History of Present Illness HPI 36-year-old male presents to the emergency department for evaluation of right lower abdominal pain/right groin pain. Patient had right stent placed due to a 1 cm stone earlier this month by Dr. Covarrubias. He states he has been having some issues with his urinary stream for the past 2 weeks. However, today, he started with 9/10 pain that is new for him. He denies any fevers or chills. No chest pain or shortness of breath. Patient was admitted in September and had acute kidney injury as well. He states he is taking ibuprofen at home for pain which is not relieving it. Patient reports history of anxiety. He has no other complaints at this time. PFSH Past Medical History Hx Anticoagulant Therapy: No Arthritis: Yes (gout) Asthma: No Autoimmune Disease: No Blood Disorders: No Anxiety: Yes Depression: Yes Heart Rhythm Problems: No Cancer: No Cardiovascular Problems: No High Cholesterol: No Chest Pain: No Congestive Heart Failure: No COPD: No Cerebrovascular Accident: No Diabetes: No Diminished Hearing: No Endocrine: No Gastrointestinal Disorders: No GERD: No Glaucoma: No Gout: Yes Headaches: No Hepatitis: No Hiatal Hernia: No Hypertension: No Immune Disorder: No Implanted Vascular Access Dvce: Yes Kidney Stones: Yes Medical other: Yes (RECOVERING ETOH ABUSER) Musculoskeletal: No Neurologic: No Psychiatric: Yes (ANXIETY) Reproductive: No Respiratory: No Immunizations Current: No Migraines: No Myocardial Infarction: No Renal Failure: No Seizures: No Sleep Apnea: No Thyroid Disease: No Ulcer: No Past Surgical History Abdominal Surgery: No AICD: No Arteriovenous Shunt: No Body Medical Devices: NEPHROSTOMY LEFT Cardiac Surgery: No Ear Surgery: No Endocrine Surgery: No Eye Surgery: No Genitourinary Surgery: Yes (URETERAL STENT 2007, LEFT LITHOTRIPSY, LEFT URETERAL STENT 04/2016) Gynecologic Surgery: No Insulin Pump: No Joint Replacement: No Neurologic Surgery: No Oral Surgery: No Pacemaker: No Thoracic Surgery: No Tonsillectomy: Yes Other Surgery: Yes (lithotripsy) Social History Alcohol Use: No Tobacco Use: No Substance Use: No Allergies-Medications (Allergen,Severity, Reaction): Coded Allergies: Toradol (Verified Allergy, Severe, SWELLING OF THROAT, 09/14/16) Reported Meds & Prescriptions Reported Meds & Active Scripts Active Reported Trazodone (Trazodone HCl) 100 Mg Tablet 100 Mg PO HS Celexa (Citalopram Hydrobromide) 20 Mg Tab 20 Mg PO DAILY Vistaril (Hydroxyzine Pamoate) 50 Mg Cap 50 Mg PO TID PRN Review of Systems Except as stated in HPI: all other systems reviewed are Neg Physical Exam Narrative GENERAL: Well-nourished, well-developed male patient, ambulatory. Afebrile. SKIN: Focused skin assessment warm/dry. HEAD: Normocephalic. Atraumatic. EYES: No scleral icterus. No injection or drainage. NECK: Supple, trachea midline. No JVD or lymphadenopathy. CARDIOVASCULAR: Regular rate and rhythm without murmurs, gallops, or rubs. RESPIRATORY: Breath sounds equal bilaterally. No accessory muscle use. Lungs sounds are clear to auscultation. GASTROINTESTINAL: Abdomen soft, non-tender, nondistended. Patient has tenderness and right lower abdomen/right groin. MUSCULOSKELETAL: No cyanosis, or edema. BACK: Nontender without obvious deformity. No CVA tenderness. Data Data Last Documented VS Vital Signs Date Time Temp Pulse Resp B/P Pulse Ox O2 Delivery O2 Flow Rate FiO2 10/13/16 18:30 16 10/13/16 17:01 52 10/13/16 15:18 98.3 154/84 98 Orders Morphine Inj (Morphine Inj) (10/13/16 17:45) Complete Blood Count With Diff (10/13/16 17:43) Comprehensive Metabolic Panel (10/13/16 17:43) Urinalysis - C+S If Indicated (10/13/16 17:43) Ct Abd/Pel W/O Iv Contrast (10/13/16 17:43) Ecg Monitoring (10/13/16 17:43) Iv Access Insert/Monitor (10/13/16 17:43) Ondansetron Inj (Zofran Inj) (10/13/16 17:45) Sodium Chloride 0.9% Flush (Ns Flush) (10/13/16 17:45) Sodium Chlor 0.9% 1000 Ml Inj (Ns 1000 M (10/13/16 17:43) Urine Culture (10/13/16 17:55) Ceftriaxone Inj (Rocephin Inj) (10/13/16 19:30) Labs Laboratory Tests Test 10/13/16 10/13/16 17:30 17:55 White Blood Count 9.2 TH/MM3 Red Blood Count 4.09 MIL/MM3 Hemoglobin 11.6 GM/DL Hematocrit 32.2 % Mean Corpuscular Volume 78.8 FL Mean Corpuscular Hemoglobin 28.3 PG Mean Corpuscular Hemoglobin 35.9 % Concent Red Cell Distribution Width 15.1 % Platelet Count 228 TH/MM3 Mean Platelet Volume 7.4 FL Neutrophils (%) (Auto) 63.6 % Lymphocytes (%) (Auto) 19.7 % Monocytes (%) (Auto) 6.2 % Eosinophils (%) (Auto) 10.0 % Basophils (%) (Auto) 0.5 % Neutrophils # (Auto) 5.9 TH/MM3 Lymphocytes # (Auto) 1.8 TH/MM3 Monocytes # (Auto) 0.6 TH/MM3 Eosinophils # (Auto) 0.9 TH/MM3 Basophils # (Auto) 0.0 TH/MM3 CBC Comment DIFF FINAL Differential Comment Sodium Level 144 MEQ/L Potassium Level 3.6 MEQ/L Chloride Level 109 MEQ/L Carbon Dioxide Level 26.4 MEQ/L Anion Gap 9 MEQ/L Blood Urea Nitrogen 11 MG/DL Creatinine 1.33 MG/DL Estimat Glomerular Filtration 61 ML/MIN Rate Random Glucose 99 MG/DL Calcium Level 8.8 MG/DL Total Bilirubin 0.4 MG/DL Aspartate Amino Transf 18 U/L (AST/SGOT) Alanine Aminotransferase 33 U/L (ALT/SGPT) Alkaline Phosphatase 100 U/L Total Protein 7.1 GM/DL Albumin 3.7 GM/DL Urine Color YELLOW Urine Turbidity HAZY Urine pH 6.0 Urine Specific Chromo 1.017 Urine Protein 30 mg/dL Urine Glucose (UA) NEG mg/dL Urine Ketones NEG mg/dL Urine Occult Blood MOD Urine Nitrite NEG Urine Bilirubin NEG Urine Urobilinogen LESS THAN 2.0 MG/DL Urine Leukocyte Esterase LARGE Urine RBC /hpf Urine WBC 57 /hpf Urine Squamous Epithelial 1 /hpf Cells Urine Amorphous Sediment RARE Urine Bacteria RARE /hpf Urine Mucus FEW /lpf Urine Yeast (Budding) OCC Microscopic Urinalysis Comment CULTURE INDICATED MDM Medical Decision Making Medical Screen Exam Complete: Yes Emergency Medical Condition: Yes Medical Record Reviewed: Yes Interpretation(s) Last Impressions Abdomen/Pelvis CT 10/13/16 3319 Signed Impressions: Service Date/Time: Thursday, October 13, 2016 18:38 - CONCLUSION: Bilateral double-J stents in place. Interval resolution of right hydronephrosis. No calcifications seen along the course of the right ureter. Bilateral renal calcifications and calcification the left ureter are stable when compared to 09/13/16. Irving De La O MD Differential Diagnosis Nephrolithiasis versus hydronephrosis versus AMAYA versus Narrative Course 36-year-old male presents to the emergency department for evaluation of right lower abdominal pain/right groin pain that worsened today. Patient has history nephrolithiasis with stent placement. CBC shows normal WBC count 9.2, neutrophil count normal at 63.6. Creatinine is 1.33, which is improved since previous visit. UA shows large leukocyte esterase , innumerable WBC, rare bacteria. CT abdomen/pelvis shows bilateral double-J stents in place. Interval resolution of right hydronephrosis. No calcifications seen along the course of the right ureter. Bilateral renal calcifications and calcification the left ureter are stable when compared to 09/13. I discussed the case and findings my attending physician, Dr. Wesley, who agrees with plan and disposition. Patient is given Rocephin 1 g IV in the emergency department. Patient is stable for outpatient follow-up with urologist. He'll be discharged prescription for Lortab for pain and ciprofloxacin. He verbalizes agreement and understanding. Patient is instructed to return for any worsening symptoms of abdominal pain. This could be an early appendicitis but no evidence of appendicitis at this time. I made him aware of this and he agrees. The patient was discharged in stable condition with instructions, including return instructions and follow up instructions. Diagnosis Primary Impression: Complicated UTI (urinary tract infection) Referrals: Urologist 2 days Patient Instructions: General Instructions, Urinary Tract Infection in Men (ED) Additional Instructions: Take antibiotic as directed until gone. Take Lortab as instructed as needed for pain. Caution this can make you drowsy so do not drive after taking. Follow-up with urologist. Return to the emergency department for any acute worsening of symptoms. Med/Other Pt SpecificInfo: Prescription(s) given Scripts Ciprofloxacin 500 Mg Fan939 Mg PO BID 10 Days Ref 0 Prov:Bridget Paez 10/13/16 Hydrocodone-Acetaminophen (Lortab)5-325 Mg Tab1 Tab PO Q6H PRN (PAIN) #12 TAB Ref 0 Prov:Nella Rockwell MD 10/13/16 Disposition: 01 DISCHARGE HOME Condition: Stable Bridget Paez Oct 13, 2016 17:47
[2016-10-13 18:30] VITALS: RESP 16
[2016-10-13 18:38] LABS: AUTOMATED NEUTROPHIL # 5.9 TH/MM3 (1.8-7.7); BASOPHIL % 0.5 % (0.0-2.0); EOSINOPHIL # 0.9 TH/MM3 (0-0.4); HEMATOCRIT 32.2 % (39.0-51.0); HEMO FLAGS DIFF FINAL; LYMPH % 19.7 % (9.0-44.0); LYMPHOCYTE # 1.8 TH/MM3 (1.0-4.8); MEAN CELL VOLUME 78.8 FL (80.0-100.0); MEAN CORPUSCULAR HEMOGLOBIN 28.3 PG (27.0-34.0); MEAN CORPUSCULAR HGB CONC 35.9 % (32.0-36.0); MONO % 6.2 % (0.0-8.0); NEUT % 63.6 % (16.0-70.0); PLATELET COUNT 228 TH/MM3 (150-450); RED BLOOD COUNT 4.09 MIL/MM3 (4.50-5.90); RED CELL DISTRIBUTION WIDTH 15.1 % (11.6-17.2); WHITE BLOOD COUNT 9.2 TH/MM3 (4.0-11.0)
[2016-10-13 18:41] LABS: BACTERIA, URINE RARE /hpf; BLOOD, URINE MOD (NEG); COMMENT (UR) CULTURE INDICATED; CULTURE IF INDICATED CULTURE INDICATED; GLUCOSE,URINE NEG (NEG); KETONE, URINE NEG (NEG); MUCUS URINE FEW /lpf (OCC); NITRITE,URINE NEG (NEG); SQUAMOUS EPITHELIAL CELL URINE 1 /hpf (0-5); URINE COLOR YELLOW (YELLW/STRAW)
[2016-10-13 18:53] LABS: ANION GAP 9 MEQ/L (5-15); AST (GOT) 18 U/L (15-37); BICARBONATE 26.4 MEQ/L (21.0-32.0); BLOOD UREA NITROGEN 11 MG/DL (7-18); CHLORIDE 109 MEQ/L (98-107); GLOMERULAR FILTRATION RATE 61 ML/MIN (>89); POTASSIUM 3.6 MEQ/L (3.5-5.1); SODIUM (NA) 144 MEQ/L (136-145)
[2016-10-13 18:54] LABS: ALT (GPT) 33 U/L (12-78)
[2016-10-13 18:56] LABS: ALKALINE PHOSPHATASE 100 U/L (45-117); TOTAL BILIRUBIN ADULT 0.4 MG/DL (0.2-1.0)
--- NOTE | 2016-10-13 19:13 | RADRPT ---
EXAM DATE/TIME: 10/13/2016 18:38 [facility] COMPARISON: CT ABDOMEN & PELVIS W/O CONTRAST, September 13, 2016, 20:00. INDICATIONS : Right lower abdomen pain today. ORAL CONTRAST: No oral contrast ingested. RADIATION DOSE: 8.51 CTDIvol (mGy) MEDICAL HISTORY : Renal calculi. SURGICAL HISTORY : lithotripsy, ureter stent ENCOUNTER: Initial ACUITY: 1 day PAIN SCALE: 9/10 LOCATION: Right lower quadrant TECHNIQUE: Volumetric scanning of the abdomen and pelvis was performed. Using automated exposure control and ad justment of the mA and/or kV according to patient size, radiation dose was kept as low as reasonably achievable to obtain optimal diagnostic quality images. DICOM format image data is available electro nically for review and comparison. FINDINGS: Right side: Interval placement of right ureteral stent with decrease in distention of the collecting system. Mul tiple large amorphous renal calcifications in an upper pole measuring up to 1.9 cm are stable in size . The right UPJ stone is no longer present. Left side: Double-J stent in place. Upper pole staghorn calculus measuring up to 2.7 cm and small scattered teo cified stones in the mid and lower pole are similar in appearance to prior. There is a calcified sto ne in the proximal left ureter measuring 7 mm, unchanged from prior. Bladder: Distal loop of both double-J stents are within the urinary bladder lumen. No calcifications within t he lumen. Smooth margins to the bladder. Other: No calcified gallstones. No dilated loops of small or large bowel. The appendix is identified in th e right lower quadrant and has a normal configuration. Scattered sigmoid diverticula. No evidence o f free fluid or free intraperitoneal gas. CONCLUSION: Bilateral double-J stents in place. Interval resolution of right hydronephrosis. No calcifications seen along the course of the right ureter. Bilateral renal calcifications and calcification the left ureter are stable when compared to 09/13/16. Irving De La O MD on October 13, 2016 at 19:06 Board Certified Radiologist. This report was verified electronically.
[2016-10-13] MEDS ORDERED: HYDR-3533 PO (19:23)
[2016-10-13] MEDS ORDERED: CIPR500T2 PO (19:27)
[2016-10-13] MEDS ORDERED: cefTRIAXone INJ 1,000 MG in SODIUM CHLORIDE 0.9% INJ 100 ML IV ONE (19:30)
== END 2016-10-13 20:07 | disposition home or self-care (01) ==
LOC: NEPE 15:16
DX: N39.0 Urinary tract infection, site not specified (principal); Z87.442 Personal history of urinary calculi
CPT/HCPCS: 74176; 80053; 81001; 85025; 87086; 96361; 96374; 96375; 99285; J0696; J2270; J2405; J7030

== ENCOUNTER 2016-11-21 05:12 | Emergency (ER) | payer OTHER ==
[~2016-11-21] VITALS: Ht 182.9 cm; Wt 89.8 kg
[~2016-11-21 05:12] MED LIST changes: -ALLO300 PO; +CIPR500T2 PO; +HYDR-3533 PO; -NORC5TAB PO; -PROM25TA10 PO; -TAMS5CAP PO
[2016-11-21 05:18] VITALS: BP 121/80; PULSE 120; RESP 20; TEMP 98.3; O2SAT 97
[2016-11-21] MEDS ORDERED: IBUP400T20 PO (05:28)
[2016-11-21] MEDS ORDERED: SODIUM CHLOR 0.9% 1000 ML INJ 1,000 ML IV ONE ×2 (05:29→05:30)
[2016-11-21] MEDS ORDERED: HYDROmorphone HCL PF 1 MG/ML VIAL IVS ONE (05:30)
[2016-11-21] MEDS ORDERED: SODIUM CHLORIDE 0.9% FLUSH 10 ML FLUSH IVF PRN (05:30)
[2016-11-21] MEDS ORDERED: ONDANSETRON HCL 4 MG/2 ML VIAL IVP ONE (05:30)
[2016-11-21 05:40] LABS: AUTOMATED NEUTROPHIL # 7.1 TH/MM3 (1.8-7.7); BASOPHIL # 0.1 TH/MM3 (0-0.2); BASOPHIL % 0.9 % (0.0-2.0); EOSINOPHIL # 0.7 TH/MM3 (0-0.4); EOSINOPHIL % 5.1 % (0.0-4.0); LYMPH % 36.9 % (9.0-44.0); LYMPHOCYTE # 5.1 TH/MM3 (1.0-4.8); MEAN CELL VOLUME 80.5 FL (80.0-100.0); MEAN CORPUSCULAR HEMOGLOBIN 26.9 PG (27.0-34.0); MEAN CORPUSCULAR HGB CONC 33.4 % (32.0-36.0); MONO % 5.8 % (0.0-8.0); NEUT % 51.3 % (16.0-70.0); PLATELET COUNT 340 TH/MM3 (150-450); RED BLOOD COUNT 5.47 MIL/MM3 (4.50-5.90); RED CELL DISTRIBUTION WIDTH 14.1 % (11.6-17.2); WHITE BLOOD COUNT 13.8 TH/MM3 (4.0-11.0)
[2016-11-21 05:43] LABS: HEMO FLAGS DIFF FINAL
--- NOTE | 2016-11-21 05:43 | PD ---
HPI Chief Complaint: Abdominal Pain Time Seen by Provider: 05:26 Travel History International Travel<30 days: No Contact w/Intl Traveler<30days: No Traveled to known affect area: No History of Present Illness HPI 36-year-old male with history of recurrent kidney stones. Patient is a process of being evaluated by urologist. Patient states pain is worsening as well as kidney stone right lower quadrant and right flank. No gross hematuria patient has experienced dysuria. Patient rates pain as severe. Patient reports that he went to bed feeling well last evening and awakened at 12:30 AM with severe flank pain. Patient with history of kidney stones. Patient has since place. Patient's had no dysuria frequency urgency or penile discharge. Patient rates pain as severe. No fever no chills. No recent antibiotic use. Patient is followed by Dr. Covarrubias. [facility] Past Medical History Narrative Medical Arthritis anxiety kidney stones with lithotripsy renal stent; tobacco; nursing notes reviewed Hx Anticoagulant Therapy: No Arthritis: Yes (gout) Asthma: No Autoimmune Disease: No Blood Disorders: No Anxiety: Yes Depression: Yes Heart Rhythm Problems: No Cancer: No Cardiovascular Problems: No High Cholesterol: No Chest Pain: No Congestive Heart Failure: No COPD: No Cerebrovascular Accident: No Diabetes: No Diminished Hearing: No Endocrine: No Gastrointestinal Disorders: No GERD: No Glaucoma: No Gout: Yes Headaches: No Hepatitis: No Hiatal Hernia: No Hypertension: No Immune Disorder: No Implanted Vascular Access Dvce: Yes Kidney Stones: Yes Musculoskeletal: No Neurologic: No Psychiatric: Yes (ANXIETY) Reproductive: No Respiratory: No Immunizations Current: No Migraines: No Myocardial Infarction: No Renal Failure: No Seizures: No Sleep Apnea: No Thyroid Disease: No Ulcer: No Past Surgical History Abdominal Surgery: No AICD: No Arteriovenous Shunt: No Body Medical Devices: NEPHROSTOMY LEFT Cardiac Surgery: No Ear Surgery: No Endocrine Surgery: No Eye Surgery: No Genitourinary Surgery: Yes (URETERAL STENT 2007, LEFT LITHOTRIPSY, LEFT URETERAL STENT 04/2016) Gynecologic Surgery: No Insulin Pump: No Joint Replacement: No Neurologic Surgery: No Oral Surgery: No Pacemaker: No Thoracic Surgery: No Tonsillectomy: Yes Other Surgery: Yes (lithotripsy) Social History Alcohol Use: No Tobacco Use: No Substance Use: No Allergies-Medications (Allergen,Severity, Reaction): Coded Allergies: ketorolac (Verified Allergy, Severe, SWELLING OF THROAT, 11/21/16) Reported Meds & Prescriptions Reported Meds & Active Scripts Active Phenergan (Promethazine HCl) 25 Mg Tablet 25 Mg PO Q6H PRN Lortab (Hydrocodone-Acetaminophen) 5-325 Mg Tab 1 Tab PO Q6H PRN Cipro (Ciprofloxacin HCl) 500 Mg Tab 500 Mg PO BID 7 Days Reported Ibuprofen 400 Mg Tab 400 Mg PO Q4H PRN Review of Systems Except as stated in HPI: all other systems reviewed are Neg General / Constitutional: No: Fever, Chills HENT: No: Congestion Cardiovascular: No: Chest Pain or Discomfort Respiratory: No: Shortness of Breath Gastrointestinal: Positive: Nausea, No: Vomiting, Diarrhea, Abdominal Pain Genitourinary: Positive: Dysuria, No: Urgency, Hematuria Musculoskeletal: No: Myalgias, Arthralgias Skin: No Rash Neurologic: No: Weakness Psychiatric: Positive: Anxiety Hematologic/Lymphatic: No: Lymph Node Enlargement Physical Exam Narrative GENERAL: Well-developed well-nourished male in obvious SKIN: Warm and dry. HEAD: Normocephalic. EYES: No scleral icterus. No injection or drainage. NECK: Supple, trachea midline. No JVD or lymphadenopathy. CARDIOVASCULAR: Regular rate and rhythm without murmurs, gallops, or rubs. RESPIRATORY: Breath sounds equal bilaterally. No accessory muscle use. GASTROINTESTINAL: Abdomen soft, non-tender, nondistended. MUSCULOSKELETAL: No cyanosis, or edema. BACK: Nontender without obvious deformity. Right-sided CVA tenderness. Data Data Last Documented VS Vital Signs Date Time Temp Pulse Resp B/P (MAP) Pulse Ox O2 Delivery O2 Flow Rate FiO2 11/21/16 06:34 105 11/21/16 06:07 16 99 Room Air 11/21/16 05:18 98.3 Orders Orders Sodium Chlor 0.9% 1000 Ml Inj (Ns 1000 M (11/21/16 05:30) Complete Blood Count With Diff (11/21/16 05:29) Basic Metabolic Panel (Bmp) (11/21/16 05:29) Urinalysis - C+S If Indicated (11/21/16 05:29) Ct Abd/Pel W/O Iv Contrast (11/21/16 05:29) Ecg Monitoring (11/21/16 05:29) Iv Access Insert/Monitor (11/21/16 05:29) Ondansetron Inj (Zofran Inj) (11/21/16 05:30) Sodium Chloride 0.9% Flush (Ns Flush) (11/21/16 05:30) Sodium Chlor 0.9% 1000 Ml Inj (Ns 1000 M (11/21/16 05:29) Hydromorphone Pf Inj (Dilaudid Pf Inj) (11/21/16 05:30) Urine Culture (11/21/16 06:05) Ciprofloxacin (Cipro) (11/21/16 06:45) Tamsulosin (Flomax) (11/21/16 06:45) Labs Laboratory Tests Test 11/21/16 05:36 11/21/16 06:05 White Blood Count 13.8 TH/MM3 Red Blood Count 5.47 MIL/MM3 Hemoglobin 14.7 GM/DL Hematocrit 44.0 % Mean Corpuscular Volume 80.5 FL Mean Corpuscular Hemoglobin 26.9 PG Mean Corpuscular Hemoglobin Concent 33.4 % Red Cell Distribution Width 14.1 % Platelet Count 340 TH/MM3 Mean Platelet Volume 7.5 FL Neutrophils (%) (Auto) 51.3 % Lymphocytes (%) (Auto) 36.9 % Monocytes (%) (Auto) 5.8 % Eosinophils (%) (Auto) 5.1 % Basophils (%) (Auto) 0.9 % Neutrophils # (Auto) 7.1 TH/MM3 Lymphocytes # (Auto) 5.1 TH/MM3 Monocytes # (Auto) 0.8 TH/MM3 Eosinophils # (Auto) 0.7 TH/MM3 Basophils # (Auto) 0.1 TH/MM3 CBC Comment DIFF FINAL Differential Comment Blood Urea Nitrogen 11 MG/DL Creatinine 1.20 MG/DL Random Glucose 149 MG/DL Calcium Level 8.9 MG/DL Sodium Level 140 MEQ/L Potassium Level 3.4 MEQ/L Chloride Level 105 MEQ/L Carbon Dioxide Level 22.5 MEQ/L Anion Gap 13 MEQ/L Estimat Glomerular Filtration Rate 68 ML/MIN Urine Color YELLOW Urine Turbidity SLIGHT Urine pH 5.5 Urine Specific [place] 1.015 Urine Protein 30 mg/dL Urine Glucose (UA) NEG mg/dL Urine Ketones NEG mg/dL Urine Occult Blood LARGE Urine Nitrite NEG Urine Bilirubin NEG Urine Leukocyte Esterase LARGE Urine RBC 50-99 /hpf Urine WBC 15-19 /hpf Urine Squamous Epithelial Cells 0-5 /hpf Urine Bacteria FEW /hpf Microscopic Urinalysis Comment CULTURE INDICATED MDM Medical Decision Making Medical Screen Exam Complete: Yes Emergency Medical Condition: Yes Medical Record Reviewed: Yes Interpretation(s) CBC & BMP Diagram 11/21/16 05:36 Calcium Level 8.9 Vital Signs Date Time Temp Pulse Resp B/P (MAP) Pulse Ox O2 Delivery O2 Flow Rate FiO2 11/21/16 06:07 112 16 117/72 (87) 99 Room Air 11/21/16 05:18 98.3 120 20 121/80 (94) 97 CT a/p: CONCLUSION: 1. Stable bilateral double-J ureteral stents with stable staghorn and scattered prominent bilateral renal calculi. Stable 1 cm calculus in the mid left ureter. Stable mild prominence of the ureters and collecting systems bilaterally. No evidence for acute obstructive uropathy. 2. Normal appendix. 3. Mild sigmoid diverticulosis. Perez Haro MD on November 21, 2016 at 6:09 Board Certified Radiologist. This report was verified electronically. Urinalysis positive leukocyte Estrace positive white blood cells positive innumerable red blood cells positive rare bacteria culture indicated Differential Diagnosis Obstructive uropathy, ruptured renal calyces, UTI, anemia, leukocytosis, pyelonephritis Narrative Course IV access obtained specimens collected and several resulting Chemistries within normal range white count remains mildly elevated CT abdomen and pelvis reveals bilateral stents in place with persistent right staghorn calculus and left mid ureter stone unchanged from prior study. Patient usually stable and chronic changes persist Patient stable for outpatient management given prescription for brief coverage of oral antibiotic and for pain medication. Patient's previous urine cultures have been positive for enterococcus faecalis sensitive to ciprofloxacin Patient informed of imaging results in stable for outpatient management. Patient reports that he feels well is desirous of being discharged to home is aware that he needs to take all of his antibiotic take pain medication as prescribed and to follow-up with his urologist is also return to the emergency department fever chills increased pain or any concerns. Sepsis Criteria SIRS Criteria (2 or more): Heart rate over 90, WBC > 86546, < 4000 or > 10% bands Sepsis Criteria (SIRS+source): Infect source susp/known (urine) Diagnosis Primary Impression: Flank pain Additional Impression: UTI (urinary tract infection) Referrals: Andrey Covarrubias MD 1 day Urologist call for appointment Patient Instructions: Narcotic given in the ED, General Instructions Additional Instructions: Increase fluid hydration Take medication as prescribed as needed for nausea and/or vomiting Take pain medication as prescribed Follow-up with urologist call office in a.m. to schedule follow-up appointment Return to the emergency department for any concerns Med/Other Pt SpecificInfo: Prescription(s) given Scripts Promethazine (Phenergan) 25 Mg Tablet 25 MG PO Q6H Y for NAUSEA OR VOMITING, #12 TAB 0 Refills Prov: Shikha Gordon MD 11/21/16 Hydrocodone-Acetaminophen (Lortab) 5-325 Mg Tab 1 TAB PO Q6H Y for PAIN, #10 TAB 0 Refills Prov: Shikha Gordon MD 11/21/16 Ciprofloxacin (Cipro) 500 Mg Tab 500 MG PO BID for 7 Days, TAB 0 Refills Prov: Shikha Gordon MD 11/21/16 Disposition: 01 DISCHARGE HOME Condition: Stable Shikha Gordon MD Nov 21, 2016 05:43
[2016-11-21 05:48] LABS: POTASSIUM 3.4 MEQ/L (3.5-5.1)
[2016-11-21 05:51] LABS: BICARBONATE 22.5 MEQ/L (21.0-32.0)
[2016-11-21 06:07] VITALS: BP 117/72; PULSE 112; RESP 16; O2SAT 99
[2016-11-21 06:16] LABS: BLOOD, URINE LARGE (NEG); GLUCOSE,URINE NEG (NEG); KETONE, URINE NEG (NEG); NITRITE,URINE NEG (NEG); PH, URINE 5.5 (5.0-8.5)
--- NOTE | 2016-11-21 06:18 | RADRPT ---
EXAM DATE/TIME: 11/21/2016 05:51 [facility] COMPARISON: CT ABDOMEN & PELVIS W/O CONTRAST, October 13, 2016, 18:38. INDICATIONS : Right sided abdominal pain for 1 day. Positive history of renal calculi. ORAL CONTRAST: No oral contrast ingested. RADIATION DOSE: 16.29 CTDIvol (mGy) MEDICAL HISTORY : Renal calculi. SURGICAL HISTORY : Bilateral renal stents ENCOUNTER: Initial ACUITY: 1 day PAIN SCALE: 10/10 LOCATION: Right lower quadrant TECHNIQUE: Volumetric scanning of the abdomen and pelvis was performed. Using automated exposure control and ad justment of the mA and/or kV according to patient size, radiation dose was kept as low as reasonably achievable to obtain optimal diagnostic quality images. DICOM format image data is available electro nically for review and comparison. FINDINGS: LOWER LUNGS: Lung bases are not imaged. LIVER: Visualized portions of the liver are grossly unremarkable. Gallbladder is within normal limits. SPLEEN: Visualized portions are unremarkable. PANCREAS: Within normal limits. KIDNEYS: There are bilaterally double-J ureteral stents in place. Stable staghorn calculi in the upper and low er poles of the left kidney and mid to lower pole of the right kidney with additional scattered bilat eral calculi unchanged from previous exam. Stable 1 cm calculus in the mid left ureter. Mild prominen ce of the renal collecting systems and ureters bilaterally unchanged from prior exam. ADRENAL GLANDS: Within normal limits. VASCULAR: There is no aortic aneurysm. BOWEL/MESENTERY: The stomach, small bowel, and colon demonstrate no acute abnormality. Appendix is normal. Mild sigmo id diverticulosis. There is no free intraperitoneal air or fluid. ABDOMINAL WALL: Within normal limits. RETROPERITONEUM: There is no lymphadenopathy. BLADDER: Mildly distended. No bladder calculi. REPRODUCTIVE: Within normal limits. INGUINAL: There is no lymphadenopathy or hernia. MUSCULOSKELETAL: Within normal limits for patient age. CONCLUSION: 1. Stable bilateral double-J ureteral stents with stable staghorn and scattered prominent bilateral r enal calculi. Stable 1 cm calculus in the mid left ureter. Stable mild prominence of the ureters and collecting systems bilaterally. No evidence for acute obstructive uropathy. 2. Normal appendix. 3. Mild sigmoid diverticulosis. Perez Haro MD on November 21, 2016 at 6:09 Board Certified Radiologist. This report was verified electronically.
[2016-11-21 06:21] LABS: URINE COLOR YELLOW (YELLW/STRAW)
[2016-11-21 06:22] LABS: BACTERIA, URINE FEW /hpf; COMMENT (UR) CULTURE INDICATED; CULTURE IF INDICATED CULTURE INDICATED; SQUAMOUS EPITHELIAL CELL URINE 0-5 /hpf (0-5); WBC, URINE 15-19 /hpf (0-5)
[2016-11-21] MEDS ORDERED: PROM25TA10 PO (06:29)
[2016-11-21] MEDS ORDERED: HYDR-3533 PO (06:29)
[2016-11-21] MEDS ORDERED: CIPR-9 PO (06:29)
[2016-11-21 06:34] VITALS: PULSE 105
[2016-11-21] MEDS ORDERED: CIPROFLOXACIN 500 MG TAB PO ONE (06:45)
[2016-11-21] MEDS ORDERED: TAMSULOSIN HCL 0.4 MG CAP PO ONE (06:45)
== END 2016-11-21 06:49 | disposition home or self-care (01) ==
LOC: PHED 05:12
DX: R10.9 Unspecified abdominal pain (principal); N39.0 Urinary tract infection, site not specified
CPT/HCPCS: 74176; 80048; 81001; 85025; 87086; 96361; 96374; 96375; 99285; J1170; J2405; J7030

== ENCOUNTER 2016-12-16 10:21 | Emergency (ER) | payer SELFPAY ==
[~2016-12-16] VITALS: Ht 182.9 cm; Wt 90.9 kg
[~2016-12-16 10:21] MED LIST changes: -CELE20TA PO; +CIPR-9 PO; -CIPR500T2 PO; +IBUP400T20 PO; +PROM25TA10 PO; -TRAZ100T6 PO; -VIST50CA PO
[2016-12-16] MEDS ORDERED: SODIUM CHLOR 0.9% 1000 ML INJ 1,000 ML IV ONE (10:31)
[2016-12-16] MEDS ORDERED: ALLO100T PO (10:32)
[2016-12-16 10:33] VITALS: BP 153/95; PULSE 119; RESP 18; TEMP 97.9; O2SAT 98
[2016-12-16] MEDS ORDERED: ONDANSETRON HCL 4 MG/2 ML VIAL IV PUSH ONE (10:45)
[2016-12-16] MEDS ORDERED: HYDROmorphone HCL PF 1 MG/ML VIAL IV PUSH ONE ×2 (10:45→12:30)
[2016-12-16 10:49] LABS: AUTOMATED NEUTROPHIL # 5.9 TH/MM3 (1.8-7.7); BASOPHIL % 0.5 % (0.0-2.0); EOSINOPHIL # 0.7 TH/MM3 (0-0.4); EOSINOPHIL % 7.7 % (0.0-4.0); HEMATOCRIT 38.6 % (39.0-51.0); HEMO FLAGS DIFF FINAL; LYMPH % 16.2 % (9.0-44.0); LYMPHOCYTE # 1.4 TH/MM3 (1.0-4.8); MEAN CELL VOLUME 82.2 FL (80.0-100.0); MEAN CORPUSCULAR HEMOGLOBIN 27.4 PG (27.0-34.0); MEAN CORPUSCULAR HGB CONC 33.3 % (32.0-36.0); MONO % 8.6 % (0.0-8.0); PLATELET COUNT 269 TH/MM3 (150-450); RED CELL DISTRIBUTION WIDTH 13.8 % (11.6-17.2); WHITE BLOOD COUNT 8.8 TH/MM3 (4.0-11.0)
[2016-12-16 10:52] VITALS: BP 140/96; PULSE 112; RESP 17; O2SAT 97
[2016-12-16 11:02] VITALS: BP 135/97; PULSE 110; RESP 15; TEMP 98; O2SAT 97
[2016-12-16 11:19] LABS: BLOOD, URINE LARGE (NEG); GLUCOSE,URINE NEG (NEG); KETONE, URINE NEG (NEG); NITRITE,URINE NEG (NEG)
[2016-12-16 11:22] LABS: CHLORIDE 103 MEQ/L (98-107); POTASSIUM 3.3 MEQ/L (3.5-5.1); SODIUM (NA) 140 MEQ/L (136-145)
[2016-12-16 11:23] LABS: COMMENT (UR) CULTURE INDICATED; CULTURE IF INDICATED CULTURE INDICATED; METHOD OF COLLECTION CLEAN CATCH; RBC, URINE INNUM /hpf (0-3); SQUAMOUS EPITHELIAL CELL URINE 0-5 /hpf (0-5); URINE COLOR RED (YELLW/STRAW)
[2016-12-16 11:25] LABS: ANION GAP 11 MEQ/L (5-15); BICARBONATE 26.5 MEQ/L (21.0-32.0); BLOOD UREA NITROGEN 15 MG/DL (7-18)
[2016-12-16 11:28] LABS: ALT (GPT) 15 U/L (12-78); AST (GOT) 11 U/L (15-37)
[2016-12-16 11:29] LABS: GLOMERULAR FILTRATION RATE 53 ML/MIN (>89)
[2016-12-16 11:30] LABS: TOTAL BILIRUBIN ADULT 0.6 MG/DL (0.2-1.0)
[2016-12-16] MEDS ORDERED: cefTRIAXone INJ 1,000 MG in SODIUM CHLORIDE 0.9% INJ 100 ML IV ONE (11:30)
[2016-12-16] MEDS ORDERED: POTASSIUM CHLORIDE 10 MEQ CONTROLLED RELEASE TAB PO ONE (11:30)
[2016-12-16 11:31] LABS: ALKALINE PHOSPHATASE 87 U/L (45-117)
[2016-12-16 11:48] VITALS: BP 140/93; PULSE 92; RESP 17; O2SAT 95
--- NOTE | 2016-12-16 11:49 | RADRPT ---
EXAM DATE/TIME: 12/16/2016 11:25 [facility] COMPARISON: CT ABDOMEN & PELVIS W/O CONTRAST, November 21, 2016, 5:51. INDICATIONS : Right flank pain with nausea since last night. ORAL CONTRAST: No oral contrast ingested. RADIATION DOSE: 20.80 CTDIvol (mGy) MEDICAL HISTORY : Renal calculi. Recurrent urinary tract infections. SURGICAL HISTORY : Lithotripsy. Left ureteral stent. ENCOUNTER: Initial ACUITY: 2 days PAIN SCALE: 5/10 LOCATION: Right flank TECHNIQUE: Volumetric scanning of the abdomen and pelvis was performed. Using automated exposure control and ad justment of the mA and/or kV according to patient size, radiation dose was kept as low as reasonably achievable to obtain optimal diagnostic quality images. DICOM format image data is available electro nically for review and comparison. FINDINGS: LOWER LUNGS: The visualized lower lungs are clear. LIVER: Visualized portions are focally unremarkable SPLEEN: Visualized portions are focally unremarkable PANCREAS: Within normal limits. KIDNEYS: Multiple large bilateral stones again noted. Bilateral ureteral stents in place. Interval increase in upper tract dilatation, particularly on the right likely reflecting stent obstruction. A slightly gr eater than 1 cm calculus in the left mid ureter is unchanged in position. There is a new slightly gre ater than 1 cm stone adjacent to the stent in the proximal left ureter. ADRENAL GLANDS: Within normal limits. VASCULAR: There is no aortic aneurysm. BOWEL/MESENTERY: The stomach, small bowel, and colon demonstrate no acute abnormality. There is no free intraperitone al air or fluid. ABDOMINAL WALL: Within normal limits. RETROPERITONEUM: There is no lymphadenopathy. BLADDER: No wall thickening or mass. REPRODUCTIVE: Within normal limits. INGUINAL: There is no lymphadenopathy or hernia. MUSCULOSKELETAL: Stable CONCLUSION: Slight interval increase in upper tract collecting system dilatation bilaterally, right worse than le ft likely indicative of ureteral stent obstruction. Franco Carlos MD on December 16, 2016 at 11:37 Board Certified Radiologist. This report was verified electronically.
[2016-12-16] MEDS ORDERED: PERC10TA27 PO (12:13)
[2016-12-16] MEDS ORDERED: AUGM875T3 PO (12:13)
[2016-12-16] MEDS ORDERED: TAMS5CAP PO (12:13)
[2016-12-16] MEDS ORDERED: ZOFR4TAB3 SL (12:13)
--- NOTE | 2016-12-16 12:14 | PD ---
HPI Chief Complaint: Flank/Kidney Pain Time Seen by Provider: 10:30 Travel History International Travel<30 days: No Contact w/Intl Traveler<30days: No Traveled to known affect area: No History of Present Illness HPI C/O RIGHT FLANK PAIN, RAD DOWN TO RLQ AREA, STATES FOLLOWS DR NORWOOD AND HAS A URETERAL STENT. 10/23, NOT ASSOC WITH FEVER/N/V/D/CUEVA/ PFSH Past Medical History Hx Anticoagulant Therapy: No Arthritis: Yes (gout) Asthma: No Autoimmune Disease: No Blood Disorders: No Anxiety: Yes Depression: Yes Heart Rhythm Problems: No Cancer: No Cardiovascular Problems: No High Cholesterol: No Chest Pain: No Congestive Heart Failure: No COPD: No Cerebrovascular Accident: No Diabetes: No Diminished Hearing: No Endocrine: No Gastrointestinal Disorders: No GERD: No Glaucoma: No Gout: Yes Headaches: No Hepatitis: No Hiatal Hernia: No Hypertension: No Immune Disorder: No Implanted Vascular Access Dvce: Yes Kidney Stones: Yes Musculoskeletal: No Neurologic: No Psychiatric: Yes (ANXIETY) Reproductive: No Respiratory: No Immunizations Current: No Migraines: No Myocardial Infarction: No Renal Failure: No Seizures: No Sleep Apnea: No Thyroid Disease: No Ulcer: No Past Surgical History Abdominal Surgery: No AICD: No Arteriovenous Shunt: No Body Medical Devices: NEPHROSTOMY LEFT Cardiac Surgery: No Ear Surgery: No Endocrine Surgery: No Eye Surgery: No Genitourinary Surgery: Yes (URETERAL STENT 2007, LEFT LITHOTRIPSY, LEFT URETERAL STENT 04/2016) Gynecologic Surgery: No Insulin Pump: No Joint Replacement: No Neurologic Surgery: No Oral Surgery: No Pacemaker: No Thoracic Surgery: No Tonsillectomy: Yes Other Surgery: Yes (lithotripsy) Social History Alcohol Use: No Tobacco Use: No (CHEWS TOBACCO) Substance Use: No Allergies-Medications (Allergen,Severity, Reaction): Coded Allergies: ketorolac (Verified Allergy, Severe, SWELLING OF THROAT, 12/16/16) Reported Meds & Prescriptions Reported Meds & Active Scripts Active Reported Allopurinol 100 Mg Tab 100 Mg PO DAILY Review of Systems Except as stated in HPI: all other systems reviewed are Neg Genitourinary: Positive: Hematuria, Flank Pain Physical Exam Narrative GENERAL: SKIN: Warm and dry. HEAD: Atraumatic. Normocephalic. EYES: Pupils equal and round. No scleral icterus. No injection or drainage. ENT: No nasal bleeding or discharge. Mucous membranes pink and moist. NECK: Trachea midline. No JVD. CARDIOVASCULAR: Regular rate and rhythm. RESPIRATORY: No accessory muscle use. Clear to auscultation. Breath sounds equal bilaterally. GASTROINTESTINAL: Abdomen soft, non-tender, nondistended. MUSCULOSKELETAL: Extremities without clubbing, cyanosis, or edema. No obvious deformities. NEUROLOGICAL: Awake and alert. No obvious cranial nerve deficits. Motor grossly within normal limits. Five out of 5 muscle strength in the arms and legs. Normal speech. PSYCHIATRIC: Appropriate mood and affect; insight and judgment normal. Data Data Last Documented VS Vital Signs Date Time Temp Pulse Resp B/P (MAP) Pulse Ox O2 Delivery O2 Flow Rate FiO2 12/16/16 11:48 92 17 140/93 (109) 95 Room Air 12/16/16 11:02 98.0 Orders Orders Complete Blood Count With Diff (12/16/16 10:31) Comprehensive Metabolic Panel (12/16/16 10:31) Urinalysis - C+S If Indicated (12/16/16 10:31) Ct Abd/Pel W/O Iv Contrast (12/16/16 10:31) Ecg Monitoring (12/16/16 10:31) Iv Access Insert/Monitor (12/16/16 10:31) Ondansetron Inj (Zofran Inj) (12/16/16 10:45) Sodium Chlor 0.9% 1000 Ml Inj (Ns 1000 M (12/16/16 10:31) Hydromorphone Pf Inj (Dilaudid Pf Inj) (12/16/16 10:45) Urine Culture (12/16/16 11:07) Ceftriaxone Inj (Rocephin Inj) (12/16/16 11:30) Potassium Chloride (Kcl) (12/16/16 11:30) Labs Laboratory Tests Test 12/16/16 10:40 12/16/16 11:07 White Blood Count 8.8 TH/MM3 Red Blood Count 4.70 MIL/MM3 Hemoglobin 12.9 GM/DL Hematocrit 38.6 % Mean Corpuscular Volume 82.2 FL Mean Corpuscular Hemoglobin 27.4 PG Mean Corpuscular Hemoglobin Concent 33.3 % Red Cell Distribution Width 13.8 % Platelet Count 269 TH/MM3 Mean Platelet Volume 7.2 FL Neutrophils (%) (Auto) 67.0 % Lymphocytes (%) (Auto) 16.2 % Monocytes (%) (Auto) 8.6 % Eosinophils (%) (Auto) 7.7 % Basophils (%) (Auto) 0.5 % Neutrophils # (Auto) 5.9 TH/MM3 Lymphocytes # (Auto) 1.4 TH/MM3 Monocytes # (Auto) 0.8 TH/MM3 Eosinophils # (Auto) 0.7 TH/MM3 Basophils # (Auto) 0.0 TH/MM3 CBC Comment DIFF FINAL Differential Comment Blood Urea Nitrogen 15 MG/DL Creatinine 1.50 MG/DL Random Glucose 135 MG/DL Total Protein 7.6 GM/DL Albumin 3.9 GM/DL Calcium Level 9.5 MG/DL Alkaline Phosphatase 87 U/L Aspartate Amino Transf (AST/SGOT) 11 U/L Alanine Aminotransferase (ALT/SGPT) 15 U/L Total Bilirubin 0.6 MG/DL Sodium Level 140 MEQ/L Potassium Level 3.3 MEQ/L Chloride Level 103 MEQ/L Carbon Dioxide Level 26.5 MEQ/L Anion Gap 11 MEQ/L Estimat Glomerular Filtration Rate 53 ML/MIN Urine Collection Type CLEAN CATCH Urine Color RED Urine Turbidity CLOUDY Urine pH 6.0 Urine Specific [place] 1.015 Urine Protein 300 OR GREATER mg/dL Urine Glucose (UA) NEG mg/dL Urine Ketones NEG mg/dL Urine Occult Blood LARGE Urine Nitrite NEG Urine Bilirubin NEG Urine Leukocyte Esterase MOD Urine RBC INNUM /hpf Urine WBC 9-14 /hpf Urine WBC Clumps MOD Urine Squamous Epithelial Cells 0-5 /hpf Microscopic Urinalysis Comment CULTURE INDICATED MDM Medical Decision Making Medical Screen Exam Complete: Yes Emergency Medical Condition: Yes Medical Record Reviewed: Yes Differential Diagnosis PYELO V URETERAL STONE V STENT RELATED PAIN Narrative Course PATIENT FOUND TO HAVE UTI , GIVEN ROCEPHIN IV, PT TOLERATING PO, PAIN CONTROLLED , WILL D/C TO FOLLOW UP WITH DR NORWOOD WHO PLACED URETERAL STENT. Diagnosis Primary Impression: UTI (urinary tract infection) Qualified Codes: N30.01 - Acute cystitis with hematuria Additional Impression: URETEROLITHIASIS Referrals: Andrey Norwood MD FOR FURTHER EVALUATION AND CARE OF YOUR STENT Patient Instructions: General Instructions, Kidney Stones (ED), Urinary Tract Infection in Men (DC) Scripts Ondansetron Odt (Zofran Odt) 4 Mg Tab 4 MG SL Q6HR Y for Nausea/Vomiting, #20 TAB 0 Refills Prov: [place],Delta Olu MD 12/16/16 Oxycodone-Acetaminophen (Percocet) 10-325 mg Tab 1 TAB PO Q4H Y for PAIN, #20 TAB 0 Refills Prov: Delta Moraes MD 12/16/16 Tamsulosin (Flomax) 0.4 Mg Cap 0.8 MG PO HS for Manage Prostate Problems, #5 CAP 0 Refills Prov: Delta Moraes MD 12/16/16 Amoxicillin-Clavulanate (Augmentin) 875-125 Mg Tab 1 TAB PO BID for Infection, #20 TAB 0 Refills Prov: Delta Moraes MD 12/16/16 Disposition: 01 DISCHARGE HOME Condition: Stable Delta Moraes MD Dec 16, 2016 12:14
[2016-12-16 12:25] VITALS: BP 145/100; PULSE 106; RESP 17; O2SAT 96
== END 2016-12-16 13:38 | disposition home or self-care (01) ==
LOC: PHED 10:21
DX: N30.01 Acute cystitis with hematuria (principal); N20.1 Calculus of ureter
CPT/HCPCS: 74176; 80053; 81001; 85025; 87086; 96361; 96365; 96375; 99285; J0696; J1170; J2405; J7030

== ENCOUNTER 2016-12-19 07:36 | Emergency (ER) | payer SELFPAY ==
[~2016-12-19] VITALS: Ht 182.9 cm; Wt 90.5 kg
[~2016-12-19 07:36] MED LIST changes: +ALLO100T PO; +AUGM875T3 PO; +PERC10TA27 PO; +TAMS5CAP PO; +ZOFR4TAB3 SL
[2016-12-19 07:53] VITALS: BP 141/86; PULSE 100; RESP 16; TEMP 98.3; O2SAT 97
[2016-12-19] MEDS ORDERED: PRED20 PO (08:10)
--- NOTE | 2016-12-19 08:14 | PD ---
HPI Chief Complaint: Skin Problem Time Seen by Provider: 07:58 Travel History International Travel<30 days: No Contact w/Intl Traveler<30days: No Traveled to known affect area: No History of Present Illness HPI This 36-year-old male is complaining of pain in his left foot and his left third finger. He has a history of gout and this is the way his gout of appears. He has had multiple attacks since he age of 20. He has been a heavy drinker in the past but has not drank for a year. There is no history of trauma. He does have multiple kidney stones, he is not sure if the uric acid or not. He is on allopurinol one recently started taking it again. 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 PFSH Past Medical History Hx Anticoagulant Therapy: No Arthritis: Yes (gout) Asthma: No Autoimmune Disease: No Blood Disorders: No Anxiety: Yes Depression: Yes Heart Rhythm Problems: No Cancer: No Cardiovascular Problems: No High Cholesterol: No Chest Pain: No Congestive Heart Failure: No COPD: No Cerebrovascular Accident: No Diabetes: No Diminished Hearing: No Endocrine: No Gastrointestinal Disorders: No GERD: No Glaucoma: No Gout: Yes Headaches: No Hepatitis: No Hiatal Hernia: No Hypertension: No Immune Disorder: No Implanted Vascular Access Dvce: Yes Kidney Stones: Yes Musculoskeletal: No Neurologic: No Psychiatric: Yes (ANXIETY) Reproductive: No Respiratory: No Immunizations Current: No Migraines: No Myocardial Infarction: No Renal Failure: No Seizures: No Sleep Apnea: No Thyroid Disease: No Ulcer: No Past Surgical History Abdominal Surgery: No AICD: No Arteriovenous Shunt: No Body Medical Devices: NEPHROSTOMY LEFT Cardiac Surgery: No Ear Surgery: No Endocrine Surgery: No Eye Surgery: No Genitourinary Surgery: Yes (URETERAL STENT 2007, LEFT LITHOTRIPSY, LEFT URETERAL STENT 04/2016) Gynecologic Surgery: No Insulin Pump: No Joint Replacement: No Neurologic Surgery: No Oral Surgery: No Pacemaker: No Thoracic Surgery: No Tonsillectomy: Yes Other Surgery: Yes (lithotripsy) Social History Alcohol Use: No Tobacco Use: No (CHEWS TOBACCO) Substance Use: No Allergies-Medications (Allergen,Severity, Reaction): Coded Allergies: ketorolac (Verified Allergy, Severe, SWELLING OF THROAT, 12/19/16) Reported Meds & Prescriptions Reported Meds & Active Scripts Active Prednisone 20 Mg Tab 20 Mg PO DIRECTED Take 60 MG daily x 4 days, then 40 MG x 4 days, then 20 MG daily x 4 days. Percocet (Oxycodone-Acetaminophen) 10-325 mg Tab 1 Tab PO Q4H PRN Reported Allopurinol 100 Mg Tab 100 Mg PO DAILY Review of Systems General / Constitutional: No: Fever, Chills Eyes: No: Diploplia, Blurred Vision HENT: No: Headaches, Vertigo Cardiovascular: No: Chest Pain or Discomfort, Palpitations Respiratory: No: Cough Gastrointestinal: No: Nausea, Vomiting, Diarrhea Genitourinary: No: Dysuria Musculoskeletal: Positive: Arthralgias, Pain Skin: Positive Rash Neurologic: No: Weakness Endocrine: No: Heat Intolerance Hematologic/Lymphatic: No: Easy Bruising Physical Exam Narrative GENERAL: Well-developed male SKIN: Focused skin assessment warm/dry. HEAD: Atraumatic. Normocephalic. EYES: Pupils equal and round. No scleral icterus. No injection or drainage. ENT: No nasal bleeding or discharge. Mucous membranes pink and moist. NECK: Trachea midline. No JVD. CARDIOVASCULAR: Regular rate and rhythm. No murmur appreciated. RESPIRATORY: No accessory muscle use. Clear to auscultation. Breath sounds equal bilaterally. GASTROINTESTINAL: Abdomen soft, non-tender, nondistended. Hepatic and splenic margins not palpable. MUSCULOSKELETAL: No obvious deformities. No clubbing. No cyanosis. No edema. Left third finger is swollen over the proximal phalanx. It is tender. The left first metacarpophalangeal joint is swollen and tender. He has pain with any movement of the foot NEUROLOGICAL: Awake and alert. No obvious cranial nerve deficits. Motor grossly within normal limits. Normal speech. PSYCHIATRIC: Appropriate mood and affect; insight and judgment normal. Data Data Last Documented VS Vital Signs Date Time Temp Pulse Resp B/P (MAP) Pulse Ox O2 Delivery O2 Flow Rate FiO2 12/19/16 07:53 98.3 100 16 141/86 (104) 97 Orders Orders Prednisone (Deltasone) (12/19/16 08:15) MDM Medical Decision Making Medical Screen Exam Complete: Yes Emergency Medical Condition: Yes Medical Record Reviewed: Yes Differential Diagnosis Differential includes acute gouty arthritis, arthritis, Narrative Course Patient has had multiple attacks like this which have been diagnosed as gout. He says that he responds very well to prednisone. I will give him a tapering dose of prednisone to be released. Diagnosis Primary Impression: Gout Scripts Prednisone (Prednisone) 20 Mg Tab 20 MG PO DIRECTED, #24 TAB 0 Refills Take 60 MG daily x 4 days, then 40 MG x 4 days, then 20 MG daily x 4 days. Prov: Louis Figueroa MD 12/19/16 Disposition: 01 DISCHARGE HOME Condition: Stable Louis Figueroa MD Dec 19, 2016 08:14
[2016-12-19] MEDS ORDERED: predniSONE 20 MG TAB PO ONE (08:15)
== END 2016-12-19 08:26 | disposition home or self-care (01) ==
LOC: PHED 07:36
DX: M10.9 Gout, unspecified (principal); R21 Rash and other nonspecific skin eruption; F41.9 Anxiety disorder, unspecified; F32.9 Major depressive disorder, single episode, unspecified; F17.220 Nicotine dependence, chewing tobacco, uncomplicated; Z79.899 Other long term (current) drug therapy; Z87.442 Personal history of urinary calculi
CPT/HCPCS: 99283; J7512

== ENCOUNTER 2016-12-24 10:29 | Emergency (ER) | payer SELFPAY ==
[~2016-12-24] VITALS: Ht 182.9 cm; Wt 90.0 kg
[~2016-12-24 10:29] MED LIST changes: -AUGM875T3 PO; -CIPR-9 PO; -HYDR-3533 PO; -IBUP400T20 PO; +PRED20 PO; -PROM25TA10 PO; -TAMS5CAP PO; -ZOFR4TAB3 SL
[2016-12-24] MEDS ORDERED: IOHEXOL 350 MG/ML 10 ML VIAL (for RAD DIAG) IVCONTRAST ONE (10:30)
[2016-12-24 10:31] VITALS: BP 159/95; PULSE 101; RESP 15; TEMP 99.1; O2SAT 98
[2016-12-24] MEDS ORDERED: SODIUM CHLOR 0.9% 1000 ML INJ 1,000 ML IV SCH (11:47)
[2016-12-24 11:53] VITALS: O2SAT 100
--- NOTE | 2016-12-24 11:53 | PD ---
HPI Chief Complaint: Flank/Kidney Pain Time Seen by Provider: 11:36 Travel History International Travel<30 days: No Contact w/Intl Traveler<30days: No Traveled to known affect area: No History of Present Illness HPI Patient 36-year-old male with a history of recurrent kidney stones and bilateral renal stents presents emergency department for right flank pain which started this morning with severe nature. Patient states did not try anything prior to arrival. He states that his been intubated for the past 4 months but he lost insurance has not been able to follow-up and have them out. He states the pain is severe, right flank radiating to right lower quadrant, associated with dysuria contacts as above. PFSH Past Medical History Hx Anticoagulant Therapy: No Arthritis: Yes (gout) Asthma: No Autoimmune Disease: No Blood Disorders: No Anxiety: Yes Depression: Yes Heart Rhythm Problems: No Cancer: No Cardiovascular Problems: No High Cholesterol: No Chest Pain: No Congestive Heart Failure: No COPD: No Cerebrovascular Accident: No Diabetes: No Diminished Hearing: No Endocrine: No Gastrointestinal Disorders: No GERD: No Glaucoma: No Gout: Yes Headaches: No Hepatitis: No Hiatal Hernia: No Hypertension: No Immune Disorder: No Implanted Vascular Access Dvce: Yes Kidney Stones: Yes Musculoskeletal: No Neurologic: No Psychiatric: Yes (ANXIETY) Reproductive: No Respiratory: No Immunizations Current: No Migraines: No Myocardial Infarction: No Renal Failure: No Seizures: No Sleep Apnea: No Thyroid Disease: No Ulcer: No Past Surgical History Abdominal Surgery: No AICD: No Arteriovenous Shunt: No Body Medical Devices: NEPHROSTOMY LEFT Cardiac Surgery: No Ear Surgery: No Endocrine Surgery: No Eye Surgery: No Genitourinary Surgery: Yes (URETERAL STENT 2007, LEFT LITHOTRIPSY, LEFT URETERAL STENT 04/2016) Gynecologic Surgery: No Insulin Pump: No Joint Replacement: No Neurologic Surgery: No Oral Surgery: No Pacemaker: No Thoracic Surgery: No Tonsillectomy: Yes Other Surgery: Yes (lithotripsy) Social History Alcohol Use: No Tobacco Use: No (CHEWS TOBACCO) Substance Use: No Allergies-Medications (Allergen,Severity, Reaction): Coded Allergies: ketorolac (Verified Allergy, Severe, SWELLING OF THROAT, 12/24/16) Reported Meds & Prescriptions Reported Meds & Active Scripts Active Prednisone 20 Mg Tab 20 Mg PO DIRECTED Take 60 MG daily x 4 days, then 40 MG x 4 days, then 20 MG daily x 4 days. Percocet (Oxycodone-Acetaminophen) 10-325 mg Tab 1 Tab PO Q4H PRN Reported Allopurinol 100 Mg Tab 100 Mg PO DAILY Review of Systems Except as stated in HPI: all other systems reviewed are Neg Physical Exam Narrative GENERAL: Well-developed well-nourished, mildly discomfort SKIN: Focused skin assessment warm/dry. HEAD: Atraumatic. Normocephalic. EYES: Pupils equal and round. No scleral icterus. No injection or drainage. ENT: No nasal bleeding or discharge. Mucous membranes pink and moist. NECK: Trachea midline. No JVD. CARDIOVASCULAR: Regular rate and rhythm. No murmur appreciated. RESPIRATORY: No accessory muscle use. Clear to auscultation. Breath sounds equal bilaterally. GASTROINTESTINAL: Abdomen soft, non-tender, nondistended. Hepatic and splenic margins not palpable. CVA tenderness on the right. MUSCULOSKELETAL: No obvious deformities. No clubbing. No cyanosis. No edema. NEUROLOGICAL: Awake and alert. No obvious cranial nerve deficits. Motor grossly within normal limits. Normal speech. PSYCHIATRIC: Appropriate mood and affect; insight and judgment normal. Data Data Last Documented VS Vital Signs Date Time Temp Pulse Resp B/P (MAP) Pulse Ox O2 Delivery O2 Flow Rate FiO2 12/24/16 14:19 12/24/16 14:19 16 12/24/16 11:53 100 Room Air 12/24/16 10:31 99.1 101 Orders Orders Urinalysis - C+S If Indicated (12/24/16 11:28) Basic Metabolic Panel (Bmp) (12/24/16 11:47) Complete Blood Count With Diff (12/24/16 11:47) Iv Access Insert/Monitor (12/24/16 11:47) Ecg Monitoring (12/24/16 11:47) Oximetry (12/24/16 11:47) Ondansetron Inj (Zofran Inj) (12/24/16 12:00) Sodium Chlor 0.9% 1000 Ml Inj (Ns 1000 M (12/24/16 11:47) Sodium Chloride 0.9% Flush (Ns Flush) (12/24/16 12:00) Morphine Inj (Morphine Inj) (12/24/16 12:00) Urine Culture (12/24/16 11:42) Ct Abd/Pel W Iv Contrast(Rout) (12/24/16 ) Iohexol 350 Inj (Omnipaque 350 Inj) (12/24/16 10:30) Ed Discharge Order (12/24/16 14:16) Labs Laboratory Tests Test 12/24/16 11:42 12/24/16 12:15 Urine Color YELLOW Urine Turbidity HAZY Urine pH 6.0 Urine Specific [place] 1.012 Urine Protein TRACE mg/dL Urine Glucose (UA) NEG mg/dL Urine Ketones NEG mg/dL Urine Occult Blood MOD Urine Nitrite NEG Urine Bilirubin NEG Urine Urobilinogen LESS THAN 2.0 MG/DL Urine Leukocyte Esterase LARGE Urine RBC /hpf Urine WBC 29 /hpf Urine Squamous Epithelial Cells 1 /hpf Urine Bacteria RARE /hpf Urine Mucus FEW /lpf Urine Yeast (Budding) OCC Microscopic Urinalysis Comment CULTURE INDICATED White Blood Count 12.1 TH/MM3 Red Blood Count 4.43 MIL/MM3 Hemoglobin 12.6 GM/DL Hematocrit 36.5 % Mean Corpuscular Volume 82.5 FL Mean Corpuscular Hemoglobin 28.4 PG Mean Corpuscular Hemoglobin Concent 34.4 % Red Cell Distribution Width 14.5 % Platelet Count 293 TH/MM3 Mean Platelet Volume 7.0 FL Neutrophils (%) (Auto) 65.1 % Lymphocytes (%) (Auto) 24.9 % Monocytes (%) (Auto) 8.0 % Eosinophils (%) (Auto) 1.8 % Basophils (%) (Auto) 0.2 % Neutrophils # (Auto) 7.9 TH/MM3 Lymphocytes # (Auto) 3.0 TH/MM3 Monocytes # (Auto) 1.0 TH/MM3 Eosinophils # (Auto) 0.2 TH/MM3 Basophils # (Auto) 0.0 TH/MM3 CBC Comment DIFF FINAL Differential Comment Blood Urea Nitrogen 20 MG/DL Creatinine 1.44 MG/DL Random Glucose 83 MG/DL Calcium Level 9.2 MG/DL Sodium Level 139 MEQ/L Potassium Level 3.5 MEQ/L Chloride Level 104 MEQ/L Carbon Dioxide Level 26.3 MEQ/L Anion Gap 9 MEQ/L Estimat Glomerular Filtration Rate 55 ML/MIN [facility] Medical Decision Making Medical Screen Exam Complete: Yes Emergency Medical Condition: Yes Differential Diagnosis Kidney stone, appendicitis seems unlikely, obstruction, urinary tract infection. Narrative Course Patient roomed in the emergency department, given morphine is allergic to Toradol, CAT scan reveals bilateral staghorn calculi with renal stents in good position without obstruction. Labs otherwise reassuring. Mild hematuria without evidence of infection. The patient was discussed to follow-up with his urologist. He is feeling better and stable for discharge. Diagnosis Primary Impression: Flank pain Referrals: Damian Villatoro DO Disposition: 01 DISCHARGE HOME Condition: Stable Eugene Currie MD Dec 24, 2016 11:52
[2016-12-24] MEDS ORDERED: SODIUM CHLORIDE 0.9% FLUSH 10 ML FLUSH IV FLUSH PRN (12:00)
[2016-12-24] MEDS ORDERED: ONDANSETRON HCL 4 MG/2 ML VIAL IVP ONE (12:00)
[2016-12-24] MEDS ORDERED: MORPHINE SULFATE 4 MG/ML INJ IV PUSH ONE (12:00)
[2016-12-24 12:19] LABS: BACTERIA, URINE RARE /hpf; BLOOD, URINE MOD (NEG); COMMENT (UR) CULTURE INDICATED; CULTURE IF INDICATED CULTURE INDICATED; GLUCOSE,URINE NEG (NEG); KETONE, URINE NEG (NEG); MUCUS URINE FEW /lpf (OCC); NITRITE,URINE NEG (NEG); SQUAMOUS EPITHELIAL CELL URINE 1 /hpf (0-5); URINE COLOR YELLOW (YELLW/STRAW)
[2016-12-24 12:25] LABS: AUTOMATED NEUTROPHIL # 7.9 TH/MM3 (1.8-7.7); BASOPHIL % 0.2 % (0.0-2.0); EOSINOPHIL # 0.2 TH/MM3 (0-0.4); EOSINOPHIL % 1.8 % (0.0-4.0); HEMATOCRIT 36.5 % (39.0-51.0); HEMO FLAGS DIFF FINAL; LYMPH % 24.9 % (9.0-44.0); MEAN CELL VOLUME 82.5 FL (80.0-100.0); MEAN CORPUSCULAR HEMOGLOBIN 28.4 PG (27.0-34.0); MEAN CORPUSCULAR HGB CONC 34.4 % (32.0-36.0); NEUT % 65.1 % (16.0-70.0); PLATELET COUNT 293 TH/MM3 (150-450); RED BLOOD COUNT 4.43 MIL/MM3 (4.50-5.90); RED CELL DISTRIBUTION WIDTH 14.5 % (11.6-17.2); WHITE BLOOD COUNT 12.1 TH/MM3 (4.0-11.0)
[2016-12-24 12:41] LABS: BICARBONATE 26.3 MEQ/L (21.0-32.0); POTASSIUM 3.5 MEQ/L (3.5-5.1)
--- NOTE | 2016-12-24 14:00 | RADRPT ---
EXAM DATE/TIME: 12/24/2016 13:38 [facility] COMPARISON: CT ABDOMEN & PELVIS W CONTRAST, June 12, 2016, 12:09. INDICATIONS : Right sided flank pain with painful urination since yesterday. IV CONTRAST: 90 cc Omnipaque 350 (iohexol) IV ORAL CONTRAST: No oral contrast ingested. RADIATION DOSE: 11.52 CTDIvol (mGy) MEDICAL HISTORY : Renal calculi. Renal insufficiency. SURGICAL HISTORY : Lithotripsy. Bilateral ureteral stents. ENCOUNTER: Initial ACUITY: 2 days PAIN SCALE: 8/10 LOCATION: Right flank region. TECHNIQUE: Volumetric scanning of the abdomen and pelvis was performed. Using automated exposure control and ad justment of the mA and/or kV according to patient size, radiation dose was kept as low as reasonably achievable to obtain optimal diagnostic quality images. DICOM format image data is available electro nically for review and comparison. FINDINGS: LOWER LUNGS: The visualized lower lungs are clear. LIVER: Scattered small low-density lesions in the liver. SPLEEN: Mildly prominent PANCREAS: Within normal limits. KIDNEYS: Large bilateral renal I. are noted adrenal stents in good position without obstruction. ADRENAL GLANDS: Within normal limits. VASCULAR: There is no aortic aneurysm. BOWEL/MESENTERY: The stomach, small bowel, and colon demonstrate no acute abnormality. There is no free intraperitone al air or fluid. ABDOMINAL WALL: Within normal limits. RETROPERITONEUM: There is no lymphadenopathy. BLADDER: No wall thickening or mass. REPRODUCTIVE: Within normal limits. INGUINAL: There is no lymphadenopathy or hernia. MUSCULOSKELETAL: Within normal limits for patient age. CONCLUSION: Bilateral staghorn calculi with renal stents in good position. There is no obstruction. Scott Dozier MD FACR on December 24, 2016 at 13:56 Board Certified Radiologist. This report was verified electronically.
[2016-12-24 14:19] VITALS: RESP 16
== END 2016-12-24 14:40 | disposition home or self-care (01) ==
LOC: NEPD 10:29
DX: R10.31 Right lower quadrant pain (principal); Z87.442 Personal history of urinary calculi; M10.9 Gout, unspecified
CPT/HCPCS: 74177; 80048; 81001; 85025; 87086; 96361; 96374; 96375; 99285; J2270; J2405; J7030; Q9967

== ENCOUNTER 2017-01-01 12:59 | Emergency (ER) | payer SELFPAY ==
[~2017-01-01] VITALS: Ht 182.9 cm; Wt 90.0 kg
[2017-01-01 13:03] VITALS: BP 125/86; PULSE 114; RESP 16; TEMP 99; O2SAT 98
--- NOTE | 2017-01-01 13:24 | PD ---
HPI . Left knee and right third digit pain Chief Complaint: Musculoskeletal Complaint Time Seen by Provider: 13:10 Travel History International Travel<30 days: No Contact w/Intl Traveler<30days: No Traveled to known affect area: No History of Present Illness HPI 36-year-old male patient presents emergency department for evaluation of left knee pain and left third digit pain. Patient has a history of gout and kidney stones. Patient states this is how his gout presents. Patient was seen at our facility recently with the same complaint. He was discharged home on prednisone. He said the prednisone worked great but he is currently out. Patient states the pain started last night and worsened into this morning. Patient is ambulatory with his cane. The third digit on the left hand is mildly edematous no obvious deformity, ecchymosis or erythema. Patient states that the third digit on his left hand has been edematous for a long period of time however the pain is increasing since last night similar to the left knee. The left knee is tender to touch, however there is no signs of trauma, effusion , obvious deformity, ecchymosis or erythema. Patient can fully extend the left knee and has limited range of motion with flexion secondary to pain. Patient denies any IV drug use. Patient denies any fevers, chills, malaise. Patient denies any hematuria or dysuria. Patient denies any chest pain, shortness breath, abdominal pain. 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) Musculoskeletal: No Neurologic: No Psychiatric: Yes (ANXIETY) Reproductive: No Respiratory: No Immunizations Current: Yes Migraines: No Myocardial Infarction: No Renal Failure: No Seizures: No Sleep Apnea: No Thyroid Disease: No Ulcer: No Tetanus Vaccination: < 5 Years Influenza Vaccination: Yes Past Surgical History Abdominal Surgery: No AICD: No Arteriovenous Shunt: No Body Medical Devices: NEPHROSTOMY LEFT Cardiac Surgery: No Ear Surgery: No Endocrine Surgery: No Eye Surgery: No Genitourinary Surgery: Yes (URETERAL STENT 2007, LEFT LITHOTRIPSY, LEFT URETERAL STENT 04/2016) Gynecologic Surgery: No Insulin Pump: No Joint Replacement: No Neurologic Surgery: No Oral Surgery: No Pacemaker: No Thoracic Surgery: No Tonsillectomy: Yes Other Surgery: Yes (lithotripsy) Social History Alcohol Use: No Tobacco Use: Yes (CHEWS TOBACCO) Substance Use: No Allergies-Medications (Allergen,Severity, Reaction): Coded Allergies: ketorolac (Verified Allergy, Severe, SWELLING OF THROAT, 01/01/17) Reported Meds & Prescriptions Reported Meds & Active Scripts Active Colchicine 0.6 Mg Tab 0.6 Mg PO DAILY 14 Days First dose take 1.2 mg (2 tablets) followed by 1 tablet daily for the remainder of the course Naproxen 500 Mg Tab 500 Mg PO BID 14 Days Prednisone 20 Mg Tab 40 Mg PO DAILY 3 Days Take 40 mg (2 tablets) daily for 5 days Reported Allopurinol 100 Mg Tab 100 Mg PO DAILY Review of Systems Except as stated in HPI: all other systems reviewed are Neg Physical Exam Narrative GENERAL: Well-nourished, well-developed 36-year-old male patient in no acute distress. Nontoxic appearing. SKIN: Focused skin assessment warm/dry. HEAD: Normocephalic. Atraumatic. EYES: No scleral icterus. No injection or drainage. NECK: Supple, trachea midline. No JVD or lymphadenopathy. CARDIOVASCULAR: Regular rate and rhythm without murmurs, gallops, or rubs. RESPIRATORY: Breath sounds equal bilaterally. No accessory muscle use. GASTROINTESTINAL: Abdomen soft, non-tender, nondistended. MUSCULOSKELETAL: Left knee tender to palpation. No significant edema, erythema , ecchymosis, obvious deformity or cyanosis. Third digit on left hand mildly edematous, no obvious deformity, erythema, ecchymosis or cyanosis noted. BACK: Nontender without obvious deformity. No CVA tenderness. Data Data Last Documented VS Vital Signs Date Time Temp Pulse Resp B/P (MAP) Pulse Ox O2 Delivery O2 Flow Rate FiO2 01/01/17 13:03 99.0 114 16 125/86 (99) 98 Orders Orders Ibuprofen (Motrin) (01/01/17 13:30) Ed Discharge Order (01/01/17 13:32) [facility] Medical Decision Making Medical Screen Exam Complete: Yes Emergency Medical Condition: Yes Differential Diagnosis Differential diagnosis include but not limited to osteoarthritis, rheumatoid arthritis, gout exacerbation, gouty arthritis, septic arthritis Narrative Course 36-year-old male patient presents emergency department for evaluation of left knee and left third digit pain. Patient was recently treated at our facility for gout exacerbation with prednisone. Patient states the prednisone worked great but he is out. Patient states that he recently started a new position and will have insurance that is going to take and on 14 January. Patient needs medication to hold him over until he can follow up with her primary care physician regarding his gout management. Patient states he is out of ibuprofen and hasn't taken any in a couple days. Patient given an ibuprofen at our facility. Patient discharged home with prescription for naproxen, short dose prednisone and Colchicine. Patient has never utilized Colchicine to help manage his gout. This prescription is fairly expensive but the patient was given resources to aid in obtaining the medication. He would like to try this therapy to obtain some relief prior to securing a primary care physician and standardized medication regimen to manage his gout. Patient states he believes he will be able to purchase this prescription within a couple days. Patient is thankful for the care received and is discharged home with his prescriptions. Diagnosis Primary Impression: Gout Qualified Codes: M10.9 - Gout, unspecified Patient Instructions: General Instructions, Gout (DC) Additional Instructions: Please return to emergency department if your symptoms return or worsen. Follow up with your primary care provider. Take medications as prescribed. Med/Other Pt SpecificInfo: Prescription(s) given Scripts Colchicine (Colchicine) 0.6 Mg Tab 0.6 MG PO DAILY for Gout for 14 Days, #15 TAB 0 Refills First dose take 1.2 mg (2 tablets) followed by 1 tablet daily for the remainder of the course Prov: Sade Hanson 01/01/17 Naproxen (Naproxen) 500 Mg Tab 500 MG PO BID for 14 Days, #28 TAB 0 Refills Prov: Sade Hanson 01/01/17 Prednisone (Prednisone) 20 Mg Tab 40 MG PO DAILY for 3 Days, #6 TAB 0 Refills Take 40 mg (2 tablets) daily for 5 days Prov: Sade Hanson 01/01/17 Disposition: 01 DISCHARGE HOME Condition: Stable Sade Hanson Jan 01, 2017 13:24
[2017-01-01] MEDS ORDERED: IBUPROFEN 600 MG TAB PO ONE (13:30)
[2017-01-01] MEDS ORDERED: PRED20 PO (13:31)
[2017-01-01] MEDS ORDERED: COLC1TAB15 PO (13:31)
[2017-01-01] MEDS ORDERED: NAPR500T PO (13:31)
== END 2017-01-01 13:36 | disposition home or self-care (01) ==
LOC: PHEFT 12:59
DX: M10.9 Gout, unspecified (principal)
CPT/HCPCS: 99283

== ENCOUNTER 2017-01-20 10:22 | Emergency (ER) | payer SELFPAY ==
[~2017-01-20] VITALS: Ht 182.9 cm; Wt 91.8 kg
[~2017-01-20 10:22] MED LIST changes: +COLC1TAB15 PO; +NAPR500T2 PO; -PERC10TA27 PO
[2017-01-20 10:43] VITALS: BP 140/92; PULSE 107; RESP 16; TEMP 98.7; O2SAT 98
[2017-01-20 11:15] VITALS: BP 135/84; PULSE 92; RESP 16; O2SAT 97
[2017-01-20] MEDS ORDERED: SODIUM CHLOR 0.9% 1000 ML INJ 1,000 ML IV ONE (11:15)
[2017-01-20] MEDS ORDERED: HYDROmorphone HCL PF 1 MG/ML VIAL IV PUSH ONE (11:15)
[2017-01-20] MEDS ORDERED: ONDANSETRON HCL 4 MG/2 ML VIAL IV PUSH ONE (11:15)
--- NOTE | 2017-01-20 11:19 | PD ---
HPI Chief Complaint: Flank/Kidney Pain Time Seen by Provider: 10:58 Travel History International Travel<30 days: No Contact w/Intl Traveler<30days: No Traveled to known affect area: No History of Present Illness HPI This 36-year-old male is complaining of left flank pain. She's been having the pain since yesterday. He has a history of staghorn calculi. He has bilateral stents in place. He has had multiple CT scans most recently in December. On December 24 he had a scan which showed that his stents were in good position without evidence of obstruction. He has recently acquired insurance and intends to follow up with urology. He is in the process of obtaining insurance and he thinks it might be active at this point. He has been told that they should come out in that he needs lithotripsy. He has been taking ibuprofen for pain without much response. PFSH Past Medical History Hx Anticoagulant Therapy: No Arthritis: Yes (gout) Asthma: No Autoimmune Disease: No Blood Disorders: No Anxiety: Yes Depression: Yes Heart Rhythm Problems: No Cancer: No Cardiovascular Problems: No High Cholesterol: No Chest Pain: No Congestive Heart Failure: No COPD: No Cerebrovascular Accident: No Diabetes: No Diminished Hearing: No Endocrine: No Gastrointestinal Disorders: No GERD: No Glaucoma: No Gout: Yes Headaches: No Hepatitis: No Hiatal Hernia: No Hypertension: No Immune Disorder: No Implanted Vascular Access Dvce: Yes Kidney Stones: Yes Musculoskeletal: No Neurologic: No Psychiatric: Yes (ANXIETY) Reproductive: No Respiratory: No Immunizations Current: Yes Migraines: No Myocardial Infarction: No Renal Failure: No Seizures: No Sleep Apnea: No Thyroid Disease: No Ulcer: No Past Surgical History Abdominal Surgery: No AICD: No Arteriovenous Shunt: No Body Medical Devices: NEPHROSTOMY LEFT Cardiac Surgery: No Ear Surgery: No Endocrine Surgery: No Eye Surgery: No Genitourinary Surgery: Yes (URETERAL STENT 2007, LEFT LITHOTRIPSY, LEFT URETERAL STENT 04/2016) Gynecologic Surgery: No Insulin Pump: No Joint Replacement: No Neurologic Surgery: No Oral Surgery: No Pacemaker: No Thoracic Surgery: No Tonsillectomy: Yes Other Surgery: Yes (lithotripsy) Social History Alcohol Use: No Tobacco Use: Yes (CHEWS TOBACCO) Substance Use: No Allergies-Medications (Allergen,Severity, Reaction): Coded Allergies: ketorolac (Verified Allergy, Severe, SWELLING OF THROAT, 01/20/17) Reported Meds & Prescriptions Reported Meds & Active Scripts Active Colchicine 0.6 Mg Tab 0.6 Mg PO DAILY 14 Days First dose take 1.2 mg (2 tablets) followed by 1 tablet daily for the remainder of the course Naproxen 500 Mg Tab 500 Mg PO BID 14 Days Prednisone 20 Mg Tab 40 Mg PO DAILY 3 Days Take 40 mg (2 tablets) daily for 5 days Reported Allopurinol 100 Mg Tab 100 Mg PO DAILY Review of Systems General / Constitutional: No: Fever, Chills Eyes: No: Diploplia HENT: No: Headaches, Vertigo Respiratory: No: Cough Gastrointestinal: No: Nausea Genitourinary: Positive: Flank Pain, No: Urgency Musculoskeletal: No: Myalgias Skin: No Rash, No Itching Hematologic/Lymphatic: No: Easy Bruising Physical Exam Narrative GENERAL: Well-developed male SKIN: Focused skin assessment warm/dry. HEAD: Atraumatic. Normocephalic. EYES: Pupils equal and round. No scleral icterus. No injection or drainage. ENT: No nasal bleeding or discharge. Mucous membranes pink and moist. NECK: Trachea midline. No JVD. CARDIOVASCULAR: Regular rate and rhythm. No murmur appreciated. RESPIRATORY: No accessory muscle use. Clear to auscultation. Breath sounds equal bilaterally. GASTROINTESTINAL: Abdomen soft, non-tender, nondistended. Hepatic and splenic margins not palpable. There is left CVA tenderness MUSCULOSKELETAL: No obvious deformities. No clubbing. No cyanosis. No edema. NEUROLOGICAL: Awake and alert. No obvious cranial nerve deficits. Motor grossly within normal limits. Normal speech. PSYCHIATRIC: Appropriate mood and affect; insight and judgment normal. Data Data Last Documented VS Vital Signs Date Time Temp Pulse Resp B/P (MAP) Pulse Ox O2 Delivery O2 Flow Rate FiO2 01/20/17 10:43 98.7 107 16 140/92 (108) 98 Orders Orders Complete Blood Count With Diff (01/20/17 11:05) Basic Metabolic Panel (Bmp) (01/20/17 11:05) Urinalysis - C+S If Indicated (01/20/17 11:05) Sodium Chlor 0.9% 1000 Ml Inj (Ns 1000 M (01/20/17 11:15) Ondansetron Inj (Zofran Inj) (01/20/17 11:15) Hydromorphone Pf Inj (Dilaudid Pf Inj) (01/20/17 11:15) Urine Culture (01/20/17 11:00) Labs Laboratory Tests Test 01/20/17 11:00 01/20/17 11:15 Urine Collection Type CLEAN CATCH Urine Color YELLOW Urine Turbidity SLIGHT Urine pH 5.5 Urine Specific [place] 1.016 Urine Protein 30 mg/dL Urine Glucose (UA) NEG mg/dL Urine Ketones NEG mg/dL Urine Occult Blood LARGE Urine Nitrite NEG Urine Bilirubin NEG Urine Leukocyte Esterase MOD Urine RBC 100-200 /hpf Urine WBC 50-99 /hpf Urine WBC Clumps FEW Urine Squamous Epithelial Cells > 8 /hpf Urine Bacteria /hpf Urine Yeast (Budding) RARE Microscopic Urinalysis Comment CULTURE INDICATED Urine Collection Time 11:00 White Blood Count 12.9 TH/MM3 Red Blood Count 4.47 MIL/MM3 Hemoglobin 13.0 GM/DL Hematocrit 37.3 % Mean Corpuscular Volume 83.3 FL Mean Corpuscular Hemoglobin 29.0 PG Mean Corpuscular Hemoglobin Concent 34.8 % Red Cell Distribution Width 14.2 % Platelet Count 225 TH/MM3 Mean Platelet Volume 7.3 FL Neutrophils (%) (Auto) 73.2 % Lymphocytes (%) (Auto) 12.0 % Monocytes (%) (Auto) 4.1 % Eosinophils (%) (Auto) 10.5 % Basophils (%) (Auto) 0.2 % Neutrophils # (Auto) 9.5 TH/MM3 Lymphocytes # (Auto) 1.5 TH/MM3 Monocytes # (Auto) 0.5 TH/MM3 Eosinophils # (Auto) 1.4 TH/MM3 Basophils # (Auto) 0.0 TH/MM3 CBC Comment DIFF FINAL Differential Comment Blood Urea Nitrogen 10 MG/DL Creatinine 1.30 MG/DL Random Glucose 104 MG/DL Calcium Level 8.7 MG/DL Sodium Level 140 MEQ/L Potassium Level 3.9 MEQ/L Chloride Level 105 MEQ/L Carbon Dioxide Level 29.3 MEQ/L Anion Gap 6 MEQ/L Estimat Glomerular Filtration Rate 62 ML/MIN [facility] Medical Decision Making Medical Screen Exam Complete: Yes Emergency Medical Condition: Yes Medical Record Reviewed: Yes Differential Diagnosis Differential includes UTI, renal colic, Narrative Course White count is 12,000. Urine does show 50-99 wbc's in addition to red cells. He'll be placed on Bactrim and given pain medication. Follow-up with urologist Diagnosis Primary Impression: UTI (urinary tract infection) Scripts Hydrocodone-Acetaminophen (Lortab) 7.5-325 Mg Tab 1 TAB PO Q4H Y for PAIN, #20 TAB 0 Refills Prov: Louis Figueroa MD 01/20/17 Sulfamethoxazole-Trimethoprim (Bactrim DS) 800-160 Mg Tab 1 TAB PO BID for Infection, #20 TAB 0 Refills Prov: Louis Figueroa MD 01/20/17 Disposition: 01 DISCHARGE HOME Condition: Stable Louis Figueroa MD Jan 20, 2017 11:19
[2017-01-20 11:38] LABS: AUTOMATED NEUTROPHIL # 9.5 TH/MM3 (1.8-7.7); BASOPHIL % 0.2 % (0.0-2.0); EOSINOPHIL # 1.4 TH/MM3 (0-0.4); EOSINOPHIL % 10.5 % (0.0-4.0); HEMATOCRIT 37.3 % (39.0-51.0); HEMO FLAGS DIFF FINAL; LYMPHOCYTE # 1.5 TH/MM3 (1.0-4.8); MEAN CELL VOLUME 83.3 FL (80.0-100.0); MEAN CORPUSCULAR HGB CONC 34.8 % (32.0-36.0); MONO % 4.1 % (0.0-8.0); NEUT % 73.2 % (16.0-70.0); PLATELET COUNT 225 TH/MM3 (150-450); RED BLOOD COUNT 4.47 MIL/MM3 (4.50-5.90); RED CELL DISTRIBUTION WIDTH 14.2 % (11.6-17.2); WHITE BLOOD COUNT 12.9 TH/MM3 (4.0-11.0)
[2017-01-20 11:38] LABS: BLOOD, URINE LARGE (NEG); GLUCOSE,URINE NEG (NEG); KETONE, URINE NEG (NEG); NITRITE,URINE NEG (NEG); PH, URINE 5.5 (5.0-8.5)
[2017-01-20 11:45] LABS: METHOD OF COLLECTION CLEAN CATCH; URINE COLOR YELLOW (YELLW/STRAW)
[2017-01-20 11:46] LABS: RBC, URINE 100-200 /hpf (0-3); SQUAMOUS EPITHELIAL CELL URINE > 8 /hpf (0-5)
[2017-01-20 11:48] LABS: COMMENT (UR) CULTURE INDICATED; CULTURE IF INDICATED CULTURE INDICATED
[2017-01-20 11:50] LABS: POTASSIUM 3.9 MEQ/L (3.5-5.1)
[2017-01-20 11:53] LABS: BICARBONATE 29.3 MEQ/L (21.0-32.0)
[2017-01-20] MEDS ORDERED: HYDR-3534 PO (12:01)
[2017-01-20] MEDS ORDERED: BACT800T5 PO (12:01)
[2017-01-20 12:09] VITALS: BP 142/97
== END 2017-01-20 12:09 | disposition home or self-care (01) ==
LOC: PHED 10:22
DX: N39.0 Urinary tract infection, site not specified (principal); F17.220 Nicotine dependence, chewing tobacco, uncomplicated; M10.9 Gout, unspecified; Z87.442 Personal history of urinary calculi
CPT/HCPCS: 80048; 81001; 85025; 87086; 96374; 96375; 99284; J1170; J2405; J7030

== ENCOUNTER 2017-02-27 10:48 | Inpatient (IN) | payer SELFPAY ==
[2017-02-27] VITALS (8 sets, daily range): BP systolic 85–115; BP diastolic 50–70; PULSE 101–142; RESP 12–20; TEMP 97.2–101.6; O2SAT 95–100
[~2017-02-27] VITALS: Ht 182.9 cm; Wt 93.7 kg
[~2017-02-27 10:48] MED LIST changes: +BACT800T5 PO; +HYDR-3534 PO
[2017-02-27] MEDS ORDERED: ACETAMINOPHEN 325 MG TAB PO ONE (11:30)
[2017-02-27] MEDS ORDERED: SODIUM CHLOR 0.9% 1000 ML INJ 1,000 ML IV ONE ×2 (11:30→12:30)
--- NOTE | 2017-02-27 11:35 | PD ---
HPI Chief Complaint: GI Complaint Time Seen by Provider: 11:19 Travel History International Travel<30 days: No Contact w/Intl Traveler<30days: No Traveled to known affect area: No History of Present Illness HPI 37-year-old male complains of chills, constipation, dysuria, dizziness. Patient states that he started having constipation for the past 4 days. Patient try rectal suppository last night without much relief. Patient states that he started having chills and dizziness since last night. Patient denies any headache. Patient denies any neck pain. Patient denies any chest pain or shortness of breath. Patient states that he has intermittent abdominal cramping. Patient denies any nausea vomiting diarrhea. Patient has history of kidney stone status post bilateral stents placement. PFSH Past Medical History Hx Anticoagulant Therapy: No Arthritis: Yes (gout) Asthma: No Autoimmune Disease: No Blood Disorders: No Anxiety: Yes Depression: Yes Heart Rhythm Problems: No Cancer: No Cardiovascular Problems: No High Cholesterol: No Chest Pain: No Congestive Heart Failure: No COPD: No Cerebrovascular Accident: No Diabetes: No Diminished Hearing: No Endocrine: No Gastrointestinal Disorders: No GERD: No Glaucoma: No Gout: Yes Headaches: No Hepatitis: No Hiatal Hernia: No Hypertension: No Immune Disorder: No Implanted Vascular Access Dvce: Yes Kidney Stones: Yes Musculoskeletal: No Neurologic: No Psychiatric: Yes (ANXIETY) Reproductive: No Respiratory: No Immunizations Current: Yes Migraines: No Myocardial Infarction: No Renal Failure: No Seizures: No Sleep Apnea: No Thyroid Disease: No Ulcer: No Past Surgical History Abdominal Surgery: No AICD: No Arteriovenous Shunt: No Body Medical Devices: NEPHROSTOMY LEFT Cardiac Surgery: No Ear Surgery: No Endocrine Surgery: No Eye Surgery: No Genitourinary Surgery: Yes (URETERAL STENT 2007, LEFT LITHOTRIPSY, LEFT URETERAL STENT 04/2016) Gynecologic Surgery: No Insulin Pump: No Joint Replacement: No Neurologic Surgery: No Oral Surgery: No Pacemaker: No Thoracic Surgery: No Tonsillectomy: Yes Other Surgery: Yes (lithotripsy) Social History Alcohol Use: No Tobacco Use: Yes (CHEWS TOBACCO) Substance Use: No Allergies-Medications (Allergen,Severity, Reaction): Coded Allergies: ketorolac (Verified Allergy, Severe, SWELLING OF THROAT, 02/27/17) Reported Meds & Prescriptions Reported Meds & Active Scripts Active No Active Prescriptions or Reported Medications Review of Systems General / Constitutional: Positive: Chills, No: Fever Eyes: No: Visual changes HENT: Positive: Lightheadedness, No: Headaches Cardiovascular: No: Chest Pain or Discomfort Respiratory: No: Shortness of Breath Gastrointestinal: No: Abdominal Pain Genitourinary: Positive: Dysuria Musculoskeletal: No: Pain Skin: No Rash Neurologic: No: Weakness Psychiatric: No: Depression Endocrine: No: Polydipsia Hematologic/Lymphatic: No: Easy Bruising Physical Exam Narrative GENERAL: Well-nourished, well-developed patient. SKIN: Focused skin assessment warm/dry. HEAD: Normocephalic. EYES: No scleral icterus. No injection or drainage. NECK: Supple, trachea midline. No JVD or lymphadenopathy. CARDIOVASCULAR: Regular rate and rhythm without murmurs, gallops, or rubs. RESPIRATORY: Breath sounds equal bilaterally. No accessory muscle use. GASTROINTESTINAL: Abdomen soft, non-tender, nondistended. MUSCULOSKELETAL: No cyanosis, or edema. BACK: Nontender without obvious deformity. No CVA tenderness. Neurologic exam normal. Data Data Last Documented VS Vital Signs Date Time Temp Pulse Resp B/P (MAP) Pulse Ox O2 Delivery O2 Flow Rate FiO2 02/27/17 12:04 20 100 Room Air 02/27/17 11:13 101.6 142 107/70 (82) Orders Orders Complete Blood Count With Diff (02/27/17 11:27) Comprehensive Metabolic Panel (02/27/17 11:27) Blood Culture (02/27/17 11:27) Urinalysis - C+S If Indicated (02/27/17 11:27) Chest, Single Ap (02/27/17 11:27) Iv Access Insert/Monitor (02/27/17 11:27) Ecg Monitoring (02/27/17 11:27) Oximetry (02/27/17 11:27) Lactic Acid (02/27/17 11:27) Sodium Chlor 0.9% 1000 Ml Inj (Ns 1000 M (02/27/17 11:30) Acetaminophen (Tylenol) (02/27/17 11:30) Urine Culture (02/27/17 11:35) Ceftriaxone Inj (Rocephin Inj) (02/27/17 12:30) Vancomycin Inj (Vancomycin Inj) (02/27/17 12:30) Sodium Chlor 0.9% 1000 Ml Inj (Ns 1000 M (02/27/17 12:30) Admit Order (Ed Use Only) (02/27/17 13:35) Labs Laboratory Tests Test 02/27/17 11:35 02/27/17 11:40 02/27/17 11:45 Urine Color YELLOW Urine Turbidity CLOUDY Urine pH 5.5 Urine Specific [place] 1.014 Urine Protein 100 mg/dL Urine Glucose (UA) NEG mg/dL Urine Ketones NEG mg/dL Urine Occult Blood LARGE Urine Nitrite NEG Urine Bilirubin NEG Urine Leukocyte Esterase MOD Urine RBC 25-49 /hpf Urine WBC 100-200 /hpf Urine WBC Clumps FEW Urine Squamous Epithelial Cells 6-8 /hpf Urine Bacteria RARE /hpf Microscopic Urinalysis Comment CULTURE INDICATED White Blood Count 14.1 TH/MM3 Red Blood Count 5.11 MIL/MM3 Hemoglobin 14.4 GM/DL Hematocrit 43.5 % Mean Corpuscular Volume 85.1 FL Mean Corpuscular Hemoglobin 28.2 PG Mean Corpuscular Hemoglobin Concent 33.2 % Red Cell Distribution Width 14.4 % Platelet Count 221 TH/MM3 Mean Platelet Volume 7.5 FL Neutrophils (%) (Auto) 84.3 % Lymphocytes (%) (Auto) 4.6 % Monocytes (%) (Auto) 4.6 % Eosinophils (%) (Auto) 4.7 % Basophils (%) (Auto) 1.8 % Neutrophils # (Auto) 11.9 TH/MM3 Lymphocytes # (Auto) 0.6 TH/MM3 Monocytes # (Auto) 0.6 TH/MM3 Eosinophils # (Auto) 0.7 TH/MM3 Basophils # (Auto) 0.3 TH/MM3 CBC Comment DIFF FINAL Differential Comment Blood Urea Nitrogen 20 MG/DL Creatinine 1.40 MG/DL Random Glucose 112 MG/DL Total Protein 7.7 GM/DL Albumin 4.1 GM/DL Calcium Level 9.2 MG/DL Alkaline Phosphatase 87 U/L Aspartate Amino Transf (AST/SGOT) 14 U/L Alanine Aminotransferase (ALT/SGPT) 23 U/L Total Bilirubin 1.0 MG/DL Sodium Level 132 MEQ/L Potassium Level 4.2 MEQ/L Chloride Level 96 MEQ/L Carbon Dioxide Level 25.3 MEQ/L Anion Gap 11 MEQ/L Estimat Glomerular Filtration Rate 57 ML/MIN Lactic Acid Level 3.3 mmol/L [facility] Medical Decision Making Medical Screen Exam Complete: Yes Emergency Medical Condition: Yes Interpretation(s) 12:18 PM. Chest x-ray shows no acute consolidation. CBC WBC 14.1. 84 neutrophil. Sodium 132. Chloride 96. Bicarbonate 25.3. BUN 20. UA positive for WBC, RBC and bacteria. 12:25 PM. Creatinine 1.4. GFR 57. Lactic acid 3.3. Differential Diagnosis Differential diagnosis including viral syndrome, UTI, pyelonephritis, nephrolithiasis, sepsis. Narrative Course 37-year-old male with chills, dizziness, constipation, dysuria. History of kidney stone status post stents placement in the past. Normal saline solution 1 L bolus. Tylenol 650 mg by mouth. Rocephin 1 g IV. Vancomycin 1 g IV. Repeat normal saline solution 1 L IV bolus. Diagnosis Primary Impression: Sepsis due to urinary tract infection Additional Impression: Acute kidney injury Scripts No Active Prescriptions or Reported Meds Damion Wesley MD Feb 27, 2017 11:35
[2017-02-27 12:01] LABS: BLOOD, URINE LARGE (NEG); GLUCOSE,URINE NEG (NEG); KETONE, URINE NEG (NEG); NITRITE,URINE NEG (NEG); PH, URINE 5.5 (5.0-8.5)
[2017-02-27 12:02] LABS: AUTOMATED NEUTROPHIL # 11.9 TH/MM3 (1.8-7.7); BASOPHIL # 0.3 TH/MM3 (0-0.2); BASOPHIL % 1.8 % (0.0-2.0); EOSINOPHIL # 0.7 TH/MM3 (0-0.4); EOSINOPHIL % 4.7 % (0.0-4.0); HEMATOCRIT 43.5 % (39.0-51.0); HEMO FLAGS DIFF FINAL; LYMPH % 4.6 % (9.0-44.0); LYMPHOCYTE # 0.6 TH/MM3 (1.0-4.8); MEAN CELL VOLUME 85.1 FL (80.0-100.0); MEAN CORPUSCULAR HEMOGLOBIN 28.2 PG (27.0-34.0); MEAN CORPUSCULAR HGB CONC 33.2 % (32.0-36.0); MONO % 4.6 % (0.0-8.0); NEUT % 84.3 % (16.0-70.0); PLATELET COUNT 221 TH/MM3 (150-450); RED BLOOD COUNT 5.11 MIL/MM3 (4.50-5.90); RED CELL DISTRIBUTION WIDTH 14.4 % (11.6-17.2); WHITE BLOOD COUNT 14.1 TH/MM3 (4.0-11.0)
[2017-02-27 12:05] LABS: URINE COLOR YELLOW (YELLW/STRAW)
[2017-02-27 12:07] LABS: WBC, URINE 100-200 /hpf (0-5)
[2017-02-27 12:11] LABS: BACTERIA, URINE RARE /hpf
--- NOTE | 2017-02-27 12:11 | RADRPT ---
EXAM DATE/TIME: 02/27/2017 11:58 [facility] COMPARISON: CHEST SINGLE AP, July 28, 2016, 11:19. INDICATIONS : Fever, dizziness, chills. MEDICAL HISTORY : Renal calculi. Renal insufficiency. SURGICAL HISTORY : Renal calculi. Renal insufficiency. ENCOUNTER: Initial ACUITY: 2 days PAIN SCORE: 6/10 LOCATION: chest FINDINGS: A single view of the chest demonstrates the lungs to be symmetrically aerated without evidence of mas s, infiltrate or effusion. The cardiomediastinal contours are unremarkable. Osseous structures are intact. CONCLUSION: No acute disease. Eugene Omalley MD on February 27, 2017 at 12:09 Board Certified Radiologist. This report was verified electronically.
[2017-02-27 12:12] LABS: CHLORIDE 96 MEQ/L (98-107); POTASSIUM 4.2 MEQ/L (3.5-5.1); SODIUM (NA) 132 MEQ/L (136-145)
[2017-02-27 12:12] LABS: COMMENT (UR) CULTURE INDICATED; COMMENT2 (UR) MUCOUS PRESENT; CULTURE IF INDICATED CULTURE INDICATED
[2017-02-27 12:16] LABS: ANION GAP 11 MEQ/L (5-15); BICARBONATE 25.3 MEQ/L (21.0-32.0); BLOOD UREA NITROGEN 20 MG/DL (7-18)
[2017-02-27 12:19] LABS: ALT (GPT) 23 U/L (12-78); AST (GOT) 14 U/L (15-37); GLOMERULAR FILTRATION RATE 57 ML/MIN (>89)
[2017-02-27 12:22] LABS: ALKALINE PHOSPHATASE 87 U/L (45-117)
[2017-02-27] MEDS ORDERED: VANCOMYCIN INJ 1,000 MG in SODIUM CHLOR 0.9% 250 ML INJ 250 ML IV ONE (12:30)
[2017-02-27] MEDS ORDERED: cefTRIAXone INJ 1,000 MG in SODIUM CHLORIDE 0.9% INJ 100 ML IV ONE (12:30)
[2017-02-27] MEDS ORDERED: ACETAMINOPHEN 325 MG TAB PO PRN (13:45)
[2017-02-27] MEDS ORDERED: SODIUM CHLORIDE 0.9% FLUSH 10 ML FLUSH IV FLUSH PRN (13:45)
[2017-02-27] MEDS ORDERED: NALOXONE HCL 0.4 MG/ML AMP IV PUSH PRN (13:45)
--- NOTE | 2017-02-27 14:14 | RADRPT ---
EXAM DATE/TIME: 02/27/2017 13:57 [facility] COMPARISON: CT ABDOMEN & PELVIS W CONTRAST, December 24, 2016, 13:38. CT ABDOMEN & PELVIS W/O CONTRAST, December, 11:25. INDICATIONS : Right flank pain. Difficulty urinating. ORAL CONTRAST: No oral contrast ingested. RADIATION DOSE: 20.97 CTDIvol (mGy) MEDICAL HISTORY : Renal calculi. SURGICAL HISTORY : Lithotripsy. Renal stent. ENCOUNTER: Initial ACUITY: 4 - 6 days PAIN SCALE: 7/10 LOCATION: Right flank TECHNIQUE: Volumetric scanning of the abdomen and pelvis was performed. Using automated exposure control and ad justment of the mA and/or kV according to patient size, radiation dose was kept as low as reasonably achievable to obtain optimal diagnostic quality images. DICOM format image data is available electro nically for review and comparison. The lack of IV contrast limits the diagnosis for certain organ pa thology. FINDINGS: LOWER LUNGS: The visualized lower lungs are clear. LIVER: Homogeneous density without lesion. There is no dilation of the biliary tree. No calcified gallston es. SPLEEN: Normal size without lesion. PANCREAS: Within normal limits. KIDNEYS: Has been no change in the appearance of both kidneys compared to the prior studies. There continues t o be bilateral staghorn calculi. There are bilateral double-J stents in place with no evidence of any definite obstruction. There are some calcified stones adjacent to the left proximal ureteral stents. The ureteral stents are in good position. ADRENAL GLANDS: Within normal limits. VASCULAR: There is no aortic aneurysm. BOWEL/MESENTERY: The stomach, small bowel, and colon demonstrate no acute abnormality. There is no free intraperitone al air or fluid. The appendix is unremarkable. No inflammatory changes. ABDOMINAL WALL: Within normal limits. RETROPERITONEUM: There is no lymphadenopathy. BLADDER: No wall thickening or mass. REPRODUCTIVE: Within normal limits. INGUINAL: There is no lymphadenopathy or hernia. MUSCULOSKELETAL: Within normal limits for patient age. CONCLUSION: 1. No significant change in the bilateral staghorn calculi compared to the prior exams. 2. There is good position of the bilateral double-J stents without evidence of obstruction. 3. There are some stone fragments in the proximal left ureter adjacent to the left double-J stents. Kole Steiner MD on February 27, 2017 at 14:08 Board Certified Radiologist. This report was verified electronically.
[2017-02-27] MEDS: SODIUM CHLOR 0.9% 1000 ML INJ 1,000 ML IV SCH ×2 (14:31→17:28)
--- NOTE | 2017-02-27 16:42 | HHI.HP ---
[facility] No Primary Care Physician Admission Diagnosis Sepsis secondary to UTI. Acute kidney injury. Diagnoses: (1) Sepsis due to urinary tract infection (2) Acute kidney injury Chief Complaint: Sepsis Travel History International Travel<30 Days: No Contact w/Intl Traveler <30 Da: No Traveled to Known Affected Are: No Sepsis Criteria SIRS Criteria (2 or more): Temp > 100.9 or < 96.8, Heart rate over 90, RR > 20 or PaCO2 < 32, WBC > 96205, < 4000 or > 10% bands Sepsis Criteria (SIRS+source): Infect source susp/known Severe Sepsis (+one): Lactate >2 Criteria Outcome: Meets severe sepsis criteria History of Present Illness Written by Sade Moore, acting as scribe for Dr. Garcia on 02/27/17 at 16:34. Mr. Paez is a 37-year-old male patient with a known medical history of urethral stents and frequent kidney stones who presented to the ED with complaints of chills, subjective fevers, constipation and dysuria. Patient states that he was in his normal state of health last evening, ate dinner and went to bed. He states that he was suddenly awoken by the previous stated symptoms. He also complains of right groin pain that began upon presentation to the ED, is constant and shooting in nature, 7/10 on pain scale, denies any associated nausea or vomiting. Does state that he did not have a BM for over 5 days but just had one while here in the hospital. At the time of assessment patient does complain of continued right groin pain, with associated nausea. Patient had bilateral urethral stent placement in May of this year. Does not follow with a PCP or urologist. Review of Systems Constitutional: COMPLAINS OF: Fever Eyes: DENIES: Blurred vision, Diplopia Respiratory: DENIES: Cough, Sputum production, Shortness of breath Cardiovascular: DENIES: Chest pain, Palpitations Gastrointestinal: COMPLAINS OF: Abdominal pain, Constipation, Nausea, DENIES: Black stools, Bloody stools, Diarrhea, Vomiting Musculoskeletal: DENIES: Joint pain Psychiatric: DENIES: Anxiety Except as stated in HPI: all other systems reviewed are Neg Past Family Social History Past Medical History Recurrent UTI Nephrolithiasis Gout Recurrent UTI and hydronephrosis secondary to stones. Past Surgical History Ureteral stents 2008 Nephrostomy 04/2016, have since fall out. Left ureteral stent 04/2016 Right elbow drained 04/2016 Reported Medications Active No Active Prescriptions or Reported Medications Allergies: Coded Allergies: ketorolac (Verified Allergy, Severe, SWELLING OF THROAT, 02/27/17) Active Ordered Medications Current Medications Medications (Trade) Dose Ordered Sig/Cecelia Route Start Time Stop Time Status Last Admin Sodium Chloride 1,000 ml @ 100 mls/hr Q10H IV 02/27/17 13:34 02/27/17 14:31 (NS Flush) 2 ml UNSCH PRN IV FLUSH 02/27/17 13:45 (NS Flush) 2 ml BID IV FLUSH 02/27/17 21:00 (Tylenol) 650 mg Q4H PRN PO 02/27/17 13:45 (Zofran Inj) 4 mg Q6H PRN IVP 02/27/17 13:45 (Narcan Inj) 0.4 mg UNSCH PRN IV PUSH 02/27/17 13:45 Family History Maternal medical history significant for nasopharyngeal cancer. Father has a history of kidney stones. Social History Patient chews tobacco. He is a recovering alcoholic He denies illicit drug use. Physical Exam Vital Signs Vital Signs Date Time Temp Pulse Resp B/P (MAP) Pulse Ox O2 Delivery O2 Flow Rate FiO2 02/27/17 16:09 02/27/17 15:52 105 18 103/58 (73) 97 Room Air 02/27/17 14:19 100.4 114 20 102/61 (75) 96 Room Air 02/27/17 13:55 100.4 111 16 85/50 (62) 95 Room Air 02/27/17 13:42 101.3 113 20 98/60 (73) 95 Room Air 02/27/17 12:04 20 100 Room Air 02/27/17 11:13 101.6 142 18 107/70 (82) 99 Physical Exam GENERAL: This is a well-nourished, well-developed patient, in mild distress due to pain. SKIN: No rashes, ecchymoses or lesions. Warm and dry. HEAD: Atraumatic. Normocephalic. No temporal or scalp tenderness. EYES: Pupils equal round and reactive. No injection or drainage. ENT: Nose without bleeding, purulent drainage or septal hematoma. Airway patent. NECK: Trachea midline. No lymphadenopathy. Supple, nontender, no meningeal signs. CARDIOVASCULAR: Regular rhythm, mildly tachycardic without murmurs, gallops, or rubs. No JVD. RESPIRATORY: Clear to auscultation. Breath sounds equal bilaterally. No wheezes , rales, or rhonchi. GASTROINTESTINAL: Abdomen soft, non-tender, nondistended. No guarding. Right sided CVA tenderness. Right groin tenderness. MUSCULOSKELETAL: Extremities without clubbing, cyanosis, or edema. NEUROLOGICAL: Awake and alert. Cranial nerves II through XII intact. No focal neurological deficits. Normal speech. Laboratory Laboratory Tests Test 02/27/17 11:35 02/27/17 11:40 02/27/17 11:45 Urine Color YELLOW Urine Turbidity CLOUDY Urine pH 5.5 Urine Specific Raymond 1.014 Urine Protein 100 Urine Glucose (UA) NEG Urine Ketones NEG Urine Occult Blood LARGE Urine Nitrite NEG Urine Bilirubin NEG Urine Leukocyte Esterase MOD Urine RBC 25-49 Urine WBC 100-200 Urine WBC Clumps FEW Urine Squamous Epithelial Cells 6-8 Urine Bacteria RARE Microscopic Urinalysis Comment CULTURE INDICATED White Blood Count 14.1 Red Blood Count 5.11 Hemoglobin 14.4 Hematocrit 43.5 Mean Corpuscular Volume 85.1 Mean Corpuscular Hemoglobin 28.2 Mean Corpuscular Hemoglobin Concent 33.2 Red Cell Distribution Width 14.4 Platelet Count 221 Mean Platelet Volume 7.5 Neutrophils (%) (Auto) 84.3 Lymphocytes (%) (Auto) 4.6 Monocytes (%) (Auto) 4.6 Eosinophils (%) (Auto) 4.7 Basophils (%) (Auto) 1.8 Neutrophils # (Auto) 11.9 Lymphocytes # (Auto) 0.6 Monocytes # (Auto) 0.6 Eosinophils # (Auto) 0.7 Basophils # (Auto) 0.3 CBC Comment DIFF FINAL Differential Comment Blood Urea Nitrogen 20 Creatinine 1.40 Random Glucose 112 Total Protein 7.7 Albumin 4.1 Calcium Level 9.2 Alkaline Phosphatase 87 Aspartate Amino Transf (AST/SGOT) 14 Alanine Aminotransferase (ALT/SGPT) 23 Total Bilirubin 1.0 Sodium Level 132 Potassium Level 4.2 Chloride Level 96 Carbon Dioxide Level 25.3 Anion Gap 11 Estimat Glomerular Filtration Rate 57 Lactic Acid Level 3.3 Date/Time Source Procedure Growth Status 02/27/17 11:45 Blood Peripheral Aerobic Blood Culture Pending Received 02/27/17 11:45 Blood Peripheral Anaerobic Blood Culture Pending Received 02/27/17 11:35 Urine Clean Catch Urine Culture Pending Received Result Diagram: 02/27/17 1140 02/27/17 1140 Imaging Last Impressions Abdomen/Pelvis CT 02/27/17 1349 Signed Impressions: Service Date/Time: Monday, February 27, 2017 13:57 - CONCLUSION: 1. No significant change in the bilateral staghorn calculi compared to the prior exams. 2. There is good position of the bilateral double-J stents without evidence of obstruction. 3. There are some stone fragments in the proximal left ureter adjacent to the left double-J stents. Kole Steiner MD Chest X-Ray 02/27/17 1127 Signed Impressions: Service Date/Time: Monday, February 27, 2017 11:58 - CONCLUSION: No acute disease. Eugene Omalley MD Septic Shock Reassessment Septic shock perfusion: reassessment completed Caprini VTE Risk Assessment Caprini VTE Risk Assessment: No/Low Risk (score <= 1) Caprini Risk Assessment Model Point Value = 1 Point Value = 2 Point Value = 3 Point Value = 5 Age 41-60 Minor surgery BMI > 25 kg/m2 Swollen legs Varicose veins or History of unexplained or recurrent spontaneous Oral contraceptives or hormone replacement Sepsis (< 1 month) Serious lung disease, including pneumonia (< 1 month) Abnormal pulmonary function Acute myocardial infarction Congestive heart failure (< 1 month) History of inflammatory bowel disease Medical patient at bed rest Age 61-74 Arthroscopic surgery Major open surgery (> 45 min) Laparoscopic surgery (> 45 min) Malignancy Confined to bed (> 72 hours) Immobilizing plaster cast Central venous access Age >= 75 History of VTE Family history of VTE Factor V Leiden Prothrombin [id number] Lupus anticoagulant Anticardiolipin antibodies Elevated serum homocysteine Heparin-induced thrombocytopenia Other congenital or acquired thrombophilia Stroke (< 1 month) Elective arthroplasty Hip, pelvis, or leg fracture Acute spinal cord injury (< 1 month) Prophylaxis Regimen Total Risk Factor Score Risk Level Prophylaxis Regimen 0-1 Low Early ambulation 2 Moderate Order ONE of the following: *Sequential Compression Device (SCD) *Heparin 5000 units SQ BID 3-4 Higher Order ONE of the following medications: *Heparin 5000 units SQ TID *Enoxaparin/Lovenox 40 mg SQ daily (WT < 150 kg, CrCl > 30 mL/min) *Enoxaparin/Lovenox 30 mg SQ daily (WT < 150 kg, CrCl > 10-29 mL/min) *Enoxaparin/Lovenox 30 mg SQ BID (WT < 150 kg, CrCl > 30 mL/min) AND/OR *Sequential Compression Device (SCD) 5 or more Highest Order ONE of the following medications: *Heparin 5000 units SQ TID (Preferred with Epidurals) *Enoxaparin/Lovenox 40 mg SQ daily (WT < 150 kg, CrCl > 30 mL/min) *Enoxaparin/Lovenox 30 mg SQ daily (WT < 150 kg, CrCl > 10-29 mL/min) *Enoxaparin/Lovenox 30 mg SQ BID (WT < 150 kg, CrCl > 30 mL/min) AND *Sequential Compression Device (SCD) Assessment and Plan Problem List: (1) Sepsis due to urinary tract infection ICD Code: A41.9 - Sepsis, unspecified organism; N39.0 - Urinary tract infection , site not specified Status: Acute Plan: Meets severe sepsis criteria (tachycardia, febrile, leukocytosis, lactic acidosis) WBC 14.1 with mild bandemia on presentation, TMAX 101.6, HR 110's, Lactic acid 3.3. Suspect secondary to urinary source Abnormal UA showing moderate amount of leukocyte esterase with presented of WBCs. Urine culture pending. Follow. Blood cultures drawn and pending. Follow. Status post 2 L NS Bolus in ED. Tylenol given in ED for fever. Abdominal/Pelvis CT reviewed showing bilateral staghorn calculi, no change from prior exams. Stents are in good position. Some stone fragments in the proximal left ureter adjacent to the left double J-stents. Ensure hydration, NS at 100 ml/hr. Control nausea, Zofran available PRN. Control pain with IV narcotics. Was given Cefepime and Vancomycin IV in ED. Will continue on scheduled IV antibiotics. (2) Acute kidney injury ICD Code: N17.9 - Acute kidney failure, unspecified Status: Acute Plan: Creatinine on presentation 1.4. suspect secondary to dehydration vs UTI Ensure hydration. Continue IVF. Repeat BMP in am. follow. DVT Prophylaxis: SCDs. Physician Certification 2 Midnight Certification Type: Admission for Inpatient Services Order for Inpatient Services The services are ordered in accordance with Medicare regulations or non- Medicare payer requirements, as applicable. In the case of services not specified as inpatient-only, they are appropriately provided as inpatient services in accordance with the 2-midnight benchmark. Estimated LOS (days): 2 2 days is the estimated time the patient will need to remain in the hospital, assuming treatment plan goals are met and no additional complications. Post-Hospital Plan: Home Medical Decision Making Impression and Plan This note was transcribed by elham [[email or web address]]. I, Dr. Radha Garcia personally performed the history, physical exam, and medical decision making; and confirmed the accuracy of the information in the transcribed note. IV abx, uro eval Authenticated by Dr. Radha Garcia on 02/27/17 at 18:06. Sade Moore Feb 27, 2017 16:41 Radha Garcia MD Feb 27, 2017 18:07
[2017-02-27] MEDS ORDERED: Vancomycin Consult Pharmacy 1 EA OTHER SCH (17:00)
[2017-02-27] MEDS ORDERED: VANCOMYCIN INJ 1,000 MG in SODIUM CHLOR 0.9% 250 ML INJ 250 ML IV SCH (17:00)
[2017-02-27] MEDS: ONDANSETRON HCL 4 MG/2 ML VIAL IVP PRN ×2 (17:28→23:13)
[2017-02-27] MEDS: MORPHINE SULFATE 4 MG/ML INJ IV PUSH PRN ×2 (19:59→23:03)
[2017-02-27] MEDS: SODIUM CHLORIDE 0.9% FLUSH 10 ML FLUSH IV FLUSH SCH (21:32)
[2017-02-27] MEDS: CEFEPIME INJ 1,000 MG in SODIUM CHLORIDE 0.9% INJ 100 ML IV SCH (21:33)
[2017-02-27] MEDS: VANCOMYCIN INJ 1,250 MG in SODIUM CHLOR 0.9% 250 ML INJ 250 ML IV SCH (23:13)
[2017-02-28] VITALS: BP 111/66; PULSE 98; RESP 20; TEMP 99.5; O2SAT 95
[2017-02-28] MEDS: MORPHINE SULFATE 4 MG/ML INJ IV PUSH PRN ×2 (02:10→05:32)
[2017-02-28 04:00] VITALS: TEMP 97.9
[2017-02-28] MEDS: CEFEPIME INJ 1,000 MG in SODIUM CHLORIDE 0.9% INJ 100 ML IV SCH ×3 (05:33→21:49)
[2017-02-28] MEDS: SODIUM CHLOR 0.9% 1000 ML INJ 1,000 ML IV SCH ×2 (06:19→17:19)
[2017-02-28 07:52] LABS: BASOPHIL % 0.3 % (0.0-2.0); EOSINOPHIL # 0.7 TH/MM3 (0-0.4); EOSINOPHIL % 8.6 % (0.0-4.0); HEMATOCRIT 34.4 % (39.0-51.0); HEMO FLAGS DIFF FINAL; LYMPH % 14.7 % (9.0-44.0); LYMPHOCYTE # 1.3 TH/MM3 (1.0-4.8); MEAN CELL VOLUME 84.5 FL (80.0-100.0); MEAN CORPUSCULAR HEMOGLOBIN 29.1 PG (27.0-34.0); MEAN CORPUSCULAR HGB CONC 34.5 % (32.0-36.0); MONO % 8.3 % (0.0-8.0); NEUT % 68.1 % (16.0-70.0); PLATELET COUNT 164 TH/MM3 (150-450); RED BLOOD COUNT 4.08 MIL/MM3 (4.50-5.90); RED CELL DISTRIBUTION WIDTH 13.8 % (11.6-17.2); WHITE BLOOD COUNT 8.7 TH/MM3 (4.0-11.0)
[2017-02-28 08:00] VITALS: BP 111/65; PULSE 89; RESP 18; TEMP 100; O2SAT 100
[2017-02-28 08:12] LABS: BICARBONATE 25.7 MEQ/L (21.0-32.0); POTASSIUM 3.9 MEQ/L (3.5-5.1)
[2017-02-28] MEDS: SODIUM CHLORIDE 0.9% FLUSH 10 ML FLUSH IV FLUSH SCH ×2 (09:00→20:08)
[2017-02-28] MEDS ORDERED: Vancomycin Consult Pharmacy 1 EA OTHER SCH (09:45)
--- NOTE | 2017-02-28 09:51 | HHI.PR ---
Subjective Remarks Follow up sepsis secondary to UTI. Patient seen and examined, sitting up in bed eating breakfast. Patient states that the pain has not improved all night, that Morphine has not been effective and requesting pain medication be switched to Dilaudid. Denies any further nausea or vomiting. Has been tolerating PO intake. Denies any diarrhea. Does complain of some constipation. TMAX overnight 101.3. Objective Vitals Vital Signs Date Time Temp Pulse Resp B/P (MAP) Pulse Ox O2 Delivery O2 Flow Rate FiO2 02/28/17 08:00 100.0 89 18 111/65 (80) 100 02/28/17 04:00 97.9 02/28/17 00:00 99.5 98 20 111/66 (81) 95 02/27/17 20:00 101.3 108 20 110/63 (79) 98 02/27/17 18:00 97.2 101 12 115/70 (85) 99 02/27/17 16:09 02/27/17 15:52 105 18 103/58 (73) 97 Room Air 02/27/17 14:19 100.4 114 20 102/61 (75) 96 Room Air 02/27/17 13:55 100.4 111 16 85/50 (62) 95 Room Air 02/27/17 13:42 101.3 113 20 98/60 (73) 95 Room Air 02/27/17 12:04 20 100 Room Air 02/27/17 11:13 101.6 142 18 107/70 (82) 99 I/O 02/27/17 02/27/17 02/27/17 02/28/17 02/28/17 02/28/17 07:00 15:00 23:00 07:00 15:00 23:00 Intake Total 2100 ml 590 ml 1830 ml Output Total 350 ml 2050 ml Balance 2100 ml 240 ml -220 ml Intake Oral 240 ml 480 ml IV Total 2100 ml 350 ml 1350 ml Output Urine Total 350 ml 2050 ml # Bowel Movements 0 Result Diagram: 02/28/1718 02/28/1718 Imaging Last Impressions Abdomen/Pelvis CT 02/27/17 6099 Signed Impressions: Service Date/Time: Monday, February 27, 2017 13:57 - CONCLUSION: 1. No significant change in the bilateral staghorn calculi compared to the prior exams. 2. There is good position of the bilateral double-J stents without evidence of obstruction. 3. There are some stone fragments in the proximal left ureter adjacent to the left double-J stents. Kole Steiner MD Chest X-Ray 02/27/17 1127 Signed Impressions: Service Date/Time: Monday, February 27, 2017 11:58 - CONCLUSION: No acute disease. Eugene Omalley MD Objective Remarks GENERAL: This is a well-nourished, well-developed patient, in mild distress due to right groin/flank pain. SKIN: No rashes, ecchymoses or lesions. Warm and dry. HEAD: Atraumatic. Normocephalic. No temporal or scalp tenderness. EYES: Pupils equal round and reactive. No injection or drainage. ENT: Nose without bleeding, purulent drainage or septal hematoma. Airway patent. NECK: Trachea midline. No lymphadenopathy. Supple, nontender, no meningeal signs. CARDIOVASCULAR: Regular rhythm, mildly tachycardic without murmurs, gallops, or rubs. No JVD. RESPIRATORY: Clear to auscultation. Breath sounds equal bilaterally. No wheezes , rales, or rhonchi. GASTROINTESTINAL: Abdomen soft, non-tender, nondistended. No guarding. Right sided CVA tenderness. Right groin tenderness. MUSCULOSKELETAL: Extremities without clubbing, cyanosis, or edema. NEUROLOGICAL: Awake and alert. Cranial nerves II through XII intact. No focal neurological deficits. Normal speech. A/P Problem List: (1) Sepsis due to urinary tract infection ICD Code: A41.9 - Sepsis, unspecified organism; N39.0 - Urinary tract infection , site not specified Status: Acute Plan: Meets severe sepsis criteria (tachycardia, febrile, leukocytosis, lactic acidosis) WBC 14.1 with mild bandemia on presentation -->8.7. TMAX 101.3 overnight. Lactic acid 3.3 --> 0.8. Suspect secondary to urinary source Abnormal UA showing moderate amount of leukocyte esterase with presented of WBCs. Urine culture pending. Follow. Blood cultures drawn and pending. Follow. Status post 2 L NS Bolus in ED. Tylenol given in ED for fever. Abdominal/Pelvis CT reviewed showing bilateral staghorn calculi, no change from prior exams. Stents are in good position. Some stone fragments in the proximal left ureter adjacent to the left double J-stents. Ensure hydration, NS at 100 ml/hr. Diet as tolerated. Control nausea, Zofran available PRN. Control pain with IV narcotics. Was given Rocephin and Vancomycin IV in ED. Will continue on scheduled IV antibiotics. Urology consulted, appreciate further recommendations and input. (2) Acute kidney injury ICD Code: N17.9 - Acute kidney failure, unspecified Status: Acute Plan: Creatinine on presentation 1.4. suspect secondary to dehydration vs UTI BMP reviewed today 1.10. Monitor intake and output. Urine clearing up. Ensure hydration. Continue IVF. (3) Constipation ICD Code: K59.00 - Constipation, unspecified Plan: Last BM was yesterday although patient states he has been having to strain. Started on dylan-Colace scheduled and other PRN medications as needed. DVT Prophylaxis: Sade Evans Feb 28, 2017 09:51
[2017-02-28] MEDS ORDERED: MAGNESIUM HYDROXIDE SUSP 30 ML CUP PO PRN (10:00)
[2017-02-28] MEDS ORDERED: BISACODYL 10 MG SUPP RECTAL PRN (10:00)
[2017-02-28] MEDS ORDERED: SENNOSIDES 8.6 MG TAB PO PRN (10:00)
[2017-02-28] MEDS: HYDROmorphone HCL PF 2 MG/ML VIAL IVS PRN ×2 (10:08→13:53)
[2017-02-28] MEDS: DOCUSATE SODIUM 50 MG/SENNA 8.6 MG TAB PO SCH ×2 (10:09→21:48)
[2017-02-28 11:42] VITALS: BP 109/61; PULSE 94; RESP 18; TEMP 97.9; O2SAT 96
--- NOTE | 2017-02-28 12:39 | PD.CONS ---
HPI Service Urology Consult Requested By Dr. Garcia Reason for Consult Bilateral nephrolithiasis Primary Care Physician No Primary Care Physician Diagnosis: (1) Sepsis due to urinary tract infection ICD Code: A41.9 - Sepsis, unspecified organism; N39.0 - Urinary tract infection , site not specified (2) Acute kidney injury ICD Code: N17.9 - Acute kidney failure, unspecified (3) Constipation ICD Code: K59.00 - Constipation, unspecified History of Present Illness 29 year-old gentleman with long-standing history bilateral nephrolithiasis who has been evaluated in the past by both Dr. Villatoro and most recently in September of this year whereby he had placement of a right double-J stent. The previously inserted left double-J stent was not replaced at that time. Patient was advised to follow up as an outpatient for further management of the renal calculi and due to insurance reasons was unable to follow up as recommended. Patient now presents with chills fevers and right flank pain which began acutely yesterday evening. Urinalysis demonstrated the presence of red blood cells and white blood cells with moderate leukocyte esterase and rare bacteria seen. A CT scan study was performed which once again demonstrated bilateral staghorn renal calculi without any significant change from prior exams. The bilateral double-J stents appear to be in good position and there was no evidence of hydronephrosis. Patient was admitted for analgesic support and I the antibiotics and at the time of consultation patient was feeling remarkably better. I discussed the fact that the bilateral stents were only a temporary measure and that the patient would require definitive management of the bilateral staghorn calculi. Patient expressed understanding and stated that he would follow up either with Dr. Villatoro or [facility] as an outpatient. Review of Systems Constitutional: COMPLAINS OF: Fever, Chills Gastrointestinal: COMPLAINS OF: Constipation, DENIES: Abdominal pain Genitourinary: DENIES: Hematuria Musculoskeletal: DENIES: Back pain Except as stated in HPI: all other systems reviewed are Neg Past Family Social History Past Medical History Bilateral staghorn renal calculi Recurrent uric tract infections Gout Past Surgical History Status post left ureteral stent placement April 2016 Status post right ureteral stent placement September 2016 Status post nephrostomy tube in the past Status post drainage procedure for right elbow collection Reported Medications Refer to EMR Allergies: Coded Allergies: ketorolac (Verified Allergy, Severe, SWELLING OF THROAT, 02/27/17) Active Ordered Medications Refer to EMR Family History Father with history nephrolithiasis Positive family history for nasopharyngeal CA Social History Uses smokeless tobacco Recovering alcoholic Denies history intravenous drug abuse Physical Exam Vital Signs Date Time Temp Pulse Resp B/P (MAP) Pulse Ox O2 Delivery O2 Flow Rate FiO2 02/28/17 11:42 97.9 94 18 109/61 (77) 96 02/28/17 08:00 100.0 89 18 111/65 (80) 100 02/28/17 04:00 97.9 02/28/17 00:00 99.5 98 20 111/66 (81) 95 02/27/17 20:00 101.3 108 20 110/63 (79) 98 02/27/17 18:00 97.2 101 12 115/70 (85) 99 02/27/17 16:09 02/27/17 15:52 105 18 103/58 (73) 97 Room Air 02/27/17 14:19 100.4 114 20 102/61 (75) 96 Room Air 02/27/17 13:55 100.4 111 16 85/50 (62) 95 Room Air 02/27/17 13:42 101.3 113 20 98/60 (73) 95 Room Air Physical Exam GENERAL: This is a well-nourished, well-developed patient, in no apparent distress. SKIN: No rashes, ecchymoses or lesions. Cool and dry. HEAD: Atraumatic. Normocephalic. No temporal or scalp tenderness. EYES: Pupils equal round and reactive. Extraocular motions intact. No scleral icterus. No injection or drainage. ENT: Nose without bleeding, purulent drainage or septal hematoma. Throat without erythema, tonsillar hypertrophy or exudate. Uvula midline. Airway patent. NECK: Trachea midline. No JVD or lymphadenopathy. Supple, nontender, no meningeal signs. CARDIOVASCULAR: Regular rate and rhythm without murmurs, gallops, or rubs. RESPIRATORY: Clear to auscultation. Breath sounds equal bilaterally. No wheezes , rales, or rhonchi. GASTROINTESTINAL: Abdomen soft, non-tender, nondistended. No hepato-splenomegaly , or palpable masses. No guarding. GENITOURINARY: No CVA tenderness MUSCULOSKELETAL: Extremities without clubbing, cyanosis, or edema. No joint tenderness, effusion, or edema noted. No calf tenderness. Negative Homans sign bilaterally. NEUROLOGICAL: Awake and alert. Cranial nerves II through XII intact. Motor and sensory grossly within normal limits. Five out of 5 muscle strength in all muscle groups. Normal speech. Lab results reviewed: Yes Laboratory Tests Test 02/28/17 07:18 White Blood Count 8.7 Red Blood Count 4.08 Hemoglobin 11.9 Hematocrit 34.4 Mean Corpuscular Volume 84.5 Mean Corpuscular Hemoglobin 29.1 Mean Corpuscular Hemoglobin Concent 34.5 Red Cell Distribution Width 13.8 Platelet Count 164 Mean Platelet Volume 7.3 Neutrophils (%) (Auto) 68.1 Lymphocytes (%) (Auto) 14.7 Monocytes (%) (Auto) 8.3 Eosinophils (%) (Auto) 8.6 Basophils (%) (Auto) 0.3 Neutrophils # (Auto) 6.0 Lymphocytes # (Auto) 1.3 Monocytes # (Auto) 0.7 Eosinophils # (Auto) 0.7 Basophils # (Auto) 0.0 CBC Comment DIFF FINAL Differential Comment Blood Urea Nitrogen 14 Creatinine 1.10 Random Glucose 83 Calcium Level 8.2 Sodium Level 138 Potassium Level 3.9 Chloride Level 105 Carbon Dioxide Level 25.7 Anion Gap 7 Estimat Glomerular Filtration Rate 75 Lactic Acid Level 0.8 Date/Time Source Procedure Growth Status 02/27/17 11:45 Blood Peripheral Aerobic Blood Culture - Preliminary NO GROWTH IN 1 DAY Resulted 02/27/17 11:45 Blood Peripheral Anaerobic Blood Culture - Preliminary NO GROWTH IN 1 DAY Resulted 02/27/17 11:35 Urine Clean Catch Urine Culture - Preliminary NO GROWTH IN 24 HOURS. Resulted Result Diagram: 02/28/17 0718 02/28/17 0718 Personally reviewed images: Yes Imaging Last Impressions Abdomen/Pelvis CT 02/27/17 1349 Signed Impressions: Service Date/Time: Monday, February 27, 2017 13:57 - CONCLUSION: 1. No significant change in the bilateral staghorn calculi compared to the prior exams. 2. There is good position of the bilateral double-J stents without evidence of obstruction. 3. There are some stone fragments in the proximal left ureter adjacent to the left double-J stents. Kole Steiner MD Chest X-Ray 02/27/17 1127 Signed Impressions: Service Date/Time: Monday, February 27, 2017 11:58 - CONCLUSION: No acute disease. Eugene Omalley MD Assessment and Plan Assessment and Plan Urologic impression: #1 bilateral staghorn renal calculi status post bilateral stent placement #2 urinary tract infection related to staghorn calculi Recommendations: #1 agree with present antibiotic therapy #2 urologically cleared for discharge home when medically stable #3 patient to follow up with either Dr. Villatoro or Dr. Covarrubias as an outpatient for further management of the bilateral staghorn renal calculi #4 will be available as needed during present hospitalization Cristian Del Rio MD Feb 28, 2017 12:39
[2017-02-28] MEDS: VANCOMYCIN INJ 1,250 MG in SODIUM CHLOR 0.9% 250 ML INJ 250 ML IV SCH (12:48)
[2017-02-28] MEDS ORDERED: cefTRIAXone INJ 1,000 MG in SODIUM CHLORIDE 0.9% INJ 100 ML IV SCH (13:00)
[2017-02-28] MEDS: ONDANSETRON HCL 4 MG/2 ML VIAL IVP PRN ×2 (14:03→23:11)
[2017-02-28 15:54] VITALS: BP 116/65; PULSE 91; RESP 18; TEMP 99; O2SAT 98
[2017-02-28] MEDS: oxyCODONE/ACETAMINOPHEN 7.5 MG/325 MG TAB PO PRN ×2 (17:20→23:07)
[2017-02-28 20:00] VITALS: BP 120/71; PULSE 95; RESP 20; TEMP 96.4; O2SAT 100
[2017-02-28] MEDS ORDERED: hydrOXYzine HCL 50 MG TAB PO PRN (20:30)
[2017-02-28] MEDS ORDERED: PHARMACY ORDERED LAB ONE (23:45)
[2017-03-01] VITALS: BP 112/65; PULSE 77; RESP 20; TEMP 96.9; O2SAT 100
[2017-03-01] MEDS: VANCOMYCIN INJ 1,250 MG in SODIUM CHLOR 0.9% 250 ML INJ 250 ML IV SCH ×2
[2017-03-01] MEDS: oxyCODONE/ACETAMINOPHEN 7.5 MG/325 MG TAB PO PRN ×2 (05:18→10:50)
[2017-03-01] MEDS: CEFEPIME INJ 1,000 MG in SODIUM CHLORIDE 0.9% INJ 100 ML IV SCH (05:18)
[2017-03-01] MEDS: SODIUM CHLOR 0.9% 1000 ML INJ 1,000 ML IV SCH (05:19)
[2017-03-01 08:00] VITALS: BP 110/61; PULSE 79; RESP 16; TEMP 98.6; O2SAT 98
[2017-03-01] MEDS: SODIUM CHLORIDE 0.9% FLUSH 10 ML FLUSH IV FLUSH SCH (09:00)
--- NOTE | 2017-03-01 09:01 | HHI.DCPOC ---
Discharge Care Plan Diagnosis: (1) UTI (urinary tract infection) (2) Sepsis due to urinary tract infection Goals to Promote Your Health * To prevent worsening of your condition and complications * To maintain your health at the optimal level Directions to Meet Your Goals Take your medications as prescribed Follow your dietary instruction Follow activity as directed Keep your appointments as scheduled Take your immunizations and boosters as scheduled If your symptoms worsen call your PCP, if no PCP go to Urgent Care Center or Emergency Room Smoking is Dangerous to Your Health. Avoid second hand smoke Call the 24-hour hour crisis hotline for domestic abuse at Radha Garcia MD Mar 01, 2017 09:01
[2017-03-01] MEDS ORDERED: LEVA500T33 PO (09:04)
[2017-03-01] MEDS ORDERED: SENN8.6T8 PO (09:04)
--- NOTE | 2017-03-01 09:06 | HHI.DS ---
Discharge Summary Admission Date Feb 27, 2017 at 13:36 Discharge Date: Mar 01, 2017 Admitting Diagnosis Sepsis secondary to UTI. Acute kidney injury. (1) Sepsis due to urinary tract infection ICD Code: A41.9 - Sepsis, unspecified organism; N39.0 - Urinary tract infection , site not specified Status: Acute (2) Acute kidney injury ICD Code: N17.9 - Acute kidney failure, unspecified Status: Acute (3) Constipation ICD Code: K59.00 - Constipation, unspecified Procedures none Brief History - From Admission Written by Sade Moore, acting as scribe for Dr. Garcia on 02/27/17 at 16:34. Mr. Paez is a 37-year-old male patient with a known medical history of urethral stents and frequent kidney stones who presented to the ED with complaints of chills, subjective fevers, constipation and dysuria. Patient states that he was in his normal state of health last evening, ate dinner and went to bed. He states that he was suddenly awoken by the previous stated symptoms. He also complains of right groin pain that began upon presentation to the ED, is constant and shooting in nature, 7/10 on pain scale, denies any associated nausea or vomiting. Does state that he did not have a BM for over 5 days but just had one while here in the hospital. At the time of assessment patient does complain of continued right groin pain, with associated nausea. Patient had bilateral urethral stent placement in May of this year. Does not follow with a PCP or urologist. CBC/BMP: 02/28/17 0718 02/28/17 0718 Significant Findings Laboratory Tests Test 02/27/17 11:35 02/27/17 11:40 02/27/17 11:45 02/28/17 07:18 Urine Turbidity CLOUDY (CLEAR) Urine Protein 100 mg/dL (NEG-TRACE) Urine Occult Blood LARGE (NEG) Urine Leukocyte Esterase MOD (NEG) Urine RBC 25-49 /hpf (0-3) Urine WBC 100-200 /hpf (0-5) Urine WBC Clumps FEW (NONE) Urine Squamous Epithelial Cells 6-8 /hpf (0-5) Urine Bacteria RARE /hpf (NONE) White Blood Count 14.1 TH/MM3 (4.0-11.0) Neutrophils (%) (Auto) 84.3 % (16.0-70.0) Lymphocytes (%) (Auto) 4.6 % (9.0-44.0) Eosinophils (%) (Auto) 4.7 % (0.0-4.0) 8.6 % (0.0-4.0) Neutrophils # (Auto) 11.9 TH/MM3 (1.8-7.7) Lymphocytes # (Auto) 0.6 TH/MM3 (1.0-4.8) Eosinophils # (Auto) 0.7 TH/MM3 (0-0.4) 0.7 TH/MM3 (0-0.4) Basophils # (Auto) 0.3 TH/MM3 (0-0.2) Blood Urea Nitrogen 20 MG/DL (7-18) Creatinine 1.40 MG/DL (0.60-1.30) Random Glucose 112 MG/DL (74-106) Aspartate Amino Transf (AST/SGOT) 14 U/L (15-37) Sodium Level 132 MEQ/L (136-145) Chloride Level 96 MEQ/L (98-107) Estimat Glomerular Filtration Rate 57 ML/MIN (>89) 75 ML/MIN (>89) Lactic Acid Level 3.3 mmol/L (0.4-2.0) Red Blood Count 4.08 MIL/MM3 (4.50-5.90) Hemoglobin 11.9 GM/DL (13.0-17.0) Hematocrit 34.4 % (39.0-51.0) Monocytes (%) (Auto) 8.3 % (0.0-8.0) Calcium Level 8.2 MG/DL (8.5-10.1) Test 02/28/17 23:31 Vancomycin Level Trough 13.3 MCG/ML (5.0-10.0) Imaging Last Impressions Abdomen/Pelvis CT 02/27/17 7629 Signed Impressions: Service Date/Time: Monday, February 27, 2017 13:57 - CONCLUSION: 1. No significant change in the bilateral staghorn calculi compared to the prior exams. 2. There is good position of the bilateral double-J stents without evidence of obstruction. 3. There are some stone fragments in the proximal left ureter adjacent to the left double-J stents. Kole Steiner MD Chest X-Ray 02/27/17 1127 Signed Impressions: Service Date/Time: Monday, February 27, 2017 11:58 - CONCLUSION: No acute disease. Eugene Omalley MD PE at Discharge GENERAL: This is a well-nourished, well-developed patient, in mild distress due to right groin/flank pain. SKIN: No rashes, ecchymoses or lesions. Warm and dry. HEAD: Atraumatic. Normocephalic. No temporal or scalp tenderness. EYES: Pupils equal round and reactive. No injection or drainage. ENT: Nose without bleeding, purulent drainage or septal hematoma. Airway patent. NECK: Trachea midline. No lymphadenopathy. Supple, nontender, no meningeal signs. CARDIOVASCULAR: Regular rhythm, mildly tachycardic without murmurs, gallops, or rubs. No JVD. RESPIRATORY: Clear to auscultation. Breath sounds equal bilaterally. No wheezes , rales, or rhonchi. GASTROINTESTINAL: Abdomen soft, non-tender, nondistended. No guarding. Right sided CVA tenderness. Right groin tenderness. MUSCULOSKELETAL: Extremities without clubbing, cyanosis, or edema. NEUROLOGICAL: Awake and alert. Cranial nerves II through XII intact. No focal neurological deficits. Normal speech. Pt update on day of discharge Patient feeling better today. Still complaining of constipation which was somewhat relieved on admission. I did explain that, the patient is a common side effect of narcotics Hospital Course This patient's 37-year-old gentleman was seen and treated for sepsis likely related to urinary tract infection and for constipation. He was seen by urology for bilateral staghorn calculi and stents. Recommendations were for outpatient follow-up for which the patient has been nonadherent in the past. Patient had cultures which were negative here in the hospital. Antibodies were given. His acute kidney injury resolved with IV hydration. He did have satisfactory bowel movements Pt Condition on Discharge: Good Discharge Disposition: Discharge Home Discharge Time: <= 30 minutes Discharge Instructions DIET: Follow Instructions for: As Tolerated, No Restrictions Activities you can perform: Regular-No Restrictions Follow up Referrals: Urology - 2 Weeks with Andrey Covarrubias MD New Medications: Levofloxacin (Levaquin) 500 Mg Tablet 500 MG PO DAILY for Infection, #6 TAB 0 Refills Sennosides-Docusate Sodium (Senna S) 8.6-50 Mg Tab 1 TAB PO BID for Constipation, #62 TAB Radha Garcia MD Mar 01, 2017 09:06
[2017-03-01] MEDS ORDERED: BISACODYL EC 5 MG TABEC PO ONE (09:15)
[2017-03-01] MEDS ORDERED: LACTULOSE SYRUP 20 GM/30 ML CUP PO ONE (09:15)
[2017-03-01] MEDS: DOCUSATE SODIUM 50 MG/SENNA 8.6 MG TAB PO SCH (09:34)
[2017-03-01] MEDS ORDERED: OXYC1TAB35 PO (10:58)
== END 2017-03-01 11:10 | disposition home or self-care (01) | DRG 872 ==
LOC: PHED 10:48 → PHEDA 13:36 → PH3B 16:06
PROVIDERS: ADMIT Hospitalist; ATTEND Hospitalist
DX: A41.9 Sepsis, unspecified organism (principal); N17.9 Acute kidney failure, unspecified; N39.0 Urinary tract infection, site not specified; N20.0 Calculus of kidney; Z87.442 Personal history of urinary calculi; Z87.440 Personal history of urinary (tract) infections; K59.00 Constipation, unspecified; M10.9 Gout, unspecified; F17.220 Nicotine dependence, chewing tobacco, uncomplicated
CPT/HCPCS: 71010; 74176; 80048; 80053; 80202; 81001; 83605; 85025; 87040; 87086; 96360; J0692; J0696; J1170; J2270; J2405; J3370; J7030; J7050

== ENCOUNTER 2017-03-08 17:59 | Observation (INO) | payer SELFPAY ==
[~2017-03-08] VITALS: Ht 182.9 cm; Wt 89.2 kg
[~2017-03-08 17:59] MED LIST changes: -ALLO100T PO; -BACT800T5 PO; -COLC1TAB15 PO; -HYDR-3534 PO; +LEVA500T33 PO; -NAPR500T2 PO; +OXYC1TAB35 PO; -PRED20 PO; +SENN8.6T8 PO
[2017-03-08] MEDS ORDERED: IOHEXOL 350 MG/ML 10 ML VIAL (for RAD DIAG) IVCONTRAST ONE (18:00)
[2017-03-08 18:04] VITALS: BP 137/89; PULSE 102; RESP 18; TEMP 98.7; O2SAT 99
[2017-03-08] MEDS ORDERED: SODIUM CHLOR 0.9% 1000 ML INJ 1,000 ML IV SCH (18:22)
[2017-03-08] MEDS ORDERED: ONDANSETRON HCL 4 MG/2 ML VIAL IVP ONE (18:30)
[2017-03-08] MEDS ORDERED: MORPHINE SULFATE 2 MG/ML INJ IV PUSH ONE (18:30)
[2017-03-08] MEDS ORDERED: SODIUM CHLORIDE 0.9% FLUSH 10 ML FLUSH IV FLUSH PRN ×2 (18:30→21:30)
--- NOTE | 2017-03-08 18:34 | PD ---
HPI Chief Complaint: Flank/Kidney Pain Time Seen by Provider: 18:22 Travel History International Travel<30 days: No Contact w/Intl Traveler<30days: No Traveled to known affect area: No History of Present Illness HPI 37-year-old male with history of bilateral nephrolithiasis with bilateral double -J stents in place, here for evaluation of right flank pain radiating to his right groin. He has had similar pains since his stents have been placed. Pain is sharp, started last night, gradual onset, currently out of 10, constant, intermittently worse at times, associated with nausea but no vomiting. The patient also reports several episodes of loose/watery stools. He also states that he is diaphoretic, but is unsure if he is having a fever as he has no thermometer at home. He was admitted to the hospital on 02/27/17 and discharged on 03/01/17 for sepsis/UTI. He was given Rocephin during that visit and discharged home with a perception of Levaquin that he finished 2 days ago. Patient has had several CT abdomen pelvis in the last year, most recently was on 02/27/17 that showed no significant change and bilateral staghorn calculi compared to the prior studies, good positioning of the bilateral double-J stents without evidence of obstruction, some stone fragments in the left proximal ureter adjacent to the double-J stent. PFSH Past Medical History Hx Anticoagulant Therapy: No Arthritis: Yes (gout) Asthma: No Autoimmune Disease: No Blood Disorders: No Anxiety: Yes Depression: Yes Heart Rhythm Problems: No Cancer: No Cardiovascular Problems: No High Cholesterol: No Chest Pain: No Congestive Heart Failure: No COPD: No Cerebrovascular Accident: No Diabetes: No Diminished Hearing: No Endocrine: No Gastrointestinal Disorders: No GERD: No Glaucoma: No Gout: Yes Genitourinary: Yes (NEPHROLITHIASIS, RECURRENT UTI'S) Headaches: No Hepatitis: No Hiatal Hernia: No Hypertension: No Immune Disorder: No Implanted Vascular Access Dvce: Yes Kidney Stones: Yes Musculoskeletal: No Neurologic: No Psychiatric: Yes (ANXIETY) Reproductive: No Respiratory: No Immunizations Current: Yes Migraines: No Myocardial Infarction: No Renal Failure: No Seizures: No Sleep Apnea: No Thyroid Disease: No Ulcer: No Tetanus Vaccination: < 5 Years Influenza Vaccination: Yes Past Surgical History Abdominal Surgery: No AICD: No Arteriovenous Shunt: No Body Medical Devices: NEPHROSTOMY LEFT Cardiac Surgery: No Ear Surgery: No Endocrine Surgery: No Eye Surgery: No Genitourinary Surgery: Yes (URETERAL STENT 2007, LEFT LITHOTRIPSY, LEFT URETERAL STENT 04/2016) Gynecologic Surgery: No Insulin Pump: No Joint Replacement: No Neurologic Surgery: No Oral Surgery: No Pacemaker: No Thoracic Surgery: No Tonsillectomy: Yes (adenoids ) Other Surgery: Yes (lithotripsy) Social History 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" ) Tobacco Use: Yes (CHEWS TOBACCO, 1/4 can daily ) Substance Use: No Allergies-Medications (Allergen,Severity, Reaction): Coded Allergies: ketorolac (Verified Allergy, Severe, SWELLING OF THROAT, 03/08/17) Reported Meds & Prescriptions Reported Meds & Active Scripts Active No Active Prescriptions or Reported Medications Review of Systems Except as stated in HPI: all other systems reviewed are Neg Physical Exam Narrative GENERAL: Well-developed, well-nourished, slightly diaphoretic, no apparent distress. SKIN: Focused skin assessment warm/slightly diaphoretic. HEAD: Atraumatic. Normocephalic. EYES: Pupils equal and round. No scleral icterus. No injection or drainage. ENT: Mucous membranes pink and moist. NECK: Trachea midline. No JVD. CARDIOVASCULAR: Regular rate and rhythm. No murmur appreciated. RESPIRATORY: No accessory muscle use. Clear to auscultation. Breath sounds equal bilaterally. GASTROINTESTINAL: Abdomen soft, non-tender, nondistended. No hernias. : Normal exam. No hernias. MUSCULOSKELETAL: No obvious deformities. No clubbing. No cyanosis. No edema. Mild right CVA tenderness. No left CVA tenderness. NEUROLOGICAL: Awake and alert. No obvious cranial nerve deficits. Motor grossly within normal limits. Normal speech. PSYCHIATRIC: Appropriate mood and affect; insight and judgment normal. Data Data Last Documented VS Vital Signs Date Time Temp Pulse Resp B/P (MAP) Pulse Ox O2 Delivery O2 Flow Rate FiO2 03/08/17 18:55 19 99 Room Air 03/08/17 18:04 98.7 102 137/89 (105) Orders Orders Complete Blood Count With Diff (03/08/17 18:22) Comprehensive Metabolic Panel (03/08/17 18:22) Prothrombin Time / Inr (Pt) (03/08/17 18:22) Act Partial Throm Time (Ptt) (03/08/17 18:22) Urinalysis - C+S If Indicated (03/08/17 18:22) Iv Access Insert/Monitor (03/08/17 18:22) Ecg Monitoring (03/08/17 18:22) Oximetry (03/08/17 18:22) Ondansetron Inj (Zofran Inj) (03/08/17 18:30) Sodium Chlor 0.9% 1000 Ml Inj (Ns 1000 M (03/08/17 18:22) Sodium Chloride 0.9% Flush (Ns Flush) (03/08/17 18:30) Morphine Inj (Morphine Inj) (03/08/17 18:30) C Diff Toxin Pcr (03/08/17 18:34) Hydromorphone Pf Inj (Dilaudid Pf Inj) (03/08/17 19:45) Ct Abd/Pel W Iv Contrast(Rout) (03/08/17 ) Iohexol 350 Inj (Omnipaque 350 Inj) (03/08/17 18:00) Metronidazole 500 Mg Inj (Flagyl 500 Mg (03/08/17 21:15) Fluconazole (Diflucan) (03/08/17 21:30) Labs Laboratory Tests Test 03/08/17 18:45 03/08/17 18:54 03/08/17 19:20 Urine Color ORANGE Urine Turbidity MOD Urine pH 6.0 Urine Specific [place] 1.012 Urine Protein 100 mg/dL Urine Glucose (UA) NEG mg/dL Urine Ketones NEG mg/dL Urine Occult Blood LARGE Urine Nitrite NEG Urine Bilirubin NEG Urine Leukocyte Esterase MOD Urine RBC INNUM /hpf Urine WBC 3-5 /hpf Urine Squamous Epithelial Cells 0-5 /hpf Urine Renal Epithelial Cells 0-5 /hpf Urine Amorphous Sediment SMALL Urine Mucus OCC /lpf Urine Yeast (Budding) RARE Microscopic Urinalysis Comment CULT NOT INDICATED White Blood Count 12.0 TH/MM3 Red Blood Count 4.41 MIL/MM3 Hemoglobin 12.7 GM/DL Hematocrit 37.3 % Mean Corpuscular Volume 84.7 FL Mean Corpuscular Hemoglobin 28.8 PG Mean Corpuscular Hemoglobin Concent 34.0 % Red Cell Distribution Width 13.4 % Platelet Count 301 TH/MM3 Mean Platelet Volume 7.0 FL Neutrophils (%) (Auto) 78.2 % Lymphocytes (%) (Auto) 12.6 % Monocytes (%) (Auto) 4.0 % Eosinophils (%) (Auto) 5.0 % Basophils (%) (Auto) 0.2 % Neutrophils # (Auto) 9.4 TH/MM3 Lymphocytes # (Auto) 1.5 TH/MM3 Monocytes # (Auto) 0.5 TH/MM3 Eosinophils # (Auto) 0.6 TH/MM3 Basophils # (Auto) 0.0 TH/MM3 CBC Comment DIFF FINAL Differential Comment Prothrombin Time 10.5 SEC Prothromb Time International Ratio 1.0 RATIO Activated Partial Thromboplast Time 27.0 SEC Blood Urea Nitrogen 11 MG/DL Creatinine 1.10 MG/DL Random Glucose 93 MG/DL Total Protein 7.1 GM/DL Albumin 3.7 GM/DL Calcium Level 9.0 MG/DL Alkaline Phosphatase 65 U/L Aspartate Amino Transf (AST/SGOT) 14 U/L Alanine Aminotransferase (ALT/SGPT) 19 U/L Total Bilirubin 0.4 MG/DL Sodium Level 139 MEQ/L Potassium Level 3.7 MEQ/L Chloride Level 104 MEQ/L Carbon Dioxide Level 28.5 MEQ/L Anion Gap 7 MEQ/L Estimat Glomerular Filtration Rate 75 ML/MIN MDM Medical Decision Making Medical Screen Exam Complete: Yes Emergency Medical Condition: Yes Differential Diagnosis Ureteral obstruction, chronic pain, nephrolithiasis, C. difficile colitis Narrative Course Initial vital signs show heart rate 102, blood pressure 137/89, pulse ox 99% on room air, oral temp of 98.7F. CBC: WBC 12, hemoglobin 12.7, hematocrit 37.3, platelets 301, neutrophils 78%. CMP is unremarkable. UA shows large occult blood, innumerable rbc's, moderate leukocyte esterase, rare budding yeast C. difficile toxin is pending. CT abdomen pelvis: CONCLUSION: 1. Numerous bilateral renal calculi again seen with bilateral double-J ureteral stents. 2. 2 calculi are now seen in the mid left ureter. Only one calculus was seen in the mid left ureter on the prior study of December. No change from the more recent scan of February 27, 2017. 3. No evidence of hydronephrosis. 4. New circumferential wall thickening and mucosal enhancement of the cecum and terminal ileum. Findings suggest possible inflammatory bowel disease. No evidence of obstruction. Appendix within normal limits. 5. Mild chronic diffuse prominence of the intrahepatic biliary ducts. Patient was initially given a dose of morphine and complained of continued abdominal pain. He was then given a dose of Dilaudid. He may have C. difficile colitis as he continues to have abdominal pain. Because of this he will be started on IV Flagyl and admitted for further treatment and evaluation. He was made aware of all findings and is amenable with this plan. Case discussed with hospitalist Dr Pierson who will admit the patient to her service. Diagnosis Primary Impression: Colitis Additional Impression: Intractable abdominal pain Admitting Information Admitting Physician Requests: Observation Scripts No Active Prescriptions or Reported Meds Gopi Ross MD Mar 08, 2017 18:34
[2017-03-08 18:55] VITALS: RESP 19; O2SAT 99
[2017-03-08 19:01] LABS: BILIRUBIN, URINE NEG (NEG); BLOOD, URINE LARGE (NEG); GLUCOSE,URINE NEG (NEG); KETONE, URINE NEG (NEG); NITRITE,URINE NEG (NEG); URINE LEUKOCYTE ESTERASE MOD (NEG)
[2017-03-08 19:07] LABS: AUTOMATED NEUTROPHIL # 9.4 TH/MM3 (1.8-7.7); BASOPHIL % 0.2 % (0.0-2.0); EOSINOPHIL # 0.6 TH/MM3 (0-0.4); HEMATOCRIT 37.3 % (39.0-51.0); HEMOGLOBIN 12.7 GM/DL (13.0-17.0); LYMPH % 12.6 % (9.0-44.0); LYMPHOCYTE # 1.5 TH/MM3 (1.0-4.8); MEAN CELL VOLUME 84.7 FL (80.0-100.0); MEAN CORPUSCULAR HEMOGLOBIN 28.8 PG (27.0-34.0); MONOCYTE # 0.5 TH/MM3 (0-0.9); NEUT % 78.2 % (16.0-70.0); PLATELET COUNT 301 TH/MM3 (150-450); RED BLOOD COUNT 4.41 MIL/MM3 (4.50-5.90); RED CELL DISTRIBUTION WIDTH 13.4 % (11.6-17.2)
[2017-03-08 19:08] LABS: URINE COLOR ORANGE (YELLW/STRAW)
[2017-03-08 19:09] LABS: MUCUS URINE OCC /lpf (OCC); RBC, URINE INNUM /hpf (0-3); RENAL EPITHELIAL CELLS 0-5 /hpf; SQUAMOUS EPITHELIAL CELL URINE 0-5 /hpf (0-5)
[2017-03-08 19:11] LABS: AMORPHOUS SEDIMENT, URINE SMALL
[2017-03-08 19:17] LABS: CHLORIDE 104 MEQ/L (98-107); SODIUM (NA) 139 MEQ/L (136-145)
[2017-03-08 19:21] LABS: ALBUMIN 3.7 GM/DL (3.4-5.0); BICARBONATE 28.5 MEQ/L (21.0-32.0); BLOOD UREA NITROGEN 11 MG/DL (7-18); GLUCOSE,RANDOM 93 MG/DL (74-106)
[2017-03-08 19:24] LABS: ALT (GPT) 19 U/L (12-78); AST (GOT) 14 U/L (15-37); GLOMERULAR FILTRATION RATE 75 ML/MIN (>89)
[2017-03-08 19:25] LABS: TOTAL BILIRUBIN ADULT 0.4 MG/DL (0.2-1.0); TOTAL PROTEIN 7.1 GM/DL (6.4-8.2)
[2017-03-08 19:26] LABS: ALKALINE PHOSPHATASE 65 U/L (45-117)
[2017-03-08 19:37] LABS: PROTHROMBIN TIME - PATIENT 10.5 SEC (9.8-11.6)
[2017-03-08] MEDS ORDERED: HYDROmorphone HCL PF 2 MG/ML VIAL IV PUSH ONE (19:45)
[2017-03-08 20:15] VITALS: BP 142/90; PULSE 67; RESP 20; O2SAT 96
--- NOTE | 2017-03-08 21:04 | RADRPT ---
EXAM DATE/TIME: 03/08/2017 19:51 [facility] COMPARISON: CT ABDOMEN & PELVIS W/O CONTRAST, February 27, 2017, 13:57. CT ABDOMEN & PELVIS W CONTRAST, December 24, 2016, 13:38. INDICATIONS : Right flank pain. Renal stents. IV CONTRAST: 96 cc Omnipaque 350 (iohexol) IV ORAL CONTRAST: No oral contrast ingested. RADIATION DOSE: 13.73 CTDIvol (mGy) MEDICAL HISTORY : Renal calculi. Gout SURGICAL HISTORY : None. Ureteral stents bilat ENCOUNTER: Initial ACUITY: 1 day PAIN SCALE: 9/10 LOCATION: Right flank TECHNIQUE: Volumetric scanning of the abdomen and pelvis was performed. Using automated exposure control and ad justment of the mA and/or kV according to patient size, radiation dose was kept as low as reasonably achievable to obtain optimal diagnostic quality images. DICOM format image data is available [facility] for review and comparison. FINDINGS: LOWER LUNGS: The visualized lower lungs are clear. LIVER: Mild diffuse prominence of the intrahepatic biliary ducts unchanged. Common duct is within normal allen its. Gallbladder within normal limits. SPLEEN: Spleen is mildly enlarged measuring 13.7 cm in craniocaudal dimension unchanged prior study. PANCREAS: Within normal limits. KIDNEYS: Numerous bilateral renal calculi are again seen. Bilateral double-J renal stents are again seen. Calc marcus are identified in the mid left ureter they measure 9 mm and 7 mm in long axis dimension and 3-4 m m in short axis dimension. Only a single calculus is seen in this location on prior study. No evidenc e of hydronephrosis. ADRENAL GLANDS: Within normal limits. VASCULAR: There is no aortic aneurysm. BOWEL/MESENTERY: There is some chronic colonic wall thickening involving the rectum and distal sigmoid colon. New circ umferential wall thickening and mucosal enhancement is seen in the cecum and terminal ileum. Appendix is within normal limits. No evidence of bowel dilatation. No free air or free fluid. ABDOMINAL WALL: Within normal limits. RETROPERITONEUM: There is no lymphadenopathy. BLADDER: No wall thickening or mass. REPRODUCTIVE: Within normal limits. INGUINAL: There is no lymphadenopathy or hernia. MUSCULOSKELETAL: Within normal limits for patient age. CONCLUSION: 1. Numerous bilateral renal calculi again seen with bilateral double-J ureteral stents. 2. 2 calculi are now seen in the mid left ureter. Only one calculus was seen in the mid left ureter o n the prior study of December. No change from the more recent scan of February 27, 2017. 3. No evidence of hydronephrosis. 4. New circumferential wall thickening and mucosal enhancement of the cecum and terminal ileum. Findi ngs suggest possible inflammatory bowel disease. No evidence of obstruction. Appendix within normal l imits. 5. Mild chronic diffuse prominence of the intrahepatic biliary ducts. Reji Lyman MD on March 08, 2017 at 20:53 Board Certified Radiologist. This report was verified electronically.
[2017-03-08] MEDS ORDERED: metroNIDAZOLE 500 MG INJ 100 ML IV ONE (21:15)
[2017-03-08] MEDS ORDERED: MAGNESIUM HYDROXIDE SUSP 30 ML CUP PO PRN (21:30)
[2017-03-08] MEDS ORDERED: ACETAMINOPHEN 325 MG TAB PO PRN (21:30)
[2017-03-08] MEDS ORDERED: NALOXONE HCL 0.4 MG/ML AMP IV PUSH PRN (21:30)
[2017-03-08] MEDS ORDERED: LACTULOSE SYRUP 20 GM/30 ML CUP PO PRN (21:30)
[2017-03-08] MEDS ORDERED: ONDANSETRON HCL 4 MG/2 ML VIAL IVP PRN (21:30)
[2017-03-08] MEDS ORDERED: BISACODYL 10 MG SUPP RECTAL PRN (21:30)
[2017-03-08] MEDS ORDERED: FLUCONAZOLE 100 MG TAB PO ONE (21:30)
[2017-03-08] MEDS ORDERED: SENNOSIDES 8.6 MG TAB PO PRN (21:30)
[2017-03-08 22:18] VITALS: BP 143/94; PULSE 70; RESP 20; TEMP 98.7; O2SAT 97
[2017-03-08] MEDS ORDERED: VIST50CA PO (22:50)
[2017-03-08] MEDS: MORPHINE SULFATE 4 MG/ML INJ IV PUSH PRN (23:20)
[2017-03-08 23:24] VITALS: BP 143/97; PULSE 72; RESP 18; TEMP 98.4; O2SAT 96
[2017-03-09] MEDS: MORPHINE SULFATE 4 MG/ML INJ IV PUSH PRN ×3 (02:15→13:00)
[2017-03-09] MEDS ORDERED: metroNIDAZOLE 500 MG TAB PO SCH ×3 (05:00→14:00)
[2017-03-09 07:06] LABS: CALCIUM 8.8 MG/DL (8.5-10.1)
[2017-03-09 07:10] LABS: AUTOMATED NEUTROPHIL # 5.7 TH/MM3 (1.8-7.7); BASOPHIL # 0.1 TH/MM3 (0-0.2); BASOPHIL % 0.5 % (0.0-2.0); CREATININE 0.99 MG/DL (0.60-1.30); EOSINOPHIL % 9.4 % (0.0-4.0); HEMATOCRIT 36.9 % (39.0-51.0); HEMOGLOBIN 12.4 GM/DL (13.0-17.0); LYMPHOCYTE # 2.8 TH/MM3 (1.0-4.8); MEAN CELL VOLUME 85.7 FL (80.0-100.0); MEAN CORPUSCULAR HEMOGLOBIN 28.8 PG (27.0-34.0); MEAN CORPUSCULAR HGB CONC 33.7 % (32.0-36.0); MEAN PLATELET VOLUME 6.9 FL (7.0-11.0); MONO % 6.2 % (0.0-8.0); MONOCYTE # 0.6 TH/MM3 (0-0.9); NEUT % 56.9 % (16.0-70.0); PLATELET COUNT 262 TH/MM3 (150-450); RED BLOOD COUNT 4.31 MIL/MM3 (4.50-5.90); RED CELL DISTRIBUTION WIDTH 14.3 % (11.6-17.2); WHITE BLOOD COUNT 10.2 TH/MM3 (4.0-11.0)
[2017-03-09 08:00] VITALS: BP 139/78; PULSE 63; RESP 16; TEMP 98; O2SAT 100
[2017-03-09] MEDS ORDERED: SODIUM CHLORIDE 0.9% FLUSH 10 ML FLUSH IV FLUSH SCH (09:00)
[2017-03-09] MEDS ORDERED: DOCUSATE SODIUM 50 MG/SENNA 8.6 MG TAB PO SCH (09:00)
--- NOTE | 2017-03-09 09:18 | HHI.HP ---
[facility] [place] Primary [place] Physician No Primary Care Physician Admission Diagnosis colitis, intractable abdominal pain Diagnoses: (1) Colitis Diagnosis: Principal (2) Intractable abdominal pain Diagnosis: Principal Chief Complaint: Abdominal pain Travel History International Travel<30 Days: No Contact w/Intl Traveler <30 Da: No Traveled to Known Affected Are: No History of Present Illness 37 year-old male with known history of renal lithiasis, gout, recurrent UTI who presented to hospital because of abdominal pain. Patient does have a recent hospitalization from February 27, 2017 until March 01, 2017 secondary to renal lithiasis, urinary tract infection. Patient was followed outpatient and continued on Levaquin for antibiotics. Patient finished antibiotics 2 days ago and subsequent he started developing abdominal pain in the right lower quadrant as well as diarrhea 1-1/2 days ago. The pain did not improve so he came to emergency department for evaluation. Patient has CT scan done which did not indicate any obstructive uropathy, however did show colitis in the terminal ileum and cecum. C. difficile culture was performed which was positive. Patient has have history of previous C. difficile infection. So this would be his first recurrence likely secondary to the use of Levaquin. Patient is very mild case of this time he only had 2 bowel movements in the last 2 days which word diarrhea. Pain is controlled with medication. Patient does not appear to be ill or toxic at this time. Patient does have financial difficulties and is undergoing evaluation for patient care assistance. Review of Systems Gastrointestinal: COMPLAINS OF: Abdominal pain, Diarrhea, Nausea Past Family Social History Past Medical History Gouty arthritis History renal lithiasis History of clostridium difficile infection Recurrent urinary tract infection History of alcohol abuse Past Surgical History Ureteral stents History of nephrostomy tube Right elbow drainage Reported Medications Reported Meds & Active Scripts Active Reported Vistaril (Hydroxyzine Pamoate) 50 Mg Cap 50 Mg PO TID Allergies: Coded Allergies: ketorolac (Verified Allergy, Severe, SWELLING OF THROAT, 03/08/17) Family History Reviewed is significant for nasopharyngeal cancer and father with history of renal lithiasis Social History Patient does continue to use smokeless tobacco, he is recovering alcoholic. Denies any illicit drug use Physical Exam Vital Signs Vital Signs Date Time Temp Pulse Resp B/P (MAP) Pulse Ox O2 Delivery O2 Flow Rate FiO2 03/08/17 23:24 98.4 72 18 143/97 (112) 96 03/08/17 22:35 03/08/17 22:18 98.7 70 20 143/94 (110) 97 Room Air 03/08/17 20:15 67 20 142/90 (107) 96 Nasal Cannula 03/08/17 18:55 19 99 Room Air 03/08/17 18:04 98.7 102 18 137/89 (105) 99 Physical Exam GENERAL: Well-developed, well-nourished, in no acute distress. alert and orientated HEENT: Head is normocephalic without any lesions or masses noted. Facial features are symmetric. Eyes: Pupils equal round reactive to light. Extraocular muscles are intact. Conjunctivae were clear. Oropharyngeal: Pharynx without any erythema edema. Tongue is midline without deviation. Buccal mucosa is moist without any masses or lesions NECK: Supple without any masses. Trachea midline no deviation. No JVD, no bruits are appreciated CARDIAC: Regular rhythm, regular rate. S1/S2 are heard. No murmurs gallops or rubs. LUNGS: Clear to auscultation bilaterally. No wheeze, rhonchi or rales. No use of accessory muscles on inspiration or expiration. ABDOMEN: Soft, right lower quadrant tenderness. Nondistended. Bowel sounds heard in all 4 quadrants. No organomegaly or masses. Negative rebound, negative guarding EXTREMITIES: No edema, pulses are equal bilaterally. No cyanosis or clubbing NEUROLOGY: Mood and affect appear appropriate. Cranial nerves II through XII grossly intact. Muscle strength 5/5 in upper and lower extremities bilaterally. Deep tendon reflexes are 2+ in upper and lower extremities bilaterally. Laboratory Laboratory Tests Test 03/08/17 18:45 03/08/17 18:54 03/08/17 19:20 03/09/17 06:25 Urine Color ORANGE Urine Turbidity MOD Urine pH 6.0 Urine Specific [place] 1.012 Urine Protein 100 Urine Glucose (UA) NEG Urine Ketones NEG Urine Occult Blood LARGE Urine Nitrite NEG Urine Bilirubin NEG Urine Leukocyte Esterase MOD Urine RBC INNUM Urine WBC 3-5 Urine Squamous Epithelial Cells 0-5 Urine Renal Epithelial Cells 0-5 Urine Amorphous Sediment SMALL Urine Mucus OCC Urine Yeast (Budding) RARE Microscopic Urinalysis Comment CULT NOT INDICATED White Blood Count 12.0 10.2 Red Blood Count 4.41 4.31 Hemoglobin 12.7 12.4 Hematocrit 37.3 36.9 Mean Corpuscular Volume 84.7 85.7 Mean Corpuscular Hemoglobin 28.8 28.8 Mean Corpuscular Hemoglobin Concent 34.0 33.7 Red Cell Distribution Width 13.4 14.3 Platelet Count 301 262 Mean Platelet Volume 7.0 6.9 Neutrophils (%) (Auto) 78.2 56.9 Lymphocytes (%) (Auto) 12.6 27.0 Monocytes (%) (Auto) 4.0 6.2 Eosinophils (%) (Auto) 5.0 9.4 Basophils (%) (Auto) 0.2 0.5 Neutrophils # (Auto) 9.4 5.7 Lymphocytes # (Auto) 1.5 2.8 Monocytes # (Auto) 0.5 0.6 Eosinophils # (Auto) 0.6 1.0 Basophils # (Auto) 0.0 0.1 CBC Comment DIFF FINAL DIFF FINAL Differential Comment Prothrombin Time 10.5 Prothromb Time International Ratio 1.0 Activated Partial Thromboplast Time 27.0 Blood Urea Nitrogen 11 11 Creatinine 1.10 0.99 Random Glucose 93 91 Total Protein 7.1 Albumin 3.7 Calcium Level 9.0 8.8 Alkaline Phosphatase 65 Aspartate Amino Transf (AST/SGOT) 14 Alanine Aminotransferase (ALT/SGPT) 19 Total Bilirubin 0.4 Sodium Level 139 140 Potassium Level 3.7 3.3 Chloride Level 104 103 Carbon Dioxide Level 28.5 29.0 Anion Gap 7 8 Estimat Glomerular Filtration Rate 75 85 Stool C. difficile Toxin (PCR) POSITIVE Stl C. difficile Toxin Epiderm 027 PRESUMPTIVE NEGATIVE Result Diagram: 03/09/1725 03/09/17 0625 Imaging Last Impressions Abdomen/Pelvis CT 03/08/17 0000 Signed Impressions: Service Date/Time: Wednesday, March 08, 2017 19:51 - CONCLUSION: 1. Numerous bilateral renal calculi again seen with bilateral double-J ureteral stents. 2. 2 calculi are now seen in the mid left ureter. Only one calculus was seen in the mid left ureter on the prior study of December. No change from the more recent scan of February 27, 2017. 3. No evidence of hydronephrosis. 4. New circumferential wall thickening and mucosal enhancement of the cecum and terminal ileum. Findings suggest possible inflammatory bowel disease. No evidence of obstruction. Appendix within normal limits. 5. Mild chronic diffuse prominence of the intrahepatic biliary ducts. Reji Lyman MD Caprini VTE Risk Assessment Caprini VTE Risk Assessment: Mod/High Risk (score >= 2) Caprini Risk Assessment Model Point Value = 1 Point Value = 2 Point Value = 3 Point Value = 5 Age 41-60 Minor surgery BMI > 25 kg/m2 Swollen legs Varicose veins or History of unexplained or recurrent spontaneous Oral contraceptives or hormone replacement Sepsis (< 1 month) Serious lung disease, including pneumonia (< 1 month) Abnormal pulmonary function Acute myocardial infarction Congestive heart failure (< 1 month) History of inflammatory bowel disease Medical patient at bed rest Age 61-74 Arthroscopic surgery Major open surgery (> 45 min) Laparoscopic surgery (> 45 min) Malignancy Confined to bed (> 72 hours) Immobilizing plaster cast Central venous access Age >= 75 History of VTE Family history of VTE Factor V Leiden Prothrombin [id number] Lupus anticoagulant Anticardiolipin antibodies Elevated serum homocysteine Heparin-induced thrombocytopenia Other congenital or acquired thrombophilia Stroke (< 1 month) Elective arthroplasty Hip, pelvis, or leg fracture Acute spinal cord injury (< 1 month) Prophylaxis Regimen Total Risk Factor Score Risk Level Prophylaxis Regimen 0-1 Low Early ambulation 2 Moderate Order ONE of the following: *Sequential Compression Device (SCD) *Heparin 5000 units SQ BID 3-4 Higher Order ONE of the following medications: *Heparin 5000 units SQ TID *Enoxaparin/Lovenox 40 mg SQ daily (WT < 150 kg, CrCl > 30 mL/min) *Enoxaparin/Lovenox 30 mg SQ daily (WT < 150 kg, CrCl > 10-29 mL/min) *Enoxaparin/Lovenox 30 mg SQ BID (WT < 150 kg, CrCl > 30 mL/min) AND/OR *Sequential Compression Device (SCD) 5 or more Highest Order ONE of the following medications: *Heparin 5000 units SQ TID (Preferred with Epidurals) *Enoxaparin/Lovenox 40 mg SQ daily (WT < 150 kg, CrCl > 30 mL/min) *Enoxaparin/Lovenox 30 mg SQ daily (WT < 150 kg, CrCl > 10-29 mL/min) *Enoxaparin/Lovenox 30 mg SQ BID (WT < 150 kg, CrCl > 30 mL/min) AND *Sequential Compression Device (SCD) Assessment and Plan Assessment and Plan Clostridium difficile colitis, mild CT scan does show colitis of the terminal ileum and cecum Clostridium difficile testing was positive First recurrence, will give Flagyl 500 mg 3 times daily for 14 days Abdominal pain secondary to above Continue pain control Patient requesting Dilaudid/morphine. Notified him that we cannot discharge on those medications. Then he indicated Percocet 7.5 DVT prevention Sequential compression devices Discharge disposition Discharge home in stable condition once case management is able to arrange patient care assistance, blue card, prescriptions in hand Activity: Ad edie. Diet: Regular diet Medications per medication reconciliation Follow-up primary medical doctor in one week Tawanda Roque Mar 09, 2017 09:18
[2017-03-09 09:26] VITALS: BP 139/78; PULSE 63; RESP 16; TEMP 98; O2SAT 100
[2017-03-09] MEDS ORDERED: POTASSIUM CHLORIDE 20 MEQ CONTROLLED RELEASE TAB PO ONE (09:45)
[2017-03-09] MEDS ORDERED: METR-1 PO (09:53)
[2017-03-09] MEDS ORDERED: PERC7.5T13 PO (09:53)
--- NOTE | 2017-03-09 09:54 | HHI.DCPOC ---
Discharge Care Plan Diagnosis: (1) Clostridium difficile infection (2) Colitis Goals to Promote Your Health * To prevent worsening of your condition and complications * To maintain your health at the optimal level Directions to Meet Your Goals Take your medications as prescribed Follow your dietary instruction Follow activity as directed Keep your appointments as scheduled Take your immunizations and boosters as scheduled If your symptoms worsen call your PCP, if no PCP go to Urgent Care Center or Emergency Room Smoking is Dangerous to Your Health. Avoid second hand smoke Call the 24-hour hour crisis hotline for domestic abuse at Tawanda Roque Mar 09, 2017 09:54
[2017-03-09] MEDS ORDERED: VANCOMYCIN 500 MG VIAL (FOR ORAL USE ONLY) PO SCH (13:00)
[2017-03-09 13:21] VITALS: RESP 20
== END 2017-03-09 17:31 | disposition home or self-care (01) ==
LOC: PHED 17:59 → PHEDA 21:27 → PH3B 22:40
PROVIDERS: ADMIT Hospitalist; ATTEND Hospitalist
DX: A04.72 Enterocolitis due to Clostridium difficile, not specified as recurrent (principal); N20.0 Calculus of kidney; N39.0 Urinary tract infection, site not specified; M10.9 Gout, unspecified; F10.21 Alcohol dependence, in remission; Z72.0 Tobacco use
CPT/HCPCS: 74177; 80048; 80053; 81001; 85025; 85610; 85730; 87493; 96361; 96365; 96375; 96376; 99285; G0378; J1170; J2270; J2405; J7030; Q9967

== ENCOUNTER 2017-04-14 13:00 | Emergency (ER) | payer OTHER ==
[~2017-04-14] VITALS: Ht 182.9 cm; Wt 90.9 kg
[~2017-04-14 13:00] MED LIST changes: +ALLO300T2 PO; +COLC1CAP3 PO; -LEVA500T33 PO; -OXYC1TAB35 PO; +PRED10PA PO; -SENN8.6T8 PO; +WALKER WHEELS/F1 MIS
[2017-04-14 13:01] VITALS: BP 145/92; PULSE 113; RESP 16; TEMP 98; O2SAT 100
--- NOTE | 2017-04-14 13:52 | PD ---
HPI Chief Complaint: GI Complaint Time Seen by Provider: 13:36 Travel History International Travel<30 days: No Contact w/Intl Traveler<30days: No Traveled to known affect area: No History of Present Illness HPI 37-year-old male complains of abdominal pain, diarrhea. Patient states that he started having diarrhea 2 days ago. Patient started having abdominal cramping since last night. Patient states that the abdominal pain cramping pain diffuse over the abdomen. Patient denies any pain radiation. Patient states that he has mild dysuria for the past 2 days. Patient denies any blood or mucus in the stool. Patient denies any fever chills. Patient has history of C. difficile colitis secondary to antibiotic and was [facility] to [facility] March 08. Patient was treated with Flagyl with resolution. Patient denies any recent antibiotic. Patient states that he has mild coughing congestion recently. Patient denies any recent travel. Patient has history of kidney stone, gout, recurrent UTI in the past. Patient was seen in emergency room 8 days ago with diagnosis of gouty arthritis. Patient was given Medrol Dosepak. PFSH Past Medical History Hx Anticoagulant Therapy: No Arthritis: Yes Asthma: No Autoimmune Disease: No Blood Disorders: No Anxiety: Yes Depression: No Heart Rhythm Problems: No Cancer: No Cardiovascular Problems: No High Cholesterol: No Chest Pain: No Congestive Heart Failure: No COPD: No Cerebrovascular Accident: No Diabetes: No Diminished Hearing: No Endocrine: No Gastrointestinal Disorders: No GERD: No Glaucoma: No Gout: Yes Headaches: No Hepatitis: No Hiatal Hernia: No Hypertension: No Immune Disorder: No Implanted Vascular Access Dvce: Yes Kidney Stones: Yes Musculoskeletal: Yes Neurologic: No Psychiatric: Yes (ANXIETY) Reproductive: No Respiratory: No Immunizations Current: Yes Migraines: No Myocardial Infarction: No Renal Failure: No Seizures: No Sleep Apnea: No Thyroid Disease: No Ulcer: No Past Surgical History Abdominal Surgery: No AICD: No Arteriovenous Shunt: No Body Medical Devices: NEPHROSTOMY LEFT Cardiac Surgery: No Ear Surgery: No Endocrine Surgery: No Eye Surgery: No Genitourinary Surgery: Yes (bilateral stent) Gynecologic Surgery: No Insulin Pump: No Joint Replacement: No Neurologic Surgery: No Oral Surgery: Yes (tonsilectomy in childhood) Pacemaker: No Thoracic Surgery: No Tonsillectomy: Yes (adenoids ) Other Surgery: Yes (lithotripsy) Social History 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" ) Tobacco Use: Yes (CHEWS TOBACCO, 1/4 can daily ) Substance Use: No Allergies-Medications (Allergen,Severity, Reaction): Coded Allergies: ketorolac (Verified Allergy, Severe, SWELLING OF THROAT, 04/14/17) Reported Meds & Prescriptions Reported Meds & Active Scripts Active Walker with Front Wheels (Device) 1 Mis Mis Ea .ROUTE DIRECTED Colchicine 0.6 Mg Cap 0.6 Mg PO DIRECTED PRN 2 pills by mouth upon onset of flare up; followed by 1 more pill by mouth 1 hour later Allopurinol 300 Mg Tab 300 Mg PO DAILY Prednisone (21) 10 mg tab Dose Pack (Prednisone) 10 Mg Pack 10 Mg PO DIRECTED Review of Systems General / Constitutional: No: Fever Eyes: No: Visual changes HENT: No: Headaches Cardiovascular: No: Chest Pain or Discomfort Respiratory: No: Shortness of Breath Gastrointestinal: Positive: Diarrhea, Abdominal Pain Genitourinary: No: Dysuria Musculoskeletal: No: Pain Skin: No Rash Neurologic: No: Weakness Psychiatric: No: Depression Endocrine: No: Polydipsia Hematologic/Lymphatic: No: Easy Bruising Physical Exam Narrative GENERAL: Well-nourished, well-developed patient. SKIN: Focused skin assessment warm/dry. HEAD: Normocephalic. EYES: No scleral icterus. No injection or drainage. NECK: Supple, trachea midline. No JVD or lymphadenopathy. CARDIOVASCULAR: Regular rate and rhythm without murmurs, gallops, or rubs. RESPIRATORY: Breath sounds equal bilaterally. No accessory muscle use. GASTROINTESTINAL: Abdomen soft, non-tender, nondistended. MUSCULOSKELETAL: No cyanosis, or edema. BACK: Nontender without obvious deformity. No CVA tenderness. Neurologic exam normal. Data Data Last Documented VS Vital Signs Date Time Temp Pulse Resp B/P (MAP) Pulse Ox O2 Delivery O2 Flow Rate FiO2 04/14/17 13:01 98.0 113 16 145/92 (109) 100 Orders Orders Complete Blood Count With Diff (04/14/17 13:46) Comprehensive Metabolic Panel (04/14/17 13:46) Lipase (04/14/17 13:46) Urinalysis - C+S If Indicated (04/14/17 13:46) Iv Access Insert/Monitor (04/14/17 13:46) Ecg Monitoring (04/14/17 13:46) Oximetry (04/14/17 13:46) Urine Culture (04/14/17 13:50) Sulfamet-Trimeth Ds 800-160 Mg (Bactrim (04/14/17 15:15) Ondansetron Inj (Zofran Inj) (04/14/17 15:15) Dicyclomine Inj (Bentyl Inj) (04/14/17 15:15) Ed Discharge Order (04/14/17 15:10) Labs Laboratory Tests Test 04/14/17 13:50 White Blood Count 18.0 TH/MM3 Red Blood Count 4.73 MIL/MM3 Hemoglobin 13.7 GM/DL Hematocrit 39.1 % Mean Corpuscular Volume 82.6 FL Mean Corpuscular Hemoglobin 29.0 PG Mean Corpuscular Hemoglobin Concent 35.1 % Red Cell Distribution Width 14.0 % Platelet Count 377 TH/MM3 Mean Platelet Volume 7.0 FL Neutrophils (%) (Auto) 87.6 % Lymphocytes (%) (Auto) 6.0 % Monocytes (%) (Auto) 5.9 % Eosinophils (%) (Auto) 0.1 % Basophils (%) (Auto) 0.4 % Neutrophils # (Auto) 15.7 TH/MM3 Lymphocytes # (Auto) 1.1 TH/MM3 Monocytes # (Auto) 1.1 TH/MM3 Eosinophils # (Auto) 0.0 TH/MM3 Basophils # (Auto) 0.1 TH/MM3 CBC Comment DIFF FINAL Differential Comment Urine Color YELLOW Urine Turbidity HAZY Urine pH 6.0 Urine Specific [place] 1.014 Urine Protein 30 mg/dL Urine Glucose (UA) NEG mg/dL Urine Ketones NEG mg/dL Urine Occult Blood LARGE Urine Nitrite NEG Urine Bilirubin NEG Urine Urobilinogen LESS THAN 2.0 MG/DL Urine Leukocyte Esterase MOD Urine RBC /hpf Urine WBC 12 /hpf Urine Squamous Epithelial Cells 1 /hpf Urine Transitional Epithelial Cells <1 /hpf Urine Bacteria OCC /hpf Urine Hyaline Casts 5 /lpf Urine Mucus MANY /lpf Microscopic Urinalysis Comment CULTURE INDICATED Blood Urea Nitrogen 11 MG/DL Creatinine 1.16 MG/DL Random Glucose 123 MG/DL Total Protein 9.1 GM/DL Albumin 4.0 GM/DL Calcium Level 9.7 MG/DL Alkaline Phosphatase 91 U/L Aspartate Amino Transf (AST/SGOT) 29 U/L Alanine Aminotransferase (ALT/SGPT) 33 U/L Total Bilirubin 0.6 MG/DL Sodium Level 138 MEQ/L Potassium Level 3.8 MEQ/L Chloride Level 102 MEQ/L Carbon Dioxide Level 28.0 MEQ/L Anion Gap 8 MEQ/L Estimat Glomerular Filtration Rate 70 ML/MIN Lipase 153 U/L MDM Medical Decision Making Medical Screen Exam Complete: Yes Emergency Medical Condition: Yes Interpretation(s) 1500 p.m. CBC WBC 18.0. 87 neutrophil. CMP within normal limit. UA positive for 12 WBC and occasional bacteria. Differential Diagnosis Differential including gastroenteritis, electrolyte imbalance, dehydration, UTI , pyelonephritis, nephrolithiasis. Narrative Course 37-year-old male with abdominal pain, diarrhea, history of C. difficile in the past. Patient has elevated white count today. Patient just finished Medrol Dosepak for gout. UA is with early UTI. Patient does not look toxic at this point. No evidence of significant colitis. Patient will be put on Bactrim DS. With history of C. difficile I would prophylactically treat patient with that also. Zofran 4 mg IV. Bentyl 20 mg IM. Diagnosis Primary Impression: Abdominal pain Qualified Codes: R10.30 - Lower abdominal pain, unspecified Additional Impressions: Gastroenteritis UTI (urinary tract infection) Qualified Codes: N30.00 - Acute cystitis without hematuria Patient Instructions: General Instructions Additional Instructions: Take medications as directed. Follow-up with personal physician. Return if worse. Med/Other Pt SpecificInfo: Prescription(s) given Scripts Ondansetron Odt (Zofran Odt) 4 Mg Tab 4 MG SL Q6HR Y for Nausea/Vomiting, #10 TAB 0 Refills Prov: Damion Wesley MD 04/14/17 Dicyclomine (Bentyl) 10 Mg Cap 10 MG PO TID Y for Bowel Management, #21 CAP 0 Refills Prov: Damion Wesley MD 04/14/17 Metronidazole (Flagyl) 500 Mg Tab 500 MG PO TID for Infection, #21 TAB 0 Refills Prov: Damion Wesley MD 04/14/17 Sulfamethoxazole-Trimethoprim (Bactrim DS) 800-160 Mg Tab 1 TAB PO BID for Infection, #14 TAB 0 Refills Prov: Damion Wesley MD 04/14/17 Disposition: 01 DISCHARGE HOME Condition: Stable Damion Wesley MD Apr 14, 2017 13:51
[2017-04-14 14:06] LABS: AUTOMATED NEUTROPHIL # 15.7 TH/MM3 (1.8-7.7); BASOPHIL # 0.1 TH/MM3 (0-0.2); BASOPHIL % 0.4 % (0.0-2.0); EOSINOPHIL % 0.1 % (0.0-4.0); HEMATOCRIT 39.1 % (39.0-51.0); HEMOGLOBIN 13.7 GM/DL (13.0-17.0); LYMPHOCYTE # 1.1 TH/MM3 (1.0-4.8); MEAN CELL VOLUME 82.6 FL (80.0-100.0); MEAN CORPUSCULAR HGB CONC 35.1 % (32.0-36.0); MONO % 5.9 % (0.0-8.0); MONOCYTE # 1.1 TH/MM3 (0-0.9); NEUT % 87.6 % (16.0-70.0); PLATELET COUNT 377 TH/MM3 (150-450); RED BLOOD COUNT 4.73 MIL/MM3 (4.50-5.90)
[2017-04-14 14:16] LABS: BACTERIA, URINE OCC /hpf; BILIRUBIN, URINE NEG (NEG); BLOOD, URINE LARGE (NEG); GLUCOSE,URINE NEG (NEG); HYALINE CAST, URINE 5 /lpf (RARE); KETONE, URINE NEG (NEG); MUCUS URINE MANY /lpf (OCC); NITRITE,URINE NEG (NEG); SQUAMOUS EPITHELIAL CELL URINE 1 /hpf (0-5); TRANSITIONAL EPI CELLS, URINE <1 /hpf; URINE COLOR YELLOW (YELLW/STRAW); URINE LEUKOCYTE ESTERASE MOD (NEG)
[2017-04-14 14:27] LABS: ALT (GPT) 33 U/L (12-78); AST (GOT) 29 U/L (15-37); BLOOD UREA NITROGEN 11 MG/DL (7-18); CALCIUM 9.7 MG/DL (8.5-10.1); CHLORIDE 102 MEQ/L (98-107); CREATININE 1.16 MG/DL (0.60-1.30); GLOMERULAR FILTRATION RATE 70 ML/MIN (>89); GLUCOSE,RANDOM 123 MG/DL (74-106); LIPASE 153 U/L (73-393); SODIUM (NA) 138 MEQ/L (136-145)
[2017-04-14 14:30] LABS: ALKALINE PHOSPHATASE 91 U/L (45-117); TOTAL BILIRUBIN ADULT 0.6 MG/DL (0.2-1.0); TOTAL PROTEIN 9.1 GM/DL (6.4-8.2)
[2017-04-14] MEDS ORDERED: ZOFR4TAB3 SL (15:12)
[2017-04-14] MEDS ORDERED: METR-1 PO (15:12)
[2017-04-14] MEDS ORDERED: BACT800T5 PO (15:12)
[2017-04-14] MEDS ORDERED: DICY10 PO (15:12)
[2017-04-14] MEDS ORDERED: ONDANSETRON HCL 4 MG/2 ML VIAL IV PUSH ONE (15:15)
[2017-04-14] MEDS ORDERED: DICYCLOMINE HCL 20 MG/2 ML VIAL IM ONE (15:15)
[2017-04-14] MEDS ORDERED: SULFAMETHOXAZOLE-TRIMETHOPRIM DS 800-160 MG TAB PO ONE (15:15)
== END 2017-04-14 16:06 | disposition home or self-care (01) ==
LOC: NEPD 13:00
DX: N30.00 Acute cystitis without hematuria (principal); M10.9 Gout, unspecified; F17.220 Nicotine dependence, chewing tobacco, uncomplicated; Z86.19 Personal history of other infectious and parasitic diseases
CPT/HCPCS: 80053; 81001; 83690; 85025; 87086; 96372; 96374; 99284; J0500; J2405

== ENCOUNTER 2017-06-05 17:54 | Emergency (ER) | payer SELFPAY ==
[~2017-06-05] VITALS: Ht 182.9 cm; Wt 88.3 kg
[~2017-06-05 17:54] MED LIST changes: +BACT800T5 PO; +DICY10 PO; +METR-1 PO; +ZOFR4TAB3 SL
[2017-06-05 18:03] VITALS: BP 134/91; PULSE 113; RESP 16; TEMP 97.7; O2SAT 100
[2017-06-05 18:33] LABS: BLOOD, URINE LARGE (NEG); GLUCOSE,URINE NEG (NEG); KETONE, URINE NEG (NEG); NITRITE,URINE NEG (NEG); URINE LEUKOCYTE ESTERASE MOD (NEG)
[2017-06-05 18:38] LABS: BILIRUBIN, URINE NEG (NEG); URINE COLOR BROWN (YELLW/STRAW)
[2017-06-05 18:39] LABS: RBC, URINE INNUM /hpf (0-3)
[2017-06-05] MEDS ORDERED: ONDANSETRON HCL 4 MG/2 ML VIAL IV PUSH ONE (20:30)
[2017-06-05] MEDS ORDERED: cefTRIAXone INJ 1,000 MG in SODIUM CHLORIDE 0.9% INJ 100 ML IV ONE (20:30)
[2017-06-05] MEDS ORDERED: MORPHINE SULFATE 4 MG/ML INJ IV PUSH ONE ×2 (20:30→21:45)
--- NOTE | 2017-06-05 20:35 | PD ---
HPI Chief Complaint: Flank/Kidney Pain Time Seen by Provider: 20:25 Travel History International Travel<30 days: No Contact w/Intl Traveler<30days: No Traveled to known affect area: No History of Present Illness HPI The patient is a 37-year-old male who presents to the emergency department for right flank pain. The patient has a history of nephrolithiasis, has bilateral stents that were placed 1 year ago by his urologist, Dr. Villatoro. The patient has not seen Dr. Villatoro in approximately 1 year. He complains of right flank pain over the last 1-2 days with hematuria mild dysuria. Pain is in the right flank and radiates down to the scrotum. He denies any testicular pain. He denies any fever, chills, or sweats. He does have a history of C. difficile in the past secondary to antibiotic usage. Symptoms are moderate. There are no current alleviating or exacerbating factors. The patient states he has tried to follow-up with patient assistance several times in the past, however, every time seen because of telephone number it is busy per his report. PFSH Past Medical History Hx Anticoagulant Therapy: No Arthritis: Yes Asthma: No Autoimmune Disease: No Blood Disorders: No Anxiety: Yes Depression: No Heart Rhythm Problems: No Cancer: No Cardiovascular Problems: No High Cholesterol: No Chest Pain: No Congestive Heart Failure: No COPD: No Cerebrovascular Accident: No Diabetes: No Diminished Hearing: No Endocrine: No Gastrointestinal Disorders: No GERD: No Glaucoma: No Gout: Yes Headaches: No Hepatitis: No Hiatal Hernia: No Hypertension: No Immune Disorder: No Implanted Vascular Access Dvce: Yes Kidney Stones: Yes Musculoskeletal: Yes Neurologic: No Psychiatric: Yes (ANXIETY) Reproductive: No Respiratory: No Immunizations Current: Yes Migraines: No Myocardial Infarction: No Renal Failure: No Seizures: No Sleep Apnea: No Thyroid Disease: No Ulcer: No Past Surgical History Abdominal Surgery: No AICD: No Arteriovenous Shunt: No Body Medical Devices: NEPHROSTOMY LEFT Cardiac Surgery: No Ear Surgery: No Endocrine Surgery: No Eye Surgery: No Genitourinary Surgery: Yes (bilateral stent) Gynecologic Surgery: No Insulin Pump: No Joint Replacement: No Neurologic Surgery: No Oral Surgery: Yes (tonsilectomy in childhood) Pacemaker: No Thoracic Surgery: No Tonsillectomy: Yes (adenoids ) Other Surgery: Yes (lithotripsy) Social History 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" ) Tobacco Use: Yes (CHEWS TOBACCO, 1/4 can daily ) Substance Use: No Allergies-Medications (Allergen,Severity, Reaction): Coded Allergies: ketorolac (Verified Allergy, Severe, SWELLING OF THROAT, 06/05/17) Reported Meds & Prescriptions Reported Meds & Active Scripts Active Zofran Odt (Ondansetron Odt) 4 Mg Tab 4 Mg SL Q6HR PRN Bentyl (Dicyclomine HCl) 10 Mg Cap 10 Mg PO TID PRN Flagyl (Metronidazole) 500 Mg Tab 500 Mg PO TID Bactrim DS (Sulfamethoxazole-Trimethoprim) 800-160 Mg Tab 1 Tab PO BID Walker with Front Wheels (Device) 1 Mis Mis Ea .ROUTE DIRECTED Colchicine 0.6 Mg Cap 0.6 Mg PO DIRECTED PRN 2 pills by mouth upon onset of flare up; followed by 1 more pill by mouth 1 hour later Allopurinol 300 Mg Tab 300 Mg PO DAILY Prednisone (21) 10 mg tab Dose Pack (Prednisone) 10 Mg Pack 10 Mg PO DIRECTED Review of Systems Except as stated in HPI: all other systems reviewed are Neg General / Constitutional: No: Fever HENT: No: Lightheadedness Cardiovascular: No: Chest Pain or Discomfort Respiratory: No: Shortness of Breath Gastrointestinal: Positive: Abdominal Pain, No: Nausea, Vomiting Genitourinary: Positive: Dysuria, Hematuria, Flank Pain Skin: No Rash Physical Exam Narrative GENERAL: Awake, alert, nontoxic-appearing 37-year-old male who appears his stated age and is in no acute respiratory distress. SKIN: Focused skin assessment warm/dry. HEAD: Atraumatic. Normocephalic. EYES: No injection or drainage. ENT: No nasal bleeding or discharge. Mucous membranes pink and moist. NECK: Trachea midline. No JVD. CARDIOVASCULAR: Regular rate and rhythm. No murmur appreciated. RESPIRATORY: No accessory muscle use. Clear to auscultation. Breath sounds equal bilaterally. GASTROINTESTINAL: Abdomen soft, non-tender, nondistended. Mild right flank tenderness. No guarding or rigidity. Back: No CVA tenderness. MUSCULOSKELETAL: No obvious deformities. No clubbing. No cyanosis. No edema. NEUROLOGICAL: Awake and alert. No obvious cranial nerve deficits. Motor grossly within normal limits. Normal speech. PSYCHIATRIC: Appropriate mood and affect; insight and judgment normal. Data Data Last Documented VS Vital Signs Date Time Temp Pulse Resp B/P (MAP) Pulse Ox O2 Delivery O2 Flow Rate FiO2 06/05/17 22:26 16 06/05/17 18:03 97.7 113 134/91 (105) 100 Orders Orders Urinalysis - C+S If Indicated (06/05/17 18:17) Urine Culture (06/05/17 18:27) Complete Blood Count With Diff (06/05/17 20:30) Basic Metabolic Panel (Bmp) (06/05/17 20:30) Morphine Inj (Morphine Inj) (06/05/17 20:30) Ondansetron Inj (Zofran Inj) (06/05/17 20:30) Ceftriaxone Inj (Rocephin Inj) (06/05/17 20:30) Abdomen, Kub Only (06/05/17 ) Morphine Inj (Morphine Inj) (06/05/17 21:45) Ed Discharge Order (06/05/17 22:30) Labs Laboratory Tests Test 06/05/17 18:27 06/05/17 20:36 Urine Collection Type CLEAN CATCH Urine Color BROWN Urine Turbidity CLOUDY Urine pH 5.0 Urine Specific [place] 1.025 Urine Protein 100 mg/dL Urine Glucose (UA) NEG mg/dL Urine Ketones NEG mg/dL Urine Occult Blood LARGE Urine Nitrite NEG Urine Bilirubin NEG Urine Urobilinogen 0.2 MG/DL Urine Leukocyte Esterase MOD Urine RBC INNUM /hpf Urine WBC 25-49 /hpf Urine Squamous Epithelial Cells 6-8 /hpf Urine Yeast (Budding) FEW Microscopic Urinalysis Comment CULTURE INDICATED Urine Collection Time 18:27 White Blood Count 11.3 TH/MM3 Red Blood Count 5.37 MIL/MM3 Hemoglobin 15.1 GM/DL Hematocrit 44.9 % Mean Corpuscular Volume 83.6 FL Mean Corpuscular Hemoglobin 28.2 PG Mean Corpuscular Hemoglobin Concent 33.7 % Red Cell Distribution Width 15.7 % Platelet Count 246 TH/MM3 Mean Platelet Volume 7.5 FL Neutrophils (%) (Auto) 77.2 % Lymphocytes (%) (Auto) 11.2 % Monocytes (%) (Auto) 4.7 % Eosinophils (%) (Auto) 6.5 % Basophils (%) (Auto) 0.4 % Neutrophils # (Auto) 8.8 TH/MM3 Lymphocytes # (Auto) 1.3 TH/MM3 Monocytes # (Auto) 0.5 TH/MM3 Eosinophils # (Auto) 0.7 TH/MM3 Basophils # (Auto) 0.0 TH/MM3 CBC Comment DIFF FINAL Differential Comment Blood Urea Nitrogen 13 MG/DL Creatinine 1.10 MG/DL Random Glucose 104 MG/DL Calcium Level 9.6 MG/DL Sodium Level 138 MEQ/L Potassium Level 4.7 MEQ/L Chloride Level 104 MEQ/L Carbon Dioxide Level 27.3 MEQ/L Anion Gap 7 MEQ/L Estimat Glomerular Filtration Rate 75 ML/MIN MDM Medical Decision Making Medical Screen Exam Complete: Yes Emergency Medical Condition: Yes Medical Record Reviewed: Yes Interpretation(s) Laboratory Tests Test 06/05/17 18:27 06/05/17 20:36 Urine Collection Type CLEAN CATCH Urine Color BROWN Urine Turbidity CLOUDY Urine pH 5.0 Urine Specific [place] 1.025 Urine Protein 100 mg/dL Urine Glucose (UA) NEG mg/dL Urine Ketones NEG mg/dL Urine Occult Blood LARGE Urine Nitrite NEG Urine Bilirubin NEG Urine Urobilinogen 0.2 MG/DL Urine Leukocyte Esterase MOD Urine RBC INNUM /hpf Urine WBC 25-49 /hpf Urine Squamous Epithelial Cells 6-8 /hpf Urine Yeast (Budding) FEW Microscopic Urinalysis Comment CULTURE INDICATED Urine Collection Time 18:27 White Blood Count 11.3 TH/MM3 Red Blood Count 5.37 MIL/MM3 Hemoglobin 15.1 GM/DL Hematocrit 44.9 % Mean Corpuscular Volume 83.6 FL Mean Corpuscular Hemoglobin 28.2 PG Mean Corpuscular Hemoglobin Concent 33.7 % Red Cell Distribution Width 15.7 % Platelet Count 246 TH/MM3 Mean Platelet Volume 7.5 FL Neutrophils (%) (Auto) 77.2 % Lymphocytes (%) (Auto) 11.2 % Monocytes (%) (Auto) 4.7 % Eosinophils (%) (Auto) 6.5 % Basophils (%) (Auto) 0.4 % Neutrophils # (Auto) 8.8 TH/MM3 Lymphocytes # (Auto) 1.3 TH/MM3 Monocytes # (Auto) 0.5 TH/MM3 Eosinophils # (Auto) 0.7 TH/MM3 Basophils # (Auto) 0.0 TH/MM3 CBC Comment DIFF FINAL Differential Comment Blood Urea Nitrogen 13 MG/DL Creatinine 1.10 MG/DL Random Glucose 104 MG/DL Calcium Level 9.6 MG/DL Sodium Level 138 MEQ/L Potassium Level 4.7 MEQ/L Chloride Level 104 MEQ/L Carbon Dioxide Level 27.3 MEQ/L Anion Gap 7 MEQ/L Estimat Glomerular Filtration Rate 75 ML/MIN Differential Diagnosis Differential diagnosis includes nephrolithiasis, ureterolithiasis, pyelonephritis, infected stent, acute kidney injury, dehydration, testicular torsion, epididymitis. Narrative Course IV was established, labs are drawn and sent, the patient was placed on cardiac telemetry monitoring and continuous pulse oximetry monitoring. Patient's UA reveals innumerable RBCs, large blood, and a few WBCs. The patient was administered Rocephin 1 g intravenously, morphine 4 mg intravenously, Zofran 4 mg intravenously with IV fluids. CBC and BMP were sent to lab. The patient's white count is 11.3. Creatinine is within normal limits. KUB was ordered to evaluate stent placement. KUB reveals stents are in place. The patient continued to have mild discomfort, was administered a second dose of pain medications. The patient will be discharged home on Cipro and Ideal for his symptoms, but I will add Flagyl as he does have a history of C. difficile. He is advised to follow-up with his urologist. Return if symptoms worsen or progress. Diagnosis Primary Impression: Complicated UTI (urinary tract infection) Additional Impression: Renal colic on right side Patient Instructions: General Instructions Additional Instructions: Medications as directed. Follow-up with your primary physician and urologist. Return if symptoms worsen or progress. Please provide the patient a copy of his x-ray results and lab results at discharge. Med/Other Pt SpecificInfo: Prescription(s) given Scripts Metronidazole (Flagyl) 500 Mg Tab 500 MG PO BID for Infection for 7 Days, #14 TAB 0 Refills Prov: Brandon Shultz MD 06/05/17 Ciprofloxacin (Cipro) 500 Mg Tab 500 MG PO BID for Infection for 7 Days, #14 TAB 0 Refills Prov: Brandon Shultz MD 06/05/17 Hydrocodone-Acetaminophen (Ideal) 5 Mg-325 Mg Tab 1 TAB PO Q6H Y for PAIN, #12 TAB 0 Refills Prov: Brandon Shultz MD 06/05/17 Disposition: DISCHARGE HOME Condition: Stable Brandon Shultz MD Jun 05, 2017 20:35
[2017-06-05 20:44] LABS: AUTOMATED NEUTROPHIL # 8.8 TH/MM3 (1.8-7.7); BASOPHIL % 0.4 % (0.0-2.0); EOSINOPHIL # 0.7 TH/MM3 (0-0.4); EOSINOPHIL % 6.5 % (0.0-4.0); HEMATOCRIT 44.9 % (39.0-51.0); HEMOGLOBIN 15.1 GM/DL (13.0-17.0); LYMPH % 11.2 % (9.0-44.0); LYMPHOCYTE # 1.3 TH/MM3 (1.0-4.8); MEAN CELL VOLUME 83.6 FL (80.0-100.0); MEAN CORPUSCULAR HEMOGLOBIN 28.2 PG (27.0-34.0); MEAN CORPUSCULAR HGB CONC 33.7 % (32.0-36.0); MEAN PLATELET VOLUME 7.5 FL (7.0-11.0); MONO % 4.7 % (0.0-8.0); MONOCYTE # 0.5 TH/MM3 (0-0.9); NEUT % 77.2 % (16.0-70.0); PLATELET COUNT 246 TH/MM3 (150-450); RED BLOOD COUNT 5.37 MIL/MM3 (4.50-5.90); RED CELL DISTRIBUTION WIDTH 15.7 % (11.6-17.2); WHITE BLOOD COUNT 11.3 TH/MM3 (4.0-11.0)
[2017-06-05 20:56] LABS: BICARBONATE 27.3 MEQ/L (21.0-32.0); CALCIUM 9.6 MG/DL (8.5-10.1)
[2017-06-05 21:00] LABS: CREATININE 1.1 MG/DL (0.60-1.30)
--- NOTE | 2017-06-05 21:35 | RADRPT ---
EXAM DATE/TIME: 06/05/2017 20:38 [facility] COMPARISON: No previous studies available for comparison. INDICATIONS : Right flank pain. MEDICAL HISTORY : Renal calculi. Gout SURGICAL HISTORY : Ureteral stents bilat ENCOUNTER: Initial ACUITY: 1 day PAIN SCORE: 9/10 LOCATION: Right flank FINDINGS: Bilateral ureteral stents now present. Tube fragment overlies left upper quadrant, stable. Bilateral partial staghorn renal calculi again noted. CONCLUSION: 1. Bilateral ureteral stents now present as above. Bilateral renal calculi. Arash Kay MD on June 05, 2017 at 21:31 Board Certified Radiologist. This report was verified electronically.
[2017-06-05 22:26] VITALS: RESP 16
[2017-06-05] MEDS ORDERED: NORC5TAB PO (22:32)
[2017-06-05] MEDS ORDERED: CIPR-9 PO (22:32)
[2017-06-05] MEDS ORDERED: METR-1 PO (22:32)
[2017-06-05 22:51] VITALS: BP 138/83
== END 2017-06-05 22:53 | disposition home or self-care (01) ==
LOC: PHED 17:54
DX: N39.0 Urinary tract infection, site not specified (principal); N23 Unspecified renal colic; R31.9 Hematuria, unspecified; M10.9 Gout, unspecified; Z72.0 Tobacco use; Z87.442 Personal history of urinary calculi; Z87.39 Personal history of other diseases of the musculoskeletal system and connective tissue; Z86.59 Personal history of other mental and behavioral disorders
CPT/HCPCS: 74018; 80048; 81001; 85025; 87086; 96365; 96375; 96376; 99284; J0696; J2270; J2405

== ENCOUNTER 2017-06-22 11:34 | Emergency (ER) | payer SELFPAY ==
[~2017-06-22] VITALS: Ht 182.9 cm; Wt 84.6 kg
[~2017-06-22 11:34] MED LIST changes: +CIPR-9 PO; +NORC5TAB PO
[2017-06-22 11:43] VITALS: BP 113/78; PULSE 99; RESP 16; TEMP 99.1; O2SAT 98
[2017-06-22] MEDS ORDERED: SODIUM CHLOR 0.9% 1000 ML INJ 1,000 ML IV SCH (13:06)
[2017-06-22] MEDS ORDERED: SODIUM CHLORIDE 0.9% FLUSH 10 ML FLUSH IV FLUSH PRN (13:15)
[2017-06-22] MEDS ORDERED: PAXI10TA8 PO (13:16)
[2017-06-22] MEDS ORDERED: BUSP5TAB PO (13:16)
--- NOTE | 2017-06-22 13:16 | PD ---
HPI Chief Complaint: Complaint Time Seen by Provider: 12:58 Travel History International Travel<30 days: No Contact w/Intl Traveler<30days: No Traveled to known affect area: No History of Present Illness HPI Patient is a 37-year-old male presents to emergency room with complaints of bilateral kidney pain. Patient does have multiple bilateral kidney stones and has bilateral stents in place by Dr. Villatoro. Patient reports that for the past 2 weeks, he has had increased mild bilateral flank pain, reports that he has had some burning with urination, reports concerns for possible pyelonephritis. Patient denies any fevers or chills, reports that he has been feeling very anxious. Patient reports that 2 weeks ago, his mother passed from oral cancer, reports that since then, he has been feeling anxious and just wanted to make sure everything was fine. PFSH Past Medical History Hx Anticoagulant Therapy: No Arthritis: Yes Asthma: No Autoimmune Disease: No Blood Disorders: No Anxiety: Yes Depression: No Heart Rhythm Problems: No Cancer: No Cardiovascular Problems: No High Cholesterol: No Chest Pain: No Congestive Heart Failure: No COPD: No Cerebrovascular Accident: No Diabetes: No Diminished Hearing: No Endocrine: No Gastrointestinal Disorders: No GERD: No Glaucoma: No Gout: Yes Headaches: No Hepatitis: No Hiatal Hernia: No Hypertension: No Immune Disorder: No Implanted Vascular Access Dvce: Yes Kidney Stones: Yes Musculoskeletal: Yes Neurologic: No Psychiatric: Yes (ANXIETY) Reproductive: No Respiratory: No Immunizations Current: Yes Migraines: No Myocardial Infarction: No Renal Failure: No Seizures: No Sleep Apnea: No Thyroid Disease: No Ulcer: No Past Surgical History Abdominal Surgery: No AICD: No Arteriovenous Shunt: No Body Medical Devices: NEPHROSTOMY LEFT Cardiac Surgery: No Ear Surgery: No Endocrine Surgery: No Eye Surgery: No Genitourinary Surgery: Yes (bilateral stent) Gynecologic Surgery: No Insulin Pump: No Joint Replacement: No Neurologic Surgery: No Oral Surgery: Yes (tonsilectomy in childhood) Pacemaker: No Thoracic Surgery: No Tonsillectomy: Yes (adenoids ) Other Surgery: Yes (lithotripsy) Social History 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" ) Tobacco Use: Yes (CHEWS TOBACCO, 1/4 can daily ) Substance Use: No Allergies-Medications (Allergen,Severity, Reaction): Coded Allergies: ketorolac (Verified Allergy, Severe, SWELLING OF THROAT, 06/22/17) Reported Meds & Prescriptions Reported Meds & Active Scripts Active Cipro (Ciprofloxacin HCl) 500 Mg Tab 500 Mg PO BID 7 Days Allopurinol 300 Mg Tab 300 Mg PO DAILY Reported Paxil (Paroxetine HCl) 10 Mg Tab 20 Mg PO DAILY Buspirone (Buspirone HCl) 5 Mg Tab Unknown Dose PO BID Review of Systems General / Constitutional: No: Fever Eyes: No: Visual changes HENT: No: Headaches Cardiovascular: No: Chest Pain or Discomfort Respiratory: No: Shortness of Breath Gastrointestinal: Positive: Nausea, No: Vomiting, Diarrhea, Abdominal Pain Genitourinary: Positive: Flank Pain, No: Dysuria Musculoskeletal: No: Pain Skin: No Rash Neurologic: Positive: Weakness Psychiatric: Positive: Anxiety, No: Depression, Suicidal Ideations, Homicidal Ideation Endocrine: No: Polydipsia Hematologic/Lymphatic: No: Easy Bruising Physical Exam Narrative GENERAL: Mild distress SKIN: Focused skin assessment warm/dry. HEAD: Atraumatic. Normocephalic. EYES: Pupils equal and round. No scleral icterus. No injection or drainage. ENT: No nasal bleeding or discharge. Mucous membranes pink and moist. NECK: Trachea midline. No JVD. CARDIOVASCULAR: Regular rate and rhythm. No murmur appreciated. RESPIRATORY: No accessory muscle use. Clear to auscultation. Breath sounds equal bilaterally. GASTROINTESTINAL: Abdomen soft, non-tender, nondistended. Hepatic and splenic margins not palpable. Patient with b/l flank tenderness MUSCULOSKELETAL: No obvious deformities. No clubbing. No cyanosis. No edema. NEUROLOGICAL: Awake and alert. No obvious cranial nerve deficits. Motor grossly within normal limits. Normal speech. PSYCHIATRIC: Anxious mood and affect; insight and judgment normal. Data Data Last Documented VS Vital Signs Date Time Temp Pulse Resp B/P (MAP) Pulse Ox O2 Delivery O2 Flow Rate FiO2 06/22/17 13:25 16 100 Room Air 06/22/17 11:43 99.1 99 113/78 (90) Orders Orders Complete Blood Count With Diff (06/22/17 13:06) Comprehensive Metabolic Panel (06/22/17 13:06) Prothrombin Time / Inr (Pt) (06/22/17 13:06) Act Partial Throm Time (Ptt) (06/22/17 13:06) Urinalysis - C+S If Indicated (06/22/17 13:06) Iv Access Insert/Monitor (06/22/17 13:06) Ecg Monitoring (06/22/17 13:06) Oximetry (06/22/17 13:06) Sodium Chlor 0.9% 1000 Ml Inj (Ns 1000 M (06/22/17 13:06) Sodium Chloride 0.9% Flush (Ns Flush) (06/22/17 13:15) Us Kidney/Renal/Bladder (06/22/17 ) Urine Culture (06/22/17 13:30) Ciprofloxacin 400 Mg Premix (Cipro 400 M (06/22/17 14:15) Labs Laboratory Tests Test 06/22/17 13:30 White Blood Count 14.6 TH/MM3 Red Blood Count 5.14 MIL/MM3 Hemoglobin 14.8 GM/DL Hematocrit 42.9 % Mean Corpuscular Volume 83.5 FL Mean Corpuscular Hemoglobin 28.8 PG Mean Corpuscular Hemoglobin Concent 34.5 % Red Cell Distribution Width 15.0 % Platelet Count 248 TH/MM3 Mean Platelet Volume 7.6 FL Neutrophils (%) (Auto) 79.7 % Lymphocytes (%) (Auto) 11.0 % Monocytes (%) (Auto) 4.8 % Eosinophils (%) (Auto) 4.2 % Basophils (%) (Auto) 0.3 % Neutrophils # (Auto) 11.7 TH/MM3 Lymphocytes # (Auto) 1.6 TH/MM3 Monocytes # (Auto) 0.7 TH/MM3 Eosinophils # (Auto) 0.6 TH/MM3 Basophils # (Auto) 0.0 TH/MM3 CBC Comment DIFF FINAL Differential Comment Prothrombin Time 10.8 SEC Prothromb Time International Ratio 1.1 RATIO Activated Partial Thromboplast Time 27.2 SEC Urine Color YELLOW Urine Turbidity CLEAR Urine pH 6.0 Urine Specific [place] 1.020 Urine Protein NEG mg/dL Urine Glucose (UA) NEG mg/dL Urine Ketones NEG mg/dL Urine Occult Blood LARGE Urine Nitrite NEG Urine Bilirubin NEG Urine Urobilinogen 0.2 MG/DL Urine Leukocyte Esterase MOD Urine RBC 15-19 /hpf Urine WBC 25-49 /hpf Urine Squamous Epithelial Cells 6-8 /hpf Urine Bacteria FEW /hpf Urine Hyaline Casts 3 /lpf Urine Mucus MANY /lpf Microscopic Urinalysis Comment CULTURE INDICATED Blood Urea Nitrogen 15 MG/DL Creatinine 1.30 MG/DL Random Glucose 91 MG/DL Total Protein 8.0 GM/DL Albumin 4.1 GM/DL Calcium Level 9.1 MG/DL Alkaline Phosphatase 79 U/L Aspartate Amino Transf (AST/SGOT) 13 U/L Alanine Aminotransferase (ALT/SGPT) 20 U/L Total Bilirubin 0.8 MG/DL Sodium Level 136 MEQ/L Potassium Level 4.1 MEQ/L Chloride Level 104 MEQ/L Carbon Dioxide Level 26.1 MEQ/L Anion Gap 6 MEQ/L Estimat Glomerular Filtration Rate 62 ML/MIN MDM Medical Decision Making Medical Screen Exam Complete: Yes Emergency Medical Condition: Yes Medical Record Reviewed: Yes Interpretation(s) Vital Signs Date Time Temp Pulse Resp B/P (MAP) Pulse Ox O2 Delivery O2 Flow Rate FiO2 06/22/17 11:43 99.1 99 16 113/78 (90) 98 Differential Diagnosis Pyelonephritis, UTI, hydronephrosis, electrolyte abnormalities, sepsis Narrative Course Patient is a 37-year-old male presents the emergency room with complaints of bilateral flank pain, patient reports that he has b/l stents place as he as multiple stones in b/l kidneys. Patient concerned for possible infection During the course of the patients emergency department visit, the patients history, examination, and differential diagnosis were reviewed with the patient. The patient was placed on a cardiac exercise physiologist with oximetry and frequent blood pressure monitoring. The patient had an IV access obtained and blood work sent for analysis. The patient was initially provided IVF The patients laboratory studies were reviewed and remarkable for: Laboratory Tests Test 06/22/17 13:30 White Blood Count 14.6 TH/MM3 (4.0-11.0) Red Blood Count 5.14 MIL/MM3 (4.50-5.90) Hemoglobin 14.8 GM/DL (13.0-17.0) Hematocrit 42.9 % (39.0-51.0) Mean Corpuscular Volume 83.5 FL (80.0-100.0) Mean Corpuscular Hemoglobin 28.8 PG (27.0-34.0) Mean Corpuscular Hemoglobin Concent 34.5 % (32.0-36.0) Red Cell Distribution Width 15.0 % (11.6-17.2) Platelet Count 248 TH/MM3 (150-450) Mean Platelet Volume 7.6 FL (7.0-11.0) Neutrophils (%) (Auto) 79.7 % (16.0-70.0) Lymphocytes (%) (Auto) 11.0 % (9.0-44.0) Monocytes (%) (Auto) 4.8 % (0.0-8.0) Eosinophils (%) (Auto) 4.2 % (0.0-4.0) Basophils (%) (Auto) 0.3 % (0.0-2.0) Neutrophils # (Auto) 11.7 TH/MM3 (1.8-7.7) Lymphocytes # (Auto) 1.6 TH/MM3 (1.0-4.8) Monocytes # (Auto) 0.7 TH/MM3 (0-0.9) Eosinophils # (Auto) 0.6 TH/MM3 (0-0.4) Basophils # (Auto) 0.0 TH/MM3 (0-0.2) CBC Comment DIFF FINAL Differential Comment Prothrombin Time 10.8 SEC (9.8-11.6) Prothromb Time International Ratio 1.1 RATIO Activated Partial Thromboplast Time 27.2 SEC (24.3-30.1) Urine Color YELLOW (YELLW/STRAW) Urine Turbidity CLEAR (CLEAR) Urine pH 6.0 (5.0-8.5) Urine Specific [place] 1.020 (1.002-1.035) Urine Protein NEG mg/dL (NEG-TRACE) Urine Glucose (UA) NEG mg/dL (NEG) Urine Ketones NEG mg/dL (NEG) Urine Occult Blood LARGE (NEG) Urine Nitrite NEG (NEG) Urine Bilirubin NEG (NEG) Urine Urobilinogen 0.2 MG/DL (LESS THAN Urine Leukocyte Esterase MOD (NEG) Urine RBC 15-19 /hpf (0-3) Urine WBC 25-49 /hpf (0-5) Urine Squamous Epithelial Cells 6-8 /hpf (0-5) Urine Bacteria FEW /hpf (NONE) Urine Hyaline Casts 3 /lpf (RARE) Urine Mucus MANY /lpf (OCC) Microscopic Urinalysis Comment CULTURE INDICATED Blood Urea Nitrogen 15 MG/DL (7-18) Creatinine 1.30 MG/DL (0.60-1.30) Random Glucose 91 MG/DL (74-106) Total Protein 8.0 GM/DL (6.4-8.2) Albumin 4.1 GM/DL (3.4-5.0) Calcium Level 9.1 MG/DL (8.5-10.1) Alkaline Phosphatase 79 U/L (45-117) Aspartate Amino Transf (AST/SGOT) 13 U/L (15-37) Alanine Aminotransferase (ALT/SGPT) 20 U/L (12-78) Total Bilirubin 0.8 MG/DL (0.2-1.0) Sodium Level 136 MEQ/L (136-145) Potassium Level 4.1 MEQ/L (3.5-5.1) Chloride Level 104 MEQ/L (98-107) Carbon Dioxide Level 26.1 MEQ/L (21.0-32.0) Anion Gap 6 MEQ/L (5-15) Estimat Glomerular Filtration Rate 62 ML/MIN (>89) Renal US ordered as patient has had multiple ct's in the past. Radiology studies were reviewed and remarkable for: Last Impressions Renal Ultrasound 06/22/17 0000 Signed Impressions: Service Date/Time: Thursday, June 22, 2017 13:35 - CONCLUSION: 1. Bilateral double-J ureteral stents in place. 2. Multiple bilateral renal calculi without significant hydronephrosis. Perez Haro MD Vital Signs Date Time Temp Pulse Resp B/P (MAP) Pulse Ox O2 Delivery O2 Flow Rate FiO2 06/22/17 13:25 16 100 Room Air 06/22/17 11:43 99.1 99 16 113/78 (90) 98 Labs reviewed, white blood cell count is 14.6, hemoglobin 14.8, hematocrit 42.9 , platelets 248 Chemistry with a BUN of 15, creatinine 1.30 UA positive for large blood, moderate leuk esterase, 15-19 red blood cells, 25- 49 white blood cells, few bacteria, many mucus, culture was sent. Patient has urinary tract infection, previous records show that he enterococcus faecalis grow out of his urine last year. This was susceptible to Cipro. We will given an IV dose of Cipro and discharged him home with oral ciprofloxacin. Patient will follow up with cultures today. He will also follow-up with his urologist, signs and symptoms of when to return to the emergency room was reviewed with the patient in detail. Diagnosis Primary Impression: Pyelonephritis Patient Instructions: General Instructions Additional Instructions: Please provide patient with a copy of their lab work and studies at discharge* * Please follow up with your primary care doctor in 2-3 days Return to the ER if symptoms worsen or progress Return to the ER as needed Please take all antibiotics as prescribed Please follow with all cultures from today Please follow-up with your urologist Med/Other Pt SpecificInfo: Prescription(s) given Scripts Ciprofloxacin (Cipro) 500 Mg Tab 500 MG PO BID for Infection for 7 Days, #14 TAB 0 Refills Prov: Kristen Muller DO 06/22/17 Disposition: 01 DISCHARGE HOME Condition: Stable Kristen Muller DO Jun 22, 2017 13:16
[2017-06-22 13:25] VITALS: RESP 16; O2SAT 100
[2017-06-22 13:37] LABS: AUTOMATED NEUTROPHIL # 11.7 TH/MM3 (1.8-7.7); BASOPHIL % 0.3 % (0.0-2.0); EOSINOPHIL # 0.6 TH/MM3 (0-0.4); EOSINOPHIL % 4.2 % (0.0-4.0); HEMATOCRIT 42.9 % (39.0-51.0); HEMOGLOBIN 14.8 GM/DL (13.0-17.0); LYMPHOCYTE # 1.6 TH/MM3 (1.0-4.8); MEAN CELL VOLUME 83.5 FL (80.0-100.0); MEAN CORPUSCULAR HEMOGLOBIN 28.8 PG (27.0-34.0); MEAN CORPUSCULAR HGB CONC 34.5 % (32.0-36.0); MEAN PLATELET VOLUME 7.6 FL (7.0-11.0); MONO % 4.8 % (0.0-8.0); MONOCYTE # 0.7 TH/MM3 (0-0.9); NEUT % 79.7 % (16.0-70.0); PLATELET COUNT 248 TH/MM3 (150-450); RED BLOOD COUNT 5.14 MIL/MM3 (4.50-5.90); WHITE BLOOD COUNT 14.6 TH/MM3 (4.0-11.0)
[2017-06-22 13:43] LABS: BILIRUBIN, URINE NEG (NEG); BLOOD, URINE LARGE (NEG); GLUCOSE,URINE NEG (NEG); KETONE, URINE NEG (NEG); NITRITE,URINE NEG (NEG); URINE COLOR YELLOW (YELLW/STRAW); URINE LEUKOCYTE ESTERASE MOD (NEG)
[2017-06-22 13:45] VITALS: BP 130/86; PULSE 80; RESP 16; O2SAT 99
[2017-06-22 13:47] LABS: CHLORIDE 104 MEQ/L (98-107); SODIUM (NA) 136 MEQ/L (136-145)
[2017-06-22 13:50] LABS: CALCIUM 9.1 MG/DL (8.5-10.1)
[2017-06-22 13:51] LABS: ALBUMIN 4.1 GM/DL (3.4-5.0); BICARBONATE 26.1 MEQ/L (21.0-32.0); BLOOD UREA NITROGEN 15 MG/DL (7-18); GLUCOSE,RANDOM 91 MG/DL (74-106)
[2017-06-22 13:52] LABS: INTERNATIONAL NORMALIZED RATIO 1.1 RATIO; PROTHROMBIN TIME - PATIENT 10.8 SEC (9.8-11.6)
[2017-06-22 13:53] LABS: HYALINE CAST, URINE 3 /lpf (RARE); MUCUS URINE MANY /lpf (OCC)
[2017-06-22 13:54] LABS: ALT (GPT) 20 U/L (12-78); AST (GOT) 13 U/L (15-37); BACTERIA, URINE FEW /hpf; GLOMERULAR FILTRATION RATE 62 ML/MIN (>89); RBC, URINE 15-19 /hpf (0-3)
[2017-06-22 13:56] LABS: TOTAL BILIRUBIN ADULT 0.8 MG/DL (0.2-1.0)
[2017-06-22 13:57] LABS: ALKALINE PHOSPHATASE 79 U/L (45-117)
[2017-06-22] MEDS ORDERED: CIPROFLOXACIN 400 MG PREMIX 200 ML IV ONE (14:15)
--- NOTE | 2017-06-22 14:26 | RADRPT ---
EXAM DATE/TIME: 06/22/2017 13:35 [place] COMPARISON: CT ABDOMEN & PELVIS W CONTRAST, March 08, 2017, 19:51. ABDOMEN KUB ONLY, June 05, 2017, 20:38. US KIDNEY/RENAL/BLADDER, July 28, 2016, 12:29. INDICATIONS : Bilateral flank pain. MEDICAL HISTORY : Renal calculi. Arthritis. SURGICAL HISTORY : Tonsillectomy. Bilateral ureteral stents. Lithotripsy. ENCOUNTER: Subsequent ACUITY: 1 month PAIN SCORE: 8/10 LOCATION: Bilateral flank MEASUREMENTS: RIGHT KIDNEY: 11.5 x 6.4 x 5.0 cm LEFT KIDNEY: 12.3 x 4.9 x 6.2 cm FINDINGS: RIGHT KIDNEY: Double-J ureteral stent in place. Multiple renal calculi with the largest measuring up to 2 cm in the inferior pole. No hydronephrosis. LEFT KIDNEY: Double-J ureteral stents in place. Multiple renal calculi with the largest upper pole measuring up to 2.3 cm. There are cysts in the inferior pole with the largest measuring is also a 1.1 x 1.3 x 1.7 cm hypoechoic simple appearing cyst in the inferior pole. BLADDER: Mildly distended bladder containing ureteral stents. CONCLUSION: 1. Bilateral double-J ureteral stents in place. 2. Multiple bilateral renal calculi without significant hydronephrosis. Perez Haro MD on June 22, 2017 at 14:18 Board Certified Radiologist. This report was verified electronically.
[2017-06-22] MEDS ORDERED: CIPR-9 PO (14:43)
[2017-06-22 15:58] VITALS: BP 128/83
== END 2017-06-22 15:58 | disposition home or self-care (01) ==
LOC: PHED 11:34
DX: N12 Tubulo-interstitial nephritis, not specified as acute or chronic (principal); N20.0 Calculus of kidney; R10.9 Unspecified abdominal pain; F41.9 Anxiety disorder, unspecified; M19.90 Unspecified osteoarthritis, unspecified site; F17.220 Nicotine dependence, chewing tobacco, uncomplicated; Z96.0 Presence of urogenital implants
CPT/HCPCS: 76775; 80053; 81001; 85025; 85610; 85730; 87086; 96365; 99284; J0744; J7030

== ENCOUNTER 2017-08-12 13:31 | Emergency (ER) | payer SELFPAY ==
[~2017-08-12] VITALS: Ht 182.9 cm; Wt 92.2 kg
[~2017-08-12 13:31] MED LIST changes: -BACT800T5 PO; +BUSP5TAB PO; -COLC1CAP3 PO; -DICY10 PO; -METR-1 PO; -NORC5TAB PO; +PAXI10TA8 PO; -PRED10PA PO; -WALKER WHEELS/F1 MIS; -ZOFR4TAB3 SL
[2017-08-12 13:34] VITALS: BP 155/99; PULSE 123; RESP 16; TEMP 98.1; O2SAT 97
--- NOTE | 2017-08-12 14:09 | PD ---
HPI Chief Complaint: Flank/Kidney Pain Time Seen by Provider: 14:03 Travel History International Travel<30 days: No Contact w/Intl Traveler<30days: No Traveled to known affect area: No History of Present Illness HPI This 37-year-old male is complaining of severe right flank pain. He has a history of bilateral stones. He has had bilateral ureteral stents in place for about a year. He started having some pain last night the pain is gone been progressive and unrelenting. He says it is quite severe right now. Starts in the flank area and radiates to the right lower quadrant. It is somewhat of pain he has had with the stones before. He has also had urinary tract infections. He is not aware of fever. He is allergic to Toradol. There is a stent in the right ureter that was placed in September 2016 because of a stone with hydronephrosis. PFSH Past Medical History Hx Anticoagulant Therapy: No Arthritis: Yes Asthma: No Autoimmune Disease: No Blood Disorders: No Anxiety: Yes Depression: No Heart Rhythm Problems: No Cancer: No Cardiovascular Problems: No High Cholesterol: No Chest Pain: No Congestive Heart Failure: No COPD: No Cerebrovascular Accident: No Diabetes: No Diminished Hearing: No Endocrine: No Gastrointestinal Disorders: No GERD: No Glaucoma: No Gout: Yes Headaches: No Hepatitis: No Hiatal Hernia: No Hypertension: No Immune Disorder: No Implanted Vascular Access Dvce: Yes Kidney Stones: Yes Medical other: Yes (RECOVERING ETOH ABUSER) Musculoskeletal: Yes Neurologic: No Psychiatric: Yes (ANXIETY) Reproductive: No Respiratory: No Immunizations Current: Yes Migraines: No Myocardial Infarction: No Renal Failure: No Seizures: No Sleep Apnea: No Thyroid Disease: No Ulcer: No Influenza Vaccination: Yes ?: Not Past Surgical History Abdominal Surgery: No AICD: No Arteriovenous Shunt: No Body Medical Devices: NEPHROSTOMY LEFT Cardiac Surgery: No Ear Surgery: No Endocrine Surgery: No Eye Surgery: No Genitourinary Surgery: Yes (bilateral stent) Gynecologic Surgery: No Insulin Pump: No Joint Replacement: No Neurologic Surgery: No Oral Surgery: Yes (tonsilectomy in childhood) Pacemaker: No Thoracic Surgery: No Tonsillectomy: Yes (adenoids ) Other Surgery: Yes (lithotripsy) Social History 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" ) Tobacco Use: Yes (CHEWS TOBACCO, 1/4 can daily ) Substance Use: No Allergies-Medications (Allergen,Severity, Reaction): Coded Allergies: ketorolac (Verified Allergy, Severe, SWELLING OF THROAT, 08/12/17) Reported Meds & Prescriptions Reported Meds & Active Scripts Active No Active Prescriptions or Reported Medications Review of Systems Except as stated in HPI: all other systems reviewed are Neg General / Constitutional: No: Fever, Chills Eyes: No: Diploplia, Blurred Vision HENT: No: Headaches, Vertigo Cardiovascular: No: Chest Pain or Discomfort, Palpitations Respiratory: No: Cough, Shortness of Breath Gastrointestinal: Positive: Nausea Genitourinary: Positive: Flank Pain Musculoskeletal: No: Myalgias, Arthralgias Psychiatric: No: Anxiety Hematologic/Lymphatic: No: Easy Bruising Physical Exam Narrative GENERAL: Well-developed male SKIN: Focused skin assessment warm/dry. HEAD: Atraumatic. Normocephalic. EYES: Pupils equal and round. No scleral icterus. No injection or drainage. ENT: No nasal bleeding or discharge. Mucous membranes pink and moist. NECK: Trachea midline. No JVD. CARDIOVASCULAR: Regular rate and rhythm. No murmur appreciated. RESPIRATORY: No accessory muscle use. Clear to auscultation. Breath sounds equal bilaterally. GASTROINTESTINAL: Abdomen soft, non-tender, nondistended. Hepatic and splenic margins not palpable. There is some right CVA tenderness MUSCULOSKELETAL: No obvious deformities. No clubbing. No cyanosis. No edema. NEUROLOGICAL: Awake and alert. No obvious cranial nerve deficits. Motor grossly within normal limits. Normal speech. PSYCHIATRIC: Appropriate mood and affect; insight and judgment normal. Data Data Last Documented VS Vital Signs Date Time Temp Pulse Resp B/P (MAP) Pulse Ox O2 Delivery O2 Flow Rate FiO2 08/12/17 15:44 106 16 153/94 (113) 97 Room Air 08/12/17 13:34 98.1 Orders Orders Basic Metabolic Panel (Bmp) (08/12/17 14:03) Complete Blood Count With Diff (08/12/17 14:03) Urinalysis - C+S If Indicated (08/12/17 14:03) Ct Abd/Pel W/O Iv Contrast (08/12/17 14:03) Ondansetron Inj (Zofran Inj) (08/12/17 14:15) Sodium Chloride 0.9% Flush (Ns Flush) (08/12/17 14:15) Sodium Chlor 0.9% 1000 Ml Inj (Ns 1000 M (08/12/17 14:15) Hydromorphone Pf Inj (Dilaudid Pf Inj) (08/12/17 14:15) Labs Laboratory Tests Test 08/12/17 13:50 08/12/17 14:20 White Blood Count 9.8 TH/MM3 Red Blood Count 4.77 MIL/MM3 Hemoglobin 14.1 GM/DL Hematocrit 41.2 % Mean Corpuscular Volume 86.4 FL Mean Corpuscular Hemoglobin 29.5 PG Mean Corpuscular Hemoglobin Concent 34.2 % Red Cell Distribution Width 15.5 % Platelet Count 176 TH/MM3 Mean Platelet Volume 6.6 FL Neutrophils (%) (Auto) 60.6 % Lymphocytes (%) (Auto) 21.3 % Monocytes (%) (Auto) 7.0 % Eosinophils (%) (Auto) 10.5 % Basophils (%) (Auto) 0.6 % Neutrophils # (Auto) 5.9 TH/MM3 Lymphocytes # (Auto) 2.1 TH/MM3 Monocytes # (Auto) 0.7 TH/MM3 Eosinophils # (Auto) 1.0 TH/MM3 Basophils # (Auto) 0.1 TH/MM3 CBC Comment DIFF FINAL Differential Comment Blood Urea Nitrogen 13 MG/DL Creatinine 1.20 MG/DL Random Glucose 109 MG/DL Calcium Level 9.0 MG/DL Sodium Level 139 MEQ/L Potassium Level 3.7 MEQ/L Chloride Level 105 MEQ/L Carbon Dioxide Level 24.0 MEQ/L Anion Gap 10 MEQ/L Estimat Glomerular Filtration Rate 68 ML/MIN Urine Collection Type CLEAN CATCH Urine Color YELLOW Urine Turbidity CLEAR Urine pH 6.0 Urine Specific [place] LESS/EQUAL 1.005 Urine Protein TRACE mg/dL Urine Glucose (UA) NEG mg/dL Urine Ketones NEG mg/dL Urine Occult Blood SMALL Urine Nitrite NEG Urine Bilirubin NEG Urine Urobilinogen 0.2 MG/DL Urine Leukocyte Esterase SMALL Urine RBC 0-3 /hpf Urine WBC 3-5 /hpf Urine Squamous Epithelial Cells 0-5 /hpf Microscopic Urinalysis Comment CULT NOT INDICATED MDM Medical Decision Making Medical Screen Exam Complete: Yes Emergency Medical Condition: Yes Medical Record Reviewed: Yes Differential Diagnosis Differential includes pyelonephritis, UTI, renal colic, dislodged stent, hydronephrosis Narrative Course Urine does not show evidence of infection. His CT scan does not show evidence of hydronephrosis and is stable compared to previous scans. Patient will be released with recommendations to follow-up at the [facility] for urology referral. Diagnosis Primary Impression: Right flank pain Scripts Hydrocodone-Acetaminophen ([place]) 10-325 Mg Tab 1 TAB PO Q4H Y for PAIN, #12 TAB 0 Refills Prov: Louis Figueroa MD 08/12/17 Disposition: 01 DISCHARGE HOME Condition: Stable Louis Figueroa MD August 12, 2017 14:09
[2017-08-12] MEDS ORDERED: SODIUM CHLOR 0.9% 1000 ML INJ 1,000 ML IV ONE (14:15)
[2017-08-12] MEDS ORDERED: HYDROmorphone HCL PF 2 MG/ML VIAL IV PUSH ONE ×2 (14:15→16:15)
[2017-08-12] MEDS ORDERED: ONDANSETRON HCL 4 MG/2 ML VIAL IVP ONE (14:15)
[2017-08-12] MEDS: SODIUM CHLORIDE 0.9% FLUSH 10 ML FLUSH IVF PRN ×2 (14:20→16:15)
[2017-08-12 14:23] LABS: AUTOMATED NEUTROPHIL # 5.9 TH/MM3 (1.8-7.7); BASOPHIL # 0.1 TH/MM3 (0-0.2); BASOPHIL % 0.6 % (0.0-2.0); EOSINOPHIL % 10.5 % (0.0-4.0); HEMATOCRIT 41.2 % (39.0-51.0); HEMOGLOBIN 14.1 GM/DL (13.0-17.0); LYMPH % 21.3 % (9.0-44.0); LYMPHOCYTE # 2.1 TH/MM3 (1.0-4.8); MEAN CELL VOLUME 86.4 FL (80.0-100.0); MEAN CORPUSCULAR HEMOGLOBIN 29.5 PG (27.0-34.0); MEAN CORPUSCULAR HGB CONC 34.2 % (32.0-36.0); MEAN PLATELET VOLUME 6.6 FL (7.0-11.0); MONOCYTE # 0.7 TH/MM3 (0-0.9); NEUT % 60.6 % (16.0-70.0); PLATELET COUNT 176 TH/MM3 (150-450); RED BLOOD COUNT 4.77 MIL/MM3 (4.50-5.90); RED CELL DISTRIBUTION WIDTH 15.5 % (11.6-17.2); WHITE BLOOD COUNT 9.8 TH/MM3 (4.0-11.0)
[2017-08-12 14:41] LABS: BILIRUBIN, URINE NEG (NEG); BLOOD, URINE SMALL (NEG); GLUCOSE,URINE NEG (NEG); KETONE, URINE NEG (NEG); NITRITE,URINE NEG (NEG); URINE COLOR YELLOW (YELLW/STRAW); URINE LEUKOCYTE ESTERASE SMALL (NEG)
[2017-08-12 14:42] LABS: CREATININE 1.2 MG/DL (0.60-1.30)
[2017-08-12 14:48] LABS: RBC, URINE 0-3 /hpf (0-3); SQUAMOUS EPITHELIAL CELL URINE 0-5 /hpf (0-5)
[2017-08-12 14:54] VITALS: BP 151/90; PULSE 102; RESP 16; O2SAT 96
--- NOTE | 2017-08-12 15:33 | RADRPT ---
EXAM DATE: 08/12/2017 3:19 PM EDT AGE/SEX: 37 years / Male INDICATIONS: Right flank pain. CLINICAL DATA: This is the patient's initial encounter. Patient reports that signs and symptoms have been present for 1 day and indicates a pain score of 7/10. MEDICAL/SURGICAL HISTORY: Renal calculi. . Ureteral stents, bilateral. RADIATION DOSE: 11.01 CTDI (mGy) COMPARISON: [facility], CT ABDOMEN & PELVIS W/O CONTRAST, 02/27/2017. . TECHNIQUE: Multiple contiguous axial images were obtained through the abdomen. Images were obtained using multiple row detector helical technique. Using dose reduction techniques, radiation dose was ke pt as low as reasonably achievable to obtain optimal diagnostic quality images. FINDINGS: Lower Lungs: The visualized lower lungs are clear. Liver: The liver has a homogeneous density without space-occupying lesion. There is no dilation of th e biliary tree. Spleen: Homogeneous density without enlargement. Pancreas: Unremarkable without mass or calcification. Kidneys: The kidneys remain stable in appearance with multiple bilateral staghorn calculi again note d without significant change. Bilateral double pigtail ureteral stent catheters remain in place and t here is a left ureteral calculus adjacent to the proximal stent catheter without change. This is best seen on axial image #73. Kidneys remain normal in size and shape with mild cortical scarring. There is no acute hydrocephalus. Adrenal Glands: Unremarkable. Aorta: The aorta and proximal iliac vessels are grossly unremarkable without aneurysmal dilation. Bowel/Mesentery: The bowel loops are grossly unremarkable. The cecum and sigmoid colon have a normal configuration. Abdominal Wall: Intact. Retroperitoneum: No evidence of adenopathy in the retrocrural, para-aortic, or deep pelvic regions. Bladder: Contours are smooth. The bilateral stent catheters remain in place. Reproductive Organs: No abnormal masses or calcifications seen. Inguinal: The inguinal region is unremarkable without evidence of adenopathy. Bony Structures: Unremarkable. CONCLUSION: 1. Stable appearance of the kidneys with bilateral staghorn calculi and ureteral stent catheters in place. There is no acute change. 2. The previously noted left ureteral calculus is unchanged adjacent to the proximal stent catheter. Electronically signed by: Christophe Ventura MD 08/12/2017 3:32 PM EDT
[2017-08-12 15:44] VITALS: BP 153/94; PULSE 106; RESP 16; O2SAT 97
[2017-08-12] MEDS ORDERED: HYDR-3366 PO (16:04)
[2017-08-12 16:40] VITALS: RESP 16
== END 2017-08-12 20:32 | disposition home or self-care (01) ==
LOC: PHED 13:31
DX: R10.9 Unspecified abdominal pain (principal); R11.0 Nausea; M19.90 Unspecified osteoarthritis, unspecified site; F41.9 Anxiety disorder, unspecified; M10.9 Gout, unspecified; F17.220 Nicotine dependence, chewing tobacco, uncomplicated; Z87.442 Personal history of urinary calculi; Z88.8 Allergy status to other drugs, medicaments and biological substances
CPT/HCPCS: 74176; 80048; 81001; 85025; 96361; 96374; 96375; 96376; 99284; J1170; J2405; J7030